=== PATIENT | male | born 1935 | race Caucasian/White ===

== ENCOUNTER 2017-01-18 15:34 | Emergency (ER) | payer OTHER ==
[~2017-01-18] VITALS: Ht 175.3 cm; Wt 130.0 kg
[~2017-01-18 15:34] MED LIST: AMLO2.5T PO; ASCO10003 PO; ASPEC325 PO; ATOR-22 PO; CLB/200 PO; CZR50 PO; FRS/40 PO; HYDR-4380 PO; INSDGI SC; LIRA18IN INJ; METF1TAB53 PO; POTA10CA28 PO
[2017-01-18 15:37] VITALS: TEMP 36.3
[2017-01-18 16:09] VITALS: O2SAT 94; Ht 175.3 cm; Wt 130.0 kg
--- NOTE | 2017-01-18 16:21 | DIAGNOSTIC IMAGING REPORT ---
SINGLE VIEW CHEST CLINICAL HISTORY: Generalized weakness. FINDINGS: An AP, portable, upright chest radiograph is compared to study dated 08/17/2016. The examination is degraded by portable technique, large body habitus, and patient rotation. The heart is enlarged and there is atherosclerotic calcification of the thoracic aorta. The pulmonary vasculature is noncongested. There is mild elevation of right hemidiaphragm. No airspace consolidation is identified typical for pneumonia and there is no pleural effusion. No pneumothorax is seen. The skeletal structures are osteopenic. Degenerative change is noted in the thoracic spine and shoulders. IMPRESSION: Cardiomegaly with no acute cardiopulmonary abnormality. Electronically signed by: Rock Rose M.D. 01/18/2017 4:19 PM Dictated Date/Time: 01/18/2017 4:18 PM
[2017-01-18] MEDS ORDERED: FRS/40 PO (16:24)
[2017-01-18] MEDS ORDERED: CEPH500C2 PO (16:24)
[2017-01-18] MEDS ORDERED: ASCO500T16 PO (16:24)
[2017-01-18] MEDS ORDERED: LOSA100T65 PO (16:24)
[2017-01-18] MEDS ORDERED: HYDR-3419 PO (16:24)
[2017-01-18] MEDS ORDERED: INSDGI SC (16:24)
[2017-01-18] MEDS ORDERED: METF500T PO (16:24)
[2017-01-18 16:58] LABS: PARTIAL THROMBOPLASTIN RATIO 1.1; PROTHROMBIN TIME (PATIENT) 10.9 SECONDS (9.0-12.0)
[2017-01-18 17:04] LABS: BUN/CREATININE RATIO 19.6 (10-20); CALCIUM 9.1 mg/dl (8.5-10.1); MAGNESIUM 2.2 mg/dl (1.8-2.4); POTASSIUM 4.2 mmol/L (3.5-5.1)
[2017-01-18 17:11] LABS: BASO % 0.2 %; BASO ABS # 0.01 K/uL (0-0.2); COMPLETE YES; EOS % 3.3 %; IG% 0.2 %; LYMPH % 36.6 %; LYMPH ABS # 2.08 K/uL (1.2-3.4); MEAN CELL VOLUME 82.5 fL (80-100); MEAN CORPUSCULAR HEMOGLOBIN 29.2 pg (25-34); MEAN CORPUSCULAR HGB CONC 35.4 g/dl (32-36); MEAN PLATELET VOLUME 11.2 fL (7.4-10.4); NEUT % 50.7 %; PLATELET COUNT 93 K/uL (130-400); PLT ESTIMATE DECREASED; RED BLOOD COUNT 4.24 M/uL (4.7-6.1); WHITE BLOOD COUNT 5.68 K/uL (4.8-10.8)
[2017-01-18 17:15] LABS: THYROID STIMULATING HORMONE 7.13 uIu/ml (0.300-4.500)
--- NOTE | 2017-01-18 17:17 | DIAGNOSTIC IMAGING REPORT ---
ULTRASOUND BILATERAL LOWER EXTREMITY VENOUS CLINICAL HISTORY: Lower extremity swelling and erythema. COMPARISON STUDY: No priors. TECHNIQUE: Real-time, grayscale, and color Doppler sonography of the deep veins of the right and left lower extremity was performed from the inguinal crease to the calf. Compression and augmentation were utilized. FINDINGS: There is no sonographic evidence of deep venous thrombosis identified in the right or left lower extremity. The common femoral, superficial femoral, and popliteal veins are patent and normally compressible bilaterally. The greater saphenous vein and the profunda femoris vein at the junction with the common femoral vein are clear in both legs. The visualized calf veins are patent bilaterally. IMPRESSION: There is no sonographic evidence of deep venous thrombosis identified in the right or left lower extremity. Electronically signed by: Rock Rose M.D. 01/18/2017 5:15 PM Dictated Date/Time: 01/18/2017 5:15 PM
[2017-01-18] MEDS ORDERED: CEFTRIAXONE SOD INJ 1 GM ADDVIAL IV STA (17:49)
[2017-01-18 18:38] VITALS: BP 155/80; PULSE 77; O2SAT 98
--- NOTE | 2017-01-18 20:16 | EMERGENCY ROOM VISIT NOTE ---
History Report prepared by Veronica: Ricardo Canseco Under the Supervision of: Dr. Akhil Reed M.D. First contact with patient: 15:45 Chief Complaint: SWELLING TO EXTREMITY Stated Complaint: FEET ARE SWOLLEN AND BRIGHT RED History of Present Illness The patient is a 81 year old male who presents to the Emergency Room with complaints of recurrent cellulitis of the lower extremities for the past several weeks. The patient was started on antibiotics when he first saw his PCP , which significantly cleared up the rash. The rash recurred and the patient saw his doctor again yesterday when he was started on Keflex. The patient decided to come to the ED because he is not satisfied that the rash is still present. He is also worried about his feet in general as he is a diabetic. The patient does follow up with a insurance agency manager. He notes that his lower extremities have been swollen since surgery in August. The patient does take Lasix. The patient follow up with Dr. Akhil Nevarez in Family Medicine. The patient is not on blood thinners or daily aspirin. Patient denies LOC, headache, fevers, chills, diaphoresis, visual changes, neck pain, chest pain, breathing difficulties, nausea, vomiting, abdominal pain, back pain, melena, hematochezia, urinary symptoms, numbness, weakness, lymphadenopathy, or other complaints. Source of History: patient Onset: several weeks Position: leg (bilateral, lower) Quality: other (cellulitis) Timing: other (recurrent) Modifying Factors (Relieving): other (antibiotics) Review of Systems See HPI for pertinent positives and negatives. A total of ten systems were reviewed and were otherwise negative. Past Medical & Surgical Medical Problems: (1) Atrial flutter (2) DM type 2 (diabetes mellitus, type 2) (3) Dyslipidemia (4) HTN (hypertension) (5) JUVE (obstructive sleep apnea) Surgical Problems: (1) H/O repair of left rotator cuff (2) H/O repair of right rotator cuff (3) History of bilateral knee arthroplasty (4) History of carpal tunnel surgery of left wrist (5) History of carpal tunnel surgery of right wrist Family History Patient reports no known family medical history. Social History Smoking Status: Never Smoker Alcohol Use: occasionally Occupation Status: retired Current/Historical Medications Scheduled Amlodipine (Norvasc), 2.5 MG PO QPM Ascorbic Acid (Ascorbic Acid), 1,000 MG PO DAILY Atorvastatin (Lipitor), 20 MG PO QAM Celecoxib (CeleBREX), 200 MG PO QAM Cephalexin Monohydrate (Keflex), 500 MG PO QID Furosemide (Lasix), 40 MG PO QAM Furosemide (Lasix), 20 MG PO AFTERNOON Insulin Glargine (Lantus), 70 UNITS SC AMPM Liraglutide (Victoza), 1.2 MG INJ QPM Losartan Potassium (Cozaar), 100 MG PO QPM Metformin Hcl (Glucophage), 500 MG PO BID Potassium Chloride (Micro-K Ext Rel), 10 MEQ PO BID Scheduled PRN Hydrocodon/Acetaminophen 5MG/300MG (Vicodin (5MG/300MG)), 1 TAB PO Q6H PRN for Moderate Pain Allergies Coded Allergies: Penicillins (Verified Allergy, Unknown, RASH AND WELTS, 08/30/16) Physical Exam Vital Signs Date Time Temp Pulse Resp B/P Pulse Ox O2 Delivery O2 Flow Rate FiO2 01/18/17 18:38 77 18 155/80 98 01/18/17 17:27 78 14 180/93 98 Room Air 01/18/17 16:17 84 01/18/17 16:09 94 Room Air 01/18/17 15:37 36.3 86 20 123/74 95 Room Air Physical Exam GENERAL: Awake, alert, well-appearing, in no distress HENT: Normocephalic, atraumatic. Oropharynx unremarkable. EYES: Normal conjunctiva. Sclera non-icteric. NECK: Supple. No nuchal rigidity. FROM. No JVD. RESPIRATORY: Clear to auscultation. CARDIAC: Regular rate, normal rhythm. Extremities warm and well perfused. Pulses equal. ABDOMEN: Soft, non-distended. No tenderness to palpation. No rebound or guarding. No masses. RECTAL: Deferred. MUSCULOSKELETAL: Chest examination reveals no tenderness. The back is symmetrical on inspection without obvious abnormality. There is no CVA tenderness to palpation. No joint edema. LOWER EXTREMITIES: Erythema and tenderness with petechia on top of both feet. Erythematous rash over the lateral aspect of the right leg, circumferential over the left leg. 2+ edema bilaterally. NEURO: Normal sensorium. No sensory or motor deficits noted. SKIN: No rash or jaundice noted. Medical Decision & Procedures ER Provider Diagnostic Interpretation: X ray results as stated below per my interpretation and radiologist interpretation. Other radiology results as stated below per my review and radiologist interpretation SINGLE VIEW CHEST CLINICAL HISTORY: Generalized weakness. FINDINGS: An AP, portable, upright chest radiograph is compared to study dated 08/17/2016. The examination is degraded by portable technique, large body habitus, and patient rotation. The heart is enlarged and there is atherosclerotic calcification of the thoracic aorta. The pulmonary vasculature is noncongested. There is mild elevation of right hemidiaphragm. No airspace consolidation is identified typical for pneumonia and there is no pleural effusion. No pneumothorax is seen. The skeletal structures are osteopenic. Degenerative change is noted in the thoracic spine and shoulders. IMPRESSION: Cardiomegaly with no acute cardiopulmonary abnormality. Electronically signed by: Rock Rose M.D. 01/18/2017 4:19 PM Dictated Date/Time: 01/18/2017 4:18 PM ULTRASOUND BILATERAL LOWER EXTREMITY VENOUS CLINICAL HISTORY: Lower extremity swelling and erythema. COMPARISON STUDY: No priors. TECHNIQUE: Real-time, grayscale, and color Doppler sonography of the deep veins of the right and left lower extremity was performed from the inguinal crease to the calf. Compression and augmentation were utilized. FINDINGS: There is no sonographic evidence of deep venous thrombosis identified in the right or left lower extremity. The common femoral, superficial femoral, and popliteal veins are patent and normally compressible bilaterally. The greater saphenous vein and the profunda femoris vein at the junction with the common femoral vein are clear in both legs. The visualized calf veins are patent bilaterally. IMPRESSION: There is no sonographic evidence of deep venous thrombosis identified in the right or left lower extremity. Electronically signed by: Rock Rose M.D. 01/18/2017 5:15 PM Dictated Date/Time: 01/18/2017 5:15 PM Laboratory Results 01/18/17 16:30 Red Blood Count 4.24, Mean Corpuscular Volume 82.5, Mean Corpuscular Hemoglobin 29.2, Mean Corpuscular Hemoglobin Concent 35.4, Mean Platelet Volume 11.2, Neutrophils (%) (Auto) 50.7, Lymphocytes (%) (Auto) 36.6, Monocytes (%) (Auto) 9.0, Eosinophils (%) (Auto) 3.3, Basophils (%) (Auto) 0.2, Neutrophils # (Auto) 2.88, Lymphocytes # (Auto) 2.08, Monocytes # (Auto) 0.51, Eosinophils # (Auto) 0.19, Basophils # (Auto) 0.01 01/18/17 16:30 Test 01/18/17 16:30 White Blood Count 5.68 K/uL (4.8-10.8) Red Blood Count 4.24 M/uL (4.7-6.1) Hemoglobin 12.4 g/dL (14.0-18.0) Hematocrit 35.0 % (42-52) Mean Corpuscular Volume 82.5 fL (80-100) Mean Corpuscular Hemoglobin 29.2 pg (25-34) Mean Corpuscular Hemoglobin Concent 35.4 g/dl (32-36) Platelet Count 93 K/uL (130-400) Mean Platelet Volume 11.2 fL (7.4-10.4) Neutrophils (%) (Auto) 50.7 % Lymphocytes (%) (Auto) 36.6 % Monocytes (%) (Auto) 9.0 % Eosinophils (%) (Auto) 3.3 % Basophils (%) (Auto) 0.2 % Neutrophils # (Auto) 2.88 K/uL (1.4-6.5) Lymphocytes # (Auto) 2.08 K/uL (1.2-3.4) Monocytes # (Auto) 0.51 K/uL (0.11-0.59) Eosinophils # (Auto) 0.19 K/uL (0-0.5) Basophils # (Auto) 0.01 K/uL (0-0.2) RDW Standard Deviation 44.9 fL (36.4-46.3) RDW Coefficient of Variation 14.8 % (11.5-14.5) Immature Granulocyte % (Auto) 0.2 % Immature Granulocyte # (Auto) 0.01 K/uL (0.00-0.02) Platelet Estimate DECREASED Red Blood Cell Morphology Unremarkable Prothrombin Time 10.9 SECONDS (9.0-12.0) Prothromb Time International Ratio 1.0 (0.9-1.1) Activated Partial Thromboplast Time 28.3 SECONDS (21.0-31.0) Partial Thromboplastin Ratio 1.1 Anion Gap 8.0 mmol/L (3-11) Est Creatinine Clear Calc Drug Dose 80.0 ml/min Estimated GFR () 82.6 Estimated GFR (Non- 71.3 BUN/Creatinine Ratio 19.6 (10-20) Calcium Level 9.1 mg/dl (8.5-10.1) Magnesium Level 2.2 mg/dl (1.8-2.4) Total Bilirubin 0.7 mg/dl (0.2-1) Direct Bilirubin 0.2 mg/dl (0-0.2) Aspartate Amino Transf (AST/SGOT) 27 U/L (15-37) Alanine Aminotransferase (ALT/SGPT) 33 U/L (12-78) Alkaline Phosphatase 95 U/L (45-117) Pro-B-Type Natriuretic Peptide 75 pg/ml (0-1800) Total Protein 7.0 gm/dl (6.4-8.2) Albumin 3.4 gm/dl (3.4-5.0) Lipase 288 U/L (73-393) Thyroid Stimulating Hormone (TSH) 7.130 uIu/ml (0.300-4.500) Laboratory results reviewed by me Medications Administered Medications (Trade) Dose Ordered Sig/Kirsten Route Start Time Stop Time Status Last Admin Dose Admin Ceftriaxone Sodium (Rocephin Inj) 1 gm NOW STAT IV 01/18/17 17:49 01/18/17 17:50 DC 01/18/17 17:58 1 GM ECG Indication: other (edema) Rate (beats per minute): 78 Rhythm: sinus rhythm Findings: 1st degree AV block, no acute ischemic change, no ectopy ED Course 1550: The patient was evaluated in room A9b. A complete history and physical exam was performed. 173: The patient is doing well. He will get Rocephin. 1749: Rocephin 1 gm IV. 1820: Reassessed the patient. Discussed the findings with him. He verbalized understanding of the treatment plan. The patient is ready for discharge. Medical Decision Prior records reviewed and summarized above. Triage Nursing notes reviewed and agree them. Additional history obtained from the . The patient's history was concerning for swelling and pain in the legs. Differential diagnosis: Etiologies such as cellulitis, DVT, joint effusion, infection, trauma, muscular , lymphedema, idiopathic, CHF, as well as others were entertained.. Physical examination: The physical examination as above. Neurovascularly intact. ER treatment provided: IV Rocephin On reassessment the patient felt better. Diagnostics interpreted by me: The labs revealed an unremarkable CBC and chemistry panel except the patient had slight thrombocytopenia. LFTs were unremarkable. Albumin was normal. BNP was negative. Renal function normal. Imaging studies: Chest x-ray and ultrasound as above The patient notes the redness of the lower legs has improved since initiation of the Keflex but it is still present. There is some petechiae appearance to it but there is definite some erythema as well. He may be experiencing an improving cellulitis. He has no evidence of DVT. No evidence of heart failure or hypoalbuminemia. The patient was given a dose of IV Rocephin. He feels comfortable with continuing the Keflex and following up tomorrow with the primary office. The patient was given strict instructions to return if symptoms worsen or other problems develop. By the evaluation outlined above emergent etiologies such as septic joint, trauma, infection, CHF, as well as others were deemed relatively unlikely. The patient and were informed about the findings as listed above. All questions were answered and they were very pleased with the treatment. Return instructions were outlined and the patient was discharged in stable condition. Outpatient prescription management: Continue Keflex Referral: The patient was referred back to his primary care physician for follow-up this week for a recheck of the current condition. I did instruct him to have a repeat CBC performed. The chart was completed utilizing [employer] voice recognition software. Grammatical errors, random word insertions, pronoun errors, and incomplete sentences are an occasional consequence of this system due to software limitations, ambient noise, and hardware issues. Any formal questions or concerns about the content, text, or information contained within the body of this dictation should be directly addressed to the physician for clarification. Impression Primary Impression: Cellulitis Additional Impression: Thrombocytopenia Scribe Attestation The scribe's documentation has been prepared under my direction and personally reviewed by me in its entirety. I confirm that the note above accurately reflects all work, treatment, procedures, and medical decision making performed by me. Departure Information Dispostion Home / Self-Care Referrals Akhil Nevarez III, M.D. (PCP) Forms HOME CARE DOCUMENTATION FORM, IMPORTANT VISIT INFORMATION, WORK / SCHOOL INSTRUCTIONS Patient Instructions [facility] Additional Instructions Continue the Keflex as prescribed. Acetaminophen(Tylenol) may be used for fever or pain. Use 1000mg every six hours as needed. Avoid using more than 4000mg in a 24 hour period. Warm compresses to the affected area 4 times daily for 15-20 minutes. Elevate the legs to help with swelling. Rest and drink plenty of fluids. Continue current medications. Return to the ER for severe pain, persistent fevers, spreading redness, or any worsening of your condition. Follow up with your primary physician tomorrow for a recheck of the current condition. Problem Qualifiers
[2017-03-08] MEDS ORDERED: TRMO115 TOP (08:51)
[2017-03-08] MEDS ORDERED: VNTHFA/IN INH (08:58)
[2017-03-30] MEDS ORDERED: OXYC-57 PO (21:29)
[2017-03-30] MEDS ORDERED: FRRG PO (21:29)
[2017-03-30] MEDS ORDERED: ASPEC81 PO (21:29)
== END 2017-01-18 18:39 | disposition home or self-care (01) ==
LOC: C.EDB 15:36 → C.EDA 18:39
DX: L03.115 Cellulitis of right lower limb (principal); L03.116 Cellulitis of left lower limb; D69.6 Thrombocytopenia, unspecified; E11.9 Type 2 diabetes mellitus without complications; I48.92 Unspecified atrial flutter; E78.5 Hyperlipidemia, unspecified; I10 Essential (primary) hypertension; G47.33 Obstructive sleep apnea (adult) (pediatric); Z79.4 Long term (current) use of insulin

== ENCOUNTER → 2017-03-16 | Outpatient (CLI) | payer OTHER ==
[~2017-03-16] MED LIST changes: -ASCO10003 PO; +ASCO500T16 PO; -ASPEC325 PO; +ASPEC81 PO; +ASPI81TA28 PO; +CIPR-255 PO; -CZR50 PO; +FERR325T18 PO; +FRRG PO; +HYDR-3419 PO; -HYDR-4380 PO; +LOSA100T65 PO; -METF1TAB53 PO; +METF500T PO; +OXYC-57 PO; +TRMO115 TOP; +VNTHFA/IN INH
[2017-03-16 17:08] LABS: PROTHROMBIN TIME (PATIENT) 11.1 SECONDS (9.0-12.0)
== END | disposition home or self-care (01) ==
LOC: C.LABBC 15:02
PROVIDERS: ATTEND Orthopaedic Surgery Sports Medicine
DX: Z01.818 Encounter for other preprocedural examination (principal); M16.10 Unilateral primary osteoarthritis, unspecified hip

== ENCOUNTER → 2017-03-28 | Outpatient (CLI) | payer OTHER ==
[2017-03-28 13:56] LABS: PROTHROMBIN TIME (PATIENT) 10.8 SECONDS (9.0-12.0)
== END | disposition home or self-care (01) ==
LOC: C.LABBC 09:27
PROVIDERS: ATTEND Orthopaedic Surgery Sports Medicine
DX: Z01.812 Encounter for preprocedural laboratory examination (principal)

== ENCOUNTER 2017-03-29 05:12 | Inpatient (IN) | payer OTHER ==
[2017-03-08 08:53] VITALS: BMI 45.0
--- NOTE | 2017-03-08 09:51 | PAT Medication Instructions ---
Service Date March 08, 2017. Current Home Medication List Albuterol Hfa (Ventolin Hfa), 2-4 PUFFS INH Q6H Amlodipine (Norvasc), 2.5 MG PO QPM Ascorbic Acid (Ascorbic Acid), 1,000 MG PO QAM Atorvastatin (Lipitor), 20 MG PO QAM Celecoxib (CeleBREX), 200 MG PO QAM Furosemide (Lasix), 40 MG PO QAM Furosemide (Lasix), 20 MG PO HS Hydrocodon/Acetaminophen 5MG/300MG (Vicodin (5MG/300MG)), 1 TAB PO Q6H PRN for Moderate Pain Insulin Glargine (Lantus), 70 UNITS SC AMPM Liraglutide (Victoza), 1.2 MG INJ QPM Losartan Potassium (Cozaar), 100 MG PO QPM Metformin Hcl (Glucophage), 500 MG PO BID Potassium Chloride (Micro-K Ext Rel), 10 MEQ PO BID Triamcinolone Acet (Triamcinolone Acetonide), 1 APPLN TOP BID PRN for prn Medication Instructions For Your Scheduled Surgery - Hold the following medications 48 hours prior to surgery: Metformin Hcl (Glucophage), 500 MG PO BID (last dose will be in the morning on 03/09/17) - Hold the following medications evening prior to surgery: Losartan Potassium (Cozaar), 100 MG PO QPM - Hold the following medications 24 hours prior to surgery: Triamcinolone Acet (Triamcinolone Acetonide), 1 APPLN TOP BID PRN for prn - Hold the following medications the morning of surgery: Potassium Chloride (Micro-K Ext Rel), 10 MEQ PO BID Furosemide (Lasix), 40 MG PO QAM Ascorbic Acid (Ascorbic Acid), 1,000 MG PO QAM Celecoxib (CeleBREX), 200 MG PO QAM (not told to stop by surgeon) - Take the following medications the morning of surgery with a sip of water: Hydrocodon/Acetaminophen 5MG/300MG (Vicodin (5MG/300MG)), 1 TAB PO Q6H PRN for Moderate Pain (can take up to four hours prior to surgery if needed) Atorvastatin (Lipitor), 20 MG PO QAM Albuterol Hfa (Ventolin Hfa), 2-4 PUFFS INH Q6H (bring with you to hospital on day of surgery) - Take the following medications as scheduled the night before surgery: Potassium Chloride (Micro-K Ext Rel), 10 MEQ PO BID Liraglutide (Victoza), 1.2 MG INJ QPM Hydrocodon/Acetaminophen 5MG/300MG (Vicodin (5MG/300MG)), 1 TAB PO Q6H PRN for Moderate Pain Furosemide (Lasix), 20 MG PO HS Amlodipine (Norvasc), 2.5 MG PO QPM Albuterol Hfa (Ventolin Hfa), 2-4 PUFFS INH Q6H Insulin Glargine (Lantus), 70 UNITS SC AMPM - For Insulin Dependent Diabetic patients: Test blood sugar A.M. of surgery. - If blood sugar is greater than 150, take half of your regular dose of: Lantus 35 units - If blood sugar is less than 150, do not take any: Lantus If you have any questions please call us at [phone] or [phone] ( [place]) or [phone]
[2017-03-08 09:53] LABS: MEAN CELL VOLUME 85.4 fL (80-100); MEAN CORPUSCULAR HEMOGLOBIN 29.3 pg (25-34); MEAN CORPUSCULAR HGB CONC 34.3 g/dl (32-36); WHITE BLOOD COUNT 5.72 K/uL (4.8-10.8)
[2017-03-08 09:54] LABS: BASO % 0.3 %; BASO ABS # 0.02 K/uL (0-0.2); COMPLETE YES; EOS % 3.5 %; LYMPH % 36.9 %; LYMPH ABS # 2.11 K/uL (1.2-3.4); MEAN PLATELET VOLUME 11.3 fL (7.4-10.4); MONO % 7.5 %; NEUT % 51.8 %; PLATELET COUNT 98 K/uL (130-400)
--- NOTE | 2017-03-10 02:21 | HISTORY & PHYSICAL EXAMINATION ---
DATE OF ADMISSION: 03/11/2017 CHIEF COMPLAINT: Right hip pain and discomfort. HISTORY OF PRESENT ILLNESS: A 81-year-old male who is now about 6 months out from back surgery, done by Dr. Magaña. He has got several year history of right hip pain and discomfort that has gotten significantly worse, particularly since his back surgery. He had a pretty extensive decompression from L2-L5 and it did help some of the symptoms, but he continues to be bothered by groin pain, thigh pain. He has difficulty putting his shoes and socks on. He has actually was ordered using 2 canes to get around. His pain is pretty severe. He has got an 82th birthday coming up and does not think he can make the celebration that his family is having for him unless he has his hip replaced. No fevers. He does have some mild diffuse edema in both legs. PAST MEDICAL HISTORY: 1. Hypertension. 2. Elevated cholesterol. 3. Sleep apnea with CPAP machine. 4. Diabetes. 5. Obesity with a BMI of 45. 6. Gastroesophageal reflux disease. PREVIOUS SURGICAL HISTORY: Include: 1. Bilateral knee replacements, done by myself, August 2008. 2. Bilateral shoulder surgery done by Dr. Torres 3. Wrist surgery x2. 4. Back surgery in 08/30/2016. ALLERGIES: PENICILLIN WHICH CAUSED A RASH. NO RESPIRATORY PROBLEMS. CURRENT MEDICATIONS: Include: 1. Hydrocodone for pain. 2. Aristocort topical ointment. 3. Furosemide 40 mg in the morning and 20 mg in the afternoon. 4. Metformin 500 mg twice a day. 5. Klor-Con 10 mEq twice a day. 6. Norvasc 2.5 mg a day. 7. Celebrex 200 mg. 8. Lantus insulin 7 units in the morning and evening. 9. Lipitor 20 mg a day. 10. Victoza. 11. Losartan 100 mg at night. SOCIAL HISTORY: A 81-year-old male. He is . He has been a [employer] resident. FAMILY HISTORY: Noncontributory. REVIEW OF SYSTEMS: Negative for any chest pain or shortness of breath. No history of DVT. He does have exertional shortness of breath. No bleeding problems. PHYSICAL EXAMINATION: GENERAL: Reveals a pleasant elderly male. Looks fairly poorly conditioned. HEENT: Benign. NECK: Supple. No lymphadenopathy. LUNGS: Clear to auscultation. HEART: Regular rate and rhythm. ABDOMEN: Soft, nontender, nondistended. EXTREMITIES: Grossly neurovascularly intact except as follows: Examination of the right hip and leg reveals the patient walks with a significant limp. In fact walks using 2 canes and difficulty getting around with this. He is a little bit short on the right side compared to the left, as far leg lengths. He has got pain with any type of hip motion. He is neurologically intact. Negative straight leg raise. IMAGING DATA: X-ray of the right hip reviewed. It shows an advanced right hip arthritis. He has got complete loss of his joint space. He has got cystic changes in femoral head and acetabulum. He has got some diffuse osteopenia of the femur. ASSESSMENT AND PLAN: A 81-year-old male status post bilateral knee replacements and a more recent back surgery with advanced right hip degenerative joint disease. I think his hips probably the limiting factor for quite some time. Having difficulty getting around and he would like to have his hip replaced. PLAN: We talked about treatment and we are going to plan on taking him to the operating room and do a right total hip replacement. The risks and benefits of the procedure explained to the patient include but not limited to DVT, PE, , infection, neurological injury, vascular injury, bleeding problem, pain in range of motion, stiffness, failure to relieve the symptoms, incomplete relief of symptom, fracture, leg length inequality, nerve palsy, etc. The patient understands and desires. Informed consent was obtained. He is hoping to go on a trip in about a month to celebrate his 82th birthday. I think he will probably better than then he is now. He describes allergy to penicillin as hives. Will plan on using Ancef. He is going to start wearing MATTHIAS stockings more regularly to control the swelling in his legs below his knees. He will bring a CPAP machine to the hospital. Will proceed with surgery as soon as he gets cleared. JER
[2017-03-28 12:18] LABS: BASO % 0.3 %; BASO ABS # 0.02 K/uL (0-0.2); EOS % 2.7 %; HEMATOCRIT 38.1 % (42-52); IG% 0.1 %; LYMPH % 31.8 %; LYMPH ABS # 2.43 K/uL (1.2-3.4); MEAN CELL VOLUME 85.6 fL (80-100); MEAN CORPUSCULAR HEMOGLOBIN 29.7 pg (25-34); MEAN PLATELET VOLUME 10.6 fL (7.4-10.4); MONO % 7.2 %; NEUT % 57.9 %; PLATELET COUNT 115 K/uL (130-400); RED BLOOD COUNT 4.45 M/uL (4.7-6.1); WHITE BLOOD COUNT 7.64 K/uL (4.8-10.8)
[2017-03-28 12:25] LABS: COMPLETE YES; MEAN CORPUSCULAR HGB CONC 34.6 g/dl (32-36)
[~2017-03-29] VITALS: Ht 174 cm; Wt 130.0 kg
[2017-03-29] VITALS (13 sets, daily range): BP systolic 115–174; BP diastolic 42–83; PULSE 72–82; TEMP 36.3–38.3; O2SAT 90–98; Ht 174 cm; Wt 130.0 kg
[~2017-03-29 05:12] MED LIST changes: -ASPEC81 PO; -ASPI81TA28 PO; -CIPR-255 PO; -FERR325T18 PO; -FRRG PO; -OXYC-57 PO
[2017-03-29] MEDS ORDERED: LACTATED RINGER'S 1000ML 500 ML IV ONE (06:00)
[2017-03-29] MEDS ORDERED: FAMOTIDINE 20 MG TAB PO SCH (06:00)
[2017-03-29] MEDS ORDERED: LACTATED RINGER'S 1000ML 1,000 ML IV SCH (06:00)
[2017-03-29] MEDS ORDERED: LACTATED RINGER'S 1000ML IV SCH (06:00)
[2017-03-29] MEDS ORDERED: SCOPOLAMINE 1.5 MG TDSY TD SCH (06:00)
[2017-03-29] MEDS ORDERED: ACETAMINOPHEN 500 MG TAB PO SCH (06:00)
[2017-03-29] MEDS ORDERED: METOCLOPRAMIDE HCL 10 MG TAB PO SCH (06:00)
[2017-03-29] MEDS ORDERED: CEFAZOLIN 3000 MG/65 ML D5W 65 ML IV SCH (06:00)
[2017-03-29] MEDS ORDERED: GABAPENTIN 300 MG CAP PO SCH (06:00)
[2017-03-29 06:13] LABS: HEMATOCRIT 39.2 % (42-52); MEAN CELL VOLUME 85.6 fL (80-100); MEAN CORPUSCULAR HEMOGLOBIN 28.2 pg (25-34); MEAN PLATELET VOLUME 10.8 fL (7.4-10.4); PLATELET COUNT 113 K/uL (130-400); RED BLOOD COUNT 4.58 M/uL (4.7-6.1); WHITE BLOOD COUNT 6.36 K/uL (4.8-10.8)
[2017-03-29 06:20] LABS: MEAN CORPUSCULAR HGB CONC 32.9 g/dl (32-36)
[2017-03-29] MEDS ORDERED: BUPIVACAINE/EPINEPHRINE 0.5% MPF 1:200,000 30 ML VIAL ONE (06:33)
[2017-03-29] MEDS ORDERED: BACITRACIN 50000 UNIT VIAL ONE (06:33)
[2017-03-29] MEDS ORDERED: PROPOFOL IV EMULSION 10 MG/ML 20 ML VIAL IV ONE ×3 (06:36→08:40)
[2017-03-29] MEDS ORDERED: FENTANYL CITRATE INJ 50 MCG/1 ML 2 ML VIAL ONE (06:36)
[2017-03-29] MEDS ORDERED: BUPIVACAINE 0.5 % 5 MG/1 ML PF 10ML VIAL ONE (06:36)
[2017-03-29] MEDS ORDERED: MoRPHine SULFATE PF 1 MG/ML 10 ML AMP/VIAL ONE (06:36)
[2017-03-29] MEDS ORDERED: ONDANSETRON INJ 2 MG/ML 2 ML VIAL ONE (06:36)
[2017-03-29] MEDS ORDERED: MIDAZOLAM HCL 1 MG/ML 2ML VIAL ONE ×2 (06:36→07:14)
--- NOTE | 2017-03-29 06:50 | History & Physical Bridge Note ---
H&P Re-Evaluation Bridge Note: I have examined the patient, reviewed the History & Physical and in the interval since the performance of the History & Physical I have noted the following changes of clinical significance: No changes noted
[2017-03-29] MEDS ORDERED: TRANEXAMIC ACID INJ 1,000 MG in SODIUM CHLORIDE 0.9% 100ML 100 ML IV SCH (07:00)
[2017-03-29] MEDS ORDERED: PHENYLEPHRINE 100MCG/ML 5ML SYR ONE (07:29)
[2017-03-29] MEDS ORDERED: EpHEDrine SULFATE 50MG/5ML SYR ONE (07:32)
[2017-03-29] MEDS ORDERED: NALOXONE HCL INJ 0.08 MG in SYRINGE 1.8 ML IV PRN (08:54)
[2017-03-29] MEDS ORDERED: LACTATED RINGER'S 1000ML 500 ML IV PRN (08:54)
[2017-03-29] MEDS ORDERED: NALOXONE HCL INJ 1 MG in SODIUM CHLORIDE 0.9% 1000ML 1,000 ML IV PRN ×4 (08:54)
[2017-03-29] MEDS ORDERED: SODIUM CHLORIDE 0.9% 1000ML 1,000 ML IV PRN (08:54)
--- NOTE | 2017-03-29 08:57 | [facility] Post Operative Brief Note ---
Immediate Operative Summary Operative Date March 29, 2017. Pre-Operative Diagnosis Advanced Right Hip Degenerative Joint Disease Post-Operative Diagnosis Advanced Right Hip Degenerative Joint Disease Procedure(s) Performed Right Total Hip Arthroplasty--Uncemented Surgeon Dr. Nunez Video Games Mechanic Surgeon(s) ELVIRA Sanderson Estimated Blood Loss 400 cc Findings Right Hip DJD Fluids (cc crystalloids) 1600 cc Specimens Right Femoral Head Drains None Anesthesia Spinal Complication(s) None Disposition Recovery Room / PACU
[2017-03-29] MEDS ORDERED: ONDANSETRON INJ 2 MG/ML 2 ML VIAL IV PRN (09:00)
[2017-03-29] MEDS ORDERED: BISACODYL 10 MG SUPP PR PRN (09:00)
[2017-03-29] MEDS ORDERED: DEXTROSE 50% 50 ML SYR IV PRN (09:00)
[2017-03-29] MEDS ORDERED: DiphenhydrAMINE HCL 50 MG/ML VIAL IV PRN (09:00)
[2017-03-29] MEDS ORDERED: ALUMINUM/MAGNESIUM/SIMETH (MAALOX MAX) 30 ML UDC PO PRN (09:00)
[2017-03-29] MEDS ORDERED: NALOXONE HCL 0.4 MG/1 ML VIAL/CARP IV PRN (09:00)
[2017-03-29] MEDS ORDERED: GLUCAGON FOR INJ 1 MG VIAL SQ PRN (09:00)
[2017-03-29] MEDS ORDERED: TRIAMCINOLONE ACET 0.1% OINT 15 GM TUBE TOP PRN (09:00)
[2017-03-29] MEDS ORDERED: SILVER SULFADIAZINE 1% CR 50 GM JAR EXT PRN (09:00)
[2017-03-29] MEDS ORDERED: NO NARCOTICS OR SEDATIVES SCH (09:00)
[2017-03-29] MEDS ORDERED: EpHEDrine SULFATE INJ 50 MG/ML AMP IV PRN (09:00)
[2017-03-29] MEDS ORDERED: MAGNESIUM HYDROXIDE SUSP 30 ML UDC PO PRN (09:00)
[2017-03-29] MEDS ORDERED: MoRPHine SULFATE PF 1 MG/ML 10 ML AMP/VIAL EPI PRN (09:00)
[2017-03-29] MEDS ORDERED: NALBUPHINE HCL INJ 10 MG/ML AMP IV PRN (09:00)
[2017-03-29] MEDS ORDERED: GLUCOSE 40% GEL 15 GM TUBE PO PRN (09:00)
[2017-03-29] MEDS ORDERED: PROMETHAZINE HCL INJ 25 MG in SODIUM CHLORIDE 0.9% 50ML 50 ML IV PRN (09:00)
[2017-03-29] MEDS ORDERED: GLUCOSE 10 TABS/TUBE PO PRN (09:00)
[2017-03-29] MEDS ORDERED: TAMSULOSIN HCL 0.4 MG CAP PO PRN (09:00)
[2017-03-29] MEDS ORDERED: ALBUTEROL HFA 8 GM INHALER INH PRN (09:00)
--- NOTE | 2017-03-29 09:50 | DIAGNOSTIC IMAGING REPORT ---
RIGHT PELVIS/UNILATERAL HIP 1 VIEW CLINICAL HISTORY: Right hip arthroplasty. COMPARISON: None FINDINGS: Alignment of the total right hip arthroplasty is anatomic. There is no fracture or unexpected radiopaque foreign body. There are acetabular screws and skin jaelyn. IMPRESSION: Expected findings following total right hip arthroplasty. Electronically signed by: Jerald Beverly M.D. 03/29/2017 9:48 AM Dictated Date/Time: 03/29/2017 9:47 AM
--- NOTE | 2017-03-29 09:52 | OPERATIVE REPORT ---
DATE OF OPERATION: 03/29/2017 SURGEON: Yordan Nunez MD KILN FURNITURE CASTER: ELVIRA Cuenca PREOPERATIVE DIAGNOSIS: Right hip degenerative joint disease. POSTOPERATIVE DIAGNOSIS: Same. PROCEDURE PERFORMED: Right uncemented total hip arthroplasty. COMPLICATIONS: None. ESTIMATED BLOOD LOSS: 400 mL. FLUID REPLACEMENT: 1600 mL crystalloid fluid replacement. ANESTHESIA: Duramorph spinal. DRAINS: None. SPECIMENS: Right femoral head sent for pathology. OPERATIVE INDICATIONS: The patient is a 81-year-old gentleman who has had a fairly long history of chronic pain in his back and his hip. He underwent spine surgery about 6 months ago, which helped some, but he continued to be bothered by marked pain and discomfort. He is using 2 canes to go around. X-rays showed advanced right hip DJD. The patient elected to proceed with operative treatment. The patient does have a history of ITP. He was seen and evaluated by hematology and cleared for surgery. OPERATIVE FINDINGS: Operative findings revealed advanced right hip DJD. He had grade 4 [id number]-itan disease. He had a very large soft tissue envelope and a very stiff hip. OPERATIVE IMPLANTS: Operative implants consisted of: 1. A Biomet size 56-mm G7 acetabular shell. 2. A 6.5 cancellous acetabular screws, 1 at 35 mm length and 1 at 20 mm in length. 3. An apex hole eliminator. 4. Highly cross-linked polyethylene liner with a 56 mm outer diameter and 36 mm inner diameter with a hollins placed inferior and posterior. 5. A DePuy size 12 large stature AML femoral stem. 6. A +8.5/36 mm metal articular ball. OPERATIVE PROCEDURE: The patient was taken to the operating room, identified and placed on operative table in the supine position. All contact areas were appropriately padded. IV antibiotics were provided by the anesthesia team. A spinal anesthetic had been implemented in the holding area. Edward catheter was placed in sterile fashion. The patient was then placed in the left lateral decubitus position. An axillary roll was placed. Stulberg hip positioner was used for positioning. We spent a little extra time positioning this gentleman due to his very large size. The right hip and leg were then prepped and draped in the usual sterile fashion. A posterolateral approach to the right hip was then performed through a curvilinear incision centered over the greater trochanter. Sharp dissection was carried out through the subcutaneous tissue down to the level of the IT band and gluteal fascia. The IT band and gluteal fascia were incised longitudinally in line with skin incision. The underlying greater trochanteric bursa was excised. The piriformis and external rotators as well as the posterior capsule were then released in a single layer as his hip was extremely tight and very difficult to identify this tissue in that location. Great care was taken throughout the procedure to protect the sciatic nerve at all times. Hip was internally rotated and dislocated. A femoral neck osteotomy cut was made with the final cut about 12 mm above the lesser trochanter. Femoral head was removed and sent for pathology. The femur was retracted anteriorly. Attention was then drawn to the acetabulum. The acetabular labrum was excised. The pulvinar fat was excised. Sequential reaming of the acetabulum was then performed beginning with a size 51 and progressing up to 55. A 56-mm Biomet G7 acetabular shell was then placed in about 40 degrees of lateral opening and 20 degrees of anteversion. We made great effort to try and get this fairly flat and anteverted appropriately, but this was difficult due to the soft tissue envelope. It was fixed with two 6.5 cancellous acetabular screws. A trial liner was placed. Attention was then drawn to the femur. The proximal femur was entered with cookie cutter followed by canal finder and lateralizing reamer. Sequential reaming of the femur was then performed beginning with a size 10 reamer and progressing up to 11.5. We got pretty good chatter even at a 10. I did not think I could get the 13.5 stem in. I was hoping to get the 13.5 in order to get to higher offset option. We then broached beginning with a size 10.5 broach and progressing with a 12 large. We got excellent fit. This was really hard to get down. We then trialed the hip. The +8.5 articular ball seemed to recreate leg lengths appropriate. There was still a soft tissue tension, was a little bit lax, but I did not feel like I had much option to go much more offset. I felt that by increasing the length, I will be lengthening his leg too much. Ideally, I would have got to the 13.5 high offset stem, but was unable to and I did not feel comfortable reaming that far in this gentleman's bone. We elected to accept this. The hip was fully stable in full extension, external rotation, flexion to 90 degrees, and internal rotation to about 50 degrees. It did tend to lever out at that position. We elected to use these implants. All trial implants were removed. An apex hole eliminator was placed. A highly cross-linked polyethylene liner with a hollins placed inferior and posterior to maximize stability in flexion was then placed. A 12 large stature AML femoral stem was placed. We got excellent fit. A +8.5/36 mm metal articular ball was placed. The hip was once again located and found to be stable. Attention was then drawn toward closing. The wound was irrigated with copious amounts of pulsatile lavage solution. I did inject locally with 60 mL of 0.5% Marcaine with epinephrine. The posterior capsule was repaired through drill holes in the posterior trochanter with #2 Ti-Cron suture. The IT band and gluteal fascia were then closed with #1 PDS suture in running fashion. The subcutaneous tissues were then closed with 2 layers with the deep layer #2 Vicryl suture and subcutaneous tissues with 2-0 Dexon suture in a buried interrupted fashion. The skin was closed with skin jaelyn. Leg was then cleaned and dried and a sterile dressing of Xeroform, 4 x 4, sterile ABD pads and Medipore tape were applied. The patient then transferred to the recovery room in stable condition. The patient tolerated the procedure well with no complications. All needle and sponge counts were correct at the end of the operation. I attest to the content of the Intraoperative Record and any orders documented therein. Any exceptions are noted below. JER
--- NOTE | 2017-03-29 09:53 | Anesthesiology Progress Note ---
Anesthesia Post Op Note Date & Time March 29, 2017 at 09:52 Vital Signs Pain Intensity: 0 Vital Signs Past 12 Hours Date Time Temp Pulse Resp B/P Pulse Ox O2 Delivery O2 Flow Rate FiO2 03/29/17 09:40 71 12 121/40 96 Room Air 03/29/17 09:30 36.5 74 22 117/49 96 Room Air 03/29/17 09:20 76 17 119/86 98 Room Air 03/29/17 09:10 78 17 95/41 99 Room Air 03/29/17 09:00 78 17 104/40 99 Mask 10 03/29/17 08:53 36.2 68 19 98/41 100 Mask 10 03/29/17 06:14 36.6 74 16 172/83 98 Room Air Notes Mental Status: alert / awake / arousable, participated in evaluation Pt Amnestic to Procedure: Yes Nausea / Vomiting: adequately controlled Pain: adequately controlled Airway Patency, RR, SpO2: stable & adequate BP & HR: stable & adequate Hydration State: stable & adequate Neuraxial Anesthesia: was administered, sensory block is resolving Anesthetic Complications: no major complications apparent
[2017-03-29] MEDS: SODIUM CHLORIDE 0.9% 1000ML 1,000 ML IV SCH ×2 (11:16→18:37)
[2017-03-29 11:46] LABS: BUN/CREATININE RATIO 15.7 (10-20); CALCIUM 8.2 mg/dl (8.5-10.1); POTASSIUM 3.3 mmol/L (3.5-5.1)
[2017-03-29] MEDS: KETOROLAC TROMETHAMINE 15 MG/ML VIAL IV. SCH ×2 (12:17→18:38)
[2017-03-29] MEDS: INSULIN HUMAN REGULAR SC SCH ×3 (12:17→22:51)
[2017-03-29] MEDS: FERROUS GLUCONATE 324 MG TAB PO SCH ×2 (12:18→18:40)
[2017-03-29] MEDS: CEFAZOLIN IV 2,000 MG in DEXTROSE 5% 50ML 50 ML IV SCH ×2 (14:09→22:41)
[2017-03-29] MEDS ORDERED: TRANEXAMIC ACID INJ 1,000 MG in SODIUM CHLORIDE 0.9% 100ML 100 ML IV ONE (15:00)
[2017-03-29] MEDS: CHECK SCOPOLAMINE PATCH PLACEMENT SCH (16:00)
[2017-03-29] MEDS: FUROSEMIDE 40 MG TAB PO SCH (18:39)
[2017-03-29] MEDS: ACETAMINOPHEN 500 MG TAB PO SCH (18:42)
--- NOTE | 2017-03-29 20:26 | PROGRESS NOTE ---
DATE: 03/29/2017 SUBJECTIVE: A 81-year-old gentleman postop from a right total hip replacement. He is doing well. Not having any pain yet. He says he feels great. No chest pain or shortness of breath. Not feeling dizzy or lightheaded. OBJECTIVE: VITAL SIGNS: Temperature is 36.6. Vital signs stable. PHYSICAL EXAMINATION: GENERAL: Reveals a healthy, pleasant elderly male. He is sitting up in bed, looks quite comfortable. LUNGS: Clear to auscultation. HEART: Regular rate and rhythm. ABDOMEN: Soft, nontender, nondistended. EXTREMITIES: Grossly neurovascularly intact except as follows: Examination of the right leg reveals the leg to be well aligned. Dressing is clean, dry and intact. Thigh is soft and supple. Hip is located. He can dorsiflex and plantarflex his foot appropriately. He is neurologically intact. X-RAYS: X-rays of the right hip from recovery room were reviewed. It shows a right uncemented total hip arthroplasty. Components looked to be in good position. No signs of problems. ASSESSMENT: A 81-year-old gentleman postop from a right total hip replacement, doing well. His pain is controlled. Hip is located. He is neurologically intact. PLAN: 1. DVT prophylaxis including thigh-high TEDs, SCDs, and aspirin. He does have this low platelet count and we will keep an eye on that. 2. PT/OT. Weightbear as tolerated. Right total hip protocol. 3. Pain control, doing well with current pain regimen. 4. IV antibiotics x24 hours. 5. Low platelet count. We will check a platelet count daily and make sure it does not go below 80. 6. Disposition: He is hoping to be discharged to home. We will see how things coming along. He might need a rehab stay as his recently had a cardiac stent placed and may have difficulty helping him.
[2017-03-29] MEDS: POTASSIUM CHLORIDE 10 MEQ TABCR PO SCH (22:42)
[2017-03-29] MEDS: ASPIRIN 81 MG ECTAB PO SCH (22:43)
[2017-03-29] MEDS: AMLODIPINE BESYLATE 5 MG TAB PO SCH (22:43)
[2017-03-29] MEDS: DOCUSATE SODIUM 100 MG CAP PO SCH (22:44)
[2017-03-29] MEDS: LOSARTAN POTASSIUM 50 MG TAB PO SCH (22:45)
--- NOTE | 2017-03-29 23:07 | Medical Consult ---
Consultation Date of Consultation: March 29, 2017 . Attending Physician: Yordan Nunez M.D. . Reason for Consultation: medical management . History of Present Illness 81 [address]O male followed by Dr. Nevarez. History of hypertension, DM type 2, sleep apnea, and other problems as noted below. Right uncemented total hip arthroplasty performed by Dr. Nunez today under Duramorph spinal anesthesia. Doing well postoperatively. No chest pain. No cough or dyspnea. No nausea or vomiting. Has Edward cath. Postop pain well-controlled. . 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 Family History FATHER Myocardial infarction MOTHER Meningitis GRANDFATHER Myocardial infarction PATERNAL UNCLE Myocardial infarction PATERNAL UNCLE Myocardial infarction Social History Smoking Status: Never Smoker Alcohol Use: occasionally Occupation Status: retired Allergies Coded Allergies: Penicillins (Verified Allergy, Unknown, RASH AND WELTS, 03/29/17) Home Medications Reported Home Medications Medications Dose Route/Sig Max Daily Dose Days Date Category Ventolin Hfa (Albuterol) 200 Puffs/92815 Mcg Aers 2-4 Puffs INH Q6H 03/08/17 Reported Triamcinolone Acetonide (Triamcinolone Acet) 45 Appln/15 Gm Oint 1 Appln TOP BID PRN 7 03/08/17 Reported Lasix (Furosemide) 40 Mg Tab 20 Mg PO HS 01/18/17 Reported Ascorbic Acid 500 Mg Tab 1,000 Mg PO QAM 01/18/17 Reported Glucophage (Metformin Hcl) 500 Mg Tab 500 Mg PO BID 01/18/17 Reported Vicodin (5MG/300MG) (Hydrocodon/Acetaminophen 5MG/300MG) 1 Tab Tab 1 Tab PO Q6H PRN 01/18/17 Reported Lantus (Insulin Glargine) 100 Unit/Ml Inj 70 Units SC AMPM 01/18/17 Reported Cozaar (Losartan Potassium) 100 Mg Tab 100 Mg PO QPM 01/18/17 Reported Lipitor (Atorvastatin Calcium) 20 Mg Tab 20 Mg PO QAM 08/17/16 Reported Victoza (Liraglutide) 18 Mg/3 Ml Inj 1.2 Mg INJ QPM 08/17/16 Reported Norvasc (Amlodipine Besylate) 2.5 Mg Tab 2.5 Mg PO QPM 04/14/16 Reported CeleBREX (Celecoxib) 200 Mg Cap 200 Mg PO QAM 04/14/16 Reported Lasix (Furosemide) 40 Mg Tab 40 Mg PO QAM 04/14/16 Reported Micro-K Ext Rel (Potassium Chloride) 10 Meq Capcr 10 Meq PO BID 02/16/11 Reported Current Inpatient Medications Current Inpatient Medications Medications (Trade) Dose Ordered Sig/Kirsten Route Start Time Stop Time Status Last Admin Dose Admin Lactated Ringer's (Lr 1000ml) 1,000 ml @ 15 mls/hr Q24H IV 03/29/17 06:00 03/30/17 05:59 Miscellaneous (Remove Transderm-Scop Patch) 1 ea Q72H N/A 04/01/17 06:00 04/01/17 06:01 Miscellaneous Information (Check Scopolamine Patch Placement) 1 ea QS N/A 03/29/17 16:00 03/31/17 05:59 03/29/17 16:00 1 EA Naloxone HCl (Narcan Inj) 0.1 mg UD PRN IV 03/29/17 09:00 03/30/17 02:00 Diphenhydramine HCl (Benadryl Inj) 25 mg Q6H PRN IV 03/29/17 09:00 03/30/17 02:00 Nalbuphine HCl 5 mg 5 mg Q10M PRN IV 03/29/17 09:00 03/30/17 02:00 Naloxone HCl/ Sodium Chloride (Narcan Inj/Nss 1000ml) 1,002.5 ml @ 50 mls/hr Q20H3M PRN IV 03/29/17 08:54 03/30/17 02:00 Ondansetron HCl 4 mg 4 mg Q6H PRN IV 03/29/17 09:00 03/30/17 02:00 Promethazine HCl 25 mg/Sodium Chloride 51 ml @ 200 mls/hr Q6H PRN IV 03/29/17 09:00 03/30/17 02:00 Naloxone HCl/ Sodium Chloride (Narcan Inj/Nss 1000ml) 1,002.5 ml @ 50 mls/hr Q20H3M PRN IV 03/29/17 08:54 03/30/17 02:00 Miscellaneous Information (Dc Intraspinal Morphine) 0.3 ea ONE ONCE N/A 03/30/17 02:00 03/30/17 02:01 Miscellaneous Information 1 ea 1 ea UD N/A 03/29/17 09:00 03/30/17 02:00 Naloxone HCl 0.08 mg/Syringe 2 ml @ 1 mls/min Q2M PRN IV 03/29/17 08:54 03/30/17 02:00 Lactated Ringer's (Lr 1000ml) 500 ml @ 999 mls/hr Q31M PRN IV 03/29/17 08:54 03/30/17 02:00 Ephedrine Sulfate (EpHEDrine SULFATE INJ) 10 mg Q5M PRN IV 03/29/17 09:00 03/30/17 02:00 Morphine Sulfate TODAY PRN EPI 03/29/17 09:00 03/30/17 02:00 Sodium Chloride 1,000 ml @ 15 mls/hr Q24H PRN IV 03/29/17 08:54 03/30/17 02:00 Sodium Chloride (Nss 1000ml) 1,000 ml @ 150 mls/hr Q6H40M IV 03/29/17 11:00 03/30/17 10:59 03/29/17 18:37 150 MLS/HR Ketorolac Tromethamine (Toradol Inj) 15 mg Q6H IV. 03/29/17 12:00 03/31/17 11:59 03/29/17 18:38 15 MG Oxycodone HCl (Roxicodone Immediate Rel Tab) 1 TABLET FOR PAIN RATING... Q4H PRN PO 03/30/17 02:00 04/13/17 01:59 Acetaminophen (Tylenol Tab) 1,000 mg Q8H PO 03/29/17 16:00 04/28/17 15:59 03/29/17 18:42 1,000 MG Magnesium Hydroxide (Milk Of Magnesia Susp) 30 ml Q6H PRN PO 03/29/17 09:00 04/28/17 08:59 Bisacodyl (Dulcolax Supp) 10 mg DAILY PRN VT 03/29/17 09:00 04/28/17 08:59 Docusate Sodium (coLACE CAP) 100 mg BID PO 03/29/17 21:00 04/28/17 20:59 03/29/17 22:44 100 MG Al Hydrox/Mg Hydrox/Simethicone (Maalox Max Susp) 15 ml Q4H PRN PO 03/29/17 09:00 04/28/17 08:59 Zolpidem Tartrate (Ambien Tab) 5 mg HSZ PRN PO 03/30/17 02:00 04/29/17 01:59 Multivitamins (Multivitamin Tab) 1 tab QAM PO 03/30/17 09:00 04/29/17 08:59 Ondansetron HCl (Zofran Inj) 4 mg Q6H PRN IV 03/30/17 02:00 04/29/17 01:59 Metoclopramide HCl (Reglan Inj) 10 mg Q6H PRN IV 03/30/17 02:00 04/29/17 01:59 Ferrous Gluconate (Ferrous Gluconate Tab) 324 mg TIDM PO 03/29/17 12:30 04/28/17 12:29 03/29/17 18:40 324 MG Pantoprazole Sodium (Protonix Tab) 40 mg QAM PO 03/30/17 09:00 04/29/17 08:59 Silver Sulfadiazine (Silvadene 1% Crm 50GM Jar) 1 appln BID PRN EXT 03/29/17 09:00 04/28/17 08:59 Tamsulosin HCl (Flomax Cap) 0.4 mg QAM PRN PO 03/29/17 09:00 04/28/17 08:59 Aspirin (Ecotrin Tab) 81 mg BID PO 03/29/17 21:00 04/28/17 20:59 03/29/17 22:43 81 MG Insulin Human Regular (novoLIN-R) SLIDING SCALE ACHS SC 03/29/17 12:00 04/28/17 11:59 03/29/17 22:51 2 UNITS Glucose (Glucose 40% Gel) 15-30 GRAMS 15 GRAMS... UD PRN PO 03/29/17 09:00 04/28/17 08:59 Glucose (Glucose Chew Tab) 4-8 Tablets 4 Tabl... UD PRN PO 03/29/17 09:00 04/28/17 08:59 Dextrose (Dextrose 50% 50ML Syringe) 25-50ML OF 50% DW IV FOR... UD PRN IV 03/29/17 09:00 04/28/17 08:59 Glucagon (Glucagon Inj) 1 mg UD PRN SQ 03/29/17 09:00 04/28/17 08:59 Hydromorphone HCl (Dilaudid Inj) 0.5 mg Q1H PRN IV 03/30/17 02:00 04/13/17 01:59 Albuterol (Ventolin Hfa Inhaler) 2 puffs Q6H PRN INH 03/29/17 09:00 04/28/17 08:59 Amlodipine Besylate (Norvasc Tab) 2.5 mg QPM PO 03/29/17 21:00 04/28/17 20:59 03/29/17 22:43 2.5 MG Ascorbic Acid (Vitamin C Tab) 1,000 mg QAM PO 03/30/17 09:00 04/29/17 08:59 Atorvastatin Calcium (Lipitor Tab) 20 mg QAM PO 03/30/17 09:00 04/29/17 08:59 Furosemide (Lasix Tab) 20 mg DAILY@1700 PO 03/29/17 17:00 04/28/17 16:59 03/29/17 18:39 20 MG Furosemide (Lasix Tab) 40 mg QAM PO 03/30/17 09:00 04/29/17 08:59 Losartan Potassium (coZAAR TAB) 100 mg QPM PO 03/29/17 21:00 04/28/17 20:59 03/29/17 22:45 100 MG Potassium Chloride (Klor-Con M10) 10 meq BID PO 03/29/17 21:00 04/28/17 20:59 03/29/17 22:42 10 MEQ Triamcinolone Acetonide (Kenalog 0.1% Oint) 1 appln BID PRN TOP 03/29/17 09:00 04/28/17 08:59 Miscellaneous Information (Order Awaiting Action) 1 ea QS N/A 03/29/17 16:00 04/28/17 15:59 Review of Systems Constitutional: + problem reported (weight gain), No fever Respiratory: No cough, No shortness of breath Cardiovascular: + edema (dependent), No chest pain Abdomen: No GI bleeding, No diarrhea, No nausea, No pain, No vomiting Musculoskeletal: + joint pain (hip) Genitourinary - Male: + problem reported (nocturia), No dysuria, No hematuria Endocrine: + excessive urination, + problem reported (blood sugars well controlled), No excessive thirst Physical Exam Date Time Temp Pulse Resp B/P Pulse Ox O2 Delivery O2 Flow Rate FiO2 03/29/17 20:52 37.3 03/29/17 19:49 38.3 03/29/17 19:18 38.3 03/29/17 19:15 38.2 81 20 129/60 90 Room Air 03/29/17 17:00 95 Nasal Cannula 2.0 03/29/17 16:03 144/69 03/29/17 15:57 78 18 148/73 91 Room Air 03/29/17 12:50 78 19 174/74 95 03/29/17 11:53 36.3 82 17 135/73 95 Room Air 03/29/17 11:03 75 18 150/68 03/29/17 10:25 36.4 72 18 124/70 95 Room Air 03/29/17 09:55 Room Air 03/29/17 09:55 36.3 75 18 115/42 92 Room Air 03/29/17 09:55 92 Room Air 03/29/17 09:40 71 12 121/40 96 Room Air 03/29/17 09:30 36.5 74 22 117/49 96 Room Air 03/29/17 09:20 76 17 119/86 98 Room Air 03/29/17 09:10 78 17 95/41 99 Room Air 03/29/17 09:00 78 17 104/40 99 Mask 10 03/29/17 08:53 36.2 68 19 98/41 100 Mask 10 03/29/17 06:14 36.6 74 16 172/83 98 Room Air General Appearance: WD/WN, no apparent distress Head: normocephalic, atraumatic Eyes: PERRL (left eye), EOMI (left eye), sclerae normal, + pertinent finding ( rigth ptosis; right ocular prosthesis) ENT: normal ENT inspection, hearing grossly normal, pharynx normal, + pertinent finding (upper and lower dentures) Neck: supple, no adenopathy, thyroid normal, no JVD, trachea midline Respiratory/Chest: lungs clear, no respiratory distress, no accessory muscle use Cardiovascular: regular rate, rhythm, no gallop, no JVD, normal peripheral pulses, + systolic murmur (II/ sys murmur LSB), + pertinent finding (trace pretibial edema) Abdomen/GI: normal bowel sounds, non tender, soft, no organomegaly Genitourinary - Male: + pertinent finding (Edward cath) Extremities/Musculoskelatal: no calf tenderness, + pertinent finding (TEDS + SCD's applied) Neurologic/Psych: greeter II-XII nml as tested (left pupil reactive, left EOMI, no facial palsy, no dysarthria), no motor/sensory deficits (motor grossly intact), alert, normal mood/affect, oriented x 3 Skin: normal color, warm/dry, no rash Lymphatic: no adenopathy (cervical) Laboratory Results Last 24 Hours Test 03/29/17 05:43 03/29/17 05:47 03/29/17 08:57 03/29/17 11:01 Bedside Glucose 116 mg/dl 140 mg/dl White Blood Count 6.36 K/uL Red Blood Count 4.58 M/uL Hemoglobin 12.9 g/dL Hematocrit 39.2 % Mean Corpuscular Volume 85.6 fL Mean Corpuscular Hemoglobin 28.2 pg Mean Corpuscular Hemoglobin Concent 32.9 g/dl RDW Standard Deviation 43.8 fL RDW Coefficient of Variation 14.1 % Platelet Count 113 K/uL Mean Platelet Volume 10.8 fL Sodium Level 144 mmol/L Potassium Level 3.3 mmol/L Chloride Level 108 mmol/L Carbon Dioxide Level 28 mmol/L Anion Gap 8.0 mmol/L Blood Urea Nitrogen 16 mg/dl Creatinine 1.00 mg/dl Est Creatinine Clear Calc Drug Dose 79.4 ml/min Estimated GFR () 82.6 Estimated GFR (Non- 71.3 BUN/Creatinine Ratio 15.7 Random Glucose 137 mg/dl Calcium Level 8.2 mg/dl Test 03/29/17 11:21 03/29/17 17:04 03/29/17 21:00 Bedside Glucose 131 mg/dl 162 mg/dl 199 mg/dl CXR 01/18/17- cardiomegaly, no acute process. EKG performed 01/18/17 at 16:06 reviewed and demonstrated NSR at 80 / minute, first degree AV block, poor R-wave progression, no acute ST or T-wave abnormalities. . Assessment & Plan S/P [place] Doing well postoperatively. HYPERTENSION BP's postop 135/73, 174/74. Continue amlodipine, losartan. Follow and titrate Rx. SLEEP APNEA Continue CPAP. DM TYPE 2 Hold oral agents during hospital stay. Lantus / NovoLog per protocol. VTE PROPHYLAXIS Per Orthopedics protocol. Thank you for this consultation. We will follow the patient with you during their hospital stay. Dr. Milligan will be rounding starting Tue. You can reach a member of the [facility] Hospitalist Team 30/05 via pager @ . You can reach me via cell @ [phone]. .
[2017-03-30] VITALS (15 sets, daily range): BP systolic 115–152; BP diastolic 58–84; PULSE 82–91; TEMP 37.1–37.8; O2SAT 91–98
[2017-03-30] MEDS: CHECK SCOPOLAMINE PATCH PLACEMENT SCH ×4 (00:01→23:44)
[2017-03-30] MEDS: ACETAMINOPHEN 500 MG TAB PO SCH ×4 (00:02→23:45)
[2017-03-30] MEDS: KETOROLAC TROMETHAMINE 15 MG/ML VIAL IV. SCH ×5 (00:03→23:45)
[2017-03-30] MEDS: SODIUM CHLORIDE 0.9% 1000ML 1,000 ML IV SCH ×2 (00:07→05:48)
[2017-03-30] MEDS: INSULIN GLARGINE SOLOSTAR 100 UNITS/ML 3 ML PEN SC SCH ×3 (00:48→21:59)
[2017-03-30] MEDS ORDERED: ONDANSETRON INJ 2 MG/ML 2 ML VIAL IV PRN (02:00)
[2017-03-30] MEDS ORDERED: HYDROmorphone INJ 1 MG/ML SYR IV PRN (02:00)
[2017-03-30] MEDS ORDERED: METOCLOPRAMIDE HCL INJ 5 MG/ML 2 ML VIAL IV PRN (02:00)
[2017-03-30] MEDS ORDERED: ZOLPIDEM TARTRATE 5 MG TAB PO PRN (02:00)
[2017-03-30] MEDS ORDERED: OXYCODONE HCL IR 5 MG TAB (IMMEDIATE RELEASE) PO PRN (02:00)
[2017-03-30] MEDS ORDERED: DC INTRASPINAL MORPHINE ONE (02:00)
[2017-03-30 06:05] LABS: HEMATOCRIT 30.7 % (42-52); MEAN CORPUSCULAR HEMOGLOBIN 29.2 pg (25-34); MEAN CORPUSCULAR HGB CONC 33.6 g/dl (32-36); RED BLOOD COUNT 3.53 M/uL (4.7-6.1); WHITE BLOOD COUNT 6.74 K/uL (4.8-10.8)
[2017-03-30 06:27] LABS: BASO % 0.1 %; BASO ABS # 0.01 K/uL (0-0.2); COMPLETE YES; EOS % 1.2 %; IG% 0.1 %; LYMPH % 20.3 %; LYMPH ABS # 1.37 K/uL (1.2-3.4); MEAN PLATELET VOLUME 11.1 fL (7.4-10.4); MONO % 8.9 %; NEUT % 69.4 %; PLATELET COUNT 82 K/uL (130-400); PLT ESTIMATE DECREASED
[2017-03-30 06:47] LABS: BUN/CREATININE RATIO 16.4 (10-20); CALCIUM 7.9 mg/dl (8.5-10.1); CREATININE 1.1 mg/dl (0.60-1.40); POTASSIUM 3.9 mmol/L (3.5-5.1)
--- NOTE | 2017-03-30 07:47 | Anesthesiology Progress Note ---
Anesthesia Post Op Note Date & Time March 30, 2017 at 07:47 Vital Signs Pain Intensity: 0.0 Vital Signs Past 12 Hours Date Time Temp Pulse Resp B/P Pulse Ox O2 Delivery O2 Flow Rate FiO2 03/30/17 04:00 16 91 03/30/17 03:20 37.1 82 18 120/66 95 BiPAP 03/30/17 03:00 16 91 03/30/17 02:00 18 92 03/30/17 01:00 18 92 03/30/17 00:15 CPAP 03/30/17 00:05 37.4 86 18 115/71 93 CPAP 03/30/17 00:00 18 92 03/29/17 20:52 37.3 03/29/17 19:49 38.3 Notes Mental Status: alert / awake / arousable, participated in evaluation Pt Amnestic to Procedure: Yes Nausea / Vomiting: adequately controlled Pain: adequately controlled Airway Patency, RR, SpO2: stable & adequate BP & HR: stable & adequate Hydration State: stable & adequate Anesthetic Complications: no major complications apparent
[2017-03-30] MEDS: PANTOprazole SOD 40 MG TAB PO SCH (08:42)
[2017-03-30] MEDS: POTASSIUM CHLORIDE 10 MEQ TABCR PO SCH ×2 (08:42→22:03)
[2017-03-30] MEDS: ATORVASTATIN 20 MG TAB PO SCH (08:42)
[2017-03-30] MEDS: ASCORBIC ACID 500 MG TAB PO SCH (08:43)
[2017-03-30] MEDS: DOCUSATE SODIUM 100 MG CAP PO SCH ×2 (08:43→22:00)
[2017-03-30] MEDS: FUROSEMIDE 40 MG TAB PO SCH ×2 (08:43→16:23)
[2017-03-30] MEDS: FERROUS GLUCONATE 324 MG TAB PO SCH ×3 (08:43→18:07)
[2017-03-30] MEDS: ASPIRIN 81 MG ECTAB PO SCH ×2 (08:43→22:01)
[2017-03-30] MEDS: MULTIVITAMIN TAB PO SCH (08:44)
[2017-03-30] MEDS: INSULIN ASPART 100 UNITS/ML 3 ML PEN SC SCH ×4 (08:48→22:00)
--- NOTE | 2017-03-30 18:03 | Progress Note ---
Internal Med Progress Note Date of Service: March 30, 2017. Provider Documentation: SUBJECTIVE: denies any pain ambulating fine afebrile eating fine no sob or chest pain OBJECTIVE: Vital Signs-as noted below Exam: General-alert and awake and oriented x 3 ENT-normal hearing Neck-no neck masses Lungs-cta b/l no wheezing or crackles Heart-s1 and s2 heard regular rate and rhythm no murmurs Abdomen-soft bowel sounds present non tender no distension Extremities- no edema present no erythema s/p right hip surgery dressing intact Neuro-alert and awake oriented x 3 moves extremities Lab data as noted below. ASSESSMENT & PLAN: S/P [place] doing fine management as per ortho HYPERTENSION on amlodipine, losartan. stable will monitor SLEEP APNEA on CPAP. DM TYPE 2 Holding oral agents during hospital stay. on Lantus / NovoLog per protocol. will monitor VTE PROPHYLAXIS Per Orthopedics protocol. DISPOSITION per orthopedics Vital Signs: Date Time Temp Pulse Resp B/P Pulse Ox O2 Delivery O2 Flow Rate FiO2 03/30/17 16:50 37.3 91 18 146/74 97 Room Air 03/30/17 16:00 Room Air 03/30/17 13:49 37.5 91 144/58 94 Room Air 03/30/17 12:55 88 94 03/30/17 11:59 37.1 86 18 148/68 93 Room Air 03/30/17 08:30 94 Room Air 03/30/17 07:50 37.4 85 18 132/84 94 Room Air 03/30/17 07:30 Room Air 03/30/17 04:00 16 91 03/30/17 03:20 37.1 82 18 120/66 95 BiPAP 03/30/17 03:00 16 91 03/30/17 02:00 18 92 03/30/17 01:00 18 92 03/30/17 00:15 CPAP 03/30/17 00:05 37.4 86 18 115/71 93 CPAP 03/30/17 00:00 18 92 03/29/17 20:52 37.3 03/29/17 19:49 38.3 03/29/17 19:18 38.3 03/29/17 19:15 38.2 81 20 129/60 90 Room Air Lab Results: Results Past 24 Hours Test 03/29/17 21:00 03/30/17 05:42 03/30/17 08:03 03/30/17 12:00 Range/Units Bedside Glucose 199 166 152 70-99 mg/dl White Blood Count 6.74 4.8-10.8 K/uL Red Blood Count 3.53 4.7-6.1 M/uL Hemoglobin 10.3 14.0-18.0 g/dL Hematocrit 30.7 42-52 % Mean Corpuscular Volume 87.0 80-100 fL Mean Corpuscular Hemoglobin 29.2 25-34 pg Mean Corpuscular Hemoglobin Concent 33.6 32-36 g/dl Platelet Count 82 130-400 K/uL Mean Platelet Volume 11.1 7.4-10.4 fL Neutrophils (%) (Auto) 69.4 % Lymphocytes (%) (Auto) 20.3 % Monocytes (%) (Auto) 8.9 % Eosinophils (%) (Auto) 1.2 % Basophils (%) (Auto) 0.1 % Neutrophils # (Auto) 4.67 1.4-6.5 K/uL Lymphocytes # (Auto) 1.37 1.2-3.4 K/uL Monocytes # (Auto) 0.60 0.11-0.59 K/uL Eosinophils # (Auto) 0.08 0-0.5 K/uL Basophils # (Auto) 0.01 0-0.2 K/uL RDW Standard Deviation 45.7 36.4-46.3 fL RDW Coefficient of Variation 14.3 11.5-14.5 % Immature Granulocyte % (Auto) 0.1 % Immature Granulocyte # (Auto) 0.01 0.00-0.02 K/uL Platelet Estimate DECREASED Sodium Level 140 136-145 mmol/L Potassium Level 3.9 3.5-5.1 mmol/L Chloride Level 108 98-107 mmol/L Carbon Dioxide Level 23 21-32 mmol/L Anion Gap 9.0 3-11 mmol/L Blood Urea Nitrogen 18 7-18 mg/dl Creatinine 1.10 0.60-1.40 mg/dl Est Creatinine Clear Calc Drug Dose 72.2 ml/min Estimated GFR () 73.6 Estimated GFR (Non- 63.5 BUN/Creatinine Ratio 16.4 10-20 Random Glucose 156 70-99 mg/dl Calcium Level 7.9 8.5-10.1 mg/dl Test 03/30/17 13:50 03/30/17 16:59 Range/Units Bedside Glucose 192 159 70-99 mg/dl
--- NOTE | 2017-03-30 19:00 | PROGRESS NOTE ---
DATE: 03/30/2017 SUBJECTIVE: A 81-year-old gentleman postop day 1 from right total hip replacement. He is doing well. Denies any significant pain. Just says is kind of sore. No chest pain or shortness of breath. Therapy went well. OBJECTIVE: VITAL SIGNS: Temperature 37.3. Vital signs stable. PHYSICAL EXAMINATION: GENERAL: Reveals a pleasant, elderly male. He is sitting up in bed and talking to his family. EXTREMITIES: Examination of the right hip reveals leg lengths were equal. Dressing is clean, dry, and intact. He can dorsiflex and plantarflex his foot appropriately. He is neurologically intact. LABORATORY DATA: Hemoglobin 10.3. Hematocrit 30.7. Electrolytes are stable. ASSESSMENT: A 81-year-old gentleman postop day 1 from right total hip replacement, doing pretty well. His pain is controlled. Hip is located. He is neurologically intact. PLAN: 1. DVT prophylaxis include thigh TEDS, SCDs, and aspirin twice a day. 2. PT/OT. Weightbear as tolerated. Right total hip protocol. 3. Pain control, doing pretty well with current pain regimen. 4. Disposition: Plan to discharge to home likely with home health. He is really helping to go home as apposed to rehab. We will see how he does in therapy tomorrow.
[2017-03-30] MEDS ORDERED: ASPEC81 PO (21:29)
[2017-03-30] MEDS ORDERED: FRRG PO (21:29)
[2017-03-30] MEDS ORDERED: OXYC-57 PO (21:29)
--- NOTE | 2017-03-30 21:30 | Discharge Instructions ---
Discharge Instructions Date of Service March 30, 2017. Admission Reason for Admission: Right Hip Degenerative Joint Disease Discharge Discharge Diagnosis / Problem: Right Hip Replacement Discharge Goals Goal(s): Decrease discomfort, Improve function, Increase independence, Improve disease control, Therapeutic intervention Activity Recommendations Activity Limitations: per Instructions/Follow-up section (Total Hip Precautions ) Weightbearing Status: Right weightbearing . Current Hospital Diet Patient's current hospital diet: Diabetes Type 2 Diet Discharge Diet Recommended Diet: Diabetes Type 2 Diet Procedures Procedures Performed: Right Total Hip Arthroplasty--Uncemented Pending Studies Studies pending at discharge: no Medical Emergencies . Who to Call and When: Medical Emergencies: If at any time you feel your situation is an emergency, please call 911 immediately. . Non-Emergent Contact Non-Emergency issues call your: Surgeon . "Provider Documentation" section prepared by Yordan Nunez. . VTE Core Measure Inpt VTE Proph given/why not?: Other Anticoagulation, T.E.D. Stockings, SCD's
[2017-03-30] MEDS: AMLODIPINE BESYLATE 5 MG TAB PO SCH (22:01)
[2017-03-30] MEDS: LOSARTAN POTASSIUM 50 MG TAB PO SCH (22:02)
[2017-03-31 05:06] LABS: HEMATOCRIT 29.9 % (42-52); MEAN CELL VOLUME 85.4 fL (80-100); MEAN CORPUSCULAR HEMOGLOBIN 28.6 pg (25-34); MEAN CORPUSCULAR HGB CONC 33.4 g/dl (32-36); WHITE BLOOD COUNT 7.16 K/uL (4.8-10.8)
[2017-03-31 05:17] LABS: MEAN PLATELET VOLUME 11.2 fL (7.4-10.4); PLATELET COUNT 75 K/uL (130-400)
[2017-03-31 05:30] LABS: CREATININE 1.2 mg/dl (0.60-1.40)
[2017-03-31] MEDS: KETOROLAC TROMETHAMINE 15 MG/ML VIAL IV. SCH (05:49)
[2017-03-31 06:38] VITALS: BP 168/68; PULSE 87; TEMP 37.7; O2SAT 96
[2017-03-31 06:56] VITALS: BP 150/69
[2017-03-31] MEDS: ACETAMINOPHEN 500 MG TAB PO SCH (07:16)
[2017-03-31] MEDS: ASCORBIC ACID 500 MG TAB PO SCH (07:17)
[2017-03-31] MEDS: POTASSIUM CHLORIDE 10 MEQ TABCR PO SCH (07:17)
[2017-03-31] MEDS: PANTOprazole SOD 40 MG TAB PO SCH (07:18)
[2017-03-31] MEDS: FERROUS GLUCONATE 324 MG TAB PO SCH ×2 (07:18→12:37)
[2017-03-31] MEDS: FUROSEMIDE 40 MG TAB PO SCH (07:19)
[2017-03-31] MEDS: DOCUSATE SODIUM 100 MG CAP PO SCH (07:19)
[2017-03-31] MEDS: ATORVASTATIN 20 MG TAB PO SCH (07:20)
[2017-03-31] MEDS: MULTIVITAMIN TAB PO SCH (07:20)
[2017-03-31] MEDS: ASPIRIN 81 MG ECTAB PO SCH (07:20)
[2017-03-31] MEDS: INSULIN ASPART 100 UNITS/ML 3 ML PEN SC SCH ×2 (07:27→12:42)
[2017-03-31] MEDS: INSULIN GLARGINE SOLOSTAR 100 UNITS/ML 3 ML PEN SC SCH (07:28)
--- NOTE | 2017-03-31 07:55 | PROGRESS NOTE ---
DATE: 03/31/2017 DATE: 03/31/2017. SUBJECTIVE: A 81-year-old gentleman postop day 2 from right hip replacement. He is doing pretty well. A little bit more pain today. No chest pain or shortness of breath. Not feeling dizzy or lightheaded. He is really anxious to go home, he does not want to go to rehab. OBJECTIVE: VITAL SIGNS: Temperature 37.7. Vital signs stable. PHYSICAL EXAMINATION: GENERAL: Reveals a healthy, pleasant, middle-aged male. He is lying in bed, looks pretty comfortable. EXTREMITIES: Examination of the right hip and leg reveals incision to be clean, dry and intact. His hip is located. He is neurologically intact. LABORATORY DATA: Hemoglobin is 10.0. Hematocrit 29.9. Platelet count 75. 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 A little bit more pain today, but very manageable. No signs of major bleeding. We will have to see how he does in therapy today as far as discharge plans. PLAN: 1. DVT prophylaxis including thigh-high TEDs, SCDs, and low dose aspirin. He does have this low platelet count but it is certainly adequate at this point. Unlikely to go too much further. 2. PT/OT. He can weightbear as tolerated. Right total hip protocol. 3. Pain control. Doing pretty well with current pain regimen. 4. Disposition. He is hoping to be discharged to home. We will see how therapy goes today. We will set him up with some home health.
[2017-03-31 09:18] VITALS: BP 169/71; PULSE 100; O2SAT 98
[2017-03-31 13:49] VITALS: BP 169/71; PULSE 100; TEMP 37.7; O2SAT 98
--- NOTE | 2017-04-06 11:11 | DISCHARGE SUMMARY ---
ADMITTING PHYSICIAN AND SURGEON: Dr. Nunez. ADMITTING DIAGNOSIS: Right hip degenerative joint disease. SURGERY PERFORMED: Right total hip arthroplasty. SECONDARY DIAGNOSES: Hypertension, elevated cholesterol, CPAP, diabetes, obesity, gastroesophageal reflux disease. CONSULTS: Dr. Platt, postoperative medical management and diabetic management. HISTORY AND PHYSICAL EXAMINATION: Well documented in the patient's chart. HOSPITAL COURSE: The patient was admitted on 03/29/2017 underwent total hip arthroplasty, tolerated the procedure well. There were no complications. He was transferred to PACU postoperatively and later to the orthopedic floor for further care. He was given Ancef for antibiotic prophylaxis, MATTHIAS stockings, SCDs and low dose of aspirin for DVT prophylaxis. Hemoglobin, hematocrit and vital signs were monitored during his hospital stay. He developed some postoperative anemia, did not require any blood transfusions. He did have a low platelet count and dropped to 75 postoperatively. There were no complications during his hospital stay. By postoperative day 2, he was tolerating a diabetic diet. Pain was controlled with oral pain medicine. He was participating in physical therapy and had no signs or symptoms of deep vein thrombosis. On postop day 2, he was discharged home and set up with home health services. He was given printed discharge instructions including prescription for Percocet. Continue his home medications with the exception of Vicodin which was stopped. He will continue physical therapy, weightbearing as tolerated, MATTHIAS stockings, total hip precautions and follow up with Dr. Nunez in 10-12 days or sooner if there are any problems or concerns.
== END 2017-03-31 14:24 | disposition home health service (06) | DRG 470 ==
LOC: ENRESERVTM → ENRESERVDT → C.ACU 05:12 → C.3E 06:35
PROVIDERS: ADMIT Orthopaedic Surgery Sports Medicine; ATTEND Orthopaedic Surgery Sports Medicine
PROC: 0SR902A Replacement of Right Hip Joint with Metal on Polyethylene Synthetic Substitute, Uncemented, Open Approach (ICD-10-PCS; principal; 2017-03-29 07:00)
DX: M16.11 Unilateral primary osteoarthritis, right hip (principal); D69.3 Immune thrombocytopenic purpura; Z68.42 Body mass index [BMI] 45.0-49.9, adult; M85.851 Other specified disorders of bone density and structure, right thigh; I10 Essential (primary) hypertension; E11.42 Type 2 diabetes mellitus with diabetic polyneuropathy; E78.00 Pure hypercholesterolemia, unspecified; G47.30 Sleep apnea, unspecified; E66.01 Morbid (severe) obesity due to excess calories; Z99.89 Dependence on other enabling machines and devices; Z96.653 Presence of artificial knee joint, bilateral; Z90.01 Acquired absence of eye; Z79.1 Long term (current) use of non-steroidal anti-inflammatories (NSAID); Z79.4 Long term (current) use of insulin; Z79.84 Long term (current) use of oral hypoglycemic drugs; Z79.891 Long term (current) use of opiate analgesic; Z79.899 Other long term (current) drug therapy

== ENCOUNTER 2017-04-01 21:15 | Emergency (ER) | payer OTHER ==
[~2017-04-01] VITALS: Ht 174 cm; Wt 130.0 kg
[~2017-04-01 21:15] MED LIST changes: +ASPEC81 PO; +FRRG PO; -HYDR-3419 PO; +OXYC-57 PO
[2017-04-01 21:18] VITALS: TEMP 36.7; Ht 174 cm; Wt 130.0 kg
[2017-04-01] MEDS ORDERED: FUROSEMIDE 40 MG/4 ML VIAL IV STA (22:08)
--- NOTE | 2017-04-01 22:35 | DIAGNOSTIC IMAGING REPORT ---
CHEST ONE VIEW PORTABLE CLINICAL HISTORY: Swollen scrotum COMPARISON STUDY: Chest radiograph January 18, 2017. FINDINGS: Lung volumes are normal. There is mild elevation of the right hemidiaphragm. This is unchanged. There us no evidence of pulmonary edema. Cardiomegaly is unchanged. There is no consolidation. Apparent left basilar opacity is likely artifactual. IMPRESSION: No acute cardiopulmonary findings. Electronically signed by: Jerald eBverly M.D. 04/01/2017 10:33 PM Dictated Date/Time: 04/01/2017 10:32 PM
[2017-04-01 23:08] LABS: BASO % 0.3 %; BASO ABS # 0.02 K/uL (0-0.2); COMPLETE YES; EOS % 4.1 %; HEMATOCRIT 29.8 % (42-52); IG% 0.2 %; LYMPH % 20.2 %; LYMPH ABS # 1.34 K/uL (1.2-3.4); MEAN CELL VOLUME 86.4 fL (80-100); MEAN CORPUSCULAR HEMOGLOBIN 28.4 pg (25-34); MEAN CORPUSCULAR HGB CONC 32.9 g/dl (32-36); MONO % 7.9 %; NEUT % 67.3 %; PLATELET COUNT 115 K/uL (130-400); RED BLOOD COUNT 3.45 M/uL (4.7-6.1); WHITE BLOOD COUNT 6.62 K/uL (4.8-10.8)
[2017-04-01 23:14] VITALS: O2SAT 94
[2017-04-01 23:23] LABS: BUN/CREATININE RATIO 16.1 (10-20); CREATININE 1.4 mg/dl (0.60-1.40); POTASSIUM 4.3 mmol/L (3.5-5.1)
[2017-04-01 23:28] LABS: ALB/GLOB RATIO 0.7 (0.9-2)
[2017-04-02] MEDS ORDERED: ASPI81TA28 PO (00:12)
[2017-04-02] MEDS ORDERED: FERR325T18 PO (00:13)
[2017-04-02 00:25] LABS: URINE APPEARANCE CLEAR (CLEAR); URINE BILIRUBIN NEG (NEG); URINE COLOR YELLOW; URINE EPITHELIAL CELL AUTO 0-5 /lpf (0-5); URINE NITRITE NEG (NEG); UROBILINOGEN NEG (NEG)
[2017-04-02 00:27] LABS: MANUAL MICROSCOPIC REQUIRED? NO; REVIEW REQ? NO
[2017-04-02] MEDS ORDERED: CIPR-255 PO (00:35)
--- NOTE | 2017-04-02 00:41 | EMERGENCY ROOM VISIT NOTE ---
History Report prepared by Veronica: Lawrence Razo Under the Supervision of: Dr. Chaitanya Frances M.D. First contact with patient: 21:58 Chief Complaint: SWELLING TO EXTREMITY Stated Complaint: R HIP REPLACEMENT ON 03/29,ENLARGED SCROTUM/TESTICL History of Present Illness The patient is a 81 year old male who presents to the Emergency Room with complaints of worsening bilateral testicular swelling beginning last week. He recently had a right hip replacement last week. He states that his testicles are swollen enough that he is having trouble urinating. The patient is on Lasix. He notes that he has a diffuse rash as well, but states that it he had it prior to his hip replacement. He currently complains of decreased urinary output. Source of History: patient Onset: Last week Position: other (bilateral testicles) Quality: other (swelling) Timing: worsening Associated Symptoms: + rash (diffuse, beginning prior to his hip surgery), + urinary symptoms (decreased output) Review of Systems See HPI for pertinent positives & negatives. A total of 10 systems reviewed and were otherwise negative. Past Medical & Surgical Medical Problems: (1) Atrial flutter (2) DM type 2 (diabetes mellitus, type 2) (3) Dyslipidemia (4) HTN (hypertension) (5) JUVE (obstructive sleep apnea) (6) Right Hip DJD (7) Thrombocytopenia Surgical Problems: (1) H/O eye surgery (2) H/O repair of left rotator cuff (3) H/O repair of right rotator cuff (4) History of bilateral knee arthroplasty (5) History of carpal tunnel surgery of left wrist (6) History of carpal tunnel surgery of right wrist (7) S/P laminectomy Family History Meningitis MOTHER Myocardial infarction FATHER GRANDFATHER PATERNAL UNCLE PATERNAL UNCLE Social History Smoking Status: Never Smoker Alcohol Use: occasionally Occupation Status: retired Current/Historical Medications Scheduled Albuterol Hfa (Ventolin Hfa), 2-4 PUFFS INH Q6H Amlodipine (Norvasc), 2.5 MG PO QPM Ascorbic Acid (Ascorbic Acid), 1,000 MG PO QAM Aspirin (Aspirin Ec), 81 MG PO BID Atorvastatin (Lipitor), 20 MG PO QAM Celecoxib (CeleBREX), 200 MG PO QAM Ciprofloxacin Hcl (Cipro), 1 TAB PO BID Ferrous Gluconate (Ferrous Gluconate), 324 MG PO BIDM Furosemide (Lasix), 40 MG PO QAM Furosemide (Lasix), 20 MG PO HS Insulin Glargine (Lantus), 70 UNITS SC AMPM Liraglutide (Victoza), 1.2 MG INJ QPM Losartan Potassium (Cozaar), 100 MG PO QPM Metformin Hcl (Glucophage), 500 MG PO BID Potassium Chloride (Micro-K Ext Rel), 10 MEQ PO BID Scheduled PRN Oxycodone/Acetaminophen 5MG/325MG (Percocet 5MG/325MG), 1-2 TABLETS PO Q6H PRN for Pain Triamcinolone Acet (Triamcinolone Acetonide), 1 APPLN TOP BID PRN for prn Allergies Coded Allergies: Penicillins (Verified Allergy, Unknown, RASH AND WELTS, 04/01/17) Physical Exam Vital Signs Date Time Temp Pulse Resp B/P Pulse Ox O2 Delivery O2 Flow Rate FiO2 04/02/17 00:45 88 129/65 95 04/02/17 00:20 109 04/01/17 23:18 154/68 04/01/17 23:14 94 Room Air 04/01/17 23:14 94 Room Air 04/01/17 21:18 36.7 86 20 131/63 96 Room Air Physical Exam GENERAL: Patient is a healthy-appearing well-nourished HEAD: Normocephalic atraumatic EYES: Ocular movements intact pupils equal and react to light OROPHARYNX mucous membranes are moist no exudates present no erythema or edema present NECK: Supple no nuchal rigidity CHEST: Good equal expansion LUNGS: Clear and equal to auscultation CARDIAC: Normal S1 and S2 ABDOMEN: Soft nontender no guarding BACK: No CVA tenderness EXTREMITIES: No pain upon palpation normal muscle strength in all groups no clubbing cyanosis or edema NEURO: Patient is following commands is answering questions appropriately. Alert and oriented x3 Cranial Nerves 2-12 grossly intact GENITOURINARY: Scrotum is grossly enlarged bilaterally. Medical Decision & Procedures ER Provider Diagnostic Interpretation: X-ray results as stated below per interpretation by me and the radiologist: CHEST ONE VIEW PORTABLE FINDINGS: Lung volumes are normal. There is mild elevation of the right hemidiaphragm. This is unchanged. There us no evidence of pulmonary edema. Cardiomegaly is unchanged. There is no consolidation. Apparent left basilar opacity is likely artifactual. IMPRESSION: No acute cardiopulmonary findings. Electronically signed by: Jerald Beverly M.D US results per statrad and my review. US SCROTAL: Flow is detected in both testes. No focal is appreciated. However, there is edema at the right hemiscrotal wall. In addition, the echotexture of the right testis appears somewhat heterogeneous compared to the left. This is nonspecific. It may be secondary to subtle orchitis. It may be seen with recent trauma. An infiltrative process such as lymphoma is not entirely ruled out. The possibility of torsion and subsequent detorsion is not excluded. Correlate clinically/with site of pain. Question mildly prominent epididymides Represent minimal epididymis. Apparent left inguinal hernia. Reportedly non-reducible. Laboratory Results 04/01/17 22:51 Red Blood Count 3.45, Mean Corpuscular Volume 86.4, Mean Corpuscular Hemoglobin 28.4, Mean Corpuscular Hemoglobin Concent 32.9, Mean Platelet Volume 11.0, Neutrophils (%) (Auto) 67.3, Lymphocytes (%) (Auto) 20.2, Monocytes (%) (Auto) 7.9, Eosinophils (%) (Auto) 4.1, Basophils (%) (Auto) 0.3, Neutrophils # (Auto) 4.46, Lymphocytes # (Auto) 1.34, Monocytes # (Auto) 0.52, Eosinophils # (Auto) 0.27, Basophils # (Auto) 0.02 04/01/17 22:51 Test 04/01/17 22:51 04/02/17 00:00 White Blood Count 6.62 K/uL (4.8-10.8) Red Blood Count 3.45 M/uL (4.7-6.1) Hemoglobin 9.8 g/dL (14.0-18.0) Hematocrit 29.8 % (42-52) Mean Corpuscular Volume 86.4 fL (80-100) Mean Corpuscular Hemoglobin 28.4 pg (25-34) Mean Corpuscular Hemoglobin Concent 32.9 g/dl (32-36) Platelet Count 115 K/uL (130-400) Mean Platelet Volume 11.0 fL (7.4-10.4) Neutrophils (%) (Auto) 67.3 % Lymphocytes (%) (Auto) 20.2 % Monocytes (%) (Auto) 7.9 % Eosinophils (%) (Auto) 4.1 % Basophils (%) (Auto) 0.3 % Neutrophils # (Auto) 4.46 K/uL (1.4-6.5) Lymphocytes # (Auto) 1.34 K/uL (1.2-3.4) Monocytes # (Auto) 0.52 K/uL (0.11-0.59) Eosinophils # (Auto) 0.27 K/uL (0-0.5) Basophils # (Auto) 0.02 K/uL (0-0.2) RDW Standard Deviation 45.6 fL (36.4-46.3) RDW Coefficient of Variation 14.5 % (11.5-14.5) Immature Granulocyte % (Auto) 0.2 % Immature Granulocyte # (Auto) 0.01 K/uL (0.00-0.02) Anion Gap 9.0 mmol/L (3-11) Est Creatinine Clear Calc Drug Dose 56.7 ml/min Estimated GFR () 55.0 Estimated GFR (Non- 47.5 BUN/Creatinine Ratio 16.1 (10-20) Calcium Level 8.0 mg/dl (8.5-10.1) Total Bilirubin 1.2 mg/dl (0.2-1) Aspartate Amino Transf (AST/SGOT) 258 U/L (15-37) Alanine Aminotransferase (ALT/SGPT) 73 U/L (12-78) Alkaline Phosphatase 69 U/L (45-117) Pro-B-Type Natriuretic Peptide 555 pg/ml (0-1800) Total Protein 6.4 gm/dl (6.4-8.2) Albumin 2.7 gm/dl (3.4-5.0) Globulin 3.7 gm/dl (2.5-4.0) Albumin/Globulin Ratio 0.7 (0.9-2) Urine Color YELLOW Urine Appearance CLEAR (CLEAR) Urine pH 5.0 (4.5-7.5) Urine Specific [place] 1.010 (1.000-1.030) Urine Protein NEG (NEG) Urine Glucose (UA) NEG (NEG) Urine Ketones NEG (NEG) Urine Occult Blood TRACE (NEG) Urine Nitrite NEG (NEG) Urine Bilirubin NEG (NEG) Urine Urobilinogen NEG (NEG) Urine Leukocyte Esterase NEG (NEG) Urine WBC (Auto) 1-5 /hpf (0-5) Urine RBC (Auto) 0-4 /hpf (0-4) Urine Hyaline Casts (Auto) 1-5 /lpf (0-5) Urine Epithelial Cells (Auto) 0-5 /lpf (0-5) Urine Bacteria (Auto) NEG (NEG) Labs reviewed by ED physician. Medications Administered Medications (Trade) Dose Ordered Sig/Kirsten Route Start Time Stop Time Status Last Admin Dose Admin Furosemide (Lasix Inj) 40 mg NOW STAT IV 04/01/17 22:08 04/01/17 22:10 DC 04/01/17 23:10 40 MG ECG Indication: other (swelling) Rate (beats per minute): 80 Rhythm: atrial fibrillation Findings: no acute ischemic change ED Course 2201: Past medical records reviewed. The patient was evaluated in room C2B. A complete history and physical examination was performed. 2207: Ordered Lasix Inj 40 mg IV. 0040: Upon reexamination the patient is resting comfortably. I discussed results and treatment plan with the patient. He verbalizes agreement and understanding. The patient is ready for discharge. Medical Decision Differential diagnosis: Etiologies such as infections, reactive airway disease, pneumonia, pneumothorax , COPD, CHF, cardiac ischemia, pulmonary embolism, musculoskeletal, gastrointestinal, as well as others were entertained. This is a 81-year-old male who presents emergency department complaining of scrotal swelling. The patient recently had surgery and I believe he is volume overloaded causing the swelling. He is not short of breath and has no other complaints. He was given 40 of Lasix in the emergency department. Ultrasound is concerning for possible early orchitis therefore the patient was placed on Cipro. I do believe that the patient as well as to be discharged home for follow-up with his primary care physician. Patient is in agreement with the treatment plan. Impression Primary Impression: Scrotal swelling Scribe Attestation The scribe's documentation has been prepared under my direction and personally reviewed by me in its entirety. I confirm that the note above accurately reflects all work, treatment, procedures, and medical decision making performed by me. Departure Information Dispostion Home / Self-Care Prescriptions Ciprofloxacin Hcl (CIPRO) 500 Mg Tab 1 TAB PO BID for 10 Days, #20 TAB Prov: Chaitanya Frances MD 04/02/17 Referrals Yordan Nunez M.D. (PCP) Forms HOME CARE DOCUMENTATION FORM, IMPORTANT VISIT INFORMATION, WORK / SCHOOL INSTRUCTIONS Patient Instructions Hypertension Dc, My [facility] Additional Instructions Follow up with DR Loo's office for continued swelling You were found to have an elevated blood pressure today (>120 sytolic or >90 diastolic). Per medicare guidelines, you need to follow up with this blood pressure screening with your Primary Care Physician (PCP). For a new PCP call [phone]. You have been examined and treated today on an emergency basis only. This is not a substitute for, or an effort to provide, complete comprehensive medical care. It is impossible to recognize and treat all injuries or illnesses in a single emergency department visit. It is therefore important that you follow up closely with Dr Nunez. Call as soon as possible for an appointment. Thank you for your time and consideration. I look forward to speaking with you again soon. Please don't hesitate to call us if you have any questions.
[2017-04-02 00:45] VITALS: BP 129/65; PULSE 88; O2SAT 95
--- NOTE | 2017-04-02 07:31 | DIAGNOSTIC IMAGING REPORT ---
ULTRASOUND TESTES AND SCROTUM CLINICAL HISTORY: Scrotal edema. COMPARISON STUDY: No priors. TECHNIQUE: Real-time, grayscale, and color Doppler sonography of the testes and scrotum is performed. Images are reviewed in the transverse and longitudinal planes. FINDINGS: The testes are mildly atrophic and heterogeneous in echotexture, right greater there left. The right testis measures 3.2 x 1.6 x 2.0 cm and the left testis measures 3.5 x 2.3 x 2.5 cm. No intratesticular mass is seen. Testicular blood flow is normal and symmetric. Normal Doppler waveforms are identified in both testes. There is mild prominence of the epididymides. The right epididymal head measures 1.0 cm in length and the left epididymal head measures 1.0 cm in length. No varicocele or hydrocele is seen. A 4 mm cyst is incidentally noted in the right scrotal wall. There is a small fat-containing left inguinal hernia which was not reducible during the examination. There is nonspecific scrotal wall thickening. IMPRESSION: 1. The testes are mildly atrophic and heterogeneous in echotexture, right greater than left. No mass lesion is seen. 2. There is prominence of the epididymides of indeterminant, if any, clinical significance. Clinical correlation will be required. 3. There is a small and nonreducible fat-containing left inguinal hernia. 4. There is nonspecific scrotal wall thickening. Electronically signed by: Rock Rose M.D. 04/02/2017 7:30 AM Dictated Date/Time: 04/02/2017 7:25 AM
== END 2017-04-02 00:54 | disposition home or self-care (01) ==
LOC: C.EDB 21:17 → C.EDC 04-02 00:54
DX: N50.89 Other specified disorders of the male genital organs (principal); Z96.641 Presence of right artificial hip joint; Z98.890 Other specified postprocedural states; I48.92 Unspecified atrial flutter; E11.9 Type 2 diabetes mellitus without complications; E78.5 Hyperlipidemia, unspecified; I10 Essential (primary) hypertension; G47.33 Obstructive sleep apnea (adult) (pediatric); Z96.653 Presence of artificial knee joint, bilateral; Z82.49 Family history of ischemic heart disease and other diseases of the circulatory system; Z79.82 Long term (current) use of aspirin; Z79.899 Other long term (current) drug therapy

== ENCOUNTER 2020-03-27 18:36 | Inpatient (IN) ==
--- NOTE | 2020-03-27 19:06 | Emergency Department Note ---
ED Visit Note I assisted Dr. Ram in the care of this patient. Please see attending attestation. Robert Sims DO Resident, Family & Community Medicine, [facility] . Resident Activity Tracking Resident Involvement: Resident Care Provided Care Provided: Adult ED
--- NOTE | 2020-03-27 19:22 | Emergency Department Note ---
History of Present Illness General Chief complaint: Shortness of Breath/Dyspnea Time Seen by Provider: 03/27/20 18:40 Source: patient Mode of arrival: EMS Limitations: no limitations History of Present Illness Provider complaint: Shortness of breath This is a 84-year-old male who presents to the ED with a chief complaint of shortness of breath and a cough. The patient states that he has been been short of breath for the past week. He states that he has a pulse ox at home. Over the past couple of days, he has noticed his pulse ox drops down to the high 70s with exertion. He states that walking 5 or 10 feet makes him much worse and he feels like he just did a sprint on a basketball court. Lying flat also makes him feel little worse. He states that last night he coughed up a little blood. He contacted his doctor today and had an outpatient chest x-ray. This showed a right mid to lower lung pneumonia. He has not had a fever. No nausea or vomiting. Symptoms are moderate. Home Medications Home Medications Medication Instructions Recorded Confirmed Type Eliquis 5 mg PO BID #30 tab 10/08/18 03/27/20 Rx Lantus U-100 Insulin 70 unit SUBCUT AMPM 10/08/18 03/27/20 History Victoza 3-Michael 1.2 mg SUBCUT QPM 10/08/18 03/27/20 History albuterol sulfate [Ventolin HFA] 2 - 4 puff INHALATION Q6H PRN 10/08/18 03/27/20 History ascorbic acid (vitamin C) [Vitamin 1,000 mg PO QAM 10/08/18 03/27/20 History C] aspirin [Aspir-81] 81 mg PO QAM 10/08/18 03/27/20 History atorvastatin 20 mg PO QAM 10/08/18 03/27/20 History hydrocodone-acetaminophen 1 tab PO Q6H PRN 10/08/18 03/27/20 History metformin 500 mg PO AMHS 10/08/18 03/27/20 History ferrous sulfate [Feosol] 325 mg PO QAM 11/22/18 03/27/20 History amlodipine 2.5 mg PO QPM 03/27/20 03/27/20 History furosemide 40 mg PO BID 03/27/20 03/27/20 History ipratropium-albuterol 3 ml INHALATION Q6H PRN 03/27/20 03/27/20 History levothyroxine 75 mcg PO QAM 03/27/20 03/27/20 History losartan 100 mg PO QPM 03/27/20 03/27/20 History metoprolol succinate 50 mg PO QAM 03/27/20 03/27/20 History spironolactone 25 mg PO QAM 03/27/20 03/27/20 History vitamin E 400 unit PO QAM 03/27/20 03/27/20 History Allergies Allergy/AdvReac Type Severity Reaction Status Date / Time Penicillins Allergy Intermediate RASH AND Verified 03/27/20 20:03 WELTS Past Med/Surg History Medical History Asthma Atrial fibrillation Atrial flutter (Chronic) DM type 2 (diabetes mellitus, type 2) (Chronic) Dyslipidemia (Chronic) HTN (hypertension) (Chronic) JUVE (obstructive sleep apnea) (Chronic) Thrombocytopenia (Chronic) Surgical History H/O eye surgery (Resolved) "eye removed, implant attached" H/O repair of left rotator cuff (Resolved) H/O repair of right rotator cuff (Resolved) History of back surgery History of bilateral knee arthroplasty (Resolved) History of carpal tunnel surgery of left wrist (Resolved) History of carpal tunnel surgery of right wrist (Resolved) S/P hip replacement S/P laminectomy (Resolved) Family History Other Family history non-contributory Social History Preferred Language: Macedonian Communication Ability: Effective Patient Portal Concierge Required: No Beliefs That Will Affect Care: None marital status: Current Living Situation: Spouse current occupation: self-employed Feels Safe at Home: Yes Smoking Status: Never smoker Hx Alcohol Use: Yes Alcohol type: hard liquor Hx Substance Use: No Review of Systems A total of 10 systems reviewed and were otherwise negative Physical Exam Vital Signs Vital Signs - 24 hr 03/27/20 18:44 03/27/20 18:50 03/27/20 18:52 Temperature Temperature Source Pulse Rate 66 64 Pulse Rate from SpO2 Sensor 72 72 Respiratory Rate 22 Respiratory Effort / Characteristics Respiratory Depth Respiratory Pattern Blood Pressure 110/45 L Blood Pressure Mean 54 Pulse Oximetry 93 96 89 L Oxygen Delivery Method Room Air Oxygen Flow Rate Sepsis Recent Fever Within 48 Hours Sepsis Action Taken by Nursing 03/27/20 18:53 03/27/20 18:56 03/27/20 18:57 Temperature 37.5 C Temperature Source Oral Pulse Rate 69 Pulse Rate from SpO2 Sensor Respiratory Rate 22 Respiratory Effort / Characteristics Non-Labored Spontaneous Non-Labored Spontaneous Respiratory Depth Normal Normal Respiratory Pattern Regular Regular Blood Pressure 110/45 L Blood Pressure Mean 66 Pulse Oximetry 89 L 91 Oxygen Delivery Method Room Air Nasal Cannula Oxygen Flow Rate 2 Sepsis Recent Fever Within 48 Hours No Sepsis Action Taken by Nursing No Action Required 03/27/20 19:00 03/27/20 19:01 03/27/20 19:30 Temperature Temperature Source Pulse Rate 65 67 72 Pulse Rate from SpO2 Sensor 67 79 74 Respiratory Rate 21 20 Respiratory Effort / Characteristics Respiratory Depth Respiratory Pattern Blood Pressure 112/46 L Blood Pressure Mean 68 Pulse Oximetry 95 89 L 96 Oxygen Delivery Method Oxygen Flow Rate Sepsis Recent Fever Within 48 Hours Sepsis Action Taken by Nursing 03/27/20 19:32 03/27/20 19:33 03/27/20 20:00 Temperature Temperature Source Pulse Rate 67 110 H 131 H Pulse Rate from SpO2 Sensor 66 70 74 Respiratory Rate 22 22 22 Respiratory Effort / Characteristics Respiratory Depth Respiratory Pattern Blood Pressure 114/48 L Blood Pressure Mean 67 Pulse Oximetry 96 96 Oxygen Delivery Method Oxygen Flow Rate Sepsis Recent Fever Within 48 Hours Sepsis Action Taken by Nursing 03/27/20 20:30 03/27/20 20:31 Temperature Temperature Source Pulse Rate 66 66 Pulse Rate from SpO2 Sensor 74 66 Respiratory Rate 14 22 Respiratory Effort / Characteristics Respiratory Depth Respiratory Pattern Blood Pressure 109/47 L Blood Pressure Mean 68 Pulse Oximetry 96 Oxygen Delivery Method Nasal Cannula Oxygen Flow Rate 2 Sepsis Recent Fever Within 48 Hours Sepsis Action Taken by Nursing CONSTITUTIONAL/VITAL SIGNS: Reviewed / noted above. GENERAL: Non-toxic in appearance. INTEGUMENTARY: Warm, dry, and [place]. HEAD: Normocephalic. EYES: without scleral icterus or trauma. ENT/OROPHARYNX: clear and moist. LYMPHADENOPATHY/NECK: Is supple without lymphadenopathy or meningismus. RESPIRATORY: Lungs diminished bilaterally. CARDIOVASCULAR: Regular rate and rhythm. GI/ABDOMEN: Soft and nontender. No organomegaly or pulsatile mass. No rebound or guarding. Normal bowel sounds. EXTREMITIES: Warm and well perfused. BACK: No CVA tenderness. NEUROLOGICAL: Intact without focal deficits. PSYCHIATRIC: normal affect. MUSCULOSKELETAL: Normally developed with good muscle tone. TRIAGE NURSING DOCUMENTATION REVIEWED. Course Administered Medications Levofloxacin/Dextrose (Levaquin/D5w) 750 mg in 150 mls @ 100 mls/hr IV NOW STA Stop: 03/27/20 21:20 Last Admin: 03/27/20 20:33 Dose: 100 mls/hr Documented by: [id number] Medical Decision Making Differential Diagnosis The differential was considered includes acute myocardial infarction, acute coronary syndrome, myocarditis, pericarditis, pericardial effusions /tamponad, esophageal perforation, pulmonary embolism, pneumonia, pneumothorax, card iomyopathy, congestive heart, anemia , COPD/asthma exacerbation. Medical Records Attestation: I reviewed the patient's medical records. Home Medications Current Medication List: was personally reviewed by me Laboratory Data Attestation: I reviewed the patient's lab results. Result diagrams: 03/27/20 19:27 03/27/20 19:27 Lab Results 03/27/20 03/27/20 03/27/20 Range/Units 19:27 19:27 19:27 WBC 9.67 (4.8-10.8) K/uL RBC 3.80 L (4.7-6.1) M/uL Hgb 10.9 L (14.0-18.0) g/dL Hct 33.7 L (42-52) % MCV 88.7 (80-100) fL MCH 28.7 (25-34) pg MCHC 32.3 (32-36) g/dL RDW Std Deviation 53.2 H (36.4-46.3) fL RDW Coeff of Ct 16.4 H (11.5-14.5) % Plt Count 105 L (130-400) K/uL MPV 11.8 H (7.4-10.4) fL Immature Gran % (Auto) 0.4 % Neut % (Auto) 77.6 % Lymph % (Auto) 10.2 % Sch[place]yler % (Auto) 11.8 % Eos % (Auto) 0.0 % Baso % (Auto) 0.0 % Immature Gran # (Auto) 0.04 H (0.00-0.02) K/uL Neut # (Auto) 7.50 H (1.4-6.5) K/uL Lymph # (Auto) 0.99 L (1.2-3.4) K/uL [place]yler # (Auto) 1.14 H (0.11-0.59) K/uL Eos # (Auto) 0.00 (0-0.5) K/uL Baso # (Auto) 0.00 (0-0.2) K/uL Platelet Estimate Decreased L (Normal) PT 12.0 (9.0-12.0) Seconds INR 1.1 (0.9-1.1) APTT 27.4 (21.0-31.0) Seconds PTT Ratio 1.0 Sodium 139 (136-145) mmol/L Potassium 3.7 (3.5-5.1) mmol/L Chloride 108 H (98-107) mmol/L Carbon Dioxide 22 (21-32) mmol/L Anion Gap 9.0 (3-11) BUN 39 H (7-18) mg/dl Creatinine 1.56 H (0.6-1.4) mg/dl Est Cr Clr Drug Dosing 51.1 ml/min Est GFR ( Amer) 47.2 Est GFR (Non-Af Amer) 40.8 BUN/Creatinine Ratio 25.0 H (10-20) Glucose 105 H (70-99) mg/dl Lactate (0.4-2.0) mmol/L Calcium 8.5 (8.5-10.1) mg/dl Total Bilirubin 1.1 H (0.2-1) mg/dl AST 22 (15-37) U/L ALT 24 (12-78) U/L Alkaline Phosphatase 45 (45-117) U/L NT-Pro-B Natriuret Pep 5326 H (0-1800) pg/ml Total Protein 7.2 (6.4-8.2) gm/dl Albumin 3.6 (3.4-5.0) gm/dl Globulin 3.6 (2.5-4.0) gm/dl Albumin/Globulin Ratio 1.0 (0.9-2) 05/21/20 Range/Units 19:27 WBC (4.8-10.8) K/uL RBC (4.7-6.1) M/uL Hgb (14.0-18.0) g/dL Hct (42-52) % MCV (80-100) fL MCH (25-34) pg MCHC (32-36) g/dL RDW Std Deviation (36.4-46.3) fL RDW Coeff of Ct (11.5-14.5) % Plt Count (130-400) K/uL MPV (7.4-10.4) fL Immature Gran % (Auto) % Neut % (Auto) % Lymph % (Auto) % [place] % (Auto) % Eos % (Auto) % Baso % (Auto) % Immature Gran # (Auto) (0.00-0.02) K/uL Neut # (Auto) (1.4-6.5) K/uL Lymph # (Auto) (1.2-3.4) K/uL [place] # (Auto) (0.11-0.59) K/uL Eos # (Auto) (0-0.5) K/uL Baso # (Auto) (0-0.2) K/uL Platelet Estimate (Normal) PT (9.0-12.0) Seconds INR (0.9-1.1) APTT (21.0-31.0) Seconds PTT Ratio Sodium (136-145) mmol/L Potassium (3.5-5.1) mmol/L Chloride (98-107) mmol/L Carbon Dioxide (21-32) mmol/L Anion Gap (3-11) BUN (7-18) mg/dl Creatinine (0.6-1.4) mg/dl Est Cr Clr Drug Dosing ml/min Est GFR ( Amer) Est GFR (Non-Af Amer) BUN/Creatinine Ratio (10-20) Glucose (70-99) mg/dl Lactate 2.6 H* (0.4-2.0) mmol/L Calcium (8.5-10.1) mg/dl Total Bilirubin (0.2-1) mg/dl AST (15-37) U/L ALT (12-78) U/L Alkaline Phosphatase (45-117) U/L NT-Pro-B Natriuret Pep (0-1800) pg/ml Total Protein (6.4-8.2) gm/dl Albumin (3.4-5.0) gm/dl Globulin (2.5-4.0) gm/dl Albumin/Globulin Ratio (0.9-2) Imaging Data Attestation: I personally reviewed and interpreted this imaging study as follows: My Impression: Right-sided pneumonia Radiologist's Impression: Chest x-ray: IMPRESSION: 1. Right greater than left bibasilar and right midlung consolidative opacities are suspicious for multifocal pneumonia in the appropriate clinical setting. Follow-up imaging to document resolution is needed. 2. Cardiomegaly with pulmonary vascular congestion and possible mild pulmonary edema. ECG Data Attestation: I personally reviewed and interpreted this ECG as follows: Indication: + SOB/dyspnea Rate (beats per minute): 68 Rhythm: + sinus rhythm and + other (Occasional paced rhythm) ECG ST segments: no ST elevation ECG Findings: + PVCs Blood Pressure Blood Pressure Findings: Normal blood pressure MDM Narrative This is a 84-year-old male who presents to the ED with a chief complaint of shortness of breath and a cough. The patient states that he has been been short of breath for the past week. He states that he has a pulse ox at home. Over the past couple of days, he has noticed his pulse ox drops down to the high 70s with exertion. He states that walking 5 or 10 feet makes him much worse and he feels like he just did a sprint on a basketball court. Lying flat also makes him feel little worse. He states that last night he coughed up a little blood. He contacted his doctor today and had an outpatient chest x-ray. This showed a right mid to lower lung pneumonia. He has not had a fever. No nausea or vomiting. Symptoms are moderate. Patient's pulse ox here on room air was 89%. We did not get him up and ambulate him. His ambulatory pulse ox at home he r eports was in the 70s and 80s. The patient is currently afebrile. His vital signs are otherwise stable. His exam revealed diminished breath sounds bilaterally. Other exam findings were unremarkable. The patient's twelve-lead EKG shows a sinus rhythm at a rate of 68 with occasional paced rhythm. The chest x-ray reveals right-sided middle and lower lobe pneumonia. CBC is unremarkable. BUN and creatinine are elevated. Lactic acid level slightly elevated. The patient was treated with IV Levaquin. He was also given a DuoNeb treatment. The patient will be seen by the hospitalist for further inpatient evaluation and care. Impression & Plan Right lower lobe pneumonia, Hypoxia Discharge Plan Visit Data Chief Complaint: Shortness of Breath/Dyspnea ED Provider: Chaitanya Ram ED Midlevel Provider: Robert Sims Discharge Problem: Right lower lobe pneumonia, Hypoxia Patient Disposition: Being Evaluated by Hospitalist Forms Stand Alone Forms: [facility] Prescriptions Prescriptions: No Action ferrous sulfate [Feosol] 325 mg (65 mg iron) Tablet 325 mg PO QAM RF: 0 losartan 50 mg tablet 100 mg PO QPM RF: 0 furosemide 40 mg tablet 40 mg PO BID RF: 0 ipratropium-albuterol 0.5 mg-3 mg(2.5 mg base)/3 mL solution for nebulization 3 ml INHALATION Q6H PRN (Reason: Cough or Wheezing) RF: 0 metoprolol succinate 50 mg tablet extended release 24 hr 50 mg PO QAM RF: 0 amlodipine 5 mg tablet 2.5 mg PO QPM RF: 0 spironolactone 25 mg tablet 25 mg PO QAM RF: 0 levothyroxine 75 mcg tablet 75 mcg PO QAM RF: 0 vitamin E 400 unit Capsule 400 unit PO QAM RF: 0 metformin 500 mg Tablet 500 mg PO AMHS RF: 0 ascorbic acid (vitamin C) [Vitamin C] 1,000 mg Tablet 1,000 mg PO QAM RF: 0 atorvastatin 20 mg Tablet 20 mg PO QAM RF: 0 Lantus U-100 Insulin 100 unit/mL Solution 70 unit SUBCUT AMPM RF: 0 aspirin [Aspir-81] 81 mg Tablet,Delayed Release (Dr/Ec) 81 mg PO QAM RF: 0 albuterol sulfate [Ventolin HFA] 90 mcg/actuation Hfa Aerosol Inhaler 2 - 4 puff INHALATION Q6H PRN (Reason: Shortness Of Breath Or Wheezing) RF: 0 hydrocodone-acetaminophen 5-300 mg Tablet 1 tab PO Q6H PRN (Reason: Pain) RF: 0 Victoza 3-Michael 0.6 mg/0.1 mL (18 mg/3 mL) Pen Injector 1.2 mg SUBCUT QPM RF: 0 Eliquis 5 mg tablet 5 mg PO BID Qty: 30 RF: 2 Referrals Referrals: Akhil Nevarez MD [Primary Care Provider] -
[2020-03-27 19:48] LABS: INR 1.1 (0.9-1.1); Partial Thromboplastin Time 27.4 Seconds (21.0-31.0)
--- NOTE | 2020-03-27 19:48 | XRay Report ---
XR chest 1V portable HISTORY: 84 years-old Male Dyspnea acute shortness of breath COMPARISON: Chest radiograph 04/21/2019 TECHNIQUE: Portable AP view of the chest FINDINGS: Cardiac silhouette is enlarged. Left subclavian pacer. Mild right hemidiaphragmatic elevation. No pne umothorax or large pleural effusion. Right greater left bibasilar and right midlung consolidative opa cities are noted on a background of mild interstitial coarsening. Degenerative changes of the shoulde rs and spine. IMPRESSION: 1. Right greater than left bibasilar and right midlung consolidative opacities are suspicious for mul tifocal pneumonia in the appropriate clinical setting. Follow-up imaging to document resolution is ne eded. 2. Cardiomegaly with pulmonary vascular congestion and possible mild pulmonary edema. ACT 112: Negative or not required by law. The above report was generated using voice recognition software. It may contain grammatical, syntax o r spelling errors. Electronically signed by: Swapnil Cui M.D. 03/27/2020 7:47 PM
[2020-03-27 19:50] LABS: Hematocrit (blood only) 33.7 % (42-52); Hemoglobin 10.9 g/dL (14.0-18.0); Mean Corpuscular Hemoglobin 28.7 pg (25-34); Mean Corpuscular Hgb Conc 32.3 g/dL (32-36); Mean Corpuscular Volume 88.7 fL (80-100); RDW Coefficient of Variation 16.4 % (11.5-14.5); RDW Standard Deviation 53.2 fL (36.4-46.3); White Blood Count 9.67 K/uL (4.8-10.8)
[2020-03-27] MEDS ORDERED: LEVOFLOXACIN/D5W 750 MG/150 ML BAG IV STA (19:51)
[2020-03-27 19:59] LABS: Albumin Level 3.6 gm/dl (3.4-5.0); Blood Urea Nitrogen 39 mg/dl (7-18); Calcium 8.5 mg/dl (8.5-10.1); Carbon Dioxide 22 mmol/L (21-32); Chloride 108 mmol/L (98-107); Creatinine Clr Calc Pharmacy 51.1 ml/min; Est GFR (African American) 47.2; Est GFR (Non-African American) 40.8; Glucose 105 mg/dl (70-99); Potassium 3.7 mmol/L (3.5-5.1); Sodium 139 mmol/L (136-145)
[2020-03-27 20:03] LABS: Alanine Aminotransferase 24 U/L (12-78); Alkaline Phosphatase 45 U/L (45-117); Aspartate Aminotransferase 22 U/L (15-37); Bilirubin,Total 1.1 mg/dl (0.2-1); Globulin 3.6 gm/dl (2.5-4.0); NT Pro B Type Natriuretic Pept 5326 pg/ml (0-1800); Total Protein 7.2 gm/dl (6.4-8.2)
[2020-03-27] MEDS ORDERED: ALBUMIN 25% 50 ML IV ONE ×2 (20:11→23:36)
[2020-03-27] MEDS ORDERED: ALBUT/IPRATROP 3MG/0.5MG NEB 3 ML VIAL NEB STA (20:13)
[2020-03-27 20:17] LABS: Mean Platelet Volume 11.8 fL (7.4-10.4); Platelet Count 105 K/uL (130-400)
[2020-03-27 20:18] LABS: Immature Granulocytes # (auto) 0.04 K/uL (0.00-0.02); Immature Granulocytes % (auto) 0.4 %; Lymphocytes # (auto) 0.99 K/uL (1.2-3.4); Lymphocytes % (auto) 10.2 %; Monocytes # (auto) 1.14 K/uL (0.11-0.59); Monocytes % (auto) 11.8 %; Neutrophils % (auto) 77.6 %; Platelet Estimate Decreased (Normal)
[2020-03-27 21:17] LABS: Influenza A virus by PCR Neg for Influ A (Neg); Influenza B virus by PCR Neg for Influ B (Neg)
[2020-03-27 21:18] LABS: Magnesium 2.4 mg/dl (1.8-2.4); Troponin I < 0.015 ng/ml (0-0.045)
--- NOTE | 2020-03-27 22:32 | History & Physical Report ---
Date of Service March 27, 2020 Assessment & Plan (1) Acute hypoxemic respiratory failure: Secondary to bronchopneumonia, community-acquired infection No overt sepsis for now Hemoptysis secondary to above Acute on chronic anemia Hemoglobin drop from baseline secondary to above ARF secondary to illness chronic diastolic heart failure (EF 60 to 64%, TTE 2019), equivocal volume status A. fib/atrial flutter on Eliquis complete heart block status post PPM hypertension, stable JUVE on CPAP DM2 insulin requiring, well-controlled as of recent hemoglobin A1c of 6.09 May 2019 hypothyroidism, euthyroid as of today's TSH chronic thrombocytopenia PCU Supplemental O2 Baseline ABG Ceftriaxone, doxycycline Solu-Medrol 1 dose now for pneumonia causing hemoptysis and hypoxemia Nebs PRN Antitussives as needed Pulmonary consult RE hemoptysis Appropriate to hold aspirin and Eliquis for now with hemoptysis resulting in hemoglobin drop from baseline Follow H&H, transfuse PRBC if hemoglobin less than 7 and/ or for symptomatic anemia IV albumin given equivocal volume status Follow renal function; appropriate to hold home diuretic, ARB for now until creatinine to baseline Basal insulin, ISS BG goal [id number], update hemoglobin A1c DVT prophylaxis. SCDs RE hemoptysis Full code Text document was generated using [employer] voice recognition software. It may contain grammatical or spelling errors. Kindly contact undersigned for clarification of any documentation item in question. History of Present Illness Chief Complaint: Hemoptysis, S OB Primary Care Provider: Akhil Nevarez MD History obtained from patient and records. Medical history significant for chronic diastolic heart failure (EF 60 to 64%, TTE 2019), A. fib/atrial flutter on Eliquis, complete heart block status post PPM, hypertension, hyperlipidemia, JUVE on CPAP, DM2 insulin requiring, hypothyroidism, chronic anemia (baseline hemoglobin 12-13), chronic thromb ocytopenia. Last confinement October 2018 for decompensated heart failure. 2 months ago, patient treated for bronchitis symptoms outpatient with steroids/neb course. Outpatient flu/COVID testing was negative. 1 week history of cough symptoms later noted to be bloody the last few days with worsening shortness of breath. Chest pain from coughing. No headache. O2 sats noted to be 80s at home. Possible sick contacts as per patient. No recent aspiration as per patient. Denies unusual fluid retention. No abdominal pain, stools occasionally get dark green as per patient. Outpatient chest x-ray showed patchy opacification right mid to lower lung concerning for pneumonia. Patient directed to ER by PCP. At the ER, patient received Levaquin for pneumonia. Medical History as above Surgical History : Back surgery, knee surgery, hip surgery, eye surgery, shoulder surgery carpal tunnel surgery, PPM Family History : Hypertension Personal/Social history : Non-smoker, occasional EtOH intake, retired educator/financial aids officer Allergies Allergy/AdvReac Type Severity Reaction Status Date / Time Penicillins Allergy Intermediate RASH AND Verified 03/27/20 20:03 WELTS Home Medications Home Medications Medication Instructions Recorded Confirmed Type Eliquis 5 mg PO BID #30 tab 10/08/18 03/27/20 Rx Lantus U-100 Insulin 70 unit SUBCUT AMPM 10/08/18 03/27/20 History Victoza 3-Michael 1.2 mg SUBCUT QPM 10/08/18 03/27/20 History albuterol sulfate [Ventolin HFA] 2 - 4 puff INHALATION Q6H PRN 10/08/18 03/27/20 History ascorbic acid (vitamin C) [Vitamin 1,000 mg PO QAM 10/08/18 03/27/20 History C] aspirin [Aspir-81] 81 mg PO QAM 10/08/18 03/27/20 History atorvastatin 20 mg PO QAM 10/08/18 03/27/20 History hydrocodone-acetaminophen 1 tab PO Q6H PRN 10/08/18 03/27/20 History metformin 500 mg PO AMHS 10/08/18 03/27/20 History ferrous sulfate [Feosol] 325 mg PO QAM 11/22/18 03/27/20 History amlodipine 2.5 mg PO QPM 03/27/20 03/27/20 History furosemide 40 mg PO BID 03/27/20 03/27/20 History ipratropium-albuterol 3 ml INHALATION Q6H PRN 03/27/20 03/27/20 History levothyroxine 75 mcg PO QAM 03/27/20 03/27/20 History losartan 100 mg PO QPM 03/27/20 03/27/20 History metoprolol succinate 50 mg PO QAM 03/27/20 03/27/20 History spironolactone 25 mg PO QAM 03/27/20 03/27/20 History vitamin E 400 unit PO QAM 03/27/20 03/27/20 History Past Med/Surg History Medical History Asthma Atrial fibrillation Atrial flutter (Chronic) DM type 2 (diabetes mellitus, type 2) (Chronic) Dyslipidemia (Chronic) HTN (hypertension) (Chronic) JUVE (obstructive sleep apnea) (Chronic) Thrombocytopenia (Chronic) Surgical History H/O eye surgery (Resolved) "eye removed, implant attached" H/O repair of left rotator cuff (Resolved) H/O repair of right rotator cuff (Resolved) History of back surgery History of bilateral knee arthroplasty (Resolved) History of carpal tunnel surgery of left wrist (Resolved) History of carpal tunnel surgery of right wrist (Resolved) S/P hip replacement S/P laminectomy (Resolved) Family History Other Family history non-contributory Social History Preferred Language: Vietnamese Communication Ability: Effective Fire Marshal Required: No Beliefs That Will Affect Care: None marital status: Current Living Situation: Spouse current occupation: self-employed Feels Safe at Home: Yes Safety Concerns: Feels Safe At This Time Smoking Status: Never smoker Hx Alcohol Use: Yes Alcohol type: beer Hx Substance Use: No Review of Systems Review of Systems: As per HPI, all 10 systems reviewed, all other ROS negative Physical Exam Physical Exam: GENERAL: Comfortable, pleasant, obese, minimal respiratory distress, tremulous SKIN: Pallor , warm HEENT: Pale palpebral conjunctivae, R ptosis (chronic), dry buccal mucosa, nasal cannula in place NECK : Supple, short neck, no tenderness CHEST : Decreased breath sounds , no tenderness HEART : RRR, no obvious murmurs ABDOMEN: Some distention, nontender RECTAL : Intact sphincter, brown stool (FOBT negative) EXTREMITIES : Bilateral LE with venous stasis, no LE tenderness, no other conspicuous deformities noted NEUROLOGIC : Coherent, chronic ptosis right, chronic rest tremors, no other gross focality Results & Data Results & Data ([facility]) Vital Signs (Past 12 Hours) Vital Signs Temp Pulse Pulse Resp BP Pulse Ox 03/27/20 21:30 73 22 91 03/27/20 21:04 79 21 94 03/27/20 21:03 68 17 115/50 L 95 03/27/20 21:00 63 18 100 03/27/20 20:56 62 22 94 03/27/20 20:32 78 17 03/27/20 20:31 66 22 109/47 L 96 03/27/20 20:30 66 14 03/27/20 20:00 131 H 22 03/27/20 19:33 110 H 22 96 03/27/20 19:32 67 22 114/48 L 96 03/27/20 19:30 72 96 03/27/20 19:01 67 20 112/46 L 89 L 03/27/20 19:00 65 21 95 03/27/20 18:57 91 03/27/20 18:53 37.5 C 69 22 110/45 L 89 L 03/27/20 18:52 89 L 03/27/20 18:50 64 22 96 03/27/20 18:44 66 110/45 L 93 Laboratory Results Laboratory Results WBC 9.67 K/uL (4.8-10.8) 03/27/20 19: RBC 3.80 M/uL (4.7-6.1) L 03/27/20 19:27 Hgb 10.9 g/dL (14.0-18.0) L 03/27/20 19:27 Hct 33.7 % (42-52) L 03/27/20 19:27 MCV 88.7 fL (80-100) 03/27/20 19: MCH 28.7 pg (25-34) 03/27/20 19: MCHC 32.3 g/dL (32-36) 03/27/20 19:27 RDW Std Deviation 53.2 fL (36.4-46.3) H 03/27/20 19: RDW Coeff of Ct 16.4 % (11.5-14.5) H 03/27/20 19:27 Plt Count 105 K/uL (130-400) L 03/27/20 19:27 MPV 11.8 fL (7.4-10.4) H 03/27/20 19:27 Immature Gran % (Auto) 0.4 % 03/27/20 19: Neut % (Auto) 77.6 % 03/27/20: Lymph % (Auto) 10.2 % 03/27/20: [place] % (Auto) 11.8 % 03/27/20 19: Eos % (Auto) 0.0 % 03/27/20: Baso % (Auto) 0.0 % 03/27/20: Immature Gran # (Auto) 0.04 K/uL (0.00-0.02) H 03/27/20: Neut # (Auto) 7.50 K/uL (1.4-6.5) H 03/27/20: Lymph # (Auto) 0.99 K/uL (1.2-3.4) L 03/27/20: [place] # (Auto) 1.14 K/uL (0.11-0.59) H 03/27/20: Eos # (Auto) 0.00 K/uL (0-0.5) 03/27/20: Baso # (Auto) 0.00 K/uL (0-0.2) 03/27/20: Platelet Estimate Decreased (Normal) L 03/27/20: PT 12.0 Seconds (9.0-12.0) 03/27/20: INR 1.1 (0.9-1.1) 03/27/20: APTT 27.4 Seconds (21.0-31.0) 03/27/20 PTT Ratio 1.0 03/27/20: Sodium 139 mmol/L (136-145) 03/27/20: Potassium 3.7 mmol/L (3.5-5.1) 03/27/20: Chloride 108 mmol/L (98-107) H 03/27/20: Carbon Dioxide 22 mmol/L (21-32) 03/27/20: Anion Gap 9.0 (3-11) 03/27/20: BUN 39 mg/dl (7-18) H 03/27/20: Creatinine 1.56 mg/dl (0.6-1.4) H 03/27/20: Est Cr Clr Drug Dosing 51.1 ml/min 03/27/20 19: Est GFR ( Amer) 47.2 03/27/20 19: Est GFR (Non-Af Amer) 40.8 03/27/20 19: BUN/Creatinine Ratio 25.0 (10-20) H 03/27/20 19:27 Glucose 105 mg/dl (70-99) H 03/27/20 19: Lactate 2.6 mmol/L (0.4-2.0) H* 03/27/20 19: Calcium 8.5 mg/dl (8.5-10.1) 03/27/20 19: Magnesium 2.4 mg/dl (1.8-2.4) 03/27/20: Total Bilirubin 1.1 mg/dl (0.2-1) H 03/27/20 19: AST 22 U/L (15-37) 03/27/20: ALT 24 U/L (12-78) 03/27/20: Alkaline Phosphatase 45 U/L (45-117) 03/27/20 19: Troponin I < 0.015 ng/ml (0-0.045) 03/27/20: NT-Pro-B Natriuret Pep 5326 pg/ml (0-1800) H 03/27/20 19: Total Protein 7.2 gm/dl (6.4-8.2) 03/27/20 19: Albumin 3.6 gm/dl (3.4-5.0) 03/27/20: Globulin 3.6 gm/dl (2.5-4.0) 03/27/20 19: Albumin/Globulin Ratio 1.0 (0.9-2) 03/27/20 19: COVID-19 PCR NEGATIVE (Negative) 03/27/20 20:49 Influenza Type A (PCR) Neg for Influ A (Neg) 03/27/20 Unknown Influenza Type B (PCR) Neg for Influ B (Neg) 03/27/20 Unknown SARS-CoV-2 RNA (RT-PCR) Cancelled 03/27/[address] chest initial read: Left PPM, cardiomegaly. Moderate to severe coronary calcification. No pericardial effusion. Extensive groundglass opacities bilateral (right mid to lower lung and inferior aspect of left upper lobe, lesser degree lingula, left lower lobe. Asymmetric appearance argues against CHF. Consider viral pneumonitis. EKG as per my interpretation rate 70, paced rhythm
[2020-03-27 23:16] LABS: Allen Test POS (Pos); Base Excess ABG -2.3 mEq/L (-9-1.8); HCO3 ABG 21 mmol/L (19-24); Oxygen Saturation ABG 94.9 % (90-95); PCO2 ABG 30 mmHg (35-46); PO2 ABG 71 mmHg (80-95); pH ABG 7.46 (7.35-7.45)
[2020-03-28 01:33] LABS: Appearance Urine Clear (Clear); Bacteria Urine Automated Negative (Negative); Bilirubin Urine Negative (Negative); Blood Urine Negative (Negative); Color Urine Yellow; Glucose Urine UA Negative (Negative); Ketones Urine Negative (Negative); Leukocyte Esterase Urine Negative (Negative); Nitrite Urine Negative (Negative); Protein Urine Trace (Negative); RBC Urine Automated 0-4 /hpf (0-4); Specific Gravity Urine 1.018 (1.000-1.030); Urobilinogen Urine Negative (Negative); WBC Urine Automated 0 /hpf (0-5)
[2020-03-28] MEDS ORDERED: ACETAMINOPHEN 325 MG TAB PO PRN (02:16)
[2020-03-28] MEDS ORDERED: CARBOHYDRATES FOR HYPOGLYCEMIA PO PRN (02:16)
[2020-03-28] MEDS ORDERED: GLUCAGON FOR INJ 1 MG VIAL SQ PRN (02:16)
[2020-03-28] MEDS ORDERED: GLUCOSE 10 TABS/TUBE PO PRN (02:16)
[2020-03-28] MEDS ORDERED: PROMETHAZINE HCL 12.5 MG in SODIUM CHLORIDE 0.9% 50 ML IV PRN (02:16)
[2020-03-28] MEDS ORDERED: GLUCOSE 40% GEL 15 GM TUBE PO PRN (02:16)
[2020-03-28] MEDS ORDERED: DEXTROSE 50% 50 ML SYRINGE IV PRN (02:16)
[2020-03-28] MEDS: INSULIN ASPART 100 UNITS/ML 3 ML PEN SC SCH ×5 (02:54→20:46)
[2020-03-28] MEDS ORDERED: INSULIN GLARGINE SOLOSTAR 100 UNITS/ML 3 ML PEN SC STA (03:00)
[2020-03-28 06:06] LABS: Hematocrit (blood only) 30.8 % (42-52); Hemoglobin 10.1 g/dL (14.0-18.0); Mean Corpuscular Hemoglobin 28.9 pg (25-34); Mean Corpuscular Hgb Conc 32.8 g/dL (32-36); RDW Coefficient of Variation 16.4 % (11.5-14.5); RDW Standard Deviation 52.9 fL (36.4-46.3); White Blood Count 7.03 K/uL (4.8-10.8)
[2020-03-28 06:13] LABS: Estimated Average Glucose 126 mg/dl
[2020-03-28] MEDS: LEVOTHYROXINE SODIUM 75 MCG TABLET PO SCH (06:15)
[2020-03-28] MEDS: DOXYCYCLINE HYCLATE 100 MG CAP PO SCH ×2 (06:34→17:23)
[2020-03-28] MEDS: BENZONATATE 100 MG CAPSULE PO PRN ×3 (06:34→22:11)
[2020-03-28 06:40] LABS: BUN Creatinine Ratio 24.6 (10-20); Calcium 8.3 mg/dl (8.5-10.1); Creatinine Clr Calc Pharmacy 56.2 ml/min; Est GFR (African American) 53.8; Est GFR (Non-African American) 46.5; Potassium 4.3 mmol/L (3.5-5.1)
[2020-03-28 06:53] LABS: Mean Platelet Volume 11.4 fL (7.4-10.4); Platelet Count 83 K/uL (130-400)
[2020-03-28 06:59] LABS: Immature Granulocytes # (auto) 0.01 K/uL (0.00-0.02); Immature Granulocytes % (auto) 0.1 %; Lymphocytes # (auto) 0.53 K/uL (1.2-3.4); Lymphocytes % (auto) 7.5 %; Monocytes # (auto) 0.49 K/uL (0.11-0.59); Neutrophils % (auto) 85.4 %
--- NOTE | 2020-03-28 07:31 | CT Scan Report ---
CT chest wo con CT DOSE: 1363.20 mGy.cm HISTORY: hemoptysis TECHNIQUE: Multiaxial CT images of the chest were performed without contrast. A dose lowering techni que was utilized adhering to the principles of ALARA. COMPARISON: Chest 03/27/2020. FINDINGS: Left-sided pacemaker. The heart is mildly enlarged with advanced coronary artery calcificat ion. No pericardial effusion. No mediastinal lymphadenopathy. Extensive groundglass airspace opacitie s seen throughout the majority of the right lung with a few scattered patchy ground glass airspace op acities within the periphery of the left lung. Findings favor a atypical pneumonitis, likely a viral process. The central airways are patent. Trace right pleural effusion. No hilar lymphadenopathy. Limi rebeca views of the upper abdomen demonstrate a cirrhotic liver and a normal spleen. Normal esophagus. N o suspicious lytic or blastic osseous lesions. Possible 6 mm nodule within the right middle lobe on i mage 196. However, this is likely due to the consolidation. No pneumothorax. The central airways are patent. IMPRESSION: 1. Extensive groundglass airspace opacity seen throughout the majority of the right lung with a few s cattered patchy groundglass airspace opacities within the periphery the left lung. Findings favor an atypical pneumonitis, likely a viral process. 2. Trace right pleural effusion. 3. Mild cardiomegaly. 4. Possible 6 mm nodule within the right middle lobe. Follow-up chest CT in 6 months is recommended t o ensure stability/resolution. ACT 112: Negative or not required by law. Electronically signed by: Noble Vee M.D. 03/28/2020 7:30 AM
[2020-03-28] MEDS: ATORVASTATIN 20 MG TAB PO SCH (08:12)
[2020-03-28] MEDS: METOPROLOL SUCC 50MG EXT REL TAB PO SCH (08:12)
[2020-03-28] MEDS: FERROUS SULFATE 325 MG TAB PO SCH (08:12)
[2020-03-28] MEDS: cefTRIAXone SODIUM 2,000 MG in DEXTROSE 5% 50 ML IV SCH (08:41)
--- NOTE | 2020-03-28 10:48 | Pulmonary Consultation ---
Date of Consultation March 28, 2020 Assessment & Plan (1) Acute hypoxemic respiratory failure: (2) Acute on chronic diastolic heart failure: (3) Atrial fibrillation: Atrial fibrillation type: paroxysmal Qualified Code(s): I48.0 - Paroxysmal atrial fibrillation (4) DM type 2 (diabetes mellitus, type 2): (5) HTN (hypertension): Hypertension type: essential hypertension Qualified Code(s): I10 - Essential (primary) hypertension (6) JUVE (obstructive sleep apnea): (7) Thrombocytopenia: (8) WALSH (dyspnea on exertion): (9) Hemoptysis: I had a lengthy discussion with the patient and have had the opportunity to review his past records. He has a history of both ischemic and hypertensive cardiomyopathy and previous admission for acute and chronic diastolic heart failure. He is a diabetic and is morbidly obese and currently being treated for obstructive sleep apnea. 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 The CAT scan findings could represent asymmetric pulmonary edema but probably represent a viral pneumonitis. Patient may be progressing to DAH or diffuse alveolar hemorrhage but currently appears quite stable hemodynamically and from a respiratory standpoint and his aspirin and anticoagulant therapy are on hold. Combination of anticoagulation, antiplatelet medication and thrombocytopenia and his pneumonitis may have contributed to his hemoptysis. I agree with current antibiotic selection and treatment and will need to watch patient closely for any sign of respiratory compromise or clinical deterioration. There is no indication acutely or currently for bronchoscopic evaluation given his presentation but this will bear close surveillance. History of Present Illness Reason for Consultation: Hemoptysis Attending Physician: Gt Han MD History of Present Illness 84-year-old white male was admitted yesterday by Dr. Chris Cote with significant hemoptysis. Patient's had a history of chronic diastolic heart failure in the past and has hypertensive cardiovascular disease as well as diabetes mellitus insulin requiring chronic thrombocytopenia. He apparently also has chronic anemia. He has a history of paroxysmal atrial fibrillation/flutter and is on Eliquis and history of complete heart block status post pacemaker insertion and severe obstructive sleep apnea currently treated with CPAP therapy. He was last admitted in October 2018 for decompensated congestive heart failure. He gives history of 2 months ago quiring treatment for acute bout of bronchitis with steroid therapy and the use of a nebulizer with aerosolized bronchodilator. Antibiotics were utilized. COVID testing as an outpatient has been negative. He gives a history of 5 to 7 days of progressive cough in the last 2 days he is noted hemoptysis sometimes up to a half a teaspoon of bright red blood. He has become more dyspneic with exertion. Tried swing a golf club on the day prior to admission and noted severe dyspnea. Has had chest pain with coughing. Oxygen saturations at home were diminished in the 80 percentile. Works part-time as a finance administrator. His aspirin and Eliquis are on hold. Diuretics have been on hold as well due to an elevated creatinine. He received IV Levaquin in the ER. Currently receives Lantus insulin at home and Victoza is on a beta-yulisa and ARB agent. His white count was 9600 on admission with an H&H of 10.9 and 33.7 and a platelet count of 105,000. A preponderance of polymorphonuclear leukocytes and 77.6% were noted. Creatinine 1.5 BUN of 39. CAT scan of the chest shows moderate to severe coronary calcification with extensive groundglass opacities in the right mid to lower lung field and inferior aspect of left upper lobe, lingula and left lower lobe. Asymmetric appearance argues against CHF. COVID 19 PCR negative influenza a and B PCR negative serum lactate elevated to 2.6. She has had multiple orthopedic procedures in the past for torn left and right-sided rotator cuff, laminectomy, and bilateral carpal tunnel surgery. Is also had bilateral k nee arthroplasty. Cardiac catheterization on 11/12/2018 was an abnormal pharmacologic nuclear stress test showed moderate nonobstructive disease of the proximal and mid LAD along with a distal right coronary artery as described. Allergies Allergy/AdvReac Type Severity Reaction Status Date / Time Penicillins Allergy Intermediate RASH AND Verified 03/27/20 20:03 WELTS Home Medications Home Medications Medication Instructions Recorded Confirmed Type Eliquis 5 mg PO BID #30 tab 10/08/18 03/27/20 Rx Lantus U-100 Insulin 70 unit SUBCUT AMPM 10/08/18 03/27/20 History Victoza 3-Michael 1.2 mg SUBCUT QPM 10/08/18 03/27/20 History albuterol sulfate [Ventolin HFA] 2 - 4 puff INHALATION Q6H PRN 10/08/18 03/27/20 History ascorbic acid (vitamin C) [Vitamin 1,000 mg PO QAM 10/08/18 03/27/20 History C] aspirin [Aspir-81] 81 mg PO QAM 10/08/18 03/27/20 History atorvastatin 20 mg PO QAM 10/08/18 03/27/20 History hydrocodone-acetaminophen 1 tab PO Q6H PRN 10/08/18 03/27/20 History metformin 500 mg PO AMHS 10/08/18 03/27/20 History ferrous sulfate [Feosol] 325 mg PO QAM 11/22/18 03/27/20 History amlodipine 2.5 mg PO QPM 03/27/20 03/27/20 History furosemide 40 mg PO BID 03/27/20 03/27/20 History ipratropium-albuterol 3 ml INHALATION Q6H PRN 03/27/20 03/27/20 History levothyroxine 75 mcg PO QAM 03/27/20 03/27/20 History losartan 100 mg PO QPM 03/27/20 03/27/20 History metoprolol succinate 50 mg PO QAM 03/27/20 03/27/20 History spironolactone 25 mg PO QAM 03/27/20 03/27/20 History vitamin E 400 unit PO QAM 03/27/20 03/27/20 History Patient History Medical History Asthma Atrial fibrillation Atrial flutter (Chronic) DM type 2 (diabetes mellitus, type 2) (Chronic) Dyslipidemia (Chronic) HTN (hypertension) (Chronic) JUVE (obstructive sleep apnea) (Chronic) Thrombocytopenia (Chronic) Surgical History H/O eye surgery (Resolved) "eye removed, implant attached" H/O repair of left rotator cuff (Resolved) H/O repair of right rotator cuff (Resolved) History of back surgery History of bilateral knee arthroplasty (Resolved) History of carpal tunnel surgery of left wrist (Resolved) History of carpal tunnel surgery of right wrist (Resolved) S/P hip replacement S/P laminectomy (Resolved) Family History Other Family history non-contributory Social History Preferred Language: Faroese Communication Ability: Effective 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 Beliefs That Will Affect Care: None marital status: Current Living Situation: Spouse current occupation: self-employed Feels Safe at Home: Yes Safety Concerns: Feels Safe At This Time Smoking Status: Never smoker Hx Alcohol Use: Yes Alcohol type: beer Hx Substance Use: No Review of Systems Constitutional: no problem reported Eyes: no problem reported Ear, Nose, Mouth, Throat: no problem reported Respiratory: no problem reported Cardiovascular: no problem reported Gastrointestinal: no problem reported Genitourinary: no problem reported Musculoskeletal: no problem reported Integumentary: no problem reported Neurologic: no problem reported Psychiatric: no problem reported Endocrine: no problem reported Hematologic / Lymphatic: no problem reported Allergy / Immunological: no problem reported Physical Exam Constitutional: well developed and well nourished; no acute distress Eyes: PERRL, conjunctivae normal, anicteric sclerae ENMT: external ear and nose normal, oropharynx normal Neck: trachea midline, no thyromegaly Respiratory: normal respiratory effort Auscultation: lungs clear to auscultation bilaterally and + rales (Rales audible right greater than left with no egophony/diminished breath sounds at the bases) Cardiovascular: RRR, no murmur, no edema Palpation: normal PMI; no thrill Gastrointestinal (Abdomen): normal bowel sounds, soft, nontender, no hepatosplenomegaly Musculoskeletal: no cyanosis or clubbing, extremities motor strength 5/5 Gait: normal gait Skin: no rashes, warm and dry Neurologic: PERRL, EOMI, accommodation nl, no face palsy, no dysarthria Psychiatric: A+Ox3, euthymic affect Lymphatic: no cervical or axillary lymphadenopathy Results & Data Results & Data ([facility]) Vital Signs (Past 12 Hours) Vital Signs Temp Pulse Pulse Resp BP BP Pulse Ox 03/28/20 07:53 37.1 C 73 18 142/67 H 93 03/28/20 03:15 64 16 92 03/28/20 02:59 82 03/28/20 02:00 36.8 C 73 18 147/79 H 92 03/28/20 01:37 69 16 136/44 L 96 03/28/20 00:36 84 L 03/28/20 00:35 84 L 03/28/20 00:20 77 16 146/53 H 97 PG Care Time/CCT Total # of Minutes Spent Total Time Spent with Patient: Total time spent is greater than 50% in coordination of care (as documented) at patient's floor/unit and/or counseling patient: Coding Level of Care Code 67394 Initial Inpt Care Lvl 3 Diagnoses Acute hypoxemic respiratory failure J96.01 Acute on chronic diastolic heart failure I50.33 Atrial fibrillation I48.0 Atrial fibrillation type: paroxysmal DM type 2 (diabetes mellitus, type 2) E11.9 HTN (hypertension) I10 Hypertension type: essential hypertension JUVE (obstructive sleep apnea) G47.33 Thrombocytopenia D69.6 WALSH (dyspnea on exertion) R06.09 Hemoptysis R04.2 Time Spent (min) 45
[2020-03-28 12:24] LABS: Hematocrit (blood only) 33.2 % (42-52); Hemoglobin 10.9 g/dL (14.0-18.0)
[2020-03-28 18:45] LABS: Appearance Urine Clear (Clear); Bacteria Urine Automated Negative (Negative); Bilirubin Urine Negative (Negative); Blood Urine Trace (Negative); Cast Urine Automated 0 /lpf (0-5); Color Urine Yellow; Epithelial Cell Urine Auto 0-5 /lpf (0-5); Glucose Urine UA Negative (Negative); Ketones Urine Negative (Negative); Leukocyte Esterase Urine Negative (Negative); Nitrite Urine Negative (Negative); Protein Urine 2+ (Negative); RBC Urine Automated 0-4 /hpf (0-4); Specific Gravity Urine 1.021 (1.000-1.030); Urobilinogen Urine Negative (Negative)
--- NOTE | 2020-03-28 19:34 | Electrocardiogram Report ---
Test Reason : Blood Pressure : / mmHG Vent. Rate : 068 BPM Atrial Rate : 068 BPM P-R Int : 080 ms QRS Dur : 146 ms QT Int : 422 ms P-R-T Axes : 015 084 -80 degrees QTc Int : 448 ms Atrial fibrillation with frequent ventricular-paced complexes Right bundle branch block T wave abnormality, consider inferolateral ischemia Abnormal ECG When compared with ECG of 21-APR-2019 18:06, Vent. rate has decreased BY 9 BPM Confirmed by Daryn Bello ([id number]) on 03/28/2020 7:34:28 PM Referred By: REFERRED SELF Confirmed By:Eliceo Bello
--- NOTE | 2020-03-28 20:43 | Hospitalist Progress Note ---
Date of Service March 28, 2020 Assessment & Plan (1) Acute hypoxemic respiratory failure: Secondary to bronchopneumonia, community-acquired infection No overt sepsis for now Hemoptysis secondary to above --Blood cultures: Pending Sputum culture: Pending --Pulmonary service consulted, observe closely, may need bronchoscopy if with persistence of hemoptysis Continue ceftriaxone plus doxycycline Acute on chronic anemia Hemoglobin drop from baseline secondary to above --Hemoglobin stable around 10 ARF secondary to infection --Resolved chronic diastolic heart failure (EF 60 to 64%, TTE 2018) --Euvolemic A. fib/atrial flutter on Eliquis --Hold Eliquis for hemoptysis complete heart block status post PPM hypertension, stable JUVE on CPAP DM2 insulin requiring, well-controlled as of recent hemoglobin A1c of 6.09 May 2019 hypothyroidism, euthyroid chronic thrombocytopenia DVT prophylaxis. SCDs RE hemoptysis Full code Plan of care discussed with patient and his over the phone All questions were answered They are comfortable, agreeable, understanding the plan of care Admission and Anticipated Discharge Date Admission Date: March 27, 2020 Subjective Follow-up for pneumonia Seen sitting up in bedside chair, not in distress, on 2 L of nasal cannula States he feels improved today compared to yesterday No dyspnea while on oxygen supplement Still having cough with blood-tinged sputum No chest pain, no chills Denies other symptoms Review of Systems Review of Systems: All systems reviewed & are unremarkable except as noted in HPI & below Physical Exam Physical Exam: General- oriented x 3, not in distress, speaks in sentences with no effort or accessory muscle use Head- atraumatic Eyes- PERRL, EOMI, anicteric ENT- oropharynx clear Neck- supple, no JVD, no adenopathy, no thyromegaly; carotids +2/2, no bruits appreciated Lungs-positive rhonchi on the right lung harris, clear on the left Heart- normal rate, regular rhythm; no murmur, no gallop, no rub appreciated Abdomen- normal bowel sounds, nondistended, soft, nontender, no masses or hepatosplenomegaly Extremities- no pretibial edema, no calf tenderness; peripheral pulses intact Neuro- alert, oriented x 3; CN 2-12 grossly intact; motor 5/5 bilaterally;sensation 100% on all extremities; no other gross focal neurologic deficits Skin- warm & dry Results & Data Results & Data ([facility]) Vital Signs (Past 12 Hours) Vital Signs Temp Pulse Resp BP Pulse Ox 03/28/20 18:41 38.3 C H 71 18 145/68 H 92 03/28/20 16:32 39.0 C H 03/28/20 15:19 38.6 C H 69 18 115/46 L 90 03/28/20 11:05 36.7 C 63 19 119/55 L 93 Laboratory Results Laboratory Results - last 24 hr 03/27/20 03/27/20 03/27/20 19:27 20:49 23:04 WBC RBC Hgb Hct MCV MCH MCHC RDW Std Deviation RDW Coeff of Ct Plt Count MPV Immature Gran % (Auto) Neut % (Auto) Lymph % (Auto) [place] % (Auto) Eos % (Auto) Baso % (Auto) Immature Gran # (Auto) Neut # (Auto) Lymph # (Auto) [place] # (Auto) Eos # (Auto) Baso # (Auto) ESR ABG pH ABG pCO2 ABG pO2 ABG HCO3 ABG O2 Saturation ABG Base Excess Frankie Test Barometric Pressure Oxygen Given Sodium Potassium Chloride Carbon Dioxide Anion Gap BUN Creatinine Est Cr Clr Drug Dosing Est GFR ( Amer) Est GFR (Non-Af Amer) BUN/Creatinine Ratio Glucose POC Glucose Estimat Average Glucose Hemoglobin A1c Lactate Calcium Magnesium 2.4 Troponin I < 0.015 TSH Urine Color Urine Appearance Urine pH Ur Specific Harper Urine Protein Urine Glucose (UA) Urine Ketones Urine Blood Urine Nitrite Urine Bilirubin Urine Urobilinogen Ur Leukocyte Esterase Urine WBC (Auto) Urine RBC (Auto) U Hyaline Cast (Auto) U Epithel Cells (Auto) Urine Bacteria (Auto) RAMON Screen Anti-Proteinase 3 Anti-Myeloperoxidase ANCA COVID-19 PCR NEGATIVE Influenza Type A (PCR) Influenza Type B (PCR) SARS-CoV-2 RNA (RT-PCR) Blood Type O Positive Antibody Screen NEGATIVE 03/27/20 03/27/20 03/27/20 23:04 23:04 23:04 WBC RBC Hgb Hct MCV MCH MCHC RDW Std Deviation RDW Coeff of Ct Plt Count MPV Immature Gran % (Auto) Neut % (Auto) Lymph % (Auto) [place] % (Auto) Eos % (Auto) Baso % (Auto) Immature Gran # (Auto) Neut # (Auto) Lymph # (Auto) [place] # (Auto) Eos # (Auto) Baso # (Auto) ESR ABG pH 7.46 H ABG pCO2 30 L ABG pO2 71 L ABG HCO3 21 ABG O2 Saturation 94.9 ABG Base Excess -2.3 Frankie Test POS Barometric Pressure 737.1 Oxygen Given ROOM AIR Sodium Potassium Chloride Carbon Dioxide Anion Gap BUN Creatinine Est Cr Clr Drug Dosing Est GFR ( Amer) Est GFR (Non-Af Amer) BUN/Creatinine Ratio Glucose POC Glucose Estimat Average Glucose 126 Hemoglobin A1c 6.0 H Lactate Calcium Magnesium Troponin I TSH 0.313 Urine Color Urine Appearance Urine pH Ur Specific Harper Urine Protein Urine Glucose (UA) Urine Ketones Urine Blood Urine Nitrite Urine Bilirubin Urine Urobilinogen Ur Leukocyte Esterase Urine WBC (Auto) Urine RBC (Auto) U Hyaline Cast (Auto) U Epithel Cells (Auto) Urine Bacteria (Auto) RAMON Screen Anti-Proteinase 3 Anti-Myeloperoxidase ANCA COVID-19 PCR Influenza Type A (PCR) Influenza Type B (PCR) SARS-CoV-2 RNA (RT-PCR) Blood Type Antibody Screen 03/27/20 03/27/20 03/27/20 23:04 Unknown Unknown WBC RBC Hgb Hct MCV MCH MCHC RDW Std Deviation RDW Coeff of Ct Plt Count MPV Immature Gran % (Auto) Neut % (Auto) Lymph % (Auto) [place] % (Auto) Eos % (Auto) Baso % (Auto) Immature Gran # (Auto) Neut # (Auto) Lymph # (Auto) [place] # (Auto) Eos # (Auto) Baso # (Auto) ESR ABG pH ABG pCO2 ABG pO2 ABG HCO3 ABG O2 Saturation ABG Base Excess Frankie Test Barometric Pressure Oxygen Given Sodium Potassium Chloride Carbon Dioxide Anion Gap BUN Creatinine Est Cr Clr Drug Dosing Est GFR ( Amer) Est GFR (Non-Af Amer) BUN/Creatinine Ratio Glucose POC Glucose Estimat Average Glucose Hemoglobin A1c Lactate 2.1 H* Calcium Magnesium Troponin I TSH Urine Color Urine Appearance Urine pH Ur Specific Harper Urine Protein Urine Glucose (UA) Urine Ketones Urine Blood Urine Nitrite Urine Bilirubin Urine Urobilinogen Ur Leukocyte Esterase Urine WBC (Auto) Urine RBC (Auto) U Hyaline Cast (Auto) U Epithel Cells (Auto) Urine Bacteria (Auto) RAMON Screen Anti-Proteinase 3 Anti-Myeloperoxidase ANCA COVID-19 PCR Influenza Type A (PCR) Neg for Influ A Influenza Type B (PCR) Neg for Influ B SARS-CoV-2 RNA (RT-PCR) Cancelled Blood Type Antibody Screen 03/28/20 03/28/20 03/28/20 00:10 02:25 05:53 WBC RBC Hgb Hct MCV MCH MCHC RDW Std Deviation RDW Coeff of Ct Plt Count MPV Immature Gran % (Auto) Neut % (Auto) Lymph % (Auto) [place] % (Auto) Eos % (Auto) Baso % (Auto) Immature Gran # (Auto) Neut # (Auto) Lymph # (Auto) [place] # (Auto) Eos # (Auto) Baso # (Auto) ESR ABG pH ABG pCO2 ABG pO2 ABG HCO3 ABG O2 Saturation ABG Base Excess Frankie Test Barometric Pressure Oxygen Given Sodium Potassium Chloride Carbon Dioxide Anion Gap BUN Creatinine Est Cr Clr Drug Dosing Est GFR ( Amer) Est GFR (Non-Af Amer) BUN/Creatinine Ratio Glucose POC Glucose 171 H Estimat Average Glucose Hemoglobin A1c Lactate 2.0 Calcium Magnesium Troponin I TSH Urine Color Yellow Urine Appearance Clear Urine pH 5.0 Ur Specific Harper 1.018 Urine Protein Trace H Urine Glucose (UA) Negative Urine Ketones Negative Urine Blood Negative Urine Nitrite Negative Urine Bilirubin Negative Urine Urobilinogen Negative Ur Leukocyte Esterase Negative Urine WBC (Auto) 0 Urine RBC (Auto) 0-4 U Hyaline Cast (Auto) 1-5 U Epithel Cells (Auto) 5-10 H Urine Bacteria (Auto) Negative RAMNO Screen Anti-Proteinase 3 Anti-Myeloperoxidase ANCA COVID-19 PCR Influenza Type A (PCR) Influenza Type B (PCR) SARS-CoV-2 RNA (RT-PCR) Blood Type Antibody Screen 03/28/20 03/28/20 03/28/20 05:53 05:53 07:36 WBC 7.03 RBC 3.50 L Hgb 10.1 L Hct 30.8 L MCV 88.0 MCH 28.9 MCHC 32.8 RDW Std Deviation 52.[address] H RDW Coeff of Ct 16.4 H Plt Count 83 L MPV 11.4 H Immature Gran % (Auto) 0.1 Neut % (Auto) 85.4 Lymph % (Auto) 7.5 [place] % (Auto) 7.0 Eos % (Auto) 0.0 Baso % (Auto) 0.0 Immature Gran # (Auto) 0.01 Neut # (Auto) 6.00 Lymph # (Auto) 0.53 L [place] # (Auto) 0.49 Eos # (Auto) 0.00 Baso # (Auto) 0.00 ESR ABG pH ABG pCO2 ABG pO2 ABG HCO3 ABG O2 Saturation ABG Base Excess Frankie Test Barometric Pressure Oxygen Given Sodium 139 Potassium 4.3 D Chloride 109 H Carbon Dioxide 20 L Anion Gap 10.0 BUN 34 H Creatinine 1.40 Est Cr Clr Drug Dosing 56.2 Est GFR ( Amer) 53.8 Est GFR (Non-Af Amer) 46.5 BUN/Creatinine Ratio 24.6 H Glucose 175 H POC Glucose 167 H Estimat Average Glucose Hemoglobin A1c Lactate Calcium 8.3 L Magnesium Troponin I TSH Urine Color Urine Appearance Urine pH Ur Specific Harper Urine Protein Urine Glucose (UA) Urine Ketones Urine Blood Urine Nitrite Urine Bilirubin Urine Urobilinogen Ur Leukocyte Esterase Urine WBC (Auto) Urine RBC (Auto) U Hyaline Cast (Auto) U Epithel Cells (Auto) Urine Bacteria (Auto) RAMON Screen Anti-Proteinase 3 Anti-Myeloperoxidase ANCA COVID-19 PCR Influenza Type A (PCR) Influenza Type B (PCR) SARS-CoV-2 RNA (RT-PCR) Blood Type Antibody Screen 03/28/20 03/28/20 03/28/20 11:23 12:12 16:23 WBC RBC Hgb 10.9 L Hct 33.2 L MCV MCH MCHC RDW Std Deviation RDW Coeff of Ct Plt Count MPV Immature Gran % (Auto) Neut % (Auto) Lymph % (Auto) [place] % (Auto) Eos % (Auto) Baso % (Auto) Immature Gran # (Auto) Neut # (Auto) Lymph # (Auto) [place] # (Auto) Eos # (Auto) Baso # (Auto) ESR ABG pH ABG pCO2 ABG pO2 ABG HCO3 ABG O2 Saturation ABG Base Excess Frankie Test Barometric Pressure Oxygen Given Sodium Potassium Chloride Carbon Dioxide Anion Gap BUN Creatinine Est Cr Clr Drug Dosing Est GFR ( Amer) Est GFR (Non-Af Amer) BUN/Creatinine Ratio Glucose POC Glucose 182 H 180 H Estimat Average Glucose Hemoglobin A1c Lactate Calcium Magnesium Troponin I TSH Urine Color Urine Appearance Urine pH Ur Specific Harper Urine Protein Urine Glucose (UA) Urine Ketones Urine Blood Urine Nitrite Urine Bilirubin Urine Urobilinogen Ur Leukocyte Esterase Urine WBC (Auto) Urine RBC (Auto) U Hyaline Cast (Auto) U Epithel Cells (Auto) Urine Bacteria (Auto) RAMON Screen Anti-Proteinase 3 Anti-Myeloperoxidase ANCA COVID-19 PCR Influenza Type A (PCR) Influenza Type B (PCR) SARS-CoV-2 RNA (RT-PCR) Blood Type Antibody Screen 03/28/20 03/28/20 03/28/20 16:48 16:48 18:20 WBC RBC Hgb Hct MCV MCH MCHC RDW Std Deviation RDW Coeff of Ct Plt Count MPV Immature Gran % (Auto) Neut % (Auto) Lymph % (Auto) [place] % (Auto) Eos % (Auto) Baso % (Auto) Immature Gran # (Auto) Neut # (Auto) Lymph # (Auto) [place] # (Auto) Eos # (Auto) Baso # (Auto) ESR 43 H ABG pH ABG pCO2 ABG pO2 ABG HCO3 ABG O2 Saturation ABG Base Excess Frankie Test Barometric Pressure Oxygen Given Sodium Potassium Chloride Carbon Dioxide Anion Gap BUN Creatinine Est Cr Clr Drug Dosing Est GFR ( Amer) Est GFR (Non-Af Amer) BUN/Creatinine Ratio Glucose POC Glucose Estimat Average Glucose Hemoglobin A1c Lactate Calcium Magnesium Troponin I TSH Urine Color Yellow Urine Appearance Clear Urine pH 5.0 Ur Specific Harper 1.021 Urine Protein 2+ H Urine Glucose (UA) Negative Urine Ketones Negative Urine Blood Trace H Urine Nitrite Negative Urine Bilirubin Negative Urine Urobilinogen Negative Ur Leukocyte Esterase Negative Urine WBC (Auto) 1-5 Urine RBC (Auto) 0-4 U Hyaline Cast (Auto) 0 U Epithel Cells (Auto) 0-5 Urine Bacteria (Auto) Negative RAMON Screen Pending Anti-Proteinase 3 Pending Anti-Myeloperoxidase Pending ANCA Pending COVID-19 PCR Influenza Type A (PCR) Influenza Type B (PCR) SARS-CoV-2 RNA (RT-PCR) Blood Type Antibody Screen 03/28/20 20:19 WBC RBC Hgb Hct MCV MCH MCHC RDW Std Deviation RDW Coeff of Ct Plt Count MPV Immature Gran % (Auto) Neut % (Auto) Lymph % (Auto) [place] % (Auto) Eos % (Auto) Baso % (Auto) Immature Gran # (Auto) Neut # (Auto) Lymph # (Auto) [place] # (Auto) Eos # (Auto) Baso # (Auto) ESR ABG pH ABG pCO2 ABG pO2 ABG HCO3 ABG O2 Saturation ABG Base Excess Frankie Test Barometric Pressure Oxygen Given Sodium Potassium Chloride Carbon Dioxide Anion Gap BUN Creatinine Est Cr Clr Drug Dosing Est GFR ( Amer) Est GFR (Non-Af Amer) BUN/Creatinine Ratio Glucose POC Glucose 153 H Estimat Average Glucose Hemoglobin A1c Lactate Calcium Magnesium Troponin I TSH Urine Color Urine Appearance Urine pH Ur Specific Harper Urine Protein Urine Glucose (UA) Urine Ketones Urine Blood Urine Nitrite Urine Bilirubin Urine Urobilinogen Ur Leukocyte Esterase Urine WBC (Auto) Urine RBC (Auto) U Hyaline Cast (Auto) U Epithel Cells (Auto) Urine Bacteria (Auto) RAMON Screen Anti-Proteinase 3 Anti-Myeloperoxidase ANCA COVID-19 PCR Influenza Type A (PCR) Influenza Type B (PCR) SARS-CoV-2 RNA (RT-PCR) Blood Type Antibody Screen
[2020-03-28] MEDS: AMLODIPINE BESYLATE 5 MG TAB PO SCH (20:47)
[2020-03-28] MEDS: HYDROCODONE/ACETAMOPHEN 5/325MG TAB PO PRN (22:11)
[2020-03-29] MEDS: ALBUT/IPRATROP 3MG/0.5MG NEB 3 ML VIAL NEB PRN ×5 (00:18→15:08)
[2020-03-29] MEDS: LEVOTHYROXINE SODIUM 75 MCG TABLET PO SCH (06:01)
[2020-03-29] MEDS: DOXYCYCLINE HYCLATE 100 MG CAP PO SCH ×2 (06:01→17:03)
[2020-03-29 06:27] LABS: Hematocrit (blood only) 34.1 % (42-52); Hemoglobin 11.2 g/dL (14.0-18.0); Mean Corpuscular Hemoglobin 29.2 pg (25-34); Mean Corpuscular Hgb Conc 32.8 g/dL (32-36); RDW Coefficient of Variation 16.3 % (11.5-14.5); RDW Standard Deviation 53.1 fL (36.4-46.3); Red Blood Count 3.83 M/uL (4.7-6.1); White Blood Count 10.75 K/uL (4.8-10.8)
[2020-03-29 06:46] LABS: BUN Creatinine Ratio 21.1 (10-20); Calcium 8.9 mg/dl (8.5-10.1); Creatinine Clr Calc Pharmacy 57.9 ml/min; Est GFR (African American) 55.8; Est GFR (Non-African American) 48.1; Potassium 4.1 mmol/L (3.5-5.1)
[2020-03-29 07:18] LABS: Mean Platelet Volume 12.2 fL (7.4-10.4); Platelet Count 105 K/uL (130-400)
[2020-03-29 07:19] LABS: Immature Granulocytes # (auto) 0.03 K/uL (0.00-0.02); Immature Granulocytes % (auto) 0.3 %; Lymphocytes # (auto) 0.85 K/uL (1.2-3.4); Lymphocytes % (auto) 7.9 %; Monocytes # (auto) 0.79 K/uL (0.11-0.59); Monocytes % (auto) 7.3 %; Neutrophils # (auto) 9.08 K/uL (1.4-6.5); Neutrophils % (auto) 84.5 %; Platelet Estimate Decreased (Normal)
[2020-03-29] MEDS: METOPROLOL SUCC 50MG EXT REL TAB PO SCH (08:27)
[2020-03-29] MEDS: FERROUS SULFATE 325 MG TAB PO SCH (08:27)
[2020-03-29] MEDS: ATORVASTATIN 20 MG TAB PO SCH (08:27)
[2020-03-29] MEDS: INSULIN ASPART 100 UNITS/ML 3 ML PEN SC SCH ×4 (08:32→20:15)
[2020-03-29] MEDS ORDERED: INSULIN GLARGINE SOLOSTAR 100 UNITS/ML 3 ML PEN SC SCH (09:00)
[2020-03-29] MEDS: cefTRIAXone SODIUM 2,000 MG in DEXTROSE 5% 50 ML IV SCH (09:46)
--- NOTE | 2020-03-29 09:53 | Pulmonology Progress Note ---
Date of Service March 29, 2020 Assessment & Plan (1) Acute hypoxemic respiratory failure: (2) Acute on chronic diastolic heart failure: (3) Atrial fibrillation: Atrial fibrillation type: paroxysmal Qualified Code(s): I48.0 - Paroxysmal atrial fibrillation (4) DM type 2 (diabetes mellitus, type 2): (5) HTN (hypertension): Hypertension type: essential hypertension Qualified Code(s): I10 - Essential (primary) hypertension (6) JUVE (obstructive sleep apnea): (7) Thrombocytopenia: (8) WALSH (dyspnea on exertion): (9) Hemoptysis: I had a lengthy discussion with the patient and have had the opportunity to review his past records. He has a history of both ischemic and hypertensive cardiomyopathy and previous admission for acute and chronic diastolic heart failure. He is a diabetic and is morbidly obese and currently being treated for obstructive sleep apnea. 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 The CAT scan findings could represent asymmetric pulmonary edema but probably represent a viral pneumonitis. Patient may be progressing to DAH or diffuse alveolar hemorrhage but currently appears quite stable hemodynamically and from a respiratory standpoint and his aspirin and anticoagulant therapy are on hold. Combination of anticoagulation, antiplatelet medication and thrombocytopenia and his pneumonitis may have contributed to his hemoptysis. I agree with current antibiotic selection and treatment and will need to watch patient closely for any sign of respiratory compromise or clinical deterioration. There is no indication acutely or currently for bronchoscopic evaluation given his presentation but this will bear close surveillance. Patient seems to be improving and do believe that the degree of hemoptysis was worsened by his antiplatelet, anticoagulant therapy and relative thrombocytopenia. I do not believe that diffuse alveolar hemorrhage is operative here and to be unlikely he has a vasculitis to explain his hemoptysis. Our work-up will depend on his clinical course and cardiopulmonary status. We will recheck a chest x-ray today but would continue current therapy given his clinical improvement. Admission and Anticipated Discharge Date Admission Date: March 27, 2020 Subjective Patient feels better today less dyspneic and with less hemoptysis. He feels he is' gurgling less' and denies pleuritic pain or worsening dyspnea. He slept comfortably last night for the most part. Review of Systems Constitutional: no problem reported Eyes: no problem reported Ear, Nose, Mouth, Throat: no problem reported Respiratory: no problem reported Cardiovascular: no problem reported Gastrointestinal: no problem reported Genitourinary: no problem reported Musculoskeletal: no problem reported Integumentary: no problem reported Neurologic: no problem reported Psychiatric: no problem reported Endocrine: no problem reported Hematologic / Lymphatic: no problem reported Allergy / Immunological: no problem reported Physical Exam Constitutional: well developed and well nourished; no acute distress Eyes: PERRL, conjunctivae normal, anicteric sclerae ENMT: external ear and nose normal, oropharynx normal Neck: trachea midline, no thyromegaly Respiratory: normal respiratory effort Auscultation: lungs clear to auscultation bilaterally and + diminished lung sounds (Diminished breath sounds at the bases with scattered rales right greater than left) Cardiovascular: RRR, no murmur, no edema Palpation: normal PMI; no thrill Gastrointestinal (Abdomen): normal bowel sounds, soft, nontender, no hepatosplenomegaly Musculoskeletal: no cyanosis or clubbing, extremities motor strength 5/5 Gait: normal gait Skin: no rashes, warm and dry Neurologic: PERRL, EOMI, accommodation nl, no face palsy, no dysarthria Psychiatric: A+Ox3, euthymic affect Lymphatic: no cervical or axillary lymphadenopathy Results & Data Results & Data ([facility]) Vital Signs (Past 12 Hours) Vital Signs Temp Pulse Pulse Resp BP BP Pulse Ox 03/29/20 07:50 79 18 93 03/29/20 07:32 37.3 C 82 20 182/78 H 94 03/29/20 04:00 36.5 C 65 18 128/58 L 92 03/29/20 02:44 66 18 96 03/29/20 00:19 72 18 94 03/28/20 23:50 66 03/28/20 23:00 36.8 C 65 18 121/65 93 03/28/20 22:43 37.1 C 67 22 164/80 H 93 PG Care Time/CCT Total # of Minutes Spent Total Time Spent with Patient: Total time spent is greater than 50% in coordination of care (as documented) at patient's floor/unit and/or counseling patient: Coding Level of Care Code 07760 Subseq Hosp Care Lvl 3 Diagnoses Acute hypoxemic respiratory failure J96.01 Acute on chronic diastolic heart failure I50.33 Atrial fibrillation I48.0 Atrial fibrillation type: paroxysmal DM type 2 (diabetes mellitus, type 2) E11.9 HTN (hypertension) I10 Hypertension type: essential hypertension JUVE (obstructive sleep apnea) G47.33 Thrombocytopenia D69.6 WALSH (dyspnea on exertion) R06.09 Hemoptysis R04.2 Time Spent (min) 35
--- NOTE | 2020-03-29 11:39 | XRay Report ---
XR chest 1V portable HISTORY: pneumonia COMPARISON: Chest 03/27/2020. FINDINGS: Hazy airspace opacity throughout the majority of the right lung with patchy densities at th e left lung base. No pneumothorax. No pleural effusions. The heart remains mildly enlarged. Is left-s ided dual-chamber pacemaker. IMPRESSION: Bilateral airspace opacities, right greater than left, consistent with a pneumonia. This is similar t o the recent chest CT. This favors a viral pneumonia. ACT 112: Negative or not required by law. Electronically signed by: Noble Vee M.D. 03/29/2020 11:38 AM
[2020-03-29] MEDS: BENZONATATE 100 MG CAPSULE PO PRN (15:45)
[2020-03-29] MEDS: HYDROCODONE/ACETAMOPHEN 5/325MG TAB PO PRN (15:45)
--- NOTE | 2020-03-29 18:58 | Hospitalist Progress Note ---
Date of Service March 29, 2020 Assessment & Plan (1) Acute hypoxemic respiratory failure: Secondary to bronchopneumonia, community-acquired infection No overt sepsis for now Hemoptysis secondary to above --Blood cultures: Negative so far Sputum culture: Pending --Clinically improving --Pulmonary service consulted, observe closely, may need bronchoscopy if with persistence of hemoptysis Continue ceftriaxone plus doxycycline, nebs Acute on chronic anemia Hemoglobin drop from baseline secondary to above --Hemoglobin stable around 10 ARF secondary to infection --Resolved chronic diastolic heart failure (EF 60 to 64%, TTE 2018) --Restart Lasix and spironolactone A. fib/atrial flutter on Eliquis --Hold Eliquis for hemoptysis complete heart block status post PPM hypertension, stable --Holding losartan for elevated creatinine JUVE on CPAP --Tolerating inpatient CPAP DM2 insulin requiring, well-controlled as of recent hemoglobin A1c of 6.09 May 2019 hypothyroidism, euthyroid chronic thrombocytopenia DVT prophylaxis. SCDs RE hemoptysis Full code Plan of care discussed with patient and his over the phone All questions were answered They are comfortable, agreeable, understanding the plan of care Admission and Anticipated Discharge Date Admission Date: March 27, 2020 Subjective ff up for pneumonia, hypoxia seen resting in bedside chair, comfortable, not in distress States he feels improved today compared to yesterday No shortness of breath, less coughing, less hemoptysis Denies chest pain No fevers or chills Denies other symptoms Review of Systems Review of Systems: All systems reviewed & are unremarkable except as noted in HPI & below Physical Exam Physical Exam: General- oriented x 3, not in distress, speaks in sentences with no effort or accessory muscle use Eyes- anicteric Neck- no JVD Lungs-mild rhonchi right lung harris, clear on the left, no wheezing Heart- normal rate, regular rhythm; no murmurs Abdomen- normal bowel sounds, nondistended, soft, nontender Extremities-bilateral lower leg edema-mild, no calf tenderness Neuro- alert, oriented x 3; no gross focal neurologic deficits Skin- warm & dry Results & Data Results & Data ([facility]) Vital Signs (Past 12 Hours) Vital Signs Temp Pulse Pulse Resp BP BP Pulse Ox 03/29/20 17:30 67 03/29/20 16:08 68 20 96 03/29/20 15:08 79 18 94 03/29/20 15:04 37.3 C 74 20 143/82 H 94 03/29/20 11:22 37.4 C 72 20 130/63 92 03/29/20 11:09 77 18 93 03/29/20 07:50 79 18 93 03/29/20 07:32 37.3 C 82 20 182/78 H 94
[2020-03-29] MEDS: LEVALBUTEROL 1.25MG/0.5ML NEB NEB SCH (19:48)
[2020-03-29] MEDS: INSULIN GLARGINE SOLOSTAR 100 UNITS/ML 3 ML PEN SC SCH (20:14)
[2020-03-29] MEDS: AMLODIPINE BESYLATE 5 MG TAB PO SCH (20:16)
[2020-03-29] MEDS: FUROSEMIDE 40 MG TAB PO SCH (20:33)
[2020-03-30] MEDS: HYDROCODONE/ACETAMOPHEN 5/325MG TAB PO PRN ×2 (00:28→09:38)
[2020-03-30] MEDS: LEVALBUTEROL 1.25MG/0.5ML NEB NEB SCH ×3 (00:34→15:01)
[2020-03-30] MEDS: DOXYCYCLINE HYCLATE 100 MG CAP PO SCH (05:59)
[2020-03-30] MEDS: LEVOTHYROXINE SODIUM 75 MCG TABLET PO SCH (05:59)
[2020-03-30 07:39] LABS: Calcium 8.3 mg/dl (8.5-10.1); Creatinine Clr Calc Pharmacy 56.5 ml/min; Est GFR (African American) 55.3; Est GFR (Non-African American) 47.7; Potassium 4.2 mmol/L (3.5-5.1)
[2020-03-30 08:03] LABS: Eosinophils # (auto) 0.05 K/uL (0-0.5); Eosinophils % (auto) 0.5 %; Hematocrit (blood only) 34.7 % (42-52); Hemoglobin 11.2 g/dL (14.0-18.0); Immature Granulocytes # (auto) 0.03 K/uL (0.00-0.02); Immature Granulocytes % (auto) 0.3 %; Lymphocytes # (auto) 0.88 K/uL (1.2-3.4); Lymphocytes % (auto) 8.3 %; Mean Corpuscular Hemoglobin 28.9 pg (25-34); Mean Corpuscular Hgb Conc 32.3 g/dL (32-36); Mean Corpuscular Volume 89.4 fL (80-100); Mean Platelet Volume 12.7 fL (7.4-10.4); Monocytes # (auto) 0.82 K/uL (0.11-0.59); Monocytes % (auto) 7.7 %; Neutrophils # (auto) 8.84 K/uL (1.4-6.5); Neutrophils % (auto) 83.2 %; Platelet Count 112 K/uL (130-400); RDW Coefficient of Variation 16.3 % (11.5-14.5); RDW Standard Deviation 53.5 fL (36.4-46.3); Red Blood Count 3.88 M/uL (4.7-6.1); White Blood Count 10.62 K/uL (4.8-10.8)
[2020-03-30] MEDS ORDERED: SPIRONOLACTONE 25 MG TAB PO SCH (09:00)
[2020-03-30] MEDS: cefTRIAXone SODIUM 2,000 MG in DEXTROSE 5% 50 ML IV SCH (09:22)
[2020-03-30] MEDS: FERROUS SULFATE 325 MG TAB PO SCH (09:23)
[2020-03-30] MEDS: ATORVASTATIN 20 MG TAB PO SCH (09:23)
[2020-03-30] MEDS: FUROSEMIDE 40 MG TAB PO SCH ×2 (09:24→14:58)
[2020-03-30] MEDS: METOPROLOL SUCC 50MG EXT REL TAB PO SCH (09:24)
[2020-03-30] MEDS: INSULIN GLARGINE SOLOSTAR 100 UNITS/ML 3 ML PEN SC SCH (09:33)
[2020-03-30] MEDS: INSULIN ASPART 100 UNITS/ML 3 ML PEN SC SCH ×2 (09:35→13:20)
[2020-03-30] MEDS: BENZONATATE 100 MG CAPSULE PO PRN (09:38)
--- NOTE | 2020-03-30 09:49 | XRay Report ---
XR chest 1V portable CLINICAL HISTORY: Bronchopneumonia COMPARISON STUDY: Chest CT March 27, 2020. Chest radiograph March 29, 2020. FINDINGS: 2 left subclavian pacemaker is in place. Moderate cardiomegaly is noted. There is no pneumo thorax or pleural effusion. Extensive right lung airspace opacity has slightly improved since exam of March 29, 2020. There is no evidence for pulmonary edema. IMPRESSION: Slight improvement in extensive right lung airspace opacity which favors an infectious p rocess. ACT 112: Negative or not required by law. Electronically signed by: Jerald Beverly M.D. 03/30/2020 9:48 AM
--- NOTE | 2020-03-30 11:32 | Pulmonology Progress Note ---
Date of Service March 30, 2020 84-year-old white male with complex medical history who presented with hemoptysis and has a history of chronic diastolic heart failure as well as hypertensive cardiovascular disease diabetes mellitus insulin requiring and chronic thrombocytopenia. Patient was on anticoagulant therapy on admission which has been discontinued. Also has a history of paroxysmal atrial fibrillation/flutter and complete heart block status post pacemaker insertion along with treatment for JUVE. Patient did have a febrile episode in early a.m. and is now afebrile. He states he feels better than he did when he came into the hospital but still dyspneic with mild exertion. Hemoptysis has recurred a limited fashion. Chest x-ray today showed some improvement in the right-sided infiltrative disease which would suggest infectious etiology. She is allergic to penicillin. Currently on IV ceftriaxone and doxycycline. O2 sats appears adequate on 2 L and is vital signs are stable with no sign of hemodynamic stability. Assessment & Plan (1) Acute hypoxemic respiratory failure: (2) Acute on chronic diastolic heart failure: (3) Atrial fibrillation: Atrial fibrillation type: paroxysmal Qualified Code(s): I48.0 - Paroxysmal atrial fibrillation (4) DM type 2 (diabetes mellitus, type 2): (5) HTN (hypertension): Hypertension type: essential hypertension Qualified Code(s): I10 - Essential (primary) hypertension (6) JUVE (obstructive sleep apnea): (7) Thrombocytopenia: (8) WALSH (dyspnea on exertion): (9) Hemoptysis: I had a lengthy discussion with the patient and have had the opportunity to review his past records. He has a history of both ischemic and hypertensive cardiomyopathy and previous admission for acute and chronic diastolic heart failure. He is a diabetic and is morbidly obese and currently being treated for obstructive sleep apnea. 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 The CAT scan findings could represent asymmetric pulmonary edema but probably represent a viral pneumonitis. Patient may be progressing to DAH or diffuse alveolar hemorrhage but currently appears quite stable hemodynamically and from a respiratory standpoint and his aspirin and anticoagulant therapy are on hold. Combination of anticoagulation, antiplatelet medication and thrombocytopenia and his pneumonitis may have contributed to his hemoptysis. I agree with current antibiotic selection and treatment and will need to watch patient closely for any sign of respiratory compromise or clinical deterioration. There is no indication acutely or currently for bronchoscopic evaluation given his presentation but this will bear close surveillance. Patient seems to be improving and do believe that the degree of hemoptysis was worsened by his antiplatelet, anticoagulant therapy and relative thrombocytopenia. I do not believe that diffuse alveolar hemorrhage is operative here and to be unlikely he has a vasculitis to explain his hemoptysis. Our work-up will depend on his clinical course and cardiopulmonary status. We will recheck a chest x-ray today but would continue current therapy given his clinical improvement. I am concerned by patient's recurrent fever but clinically and radiographically there appears to be some improvement. May consider broadening patient's antibiotic coverage to cover for MRSA and possible fungal etiology. If hemoptysis worsens or continues then patient will require fiberoptic bronchoscopy with BAL, TBX or even open lung biopsy if it persists. Admission and Anticipated Discharge Date Admission Date: March 27, 2020 Review of Systems Constitutional: no problem reported Eyes: no problem reported Ear, Nose, Mouth, Throat: no problem reported Respiratory: no problem reported Cardiovascular: no problem reported Gastrointestinal: no problem reported Genitourinary: no problem reported Musculoskeletal: no problem reported Integumentary: no problem reported Neurologic: no problem reported Psychiatric: no problem reported Endocrine: no problem reported Hematologic / Lymphatic: no problem reported Allergy / Immunological: no problem reported Physical Exam Constitutional: well developed and well nourished; no acute distress Eyes: PERRL, conjunctivae normal, anicteric sclerae ENMT: external ear and nose normal, oropharynx normal Neck: trachea midline, no thyromegaly Respiratory: normal respiratory effort Auscultation: lungs clear to auscultation bilaterally and + rales (Diminished breath sounds right base with rales audible) Cardiovascular: RRR, no murmur, no edema Palpation: normal PMI; no thrill Gastrointestinal (Abdomen): normal bowel sounds, soft, nontender, no hepatosplenomegaly Musculoskeletal: no cyanosis or clubbing, extremities motor strength 5/5 Gait: normal gait Skin: no rashes, warm and dry Neurologic: PERRL, EOMI, accommodation nl, no face palsy, no dysarthria Psychiatric: A+Ox3, euthymic affect Lymphatic: no cervical or axillary lymphadenopathy Results & Data Results & Data ([facility]) Vital Signs (Past 12 Hours) Vital Signs Temp Pulse Pulse Resp BP BP Pulse Ox 03/30/20 11:30 37.5 C 80 20 122/75 93 03/30/20 07:58 65 03/30/20 07:24 83 135/70 03/30/20 07:07 75 20 95 03/30/20 03:46 37.0 C 75 20 130/55 L 95 03/30/20 00:36 87 18 93 03/30/20 00:17 38.0 C H 83 23 162/77 H 92 PG Care Time/CCT Total # of Minutes Spent Total Time Spent with Patient: Total time spent is greater than 50% in coordination of care (as documented) at patient's floor/unit and/or counseling patient: Coding Level of Care Code 05932 Subseq Hosp Care Lvl 3 Diagnoses Acute hypoxemic respiratory failure J96.01 Acute on chronic diastolic heart failure I50.33 Atrial fibrillation I48.0 Atrial fibrillation type: paroxysmal DM type 2 (diabetes mellitus, type 2) E11.9 HTN (hypertension) I10 Hypertension type: essential hypertension JUVE (obstructive sleep apnea) G47.33 Thrombocytopenia D69.6 WALSH (dyspnea on exertion) R06.09 Hemoptysis R04.2 Time Spent (min) 35
[2020-03-30] MEDS ORDERED: LINEZOLID CONSULT ACTIVE PRN (11:58)
[2020-03-30] MEDS ORDERED: LEVOFLOXACIN/D5W 500 MG/100 ML BAG IV SCH (12:00)
[2020-03-30] MEDS ORDERED: LINEZOLID 600 MG/300 ML D5W IV SCH (12:00)
[2020-03-30] MEDS ORDERED: LINEZOLID 600 MG/300 ML BAG IV SCH (12:00)
--- NOTE | 2020-03-30 13:15 | Pulmonology Progress Note ---
Date of Service March 30, 2020 Assessment & Plan (1) Hemoptysis: (2) Acute hypoxemic respiratory failure: (3) Right lower lobe pneumonia: Pneumonia type: due to unspecified organism Qualified Code(s): J18.9 - Pneumonia, unspecified organism (4) Acute on chronic diastolic heart failure: (5) Atrial fibrillation: Atrial fibrillation type: paroxysmal Qualified Code(s): I48.0 - Paroxysmal atrial fibrillation (6) DM type 2 (diabetes mellitus, type 2): (7) JUVE (obstructive sleep apnea): Admission and Anticipated Discharge Date Admission Date: M lengthy discussion with the patient and his hospitalist and a decision was made to transfer him to [facility] for further evaluation and therapy. Subjective 82-year-old white male with complex medical history who I saw previously this morning and was asked to see him this afternoon at his request. Patient has spoken to a client of his who is a physician and they both agreed that he would prefer to be transferred to [facility] in [place]. Splane to him that we did change his antibiotics from ceftriaxone and doxycycline to Levaquin and linezolid because of his recurrent fever. Even though his chest x-ray showed slight improvement in the right-sided infiltrate the recurrent hemoptysis remains a concern. Certainly a vasculitis cannot be ruled out or even diffuse alveolar hemorrhage(DAH). He is a high risk patient with multiorgan system disease and is diabetic. A viral etiology yet to be determined could explain his pneumonitis but certainly MRSA or even an invasive fungal infection cannot be ruled out with certainty. I have spoken with his primary hospitalist Dr. Gt Woodruff and a transfer to [facility] on an internal medicine service is indicated with pulmonary consultation at that time. Review of Systems Constitutional: no problem reported Eyes: no problem reported Ear, Nose, Mouth, Throat: no problem reported Respiratory: no problem reported Cardiovascular: no problem reported Gastrointestinal: no problem reported Genitourinary: no problem reported Musculoskeletal: no problem reported Integumentary: no problem reported Neurologic: no problem reported Psychiatric: no problem reported Endocrine: no problem reported Hematologic / Lymphatic: no problem reported Allergy / Immunological: no problem reported Results & Data Results & Data ([facility]) Vital Signs (Past 12 Hours) Vital Signs Temp Pulse Pulse Resp BP BP Pulse Ox 03/30/20 11:30 37.5 C 80 20 122/75 93 05/24/20 07:58 65 03/30/20 07:24 83 135/70 03/30/20 07:07 75 20 95 03/30/20 03:46 37.0 C 75 20 130/55 L 95 PG Care Time/CCT Total # of Minutes Spent Total Time Spent with Patient: Total time spent is greater than 50% in coordination of care (as documented) at patient's floor/unit and/or counseling patient: Coding Level of Care Code 64014 Subseq Hosp Care Lvl 2 Diagnoses Hemoptysis R04.2 Acute hypoxemic respiratory failure J96.01 Right lower lobe pneumonia J18.9 Pneumonia type: due to unspecified organism Acute on chronic diastolic heart failure I50.33 Atrial fibrillation I48.0 Atrial fibrillation type: paroxysmal DM type 2 (diabetes mellitus, type 2) E11.9 JUVE (obstructive sleep apnea) G47.33 Time Spent (min) 20
[2020-03-30 13:38] LABS: Adenovirus PCR Not Detected (NotDetected); Bordetella parapertussis PCR Not Detected (NotDetected); Bordetella pertussis PCR Not Detected (NotDetected); Chlamydia pneumoniae PCR Not Detected (NotDetected); Coronavirus 229E PCR Not Detected (NotDetected); Coronavirus HKU1 PCR Not Detected (NotDetected); Coronavirus NL63 PCR Not Detected (NotDetected); Coronavirus OC43PCR Not Detected (NotDetected); Human Metapneumovirus PCR Not Detected (NotDetected); Influenza A PCR Not Detected (NotDetected); Influenza B PCR Not Detected (NotDetected); Mycoplasma pneumoniae PCR Not Detected (NotDetected); Parainfluenza Virus 1 PCR Not Detected (NotDetected); Parainfluenza Virus 2 PCR Not Detected (NotDetected); Parainfluenza Virus 3 PCR Not Detected (NotDetected); Parainfluenza Virus 4 PCR Not Detected (NotDetected); Respiratory Syncytial VirusPCR Not Detected (NotDetected); Rhinovirus/Enterovirus PCR Not Detected (NotDetected)
--- NOTE | 2020-03-30 15:46 | Hospitalist Progress Note ---
Date of Service March 30, 2020 Assessment & Plan (1) Acute hypoxemic respiratory failure: Secondary to bronchopneumonia, community-acquired infection No overt sepsis Hemoptysis secondary to above -- CT chest: 1. Extensive groundglass airspace opacity seen throughout the majority of the right lung with a few scattered patchy groundglass airspace opacities within the periphery the left lung. Findings favor an atypical pneumonitis, likely a viral process. 2. Trace right pleural effusion. 3. Mild cardiomegaly. 4. Possible 6 mm nodule within the right middle lobe. Follow-up chest CT in 6 months is recommended to ensure stability/resolution. --COVID test 03/27/2020: Negative --Blood cultures: Negative so far Sputum culture 03/28: Negative repeat Sputum culture 03/30: Pending --Nasal MRSA screen 03/30/2020: Positive --Pulmonary consulted-Dr. Villanueva He was given IV ceftriaxone plus doxycycline x2 days Aspirin and Eliquis held Overall patient states that he feels improved Remains on 2 L of nasal cannula Overall fever was improving until last midnight, fever spike of 38.0 Hemoptysis is improving but still persistent despite holding aspirin and Eliquis, hemoglobin stable --Additional serologic studies ordered today Including: Aspergillus antigen, RAMON, ANCA, CMV antibodies, Legionella, plasma, QuantiFERON gold Ceftriaxone plus doxycycline transition to linezolid and Levaquin --Discussed with pulmonary service, in light of intermittent fever and persistence of hemoptysis despite antibiotics IV, Recommend to transition to tertiary level of care, patient may need bronchoscopy, possible lung biopsy if condition does not improve --Discussed with patient and his over the phone, they are understanding, agreeable, comfortable with the plan of care Discussed with Dr. Harrell, hospitalist at [facility], she kindly accepted the patient for transfer Acute on chronic anemia Hemoglobin drop from baseline secondary to above --Hemoglobin stable around 1-110 Acute renal failure secondary to infection --Held losartan and Lasix plus Aldactone --Resolved --Continue to hold losartan chronic diastolic heart failure (EF 60 to 64%, TTE 2019) --Restarted Lasix and spironolactone Monitor renal function closely A. fib/atrial flutter on Eliquis --Hold Eliquis for hemoptysis complete heart block status post PPM hypertension, stable --Holding losartan for elevated creatinine JUVE on CPAP --Tolerating inpatient CPAP DM2 insulin requiring, well-controlled as of recent hemoglobin A1c of 6.09 May 2019 hypothyroidism, euthyroid chronic thrombocytopenia --Platelets stable around 105-1 12k DVT prophylaxis. SCDs RE hemoptysis Full code Plan of care discussed with patient and his over the phone All questions were answered They are comfortable, agreeable, understanding the plan of care Admission and Anticipated Discharge Date Admission Date: March 27, 2020 Subjective Follow-up for pneumonia, hemoptysis Seen resting in bed side chair, on 2 L of oxygen by nasal cannula, not in distress Dates he feels improved today compared to yesterday, he states that he is improving daily No active shortness of breath while on nasal cannula Coughing less, states no hemoptysis is continues to improve No chills, no chest pain, no palpitations, no dizziness Appetite is good Denies abdominal pain, nausea vomiting No other symptoms Review of Systems Review of Systems: All systems reviewed & are unremarkable except as noted in HPI & below Physical Exam Physical Exam: General- oriented x 3, not in distress, speaks in sentences with no effort or accessory muscle use Eyes- anicteric Neck- no JVD Lungs-mild rhonchi on the right, no wheezing, clear on the left good air entry bilaterally Heart- normal rate, regular rhythm; no murmurs Abdomen- normal bowel sounds, nondistended, soft, nontender Extremities-mild bilateral lower leg edema, no calf tenderness, no erythema Neuro- alert, oriented x 3; no gross focal neurologic deficits Skin- warm & dry Results & Data Results & Data ([facility]) Vital Signs (Past 12 Hours) Vital Signs Temp Pulse Pulse Resp BP BP Pulse Ox 03/30/20 15:40 37.4 C 84 20 158/68 H 93 03/30/20 15:34 37.5 C 77 25 H 130/55 L 122/75 92 03/30/20 15:02 77 25 H 92 03/30/20 11:30 37.5 C 80 20 122/75 93 03/30/20 07:58 65 03/30/20 07:24 83 135/70 03/30/20 07:07 75 20 95 03/30/20 03:46 37.0 C 75 20 130/55 L 95 Laboratory Results Laboratory Results - last 24 hr 03/29/20 03/29/20 03/30/20 16:51 20:06 06:27 WBC 10.62 RBC 3.88 L Hgb 11.2 L Hct 34.7 L MCV 89.4 MCH 28.9 MCHC 32.3 RDW Std Deviation 53.[address] Coeff of Ct 16.3 H Plt Count 112 L MPV 12.7 H Immature Gran % (Auto) 0.3 Neut % (Auto) 83.2 Lymph % (Auto) 8.3 Rankin % (Auto) 7.7 Eos % (Auto) 0.5 Baso % (Auto) 0.0 Immature Gran # (Auto) 0.03 H Neut # (Auto) 8.84 H Lymph # (Auto) 0.88 L Rankin # (Auto) 0.82 H Eos # (Auto) 0.05 Baso # (Auto) 0.00 Sodium Potassium Chloride Carbon Dioxide Anion Gap BUN Creatinine Est Cr Clr Drug Dosing Est GFR ( Amer) Est GFR (Non-Af Amer) BUN/Creatinine Ratio Glucose POC Glucose 195 H 247 H Calcium A.fumigatus Allerg IgE A. fumigatus ASM Class Nasal Screen MRSA (PCR) IgG IgA IgM IgE Adenovirus (PCR) B. pertussis DNA (PCR) B.parapertussis DNA PCR C. pneumoniae DNA (PCR) Coronavirus OC43 (PCR) Coronavirus HKU1 (PCR) Coronavirus 229E (PCR) Coronavirus NL63 (PCR) CMV IgM Ab CMV IgG Ab/TORCH Human Metapneumovir PCR Influenza Type A (PCR) Influenza Type B (PCR) L.pneumophila IgM Ab Urine Legionella Ag Mycoplasma pneumon IgG Mycoplasma pneumon IgM M. pneumoniae (PCR) Parainfluenza 1 (PCR) Parainfluenza 2 (PCR) Parainfluenza 3 (PCR) Parainfluenza 4 (PCR) A. galactomannan Ag A. galactomannan Ag Idx RSV (PCR) Entero/Rhino (PCR) TB Test (QFT) Gold Plus TB Test (QFT) Nil TB Test Mitogen - Nil TB Test Ag - Nil 1 TB Test Ag - Nil 2 Beta-(1,3)-D-Glucan B-(1,3)-D-Glucan Intrp 03/30/20 03/30/20 03/30/20 06:27 07:40 08:41 WBC RBC Hgb Hct MCV MCH MCHC RDW Std Deviation RDW Coeff of Ct Plt Count MPV Immature Gran % (Auto) Neut % (Auto) Lymph % (Auto) Rankin % (Auto) Eos % (Auto) Baso % (Auto) Immature Gran # (Auto) Neut # (Auto) Lymph # (Auto) Rankin # (Auto) Eos # (Auto) Baso # (Auto) Sodium 139 Potassium 4.2 Chloride 108 H Carbon Dioxide 23 Anion Gap 8.0 BUN 27 H Creatinine 1.37 Est Cr Clr Drug Dosing 56.5 Est GFR ( Amer) 55.3 Est GFR (Non-Af Amer) 47.7 BUN/Creatinine Ratio 20.0 Glucose 166 H POC Glucose 191 H Calcium 8.3 L A.fumigatus Allerg IgE A. fumigatus ASM Class Nasal Screen MRSA (PCR) IgG IgA IgM IgE Adenovirus (PCR) B. pertussis DNA (PCR) B.parapertussis DNA PCR C. pneumoniae DNA (PCR) Coronavirus OC43 (PCR) Coronavirus HKU1 (PCR) Coronavirus 229E (PCR) Coronavirus NL63 (PCR) CMV IgM Ab Pending CMV IgG Ab/TORCH Pending Human Metapneumovir PCR Influenza Type A (PCR) Influenza Type B (PCR) L.pneumophila IgM Ab Pending Urine Legionella Ag Mycoplasma pneumon IgG Pending Mycoplasma pneumon IgM Pending M. pneumoniae (PCR) Parainfluenza 1 (PCR) Parainfluenza 2 (PCR) Parainfluenza 3 (PCR) Parainfluenza 4 (PCR) A. galactomannan Ag A. galactomannan Ag Idx RSV (PCR) Entero/Rhino (PCR) TB Test (QFT) Gold Plus TB Test (QFT) Nil TB Test Mitogen - Nil TB Test Ag - Nil 1 TB Test Ag - Nil 2 Beta-(1,3)-D-Glucan B-(1,3)-D-Glucan Intrp 03/30/20 03/30/20 03/30/20 10:00 11:40 12:07 WBC RBC Hgb Hct MCV MCH MCHC RDW Std Deviation RDW Coeff of Ct Plt Count MPV Immature Gran % (Auto) Neut % (Auto) Lymph % (Auto) Rankin % (Auto) Eos % (Auto) Baso % (Auto) Immature Gran # (Auto) Neut # (Auto) Lymph # (Auto) Rankin # (Auto) Eos # (Auto) Baso # (Auto) Sodium Potassium Chloride Carbon Dioxide Anion Gap BUN Creatinine Est Cr Clr Drug Dosing Est GFR ( Amer) Est GFR (Non-Af Amer) BUN/Creatinine Ratio Glucose POC Glucose 237 H Calcium A.fumigatus Allerg IgE A. fumigatus ASM Class Nasal Screen MRSA (PCR) IgG IgA IgM IgE Adenovirus (PCR) Not Detected B. pertussis DNA (PCR) Not Detected B.parapertussis DNA PCR Not Detected C. pneumoniae DNA (PCR) Not Detected Coronavirus OC43 (PCR) Not Detected Coronavirus HKU1 (PCR) Not Detected Coronavirus 229E (PCR) Not Detected Coronavirus NL63 (PCR) Not Detected CMV IgM Ab CMV IgG Ab/TORCH Human Metapneumovir PCR Not Detected Influenza Type A (PCR) Not Detected Influenza Type B (PCR) Not Detected L.pneumophila IgM Ab Urine Legionella Ag Pending Mycoplasma pneumon IgG Mycoplasma pneumon IgM M. pneumoniae (PCR) Not Detected Parainfluenza 1 (PCR) Not Detected Parainfluenza 2 (PCR) Not Detected Parainfluenza 3 (PCR) Not Detected Parainfluenza 4 (PCR) Not Detected A. galactomannan Ag A. galactomannan Ag Idx RSV (PCR) Not Detected Entero/Rhino (PCR) Not Detected TB Test (QFT) Gold Plus TB Test (QFT) Nil TB Test Mitogen - Nil TB Test Ag - Nil 1 TB Test Ag - Nil 2 Beta-(1,3)-D-Glucan B-(1,3)-D-Glucan Intrp 03/30/20 03/30/20 03/30/20 12:10 12:10 12:10 WBC RBC Hgb Hct MCV MCH MCHC RDW Std Deviation RDW Coeff of Ct Plt Count MPV Immature Gran % (Auto) Neut % (Auto) Lymph % (Auto) Rankin % (Auto) Eos % (Auto) Baso % (Auto) Immature Gran # (Auto) Neut # (Auto) Lymph # (Auto) Rankin # (Auto) Eos # (Auto) Baso # (Auto) Sodium Potassium Chloride Carbon Dioxide Anion Gap BUN Creatinine Est Cr Clr Drug Dosing Est GFR ( Amer) Est GFR (Non-Af Amer) BUN/Creatinine Ratio Glucose POC Glucose Calcium A.fumigatus Allerg IgE Pending A. fumigatus ASM Class Pending Nasal Screen MRSA (PCR) IgG 917.0 IgA 158.0 IgM 38.0 L IgE Pending Adenovirus (PCR) B. pertussis DNA (PCR) B.parapertussis DNA PCR C. pneumoniae DNA (PCR) Coronavirus OC43 (PCR) Coronavirus HKU1 (PCR) Coronavirus 229E (PCR) Coronavirus NL63 (PCR) CMV IgM Ab CMV IgG Ab/TORCH Human Metapneumovir PCR Influenza Type A (PCR) Influenza Type B (PCR) L.pneumophila IgM Ab Urine Legionella Ag Mycoplasma pneumon IgG Mycoplasma pneumon IgM M. pneumoniae (PCR) Parainfluenza 1 (PCR) Parainfluenza 2 (PCR) Parainfluenza 3 (PCR) Parainfluenza 4 (PCR) A. galactomannan Ag Cancelled A. galactomannan Ag Idx Cancelled RSV (PCR) Entero/Rhino (PCR) TB Test (QFT) Gold Plus Pending TB Test (QFT) Nil Pending TB Test Mitogen - Nil Pending TB Test Ag - Nil 1 Pending TB Test Ag - Nil 2 Pending Beta-(1,3)-D-Glucan Cancelled B-(1,3)-D-Glucan Intrp Cancelled 03/30/20 03/30/20 03/30/20 12:56 12:56 Unknown WBC RBC Hgb Hct MCV MCH MCHC RDW Std Deviation RDW Coeff of Ct Plt Count MPV Immature Gran % (Auto) Neut % (Auto) Lymph % (Auto) Rankin % (Auto) Eos % (Auto) Baso % (Auto) Immature Gran # (Auto) Neut # (Auto) Lymph # (Auto) Rankin # (Auto) Eos # (Auto) Baso # (Auto) Sodium Potassium Chloride Carbon Dioxide Anion Gap BUN Creatinine Est Cr Clr Drug Dosing Est GFR ( Amer) Est GFR (Non-Af Amer) BUN/Creatinine Ratio Glucose POC Glucose Calcium A.fumigatus Allerg IgE A. fumigatus ASM Class Nasal Screen MRSA (PCR) Positive A IgG IgA IgM IgE Adenovirus (PCR) B. pertussis DNA (PCR) B.parapertussis DNA PCR C. pneumoniae DNA (PCR) Coronavirus OC43 (PCR) Coronavirus HKU1 (PCR) Coronavirus 229E (PCR) Coronavirus NL63 (PCR) CMV IgM Ab CMV IgG Ab/TORCH Human Metapneumovir PCR Influenza Type A (PCR) Influenza Type B (PCR) L.pneumophila IgM Ab Urine Legionella Ag Mycoplasma pneumon IgG Mycoplasma pneumon IgM M. pneumoniae (PCR) Parainfluenza 1 (PCR) Parainfluenza 2 (PCR) Parainfluenza 3 (PCR) Parainfluenza 4 (PCR) A. galactomannan Ag Pending A. galactomannan Ag Idx Pending RSV (PCR) Entero/Rhino (PCR) TB Test (QFT) Gold Plus TB Test (QFT) Nil TB Test Mitogen - Nil TB Test Ag - Nil 1 TB Test Ag - Nil 2 Beta-(1,3)-D-Glucan Cancelled B-(1,3)-D-Glucan Intrp Cancelled
[2020-03-30] MEDS ORDERED: MUPIROCIN 2% OINT 22 GM TUBE EXT SCH (15:55)
--- NOTE | 2020-03-30 16:05 | Discharge Summary ---
Date of Service March 30, 2020 Admission HPI Per Admitting Provider History obtained from patient and records. Medical history significant for chronic diastolic heart failure (EF 60 to 64%, TTE 2019), A. fib/atrial flutter on Eliquis, complete heart block status post PPM, hypertension, hyperlipidemia, JUVE on CPAP, DM2 insulin requiring, hypothyroidism, chronic anemia (baseline hemoglobin 12-13), chronic thrombocytopenia. Last confinement October 2018 for decompensated heart failure. 2 months ago, patient treated for bronchitis symptoms outpatient with steroids/neb course. Outpatient flu/COVID testing was negative. 1 week history of cough symptoms later noted to be bloody the last few days with worsening shortness of breath. Chest pain from coughing. No headache. O2 sats noted to be 80s at home. Possible sick contacts as per patient. No recent aspiration as per patient. Denies unusual fluid retention. No abdominal pain, stools occasionally get dark green as per patient. Outpatient chest x-ray showed patchy opacification right mid to lower lung concerning for pneumonia. Patient directed to ER by PCP. At the ER, patient received Levaquin for pneumonia. Medical History as above Surgical History : Back surgery, knee surgery, hip surgery, eye surgery, shoulder surgery carpal tunnel surgery, PPM Family History : Hypertension Personal/Social history : Non-smoker, occasional EtOH intake, retired educator/sales agent financial report service Admission Exam Per Admitting Provider GENERAL: Comfortable, pleasant, obese, minimal respiratory distress, tremulous SKIN: Pallor , warm HEENT: Pale palpebral conjunctivae, R ptosis (chronic), dry buccal mucosa, nasal cannula in place NECK : Supple, short neck, no tenderness CHEST : Decreased breath sounds , no tenderness HEART : RRR, no obvious murmurs ABDOMEN: Some distention, nontender RECTAL : Intact sphincter, brown stool (FOBT negative) EXTREMITIES : Bilateral LE with venous stasis, no LE tenderness, no other conspicuous deformities noted NEUROLOGIC : Coherent, chronic ptosis right, chronic rest tremors, no other gross focality Principal Diagnosis Acute hypoxic respiratory failure, pneumonia bilateral, hemoptysis Discharge Exam General- oriented x 3, not in distress, speaks in sentences with no effort or accessory muscle use Eyes- anicteric Neck- no JVD Lungs-mild rhonchi on the right, no wheezing, clear on the left good air entry bilaterally Heart- normal rate, regular rhythm; no murmurs Abdomen- normal bowel sounds, nondistended, soft, nontender Extremities-mild bilateral lower leg edema, no calf tenderness, no erythema Neuro- alert, oriented x 3; no gross focal neurologic deficits Skin- warm & dry Discharge Data Allergies Allergy/AdvReac Type Severity Reaction Status Date / Time Penicillins Allergy Intermediate RASH AND Verified 03/27/20 20:03 WELTS Consultations 03/27/20 19:58 ED Decision to Admit Stat 03/28/20 02:16 Consult Pulmonology Routine Ordered Studies 03/27/20 22:32 CT chest wo con Urgent FINDINGS: Left-sided pacemaker. The heart is mildly enlarged with advanced coronary artery calcification. No pericardial effusion. No mediastinal lymphadenopathy. Extensive groundglass airspace opacities seen throughout the majority of the right lung with a few scattered patchy ground glass airspace opacities within the periphery of the left lung. Findings favor a atypical pneumonitis, likely a viral process. The central airways are patent. Trace right pleural effusion. No hilar lymphadenopathy. Limited views of the upper abdomen demonstrate a cirrhotic liver and a normal spleen. Normal esophagus. No suspicious lytic or blastic osseous lesions. Possible 6 mm nodule within the right middle lobe on image 196. However, this is likely due to the consolidation. No pneumothorax. The central airways are patent. IMPRESSION: 1. Extensive groundglass airspace opacity seen throughout the majority of the right lung with a few scattered patchy groundglass airspace opacities within the periphery the left lung. Findings favor an atypical pneumonitis, likely a viral process. 2. Trace right pleural effusion. 3. Mild cardiomegaly. 4. Possible 6 mm nodule within the right middle lobe. Follow-up chest CT in 6 months is recommended to ensure stability/resolution. Hospital Course (1) Acute hypoxemic respiratory failure: Acute hypoxic respiratory failure, secondary to bronchopneumonia, community-acquired infection Hemoptysis secondary to above -- CT chest: 1. Extensive groundglass airspace opacity seen throughout the majority of the right lung with a few scattered patchy groundglass airspace opacities within the periphery the left lung. Findings favor an atypical pneumonitis, likely a viral process. 2. Trace right pleural effusion. 3. Mild cardiomegaly. 4. Possible 6 mm nodule within the right middle lobe. Follow-up chest CT in 6 months is recommended to ensure stability/resolution. --COVID test 03/27/2020: Negative --Blood cultures: Negative so far Sputum culture 03/28: Negative repeat Sputum culture 03/30: Pending --Nasal MRSA screen 03/30/2020: Positive --Pulmonary consulted-Dr. Villanueva He was given IV ceftriaxone plus doxycycline x2 days Aspirin and Eliquis held Overall patient states that he feels improved Remains on 2 L of nasal cannula Overall fever was improving until last midnight, fever spike of 38.0 Hemoptysis is improving but still persistent despite holding aspirin and Eliquis, hemoglobin stable --Additional serologic studies ordered today Including: Aspergillus antigen, RAMON, ANCA, CMV antibodies, Legionella, plasma, QuantiFERON gold --Was given ceftriaxone plus doxycycline then transitioned to linezolid and Levaquin --Discussed with pulmonary service, in light of intermittent fever and persistence of hemoptysis despite antibiotics IV, Recommend to transition to tertiary level of care, patient may need bronchoscopy, possible lung biopsy if condition does not improve --Discussed with patient and his over the phone, they are understanding, agreeable, comfortable with the plan of care Discussed with Dr. Harrell, hospitalist at , she kindly accepted the patient for transfer Pulmonary nodule --CT chest: Possible 6 mm nodule within the right middle lobe. Follow-up chest CT in 6 months is recommended to ensure stability/resolution. Acute on chronic anemia Hemoglobin drop from baseline secondary to above --Hemoglobin stable around 1-110 Acute renal failure secondary to infection --Held losartan and Lasix plus Aldactone --Resolved --Continue to hold losartan chronic diastolic heart failure (EF 60 to 64%, TTE 2019) --Restarted Lasix and spironolactone Monitor renal function closely A. fib/atrial flutter on Eliquis --Hold Eliquis for hemoptysis complete heart block status post PPM hypertension, stable --Holding losartan for elevated creatinine JUVE on CPAP --Tolerating inpatient CPAP DM2 insulin requiring, well-controlled as of recent hemoglobin A1c of 6.09 May 2019 hypothyroidism, euthyroid chronic thrombocytopenia --Platelets stable around 105-1 12k DVT prophylaxis. SCDs RE hemoptysis Full code Plan of care discussed with patient and his over the phone All questions were answered They are comfortable, agreeable, understanding the plan of care Total Time Total Time Spent Total Time Spent (In Minutes): 60 Discharge Plan Discharge Items Patient Disposition: Transfer Acute Care Hospital Reason For Visit: RESP FAILURE Discharge Diagnosis: Acute hypoxic respiratory failure, pneumonia, hemoptysis Activity: As commented below Activity Comment: Out of bed as tolerated Non-emergency contact: Primary Care Provider Call non-emergency contact if: you have any medication questions, your symptoms worsen and you have a fever Follow-up/Referrals: Akhil Nevarez MD [Primary Care Provider] - Diet: Carb Consistent or DM2 and Heart Healthy Addtl Attending Provider Instructions: Please refer to accompanying hospital discharge summary for further details. Pending Studies at Discharge: Yes Studies:: Please refer to accompanying discharge summary for further details. Stand-Alone Forms: My [facility] ok[facility], Smoking Cessation Skilled Items Patient informed of condition?: Yes DNR: No Discharge Level of Care: Other Communicable Disease: No Discharge Prognosis: Stable Lines: None Urinary Catheter: No Medications and DC Order Prescriptions: Continued ferrous sulfate [Feosol] 325 mg (65 mg iron) Tablet 325 mg PO QAM RF: 0 furosemide 40 mg tablet 40 mg PO BID RF: 0 ipratropium-albuterol 0.5 mg-3 mg(2.5 mg base)/3 mL solution for nebulization 3 ml INHALATION Q6H PRN (Reason: Cough or Wheezing) RF: 0 metoprolol succinate 50 mg tablet extended release 24 hr 50 mg PO QAM RF: 0 amlodipine 5 mg tablet 2.5 mg PO QPM RF: 0 spironolactone 25 mg tablet 25 mg PO QAM RF: 0 levothyroxine 75 mcg tablet 75 mcg PO QAM RF: 0 vitamin E 400 unit Capsule 400 unit PO QAM RF: 0 ascorbic acid (vitamin C) [Vitamin C] 1,000 mg Tablet 1,000 mg PO QAM RF: 0 atorvastatin 20 mg Tablet 20 mg PO QAM RF: 0 albuterol sulfate [Ventolin HFA] 90 mcg/actuation Hfa Aerosol Inhaler 2 - 4 puff INHALATION Q6H PRN (Reason: Shortness Of Breath Or Wheezing) RF: 0 hydrocodone-acetaminophen 5-300 mg Tablet 1 tab PO Q6H PRN (Reason: Pain) RF: 0 Discontinued losartan 50 mg tablet 100 mg PO QPM RF: 0 metformin 500 mg Tablet 500 mg PO AMHS RF: 0 Lantus U-100 Insulin 100 unit/mL Solution 70 unit SUBCUT AMPM RF: 0 aspirin [Aspir-81] 81 mg Tablet,Delayed Release (Dr/Ec) 81 mg PO QAM RF: 0 Victoza 3-Michael 0.6 mg/0.1 mL (18 mg/3 mL) Pen Injector 1.2 mg SUBCUT QPM RF: 0 Eliquis 5 mg tablet 5 mg PO BID Qty: 30 RF: 2 Discharge Orders: Discharge Order (Routine); Ordered 03/30/20 Ordered By: Gt Liang/Other Patient Handouts: Diabetes Type 2 Managing Admission Data Admit Date/Time: 03/27/20 22:34 Attending Provider: Gt Han Admit Provider: Chris Martinez Primary Care Provider: Akhil Nevarez Other Providers: Chris Martinez ; Rusty Villanueva ; Darvin Rios ; Daisy Galeas ; Rock Castillo ; Maria Teresa Natarajan ; Chris Galloway ; Yang Coates Janet R. ; Hunter Williamson ; Kylee Prieto Other Interventions: Discharge Summary Assessment (RN) Last Done: 03/30/20 15:34
[2020-04-02 13:09] LABS: Asperg Fumig Class 0; Asperg Fumig IgE <0.10 kU/L; Immunoglobulin IgE 39 kU/L (<OR=114)
[2020-04-03 11:07] LABS: ANCA Screen Negative (Negative); Anti Nuclear Antibody Screen NEGATIVE (NEGATIVE); Myeloperoxidase Ab <1.0 AI (<1.0); Proteinase-3 AB <1.0 AI (<1.0)
[2020-04-03 14:44] LABS: Quantiferon Mitogen-NIL >10.00 IU/mL; Quantiferon NIL 0.02 IU/mL; Quantiferon TB Gold Plus NEGATIVE (NEGATIVE); Quantiferon TB2-NIL 0.01 IU/mL
[2020-04-04 18:05] LABS: Fungitell (1-3)-B-D-Glucan <31
[2020-04-05 15:08] LABS: Aspergillus Ag Index 0.07 (<0.50); Aspergillus Antigen, Serum Not Detected (Not Detected)
[2020-04-05 16:25] LABS: CMV IgM Antibody <30.00 AU/mL; Legionella pneumoph IgM, IFA <1:256; Mycoplasma pneumoniae Ab, IgG 1.21 (<=0.90); Mycoplasma pneumoniae Ab, IgM 33 U/mL (<770)
== END 2020-03-30 17:00 | disposition short-term general hospital (02) | DRG 193 ==
LOC: ED 18:36 → 2S 03-28 → 2N 03-28 22:31

== ENCOUNTER 2020-11-09 20:28 | Inpatient (IN) ==
[2020-11-09 21:04] LABS: Basophils # (auto) 0.01 K/uL (0-0.2); Basophils % (auto) 0.1 %; Eosinophils # (auto) 0.01 K/uL (0-0.5); Eosinophils % (auto) 0.1 %; Hematocrit (blood only) 36.4 % (42-52); Hemoglobin 11.7 g/dL (14.0-18.0); Immature Granulocytes # (auto) 0.04 K/uL (0.00-0.02); Immature Granulocytes % (auto) 0.3 %; Lymphocytes # (auto) 1.41 K/uL (1.2-3.4); Lymphocytes % (auto) 9.1 %; Mean Corpuscular Hemoglobin 29.3 pg (25-34); Mean Corpuscular Hgb Conc 32.1 g/dL (32-36); Mean Corpuscular Volume 91.2 fL (80-100); Mean Platelet Volume 11.4 fL (7.4-10.4); Monocytes # (auto) 0.77 K/uL (0.11-0.59); Neutrophils # (auto) 13.19 K/uL (1.4-6.5); Neutrophils % (auto) 85.4 %; Platelet Count 143 K/uL (130-400); RDW Standard Deviation 50.8 fL (36.4-46.3); Red Blood Count 3.99 M/uL (4.7-6.1); White Blood Count 15.43 K/uL (4.8-10.8)
[2020-11-09 21:18] LABS: INR 1.1 (0.9-1.1); Partial Thromboplastin Ratio 1.1; Partial Thromboplastin Time 30.5 Seconds (21.0-31.0); Prothrombin Time 11.5 Seconds (9.0-12.0)
[2020-11-09] MEDS ORDERED: methylPREDNISolone 125 MG/2 ML VIAL IV STA (21:21)
[2020-11-09 21:35] LABS: Alanine Aminotransferase 24 U/L (12-78); Albumin Level 3.9 gm/dl (3.4-5.0); Aspartate Aminotransferase 17 U/L (15-37); BUN Creatinine Ratio 19.2 (10-20); Blood Urea Nitrogen 37 mg/dl (7-18); C Reactive Protein 1.81 mg/dl (0-0.29); Calcium 9.5 mg/dl (8.5-10.1); Carbon Dioxide 21 mmol/L (21-32); Chloride 100 mmol/L (98-107); Creatinine Clr Calc Pharmacy 41.2 ml/min; Est GFR (Non-African American) 31.1; Glucose 377 mg/dl (70-99); Lipase 153 U/L (73-393); Potassium 4.3 mmol/L (3.5-5.1); Sodium 134 mmol/L (136-145)
[2020-11-09 21:38] LABS: Albumin Globulin Ratio 0.8 (0.9-2); Alkaline Phosphatase 85 U/L (45-117); Bilirubin,Total 1.2 mg/dl (0.2-1); Ferritin 66.8 ng/ml (8-388); Globulin 4.7 gm/dl (2.5-4.0); NT Pro B Type Natriuretic Pept 3676 pg/ml (0-1800); Total Protein 8.6 gm/dl (6.4-8.2); Troponin I < 0.015 ng/ml (0-0.045)
[2020-11-09] MEDS ORDERED: CEFEPIME 2,000 MG/20 ML VIAL IV STA (21:38)
[2020-11-09] MEDS ORDERED: MAGNESIUM SULFATE / D5W 1 GM/100 ML BAG IV STA (21:38)
[2020-11-09] MEDS ORDERED: NovoLIN-R INSULIN PER UNIT CHARGE IV STA (21:38)
[2020-11-09] MEDS ORDERED: levoFLOXacin/D5W 750 MG/150 ML BAG IV STA (21:38)
[2020-11-09] MEDS ORDERED: LEVALBUTEROL HCL 1.25 MG/3 ML NEB NEB STA (21:38)
[2020-11-09] MEDS ORDERED: ALBUMIN 25% 12.5 GM/50 ML VIAL IV ONE (21:46)
[2020-11-09] MEDS ORDERED: FUROSEMIDE 40 MG/4 ML VIAL IV STA (21:46)
--- NOTE | 2020-11-09 21:52 | Emergency Department Note ---
History of Present Illness General Chief complaint: Respiratory Distress Stated complaint: RESPIRATORY DISTRESS Time Seen by Provider: 11/09/20 20:37 Source: patient, EMS, RN notes reviewed and old records reviewed Mode of arrival: EMS History of Present Illness Provider complaint: Shortness of breath, coughing up blood Onset (ago): day(s) 2 Location: chest Radiation: back Current Pain Intensity: 0 Relieved By: + immobilization and + rest Exacerbated By: + movement Associated symptoms: + shortness of breath; no diaphoresis, no fever/chills, no headaches, no loss of appetite, no malaise and no nausea/vomiting Treatments prior to arrival: none This is an 85-year-old male who presents to the emergency department complaining of shortness of breath. The patient reports he began coughing up blood 2 nights ago. He reports he is extremely short of breath with any exertion and cannot ambulate around his house. He reports rest makes this ambulation much better. He is on Lasix as well as apixaban. Home Medications Medication Instructions Recorded Confirmed Type albuterol sulfate [Ventolin HFA] 2 - 4 puff INHALATION Q6H PRN 10/08/18 11/09/20 History ascorbic acid (vitamin C) [Vitamin 1,000 mg PO QAM 10/08/18 11/09/20 History C] atorvastatin 20 mg PO QAM 10/08/18 11/09/20 History hydrocodone-acetaminophen 1 tab PO Q6H PRN 10/08/18 11/09/20 History ferrous sulfate [Feosol] 325 mg PO QAM 11/22/18 11/09/20 History amlodipine 2.5 mg PO QPM 03/27/20 11/09/20 History furosemide 40 mg PO BID 03/27/20 11/09/20 History ipratropium-albuterol 3 ml INHALATION Q6H PRN 03/27/20 11/09/20 History levothyroxine 75 mcg PO QAM 03/27/20 11/09/20 History metoprolol succinate 50 mg PO QAM 03/27/20 11/09/20 History spironolactone [Aldactone] 25 mg PO QAM 03/27/20 11/09/20 History vitamin E 0 unit PO QAM 03/27/20 11/09/20 History apixaban [Eliquis] 5 mg PO BID 11/09/20 11/09/20 History aspirin 81 mg PO QAM 11/09/20 11/09/20 History Allergies Allergy/AdvReac Type Severity Reaction Status Date / Time Penicillins Allergy Intermediate RASH AND Verified 11/09/20 21:23 WELTS Past Med/Surg History Medical History (Updated 11/09/20 @ 23:23 by Chaitanya Frances MD) Asthma Atrial fibrillation Atrial flutter DM type 2 (diabetes mellitus, type 2) Dyslipidemia HTN (hypertension) JUVE (obstructive sleep apnea) Thrombocytopenia Surgical History H/O eye surgery "eye removed, implant attached" H/O repair of left rotator cuff H/O repair of right rotator cuff History of back surgery History of bilateral knee arthroplasty History of carpal tunnel surgery of left wrist History of carpal tunnel surgery of right wrist S/P hip replacement S/P laminectomy Family History Other Family history non-contributory Social History Smoking Status: Never smoker Hx Alcohol Use: Yes Alcohol type: beer Hx Substance Use: No Preferred Language: Hebrew Communication Ability: Effective Reimbursement Representative Required: No Beliefs That Will Affect Care: None marital status: Current Living Situation: Spouse current occupation: self-employed Feels Safe at Home: Yes Assistive Devices: CPAP and Oxygen - Continuous Review of Systems A total of 10 systems reviewed and were otherwise negative Physical Exam Vital Signs Vital Signs - 24 hr 11/09/20 20:35 11/09/20 20:38 11/09/20 20:46 Temperature Temperature Source Pulse Rate 74 70 83 Pulse Rate [Apical] Pulse Rate from SpO2 Sensor 72 70 Respiratory Rate 20 25 H 32 H Respiratory Effort / Characteristics Blood Pressure 173/77 H Blood Pressure Mean 138 Pulse Oximetry 94 95 Oxygen Delivery Method Oxygen Flow Rate 3 3 3 Sepsis Recent Fever Within 48 Hours Sepsis New/Unexplained Change in Mental Status Sepsis Action Taken by Nursing Oxygen Flow Rate - Titration Pulse Oximetry Post Tiitration 11/09/20 20:49 11/09/20 21:00 11/09/20 21:01 Temperature 36.9 C Temperature Source Oral Pulse Rate 77 66 70 Pulse Rate [Apical] Pulse Rate from SpO2 Sensor 65 67 Respiratory Rate 28 H 26 H 30 H Respiratory Effort / Characteristics Spontaneous Labored Blood Pressure 173/77 H 157/55 H Blood Pressure Mean 109 86 Pulse Oximetry 94 92 92 Oxygen Delivery Method Nasal Cannula Oxygen Flow Rate 3 3 3 Sepsis Recent Fever Within 48 Hours No Sepsis New/Unexplained Change in Mental Status No Sepsis Action Taken by Nursing No Action Required Oxygen Flow Rate - Titration Pulse Oximetry Post Tiitration 11/09/20 21:02 11/09/20 21:03 11/09/20 21:15 Temperature Temperature Source Pulse Rate 69 67 Pulse Rate [Apical] Pulse Rate from SpO2 Sensor 69 70 Respiratory Rate 26 H 20 Respiratory Effort / Characteristics Blood Pressure Blood Pressure Mean Pulse Oximetry 93 71 L 90 Oxygen Delivery Method Nasal Cannula Room Air Nasal Cannula Oxygen Flow Rate 3 0 3 Sepsis Recent Fever Within 48 Hours Sepsis New/Unexplained Change in Mental Status Sepsis Action Taken by Nursing Oxygen Flow Rate - Titration 3 Pulse Oximetry Post Tiitration 93 11/09/20 21:17 11/09/20 21:30 11/09/20 21:31 Temperature Temperature Source Pulse Rate 72 65 60 Pulse Rate [Apical] Pulse Rate from SpO2 Sensor 68 65 61 Respiratory Rate 25 H Respiratory Effort / Characteristics Blood Pressure 131/50 L 128/68 Blood Pressure Mean 94 82 Pulse Oximetry 92 89 L 92 Oxygen Delivery Method Nasal Cannula Nasal Cannula Nasal Cannula Oxygen Flow Rate 3 3 3 Sepsis Recent Fever Within 48 Hours Sepsis New/Unexplained Change in Mental Status Sepsis Action Taken by Nursing Oxygen Flow Rate - Titration Pulse Oximetry Post Tiitration 11/09/20 21:45 11/09/20 21:46 11/09/20 22:00 Temperature Temperature Source Pulse Rate 66 70 71 Pulse Rate [Apical] Pulse Rate from SpO2 Sensor 65 72 Respiratory Rate 19 22 27 H Respiratory Effort / Characteristics Blood Pressure 119/78 Blood Pressure Mean 82 Pulse Oximetry 91 91 Oxygen Delivery Method Nasal Cannula Nasal Cannula Nasal Cannula Oxygen Flow Rate 3 3 3 Sepsis Recent Fever Within 48 Hours Sepsis New/Unexplained Change in Mental Status Sepsis Action Taken by Nursing Oxygen Flow Rate - Titration Pulse Oximetry Post Tiitration 11/09/20 22:15 11/09/20 22:30 11/09/20 22:45 Temperature Temperature Source Pulse Rate 65 66 69 Pulse Rate [Apical] Pulse Rate from SpO2 Sensor Respiratory Rate 17 20 18 Respiratory Effort / Characteristics Blood Pressure Blood Pressure Mean Pulse Oximetry Oxygen Delivery Method Oxygen Flow Rate 3 3 3 Sepsis Recent Fever Within 48 Hours Sepsis New/Unexplained Change in Mental Status Sepsis Action Taken by Nursing Oxygen Flow Rate - Titration Pulse Oximetry Post Tiitration 11/09/20 22:46 11/09/20 23:06 Temperature Temperature Source Pulse Rate 63 Pulse Rate [Apical] 78 Pulse Rate from SpO2 Sensor Respiratory Rate 16 20 Respiratory Effort / Characteristics Non-Labored Spontaneous Blood Pressure 112/71 Blood Pressure Mean 81 Pulse Oximetry 93 Oxygen Delivery Method Nasal Cannula Oxygen Flow Rate 3 2 Sepsis Recent Fever Within 48 Hours Sepsis New/Unexplained Change in Mental Status Sepsis Action Taken by Nursing Oxygen Flow Rate - Titration Pulse Oximetry Post Tiitration VITAL SIGNS - Vital signs and nursing notes were reviewed. GENERAL - 89-year-old male appearing stated age who is in moderate distress. Extremely winded on physical exam SKIN - Without rashes. HEAD - NC/AT. EYES - PERRL with EOMI bilaterally. Sclera anicteric. Palpebral conjunctiva pink and moist with no injection noted. EARS - No deformities of external structures noted on gross examination bi laterally. No pain elicited with palpation of the tragus bilaterally. External auditory canals without discharge or otorrhea. Tympanic membranes pearly rea without retraction or bulging. No fluid or purulent material visualized behind the TM. Handle of malleus, umbo, cone of light, pars tensa/flaccid all easily visualized. NOSE - Midline and without cyanosis. No epistaxis or purulent drainage noted. Septum midline without deviation or septal hematoma noted. MOUTH/OROPHARYNX - Without perioral cyanosis. Buccal mucosa pink and moist and without leukoplakia. Tongue midline with equal elevation of palate bilaterally. No tonsillar hypertrophy, erythema, or exudates noted. dentition noted. NECK - Neck with FROM. Supple to palpation. lymphadenopathy noted. No nuchal rigidity. LUNGS - Chest wall symmetric without accessory muscle use, intercostals retractions, or central cyanosis. Normal vesicular breath sounds CTA B/L. No wheezes, rales, or rhonchi appreciated. CARDIAC - RRR with S1/S2. No murmur, rubs, or gallops appreciated. ABDOMEN - Abdominal contour without pulsations or visible masses. BS normoactive all four quadrants. No tenderness, palpable masses, hepatosplenomegaly, or ascites noted. EXTREMITIES - No clubbing or peripheral cyanosis. No pretibial edema present. +3/5 radial, posterior tibial, and dorsalis pedis pulses palpated throughout. +5/5 strength noted in UE/LE bilaterally. NEUROLOGIC - Cranial nerves II through XII grossly intact. Sensory intact to light touch throughout. Patellar reflexes +2/4. PSYCH - A&Ox3 and cooperates fully with examiner. Pt is very pleasant and interacts well with examiner. Course Administered Medications Discontinued Medications Furosemide (Furosemide 40 Mg/4 Ml Vial) 60 mg IV NOW STA Stop: 11/09/20 21:47 Last Admin: 11/09/20 22:09 Dose: 60 mg Documented by: [id number] Cefepime HCl (Maxipime) 2,000 mg in 20 mls @ 5 mls/min IV NOW STA Stop: 11/09/20 21:41 Last Admin: 11/09/20 22:45 Dose: 5 mls/min Documented by: [id number] Levofloxacin/Dextrose (Levaquin/D5w) 750 mg in 150 mls @ 100 mls/hr IV NOW STA Stop: 11/09/20 23:07 Last Admin: 11/09/20 22:50 Dose: 100 mls/hr Documented by: [id number] Insulin Human Regular (Novolin-R Insulin Per Unit Charge) 10 units IV NOW STA Stop: 11/09/20 21:39 Last Admin: 11/09/20 22:09 Dose: 10 units Documented by: [id number] Cosigned by: [id number] Levalbuterol HCl (Levalbuterol Hcl 1.25 Mg/3 Ml Neb) 1.25 mg NEB NOW STA Stop: 11/09/20 21:39 Last Admin: 11/09/20 23:06 Dose: 1.25 mg Documented by: [id number] Methylprednisolone (Methylprednisolone 125 Mg/2 Ml Vial) 125 mg IV NOW STA Stop: 11/09/20 21:22 Last Admin: 11/09/20 21:34 Dose: 125 mg Documented by: [id number] Medical Decision Making Differential Diagnosis Reactive airway disease, pneumonia, pneumothorax, COPD, CHF, infections, cardiac ischemia, pulmonary embolism, musculoskeletal, gastrointestinal, as well as other pathologies. Medical Records Attestation: I reviewed the patient's medical records. Home Medications Current Medication List: was personally reviewed by me Laboratory Data Attestation: I reviewed the patient's lab results. Result diagrams: 11/09/20 20:56 11/09/20 20:56 Lab Results 11/09/20 11/09/20 11/09/20 Range/Units 20:56 20:56 20:56 WBC 15.43 H (4.8-10.8) K/uL RBC 3.99 L (4.7-6.1) M/uL Hgb 11.7 L (14.0-18.0) g/dL Hct 36.4 L (42-52) % MCV 91.2 (80-100) fL MCH 29.3 (25-34) pg MCHC 32.1 (32-36) g/dL RDW Std Deviation 50.8 H (36.4-46.3) fL RDW Coeff of Ct 15.0 H (11.5-14.5) % Plt Count 143 (130-400) K/uL MPV 11.4 H (7.4-10.4) fL Immature Gran % (Auto) 0.3 % Neut % (Auto) 85.4 % Lymph % (Auto) 9.1 % Ocean % (Auto) 5.0 % Eos % (Auto) 0.1 % Baso % (Auto) 0.1 % Neut # (Auto) 13.19 H (1.4-6.5) K/uL Lymph # (Auto) 1.41 (1.2-3.4) K/uL Ocean # (Auto) 0.77 H (0.11-0.59) K/uL Eos # (Auto) 0.01 (0-0.5) K/uL Baso # (Auto) 0.01 (0-0.2) K/uL Immature Gran # (Auto) 0.04 H (0.00-0.02) K/uL ESR 38 H (0-14) mm/hr PT 11.5 (9.0-12.0) Seconds INR 1.1 (0.9-1.1) APTT 30.5 (21.0-31.0) Seconds PTT Ratio 1.1 ABG pH (7.35-7.45) ABG pCO2 (35-46) mmHg ABG pO2 (80-95) mmHg ABG HCO3 (19-24) mmol/L ABG O2 Saturation (90-95) % ABG Base Excess (-9-1.8) mEq/L Frankie Test (Pos) Barometric Pressure mm/Hg Oxygen Given Sodium (136-145) mmol/L Potassium (3.5-5.1) mmol/L Chloride (98-107) mmol/L Carbon Dioxide (21-32) mmol/L Anion Gap (3-11) BUN (7-18) mg/dl Creatinine (0.6-1.4) mg/dl Est Cr Clr Drug Dosing ml/min Est GFR ( Amer) Est GFR (Non-Af Amer) BUN/Creatinine Ratio (10-20) Glucose (70-99) mg/dl POC Glucose (70-99) mg/dl Lactate (0.4-2.0) mmol/L Calcium (8.5-10.1) mg/dl Magnesium (1.8-2.4) mg/dl Ferritin (8-388) ng/ml Total Bilirubin (0.2-1) mg/dl AST (15-37) U/L ALT (12-78) U/L Alkaline Phosphatase (45-117) U/L Lactate Dehydrogenase (87-241) U/L Troponin I (0-0.045) ng/ml C-Reactive Protein (0-0.29) mg/dl NT-Pro-B Natriuret Pep (0-1800) pg/ml Total Protein (6.4-8.2) gm/dl Albumin (3.4-5.0) gm/dl Globulin (2.5-4.0) gm/dl Albumin/Globulin Ratio (0.9-2) Lipase (73-393) U/L Beta-Hydroxybutyric Acd (0.2-2.81) mg/dl Urine Color Urine Appearance (Clear) Urine pH (4.5-7.5) Ur Specific [place] (1.000-1.030) Urine Protein (Negative) Urine Glucose (UA) (Negative) Urine Ketones (Negative) Urine Blood (Negative) Urine Nitrite (Negative) Urine Bilirubin (Negative) Urine Urobilinogen (Negative) Ur Leukocyte Esterase (Negative) Urine WBC (Auto) (0-5) /hpf Urine RBC (Auto) (0-4) /hpf U Hyaline Cast (Auto) (0-5) /lpf U Epithel Cells (Auto) (0-5) /lpf Urine Bacteria (Auto) (Negative) COVID-19 Eval Order SARS-CoV-2, RNA, NAAT (NEGATIVE) 11/09/20 11/09/20 11/09/20 Range/Units 20:56 20:56 21:03 WBC (4.8-10.8) K/uL RBC (4.7-6.1) M/uL Hgb (14.0-18.0) g/dL Hct (42-52) % MCV (80-100) fL MCH (25-34) pg MCHC (32-36) g/dL RDW Std Deviation (36.4-46.3) fL RDW Coeff of Ct (11.5-14.5) % Plt Count (130-400) K/uL MPV (7.4-10.4) fL Immature Gran % (Auto) % Neut % (Auto) % Lymph % (Auto) % Ocean % (Auto) % Eos % (Auto) % Baso % (Auto) % Neut # (Auto) (1.4-6.5) K/uL Lymph # (Auto) (1.2-3.4) K/uL Ocean # (Auto) (0.11-0.59) K/uL Eos # (Auto) (0-0.5) K/uL Baso # (Auto) (0-0.2) K/uL Immature Gran # (Auto) (0.00-0.02) K/uL ESR (0-14) mm/hr PT (9.0-12.0) Seconds INR (0.9-1.1) APTT (21.0-31.0) Seconds PTT Ratio ABG pH (7.35-7.45) ABG pCO2 (35-46) mmHg ABG pO2 (80-95) mmHg ABG HCO3 (19-24) mmol/L ABG O2 Saturation (90-95) % ABG Base Excess (-9-1.8) mEq/L Frankie Test (Pos) Barometric Pressure mm/Hg Oxygen Given Sodium 134 L (136-145) mmol/L Potassium 4.3 (3.5-5.1) mmol/L Chloride 100 (98-107) mmol/L Carbon Dioxide 21 (21-32) mmol/L Anion Gap 13.0 H (3-11) BUN 37 H (7-18) mg/dl Creatinine 1.94 H (0.6-1.4) mg/dl Est Cr Clr Drug Dosing 41.2 ml/min Est GFR ( Amer) 36.0 Est GFR (Non-Af Amer) 31.1 BUN/Creatinine Ratio 19.2 (10-20) Glucose 377 H* (70-99) mg/dl POC Glucose (70-99) mg/dl Lactate (0.4-2.0) mmol/L Calcium 9.5 (8.5-10.1) mg/dl Magnesium 2.2 (1.8-2.4) mg/dl Ferritin 66.8 (8-388) ng/ml Total Bilirubin 1.2 H (0.2-1) mg/dl AST 17 (15-37) U/L ALT 24 (12-78) U/L Alkaline Phosphatase 85 (45-117) U/L Lactate Dehydrogenase 131 (87-241) U/L Troponin I < 0.015 (0-0.045) ng/ml C-Reactive Protein 1.81 H (0-0.29) mg/dl NT-Pro-B Natriuret Pep 3676 H (0-1800) pg/ml Total Protein 8.6 H (6.4-8.2) gm/dl Albumin 3.9 (3.4-5.0) gm/dl Globulin 4.7 H (2.5-4.0) gm/dl Albumin/Globulin Ratio 0.8 L (0.9-2) Lipase 153 (73-393) U/L Beta-Hydroxybutyric Acd 2.43 (0.2-2.81) mg/dl Urine Color Urine Appearance (Clear) Urine pH (4.5-7.5) Ur Specific [place] (1.000-1.030) Urine Protein (Negative) Urine Glucose (UA) (Negative) Urine Ketones (Negative) Urine Blood (Negative) Urine Nitrite (Negative) Urine Bilirubin (Negative) Urine Urobilinogen (Negative) Ur Leukocyte Esterase (Negative) Urine WBC (Auto) (0-5) /hpf Urine RBC (Auto) (0-4) /hpf U Hyaline Cast (Auto) (0-5) /lpf U Epithel Cells (Auto) (0-5) /lpf Urine Bacteria (Auto) (Negative) COVID-19 [email or web address] [place]-2, RNA, NAAT (NEGATIVE) 01/03/21 01/03/21 01/03/21 Range/Units 21:03 22:17 22:22 WBC (4.8-10.8) K/uL RBC (4.7-6.1) M/uL Hgb (14.0-18.0) g/dL Hct (42-52) % MCV (80-100) fL MCH (25-34) pg MCHC (32-36) g/dL RDW Std Deviation (36.4-46.3) fL RDW Coeff of Ct (11.5-14.5) % Plt Count (130-400) K/uL MPV (7.4-10.4) fL Immature Gran % (Auto) % Neut % (Auto) % Lymph % (Auto) % Ocean % (Auto) % Eos % (Auto) % Baso % (Auto) % Neut # (Auto) (1.4-6.5) K/uL Lymph # (Auto) (1.2-3.4) K/uL [place] # (Auto) (0.11-0.59) K/uL Eos # (Auto) (0-0.5) K/uL Baso # (Auto) (0-0.2) K/uL Immature Gran # (Auto) (0.00-0.02) K/uL ESR (0-14) mm/hr PT (9.0-12.0) Seconds INR (0.9-1.1) APTT (21.0-31.0) Seconds PTT Ratio ABG pH (7.35-7.45) ABG pCO2 (35-46) mmHg ABG pO2 (80-95) mmHg ABG HCO3 (19-24) mmol/L ABG O2 Saturation (90-95) % ABG Base Excess (-9-1.8) mEq/L Frankie Test (Pos) Barometric Pressure mm/Hg Oxygen Given Sodium (136-145) mmol/L Potassium (3.5-5.1) mmol/L Chloride (98-107) mmol/L Carbon Dioxide (21-32) mmol/L Anion Gap (3-11) BUN (7-18) mg/dl Creatinine (0.6-1.4) mg/dl Est Cr Clr Drug Dosing ml/min Est GFR ( Amer) Est GFR (Non-Af Amer) BUN/Creatinine Ratio (10-20) Glucose (70-99) mg/dl POC Glucose (70-99) mg/dl Lactate 4.4 H* (0.4-2.0) mmol/L Calcium (8.5-10.1) mg/dl Magnesium (1.8-2.4) mg/dl Ferritin (8-388) ng/ml Total Bilirubin (0.2-1) mg/dl AST (15-37) U/L ALT (12-78) U/L Alkaline Phosphatase (45-117) U/L Lactate Dehydrogenase (87-241) U/L Troponin I (0-0.045) ng/ml C-Reactive Protein (0-0.29) mg/dl NT-Pro-B Natriuret Pep (0-1800) pg/ml Total Protein (6.4-8.2) gm/dl Albumin (3.4-5.0) gm/dl Globulin (2.5-4.0) gm/dl Albumin/Globulin Ratio (0.9-2) Lipase (73-393) U/L Beta-Hydroxybutyric Acd (0.2-2.81) mg/dl Urine Color Yellow Urine Appearance Clear (Clear) Urine pH 5.5 (4.5-7.5) Ur Specific [place] 1.014 (1.000-1.030) Urine Protein Trace H (Negative) Urine Glucose (UA) 2+ H (Negative) Urine Ketones Negative (Negative) Urine Blood Negative (Negative) Urine Nitrite Negative (Negative) Urine Bilirubin Negative (Negative) Urine Urobilinogen Negative (Negative) Ur Leukocyte Esterase Negative (Negative) Urine WBC (Auto) 0 (0-5) /hpf Urine RBC (Auto) 0-4 (0-4) /hpf U Hyaline Cast (Auto) 1-5 (0-5) /lpf U Epithel Cells (Auto) 0-5 (0-5) /lpf Urine Bacteria (Auto) Negative (Negative) COVID-19 Eval Order SARS-CoV-2, RNA, NAAT NEGATIVE (NEGATIVE) 11/09/20 11/09/20 Range/Units 22:31 23:11 WBC (4.8-10.8) K/uL RBC (4.7-6.1) M/uL Hgb (14.0-18.0) g/dL Hct (42-52) % MCV (80-100) fL MCH (25-34) pg MCHC (32-36) g/dL RDW Std Deviation (36.4-46.3) fL RDW Coeff of Ct (11.5-14.5) % Plt Count (130-400) K/uL MPV (7.4-10.4) fL Immature Gran % (Auto) % Neut % (Auto) % Lymph % (Auto) % Ocean % (Auto) % Eos % (Auto) % Baso % (Auto) % Neut # (Auto) (1.4-6.5) K/uL Lymph # (Auto) (1.2-3.4) K/uL [place] # (Auto) (0.11-0.59) K/uL Eos # (Auto) (0-0.5) K/uL Baso # (Auto) (0-0.2) K/uL Immature Gran # (Auto) (0.00-0.02) K/uL ESR (0-14) mm/hr PT (9.0-12.0) Seconds INR (0.9-1.1) APTT (21.0-31.0) Seconds PTT Ratio ABG pH 7.44 (7.35-7.45) ABG pCO2 34 L (35-46) mmHg ABG pO2 104 H (80-95) mmHg ABG HCO3 23 (19-24) mmol/L ABG O2 Saturation 98.0 H (90-95) % ABG Base Excess -1.0 (-9-1.8) mEq/L Frankie Test Pos (Pos) Barometric Pressure 730 mm/Hg Oxygen Given 2% Sodium (136-145) mmol/L Potassium (3.5-5.1) mmol/L Chloride (98-107) mmol/L Carbon Dioxide (21-32) mmol/L Anion Gap (3-11) BUN (7-18) mg/dl Creatinine (0.6-1.4) mg/dl Est Cr Clr Drug Dosing ml/min Est GFR ( Amer) Est GFR (Non-Af Amer) BUN/Creatinine Ratio (10-20) Glucose (70-99) mg/dl POC Glucose 372 H* (70-99) mg/dl Lactate (0.4-2.0) mmol/L Calcium (8.5-10.1) mg/dl Magnesium (1.8-2.4) mg/dl Ferritin (8-388) ng/ml Total Bilirubin (0.2-1) mg/dl AST (15-37) U/L ALT (12-78) U/L Alkaline Phosphatase (45-117) U/L Lactate Dehydrogenase (87-241) U/L Troponin I (0-0.045) ng/ml C-Reactive Protein (0-0.29) mg/dl NT-Pro-B Natriuret Pep (0-1800) pg/ml Total Protein (6.4-8.2) gm/dl Albumin (3.4-5.0) gm/dl Globulin (2.5-4.0) gm/dl Albumin/Globulin Ratio (0.9-2) Lipase (73-393) U/L Beta-Hydroxybutyric Acd (0.2-2.81) mg/dl Urine Color Urine Appearance (Clear) Urine pH (4.5-7.5) Ur Specific [place] (1.000-1.030) Urine Protein (Negative) Urine Glucose (UA) (Negative) Urine Ketones (Negative) Urine Blood (Negative) Urine Nitrite (Negative) Urine Bilirubin (Negative) Urine Urobilinogen (Negative) Ur Leukocyte Esterase (Negative) Urine WBC (Auto) (0-5) /hpf Urine RBC (Auto) (0-4) /hpf U Hyaline Cast (Auto) (0-5) /lpf U Epithel Cells (Auto) (0-5) /lpf Urine Bacteria (Auto) (Negative) COVID-19 Eval Order SARS-CoV-2, RNA, NAAT (NEGATIVE) Imaging Data Attestation: I personally reviewed and interpreted this imaging study as follows: My Impression: 1 view the chest was interpreted by me shows what appears to be congestion versus ammonia bilaterally at the bases. ECG Data Attestation: I personally reviewed and interpreted this ECG as follows: Indication: + weakness Rate (beats per minute): 81 Rhythm: + normal sinus ECG Intervals/blocks: + Right Bundle branch block and + Normal QT-c (490) ECG [place]: + Normal ECG ST segments: no ST depression and no ST elevation ECG Findings: + PVCs Comparison ECG Date: from (03/27/2020) Change: the following changes noted (PVCs now present) MDM Narrative Patient was seen and evaluated as above in room B6. Review was performed of nursing notes and vital signs. I did review pertinent previous visits and patient history. After obtaining a thorough history and physical examination the above work up was performed. This is an 85-year-old male who presents emergency department hypoxic. The patient has an elevation in his white blood cell count. He was given Lasix here. His chest x-ray is concerning for congestive heart failure. He was sent for CAT scan of the chest. Because the patient is requiring more oxygen I did discuss the case with the hospitalist service who did agree to admit the patient. The patient's Covid test here is negative. Patient is in agreement with the treatment plan. An order was placed for continuous cardiac monitoring. The monitor shows a rate of 78 with Normal S[place]us rhythm. The patient was evaluated during a period of high volume and high acuity while the hospital was at overcapacity during the global COVID-19 pandemic, and that diagnosis was suspected/considered upon their initial presentation. Their evaluation, treatment and testing was consistent with current guidelines for patients who present with complaints or symptoms that may be related to COVID- 19. Impression & Plan Hypoxia, Hemoptysis, Acute hypoxemic respiratory failure, Acute on chronic diastolic heart failure Discharge Plan Visit Data Chief Complaint: Respiratory Distress Stated Complaint: RESPIRATORY DISTRESS ED Provider: Chaitanya Frances Discharge Problem: Hypoxia, Hemoptysis, Acute hypoxemic respiratory failure, Acute on chronic diastolic heart failure Forms Stand Alone Forms: [facility] Prescriptions Prescriptions: No Action ferrous sulfate [Feosol] 325 mg (65 mg iron) Tablet 325 mg PO QAM RF: 0 furosemide 40 mg tablet 40 mg PO BID RF: 0 ipratropium-albuterol 0.5 mg-3 mg(2.5 mg base)/3 mL solution for nebulization 3 ml INHALATION Q6H PRN (Reason: Cough or Wheezing) RF: 0 metoprolol succinate 50 mg tablet extended release 24 hr 50 mg PO QAM RF: 0 amlodipine 5 mg tablet 2.5 mg PO QPM RF: 0 spironolactone [Aldactone] 25 mg tablet 25 mg PO QAM RF: 0 levothyroxine 75 mcg tablet 75 mcg PO QAM RF: 0 vitamin E 400 unit Capsule 0 unit PO QAM RF: 0 aspirin 81 mg Tablet,Delayed Release (Dr/Ec) 81 mg PO QAM RF: 0 Eliquis 5 mg tablet 5 mg PO BID RF: 0 ascorbic acid (vitamin C) [Vitamin C] 1,000 mg Tablet 1,000 mg PO QAM RF: 0 atorvastatin 20 mg Tablet 20 mg PO QAM RF: 0 albuterol sulfate [Ventolin HFA] 90 mcg/actuation Hfa Aerosol Inhaler 2 - 4 puff INHALATION Q6H PRN (Reason: Shortness Of Breath Or Wheezing) RF: 0 hydrocodone-acetaminophen 5-300 mg Tablet 1 tab PO Q6H PRN (Reason: Pain) RF: 0
[2020-11-09 21:56] LABS: Beta-Hydroxybutyrate 2.43 mg/dl (0.2-2.81)
[2020-11-09 22:08] LABS: Magnesium 2.2 mg/dl (1.8-2.4)
[2020-11-09 23:03] LABS: Appearance Urine Clear (Clear); Bacteria Urine Automated Negative (Negative); Bilirubin Urine Negative (Negative); Blood Urine Negative (Negative); Color Urine Yellow; Epithelial Cell Urine Auto 0-5 /lpf (0-5); Glucose Urine UA 2+ (Negative); Ketones Urine Negative (Negative); Leukocyte Esterase Urine Negative (Negative); Nitrite Urine Negative (Negative); Protein Urine Trace (Negative); RBC Urine Automated 0-4 /hpf (0-4); Specific Gravity Urine 1.014 (1.000-1.030); Urobilinogen Urine Negative (Negative); WBC Urine Automated 0 /hpf (0-5); pH Urine 5.5 (4.5-7.5)
[2020-11-09 23:04] LABS: HCO3 ABG 23 mmol/L (19-24); PCO2 ABG 34 mmHg (35-46); PO2 ABG 104 mmHg (80-95); pH ABG 7.44 (7.35-7.45)
[2020-11-09 23:05] LABS: Allen Test Pos (Pos)
--- NOTE | 2020-11-09 23:27 | History & Physical Report ---
Date of Service November 09, 2020 Assessment & Plan (1) Acute hypoxemic respiratory failure: acute on chronic hx pulmonary HTN 2 to JUVE on CPAP, supplemental O2 in a.m. Multifactorial ILD exacerbation secondary to bronchopneumonia, community-acquired infection, severe sepsis Decompensated heart failure, history diastolic heart failure, possible cardiorenal syndrome with ARF on CKD Hemoptysis secondary to bronchopneumonia Patient predisposed by antiplatelet and Eliquis Rx Hemoglobin currently stable at baseline SSS sp PPM, paced rhythm on Eliquis HTN, slightly elevated DM2 insulin requiring, marked hyperglycemia; recent hemoglobin A1c of 6.5 last June 2020 hypothyroidism, euthyroid as of recent outpatient TSH cirrhosis, incidental finding on imaging done at [facility], 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, no prior work-up chronic thrombocytopenia PCU Supplemental O2 CS, check lactic acid Ceftriaxone, Doxycycline Prednisone course, nebs RTC for allergy exacerbation, antitussives as needed Pulmonary consult RE respiratory failure, hemoptysis Appropriate to hold aspirin and Eliquis for now given hemoptysis Follow H&H, transfuse PRBC if hemoglobin less than 7 and/ or for symptomatic anemia Lasix albumin for decompensated heart failure in the setting of possible cardiorenal syndrome Strict I/Os, daily weights, CHF education, fluid restriction Cardiology consult RE decompensated heart failure Follow renal function, renal ultrasound if without improvement Nephrology consult Re: ARF on CKD Outpatient GI consult for cirrhosis work-up Basal insulin, ISS BG goal [id number], update hemoglobin A1c May benefit from pharmacy glycemic control consult DVT prophylaxis. SCDs RE hemoptysis Full code Total critical care time was 45 minutes. Text document was generated using testbirds voice recognition software. It may contain grammatical or spelling errors. Kindly contact undersigned for clarification of any documentation item in question. History of Present Illness Chief Complaint: Hemoptysis, shortness of breath Primary Care Provider: Akhil Nevarez MD History obtained from patient and records. Medical history significant for chronic diastolic heart failure (EF 55%, TTE 2019), SSS sp PPM on Eliquis, hypertension, hyperlipidemia, chronic respiratory failure secondary to possible ILD as per records, pulmonary hypertension on home O2, JUVE on CPAP, DM2 insulin requiring, hypothyroidism, CRI (baseline creatinine 1.2), cirrhosis as per records, chronic anemia (baseline hemoglobin 11), chronic thrombocytopenia. Last confinement March 2020 for hemoptysis secondary to bilateral pneumonia. COVID-19 test was negative. Patient transferred to [facility]. Patient transferred to [facility]. CT chest revealed diffuse groundglass opacities suspicious of viral pneumonitis/atypical pneumonia. Bronchoscopy revealed erythematous bronchial mucosa, blood-tinged saline lavage without suggestion of DAH. 2 days history of cough symptoms productive of junky yellow sputum later with hemoptysis. No chest pain. Worsening shortness of breath. Denies aspiration. Fever, chills noted. No known recent COVID-19 contacts. Denies aspiration. Weight gain of about 30 pounds in the last few weeks despite compliance with diuretic regimen and fluid restriction. Denies dietary indiscretion. At the ER, patient noted to be hypoxemic. Patient received Solu-Medrol, Levaquin, and Cefepime for pneumonia. Medical History as above Surgical History : Back surgery, knee surgery, hip surgery, eye surgery, shoulder surgery carpal tunnel surgery, PPM Family History : Hypertension Personal/Social history : Non-smoker, occasional EtOH intake, retired educator/financial institution vice president Allergies Allergy/AdvReac Type Severity Reaction Status Date / Time Penicillins Allergy Intermediate RASH AND Verified 11/09/20 21:23 [facility] Home Medications Medication Instructions Recorded Confirmed Type albuterol sulfate [Ventolin HFA] 2 - 4 puff INHALATION Q6H PRN 10/08/18 11/09/20 History ascorbic acid (vitamin C) [Vitamin 1,000 mg PO QAM 10/08/18 11/09/20 History C] atorvastatin 20 mg PO QAM 10/08/18 11/09/20 History hydrocodone-acetaminophen 1 tab PO Q6H PRN 10/08/18 11/09/20 History ferrous sulfate [Feosol] 325 mg PO QAM 11/22/18 11/09/20 History amlodipine 2.5 mg PO QPM 03/27/20 11/09/20 History furosemide 40 mg PO BID 03/27/20 11/09/20 History ipratropium-albuterol 3 ml INHALATION Q6H PRN 03/27/20 11/09/20 History levothyroxine 75 mcg PO QAM 03/27/20 11/09/20 History metoprolol succinate 50 mg PO QAM 03/27/20 11/09/20 History spironolactone [Aldactone] 25 mg PO QAM 03/27/20 11/09/20 History vitamin E 0 unit PO QAM 03/27/20 11/09/20 History apixaban [Eliquis] 5 mg PO BID 11/09/20 11/09/20 History aspirin 81 mg PO QAM 11/09/20 11/09/20 History Past Med/Surg History Medical History Asthma Atrial fibrillation Atrial flutter Chronic diastolic heart failure CKD (chronic kidney disease) stage 3, GFR 30-59 ml/min DM type 2 (diabetes mellitus, type 2) Dyslipidemia HTN (hypertension) Liver cirrhosis Obesity BMI fall 2020 48 JUVE (obstructive sleep apnea) Pulmonary hypertension Thrombocytopenia Surgical History H/O eye surgery "eye removed, implant attached" H/O repair of left rotator cuff H/O repair of right rotator cuff History of back surgery History of bilateral knee arthroplasty History of carpal tunnel surgery of left wrist History of carpal tunnel surgery of right wrist S/P hip replacement S/P laminectomy Family History Other Family history non-contributory Social History Smoking Status: Never smoker Second Hand Exposure: No; Do You Dip or Chew Tobacco: No; Tobacco Cessation Education Requested by Patient: No Hx Alcohol Use: No Hx Substance Use: No Preferred Language: Kuwaiti Communication Ability: Effective Inflatable Buildings Laminator Required: No Beliefs That Will Affect Care: None marital status: Current Living Situation: Spouse current occupation: self-employed Other Information That Helps Us Care for You: Yes Feels Safe at Home: Yes Safety Concerns: Feels Safe At This Time Assistive Devices: BiPap, Cane, Denture - Upper and Denture - Lower Review of Systems Review of Systems: As per HPI, all 10 systems reviewed, all other ROS negative Physical Exam Physical Exam: GENERAL: Slightly uncomfortable, pleasant, morbidly obese, respiratory distress SKIN: Pallor, warm HEENT: Pale palpebral conjunctivae, chronic ptosis R, dry buccal mucosa, nasal cannula in place NECK : Supple, short neck, no tenderness CHEST : Gynecomastia, decreased breath sounds, occasional expiratory wheezes, no tenderness HEART : RRR, no obvious murmurs ABDOMEN: Marked distention, nontender EXTREMITIES : Bilateral LE swelling, no LE tenderness, no other conspicuous deformities noted NEUROLOGIC : Coherent, no facial asymmetry, no other gross focality Results & Data Results & Data ([facility]) Vital Signs (Past 12 Hours) Vital Signs Temp Pulse Pulse Resp BP Pulse Ox 11/09/20 23:15 71 16 96 11/09/20 23:06 78 20 93 11/09/20 23:00 67 23 94 11/09/20 22:46 63 16 112/71 11/09/20 22:45 69 18 11/09/20 22:30 66 20 11/09/20 22:15 65 17 11/09/20 22:00 71 27 H 11/09/20 21:46 70 22 119/78 91 11/09/20 21:45 66 19 91 11/09/20 21:31 60 92 11/09/20 21:30 65 128/68 89 L 11/09/20 21:17 72 25 H 131/50 L 92 11/09/20 21:15 67 20 90 11/09/20 21:03 79 L 11/09/20 21:02 69 26 H 93 11/09/20 21:01 70 30 H 157/55 H 92 11/09/20 21:00 66 26 H 92 11/09/20 20:49 36.9 C 77 28 H 173/77 H 94 11/09/20 20:46 83 32 H 11/09/20 20:38 70 25 H 95 11/09/20 20:35 74 20 173/77 H 94 Laboratory Results Laboratory Results WBC 15.43 K/uL (4.8-10.8) H 11/09/20 20:56 RBC 3.99 M/uL (4.7-6.1) L 11/09/20 20:56 Hgb 11.7 g/dL (14.0-18.0) L 11/09/20 20:56 Hct 36.4 % (42-52) L 11/09/20 20:56 MCV 91.2 fL (80-100) 11/09/20 20:56 MCH 29.3 pg (25-34) 11/09/20 20:56 MCHC 32.1 g/dL (32-36) 11/09/20 20:56 RDW Std Deviation 50.8 fL (36.4-46.3) H 11/09/20 20:[address] 15.0 % (11.5-14.5) H 11/09/20 20:56 Plt Count 143 K/uL (130-400) 11/09/20 20:56 MPV 11.4 fL (7.4-10.4) H 11/09/20 20:56 Immature Gran % (Auto) 0.3 % 11/09/20 20:56 Neut % (Auto) 85.4 % 11/09/20 20:56 Lymph % (Auto) 9.1 % 11/09/20 20:56 Curry % (Auto) 5.0 % 11/09/20 20:56 Eos % (Auto) 0.1 % 11/09/20 20:56 Baso % (Auto) 0.1 % 11/09/20 20:56 Neut # (Auto) 13.19 K/uL (1.4-6.5) H 11/09/20 20:56 Lymph # (Auto) 1.41 K/uL (1.2-3.4) 11/09/20 20:56 Curry # (Auto) 0.77 K/uL (0.11-0.59) H 11/09/20 20:56 Eos # (Auto) 0.01 K/uL (0-0.5) 11/09/20 20:56 Baso # (Auto) 0.01 K/uL (0-0.2) 11/09/20 20:56 Immature Gran # (Auto) 0.04 K/uL (0.00-0.02) H 11/09/20 20:56 ESR 38 mm/hr (0-14) H 11/09/20 20:56 PT 11.5 Seconds (9.0-12.0) 11/09/20 20:56 INR 1.1 (0.9-1.1) 11/09/20 20:56 APTT 30.5 Seconds (21.0-31.0) 11/09/20 20:56 PTT Ratio 1.1 11/09/20 20:56 ABG pH 7.44 (7.35-7.45) 11/09/20 22:31 ABG pCO2 34 mmHg (35-46) L 11/09/20 22:31 ABG pO2 104 mmHg (80-95) H 11/09/20 22:31 ABG HCO3 23 mmol/L (19-24) 11/09/20 22:31 ABG O2 Saturation 98.0 % (90-95) H 11/09/20 22:31 ABG Base Excess -1.0 mEq/L (-9-1.8) 11/09/20 22:31 Frankie Test Pos (Pos) 11/09/20 22:31 Barometric Pressure 730 mm/Hg 11/09/20 22:31 Oxygen Given 2% 11/09/20 22:31 Sodium 134 mmol/L (136-145) L 11/09/20 20:56 Potassium 4.3 mmol/L (3.5-5.1) 11/09/20 20:56 Chloride 100 mmol/L (98-107) 11/09/20 20:56 Carbon Dioxide 21 mmol/L (21-32) 11/09/20 20:56 Anion Gap 13.0 (3-11) H 11/09/20 20:56 BUN 37 mg/dl (7-18) H 11/09/20 20:56 Creatinine 1.94 mg/dl (0.6-1.4) H 11/09/20 20:56 Est Cr Clr Drug Dosing 41.2 ml/min 11/09/20 20:56 Est GFR ( Amer) 36.0 11/09/20 20:56 Est GFR (Non-Af Amer) 31.1 11/09/20 20:56 BUN/Creatinine Ratio 19.2 (10-20) 11/09/20 20:56 Glucose 377 mg/dl (70-99) H* 11/09/20 20:56 POC Glucose 372 mg/dl (70-99) H* 11/09/20 23:11 Lactate 4.4 mmol/L (0.4-2.0) H* 11/09/20 22:22 Calcium 9.5 mg/dl (8.5-10.1) 11/09/20 20:56 Magnesium 2.2 mg/dl (1.8-2.4) 11/09/20 20:56 Ferritin 66.8 ng/ml (8-388) 11/09/20 20:56 Total Bilirubin 1.2 mg/dl (0.2-1) H 11/09/20 20:56 AST 17 U/L (15-37) 11/09/20 20:56 ALT 24 U/L (12-78) 11/09/20 20:56 Alkaline Phosphatase 85 U/L (45-117) 11/09/20 20:56 Lactate Dehydrogenase 131 U/L (87-241) 11/09/20 20:56 Troponin I < 0.015 ng/ml (0-0.045) 11/09/20 20:56 C-Reactive Protein 1.81 mg/dl (0-0.29) H 11/09/20 20:56 NT-Pro-B Natriuret Pep 3676 pg/ml (0-1800) H 11/09/20 20:56 Total Protein 8.6 gm/dl (6.4-8.2) H 11/09/20 20:56 Albumin 3.9 gm/dl (3.4-5.0) 11/09/20 20:56 Globulin 4.7 gm/dl (2.5-4.0) H 11/09/20 20:56 Albumin/Globulin Ratio 0.8 (0.9-2) L 11/09/20 20:56 Lipase 153 U/L (73-393) 11/09/20 20:56 Beta-Hydroxybutyric Acd 2.43 mg/dl (0.2-2.81) 11/09/20 20:56 Urine Color Yellow 11/09/20 22:17 Urine Appearance Clear (Clear) 11/09/20 22:17 Urine pH 5.5 (4.5-7.5) 11/09/20 22:17 Ur Specific [place] 1.014 (1.000-1.030) 11/09/20 22:17 Urine Protein Trace (Negative) H 11/09/20 22:17 Urine Glucose (UA) 2+ (Negative) H 11/09/20 22:17 Urine Ketones Negative (Negative) 11/09/20 22:17 Urine Blood Negative (Negative) 11/09/20 22:17 Urine Nitrite Negative (Negative) 11/09/20 22:17 Urine Bilirubin Negative (Negative) 11/09/20 22:17 Urine Urobilinogen Negative (Negative) 11/09/20 22:17 Ur Leukocyte Esterase Negative (Negative) 11/09/20 22:17 Urine WBC (Auto) 0 /hpf (0-5) 11/09/20 22:17 Urine RBC (Auto) 0-4 /hpf (0-4) 11/09/20 22:17 U Hyaline Cast (Auto) 1-5 /lpf (0-5) 11/09/20 22:17 U Epithel Cells (Auto) 0-5 /lpf (0-5) 11/09/20 22:17 Urine Bacteria (Auto) Negative (Negative) 11/09/20 22:17 COVID-19 Eval Order Covid19 IDNow [facility] 11/09/20 21:03 SARS-CoV-2, RNA, NAAT NEGATIVE (NEGATIVE) 11/09/20 21:[address] chest initial read: Patchy groundglass opacities throughout the right greater than the left lungs compatible with multifocal pneumonia. No pleural effusions or pneumothorax. Left-sided cardiac pacemaker. Aortic valvular and coronary calcifications. Coarse calcification noted within the posterior inferior wall left lateral ventricle. Bilateral gynecomastia. Gallstones EKG as per my interpretation: Rate 80, A. fib with occasional paced rhythm, RAD, RBBB, T wave inversion inferior leads, PVCs
[2020-11-09] MEDS ORDERED: INSULIN GLARGINE SOLOSTAR 100 UNITS/ML 3 ML PEN SC STA (23:38)
[2020-11-10] MEDS ORDERED: DEXTROSE 50% 50 ML SYRINGE IV PRN (02:47)
[2020-11-10] MEDS ORDERED: INSULIN ASPART 100 UNITS/ML 3 ML PEN SC SCH ×2 (02:47→07:30)
[2020-11-10] MEDS ORDERED: GLUCOSE 40% GEL 15 GM TUBE PO PRN (02:47)
[2020-11-10] MEDS ORDERED: GLUCAGON FOR INJ 1 MG VIAL SQ PRN (02:47)
[2020-11-10] MEDS ORDERED: ACETAMINOPHEN 325 MG TAB PO PRN ×2 (02:47→03:59)
[2020-11-10] MEDS ORDERED: NITROGLYCERIN SL 0.4 MG/TAB TAB SL PRN (02:47)
[2020-11-10] MEDS ORDERED: GLUCOSE 10 TABS/TUBE PO PRN (02:47)
[2020-11-10] MEDS ORDERED: BENZONATATE 100 MG CAPSULE PO PRN (02:47)
[2020-11-10] MEDS ORDERED: DOXYCYCLINE HYCLATE 100 MG in DEXTROSE 5% 100 ML IV STA (02:47)
[2020-11-10] MEDS ORDERED: CARBOHYDRATES FOR HYPOGLYCEMIA PO PRN (02:47)
[2020-11-10] MEDS: ALBUMIN 25% 12.5 GM/50 ML VIAL IV SCH ×2 (03:14→04:07)
[2020-11-10] MEDS ORDERED: INSULIN PROTOCOL GOAL RANGE STA (03:57)
[2020-11-10] MEDS ORDERED: SEVERE STRESS LEVEL ONE (04:00)
[2020-11-10] MEDS ORDERED: PHARMACY GLYCEMIC MGMT CONSULT PRN (04:05)
[2020-11-10] MEDS ORDERED: INSULIN HUMAN REGULAR PER IV ONE (04:15)
[2020-11-10] MEDS ORDERED: INSULIN REGULAR 250 UNITS in SODIUM CHLORIDE 0.9% 247.5 ML IV SCH (04:30)
[2020-11-10 04:43] LABS: Hemoglobin 10.4 g/dL (14.0-18.0); Immature Granulocytes # (auto) 0.02 K/uL (0.00-0.02); Immature Granulocytes % (auto) 0.2 %; Lymphocytes # (auto) 0.64 K/uL (1.2-3.4); Lymphocytes % (auto) 7.4 %; Mean Corpuscular Hemoglobin 29.9 pg (25-34); Mean Corpuscular Hgb Conc 33.5 g/dL (32-36); Mean Corpuscular Volume 89.1 fL (80-100); Mean Platelet Volume 11.6 fL (7.4-10.4); Monocytes % (auto) 2.3 %; Neutrophils # (auto) 7.74 K/uL (1.4-6.5); Neutrophils % (auto) 90.1 %; Platelet Count 113 K/uL (130-400); RDW Coefficient of Variation 15.1 % (11.5-14.5); RDW Standard Deviation 49.1 fL (36.4-46.3); Red Blood Count 3.48 M/uL (4.7-6.1)
[2020-11-10 05:45] LABS: Blood Urea Nitrogen 39 mg/dl (7-18); Carbon Dioxide 25 mmol/L (21-32); Chloride 100 mmol/L (98-107); Creatinine Clr Calc Pharmacy 46.8 ml/min; Est GFR (African American) 42.3; Est GFR (Non-African American) 36.5; Glucose 421 mg/dl (70-99); Potassium 4.2 mmol/L (3.5-5.1); Sodium 133 mmol/L (136-145); Troponin I < 0.015 ng/ml (0-0.045)
[2020-11-10 06:01] LABS: Beta-Hydroxybutyrate 1.96 mg/dl (0.2-2.81)
[2020-11-10] MEDS: LEVOTHYROXINE SODIUM 75 MCG TABLET PO SCH (06:30)
[2020-11-10] MEDS ORDERED: ALBUT/IPRATROP 3MG/0.5MG NEB 3 ML VIAL NEB SCH (07:00)
--- NOTE | 2020-11-10 07:44 | CT Scan Report ---
CT OF THE CHEST WITHOUT IV CONTRAST CLINICAL HISTORY: hemoptysis COMPARISON STUDY: Chest CT March 27, 2020. Chest radiograph November 09, 2020. CT DOSE: 1163.52 mGy.cm TECHNIQUE: Axial images of the chest were obtained without IV contrast. Images were reviewed in the axial, sagittal, and coronal planes. IV contrast was not administered for this examination. Automat ed exposure control was utilized for the study. A dose lowering technique was utilized adhering to t he principles of ALARA. 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 There is moderate cardiomegaly and [place] n[place] artery calcification. There is no pericardial effusion. Note is made of mildly enlarged lower ri ght paratracheal lymph node on image 103 of 321. This measures 1.5 cm in short axis diameter. There i s no pneumothorax. There is a trace right pleural effusion. Extensive groundglass opacity within the right lung is noted. There is moderate multifocal groundglass opacity within the left lung. Similar f indings were shown on chest CT of March 27, 2020. Central airways are patent. There is no cavitation. B felipe thorax is unremarkable. The liver is cirrhotic. Recanalized periumbilical vein is noted. There ar e gallstones within the gallbladder. IMPRESSION: 1. Extensive groundglass opacities throughout the right lung with moderate groundglass opacities with in the left lung. Similar findings shown on chest CT of March 27, 2020. This favors an infectious proce ss. Less likely considerations include pulmonary pulmonary edema or pulmonary hemorrhage. 2. Mildly enlarged right paratracheal lymph node. This is probably reactive. A follow-up chest CT in 6 months is recommended. 3. Moderate cardiomegaly. 4. Cirrhosis. ACT 112: Negative or not required by law. Electronically signed by: Jerald Beverly M.D. 11/10/2020 7:42 AM
[2020-11-10 07:56] LABS: Estimated Average Glucose 212 mg/dl
--- NOTE | 2020-11-10 08:14 | XRay Report ---
XR chest 1V portable HISTORY: Shortness of breath. Atypical Chest Pain COMPARISON: Chest 03/30/2020. FINDINGS: No pneumothorax or no pleural effusions. The heart remains enlarged. The left-sided dual-ch samuel pacemaker. Right greater than left hazy airspace opacities persist. There are low lung volumes. IMPRESSION: No significant change in the cardiomegaly and bilateral groundglass airspace opacities. This could be due to asymmetric pulmonary edema or chronic infectious/inflammatory change. ACT 112: Negative or not required by law. Electronically signed by: Noble Vee M.D. 11/10/2020 8:12 AM
[2020-11-10] MEDS ORDERED: guaiFENesin/CODEINE 100MG/10MG 5ML UDC PO PRN (08:27)
--- NOTE | 2020-11-10 08:31 | Pulmonary Consultation ---
Date of Consultation November 10, 2020 Assessment & Plan (1) Hemoptysis: Bronchoscopy 04/01/[address] [facility]. Serial aliquots did not become more bloody with successive samples. BAL was mostly neutrophilic phallic and monocytic. Patient also had transjugular biopsy which showed benign bronchial tissue. No evidence of malignancy. Patient also had AFB negative, fungal cultures were negative. It did grow penicillium. Bacterial culture was negative and PCP smear was negative. Legionella negative, HSV and EBV along with CMV all negative. Aspergillus antigen was not detected. PFTs 08/12/2020: Mild restrictive lung disease, no obstructive dysfunction, mild decrease in DLCO. FVC 84%, FEV1 93%, FEV1/FVC 82%, RV 86%, TLC 75%, RV/TLC 46%, DLCO 64% --Hemoptysis with diffuse groundglass opacities bilaterally more on the right side Patient has similar presentation back in March when he was transferred to [facility] He had a bronchoscopy done over at that time. Patient had autoimmune work-up done back in March 2020 with similar presentation and it was negative. Patient's BNP at the time of presentation was 3676, CRP 1.81--> 1.26 COVID-19 PCR 11/09/2020 negative PT/INR within normal limit. Given the patient already had bronchoscopy done in the past as well along with transbronchial biopsy and cultures which were all negative. I doubt repeating bronchoscopy and autoimmune work-up will be helpful. I think diastolic CHF is playing a role in the findings that we see on the CAT scan. Patient might have NSIP-like pattern as well as the CAT scan which was done back in August 2020 still showed some groundglass opacities which are improving compared to the one done in March. Recommend holding apixaban for the time being. Cough medication to suppress the cough [id number] Monitor H&H Patient has prolonged QTC. Agree with Rocephin and doxycycline for total of 5. --Acute on chronic hypoxic respiratory failure Patient is on 2 L nasal cannula since March 2020 Patient was saturating well on 2 L He is back to his baseline. Continue O2 supplementation to keep oxygen saturation between 88-92% --JUVE with morbid obesity Continue with CPAP at night and when he is napping Plan: Continue with cough suppressant Hold apixaban Conservative management for hemoptysis Follow-up urine Legionella and mycoplasma IgM Follow-up procalcitonin Would recommend discontinuing prednisone. Lactic acidosis is most likely type II from the DuoNeb's which he is getting. Changed it to as needed. Diuresis as tolerated to keep negative balance. Recommend strict in and out Please note the above document was generated using voice recognition software. It may contain grammatical, syntax or spelling errors.Any formal questions or concerns about the content, text or information contained within the body of this dictation should be directly addressed to the provider for clarification. (2) Acute and chronic respiratory failure with hypoxia: (3) JUVE (obstructive sleep apnea): History of Present Illness Attending Physician: Lilia Dickey DO History of Present Illness 85-year-old male with past medical history of diastolic heart failure, hypertension, chronic hypoxic respiratory failure on 2 L nasal cannula since March 2020, JUVE on CPAP, diabetes type 2 hypothyroidism He was admitted to the hospital because of worsening shortness of breath going on since last couple of days along with hemoptysis. Hemoptysis has been going on since the last 3-4 days but it has gradually decreased in amount since coming to the hospital. He said that he started with shortness of breath followed by cough and that is how he ended up with hemoptysis. No dysuria, no diarrhea. No recent travel history. No ageusia, no anosmia, mild headache. Denies any fever or chills Does complain of weight gain of approximately 30 pounds. Patient started taking prednisone when he got short of breath on his own as he had rescue prednisone at home. Social history: Non-smoker, no illicit drug use, no alcohol use. Allergies Allergy/AdvReac Type Severity Reaction Status Date / Time Penicillins Allergy Intermediate RASH AND Verified 11/09/20 21:23 [facility] Home Medications Medication Instructions Recorded Confirmed Type albuterol sulfate [Ventolin HFA] 2 - 4 puff INHALATION Q6H PRN 10/08/18 11/09/20 History ascorbic acid (vitamin C) [Vitamin 1,000 mg PO QAM 10/08/18 11/09/20 History C] atorvastatin 20 mg PO QAM 10/08/18 11/09/20 History hydrocodone-acetaminophen 1 tab PO Q6H PRN 10/08/18 11/09/20 History ferrous sulfate [Feosol] 325 mg PO QAM 11/22/18 11/09/20 History amlodipine 2.5 mg PO QPM 03/27/20 11/09/20 History furosemide 40 mg PO BID 03/27/20 11/09/20 History ipratropium-albuterol 3 ml INHALATION Q6H PRN 03/27/20 11/09/20 History levothyroxine 75 mcg PO QAM 03/27/20 11/09/20 History metoprolol succinate 50 mg PO QAM 03/27/20 11/09/20 History spironolactone [Aldactone] 25 mg PO QAM 03/27/20 11/09/20 History vitamin E 0 unit PO QAM 03/27/20 11/09/20 History apixaban [Eliquis] 5 mg PO BID 11/09/20 11/09/20 History aspirin 81 mg PO QAM 11/09/20 11/09/20 History Patient History Medical History Asthma Atrial fibrillation Atrial flutter Chronic diastolic heart failure CKD (chronic kidney disease) stage 3, GFR 30-59 ml/min DM type 2 (diabetes mellitus, type 2) Dyslipidemia HTN (hypertension) Liver cirrhosis Obesity BMI fall 2020 48 JUVE (obstructive sleep apnea) Pulmonary hypertension Thrombocytopenia Surgical History H/O eye surgery "eye removed, implant attached" H/O repair of left rotator cuff H/O repair of right rotator cuff History of back surgery History of bilateral knee arthroplasty History of carpal tunnel surgery of left wrist History of carpal tunnel surgery of right wrist S/P hip replacement S/P laminectomy Family History Other Family history non-contributory Social History Smoking Status: Never smoker Second Hand Exposure: No; Do You Dip or Chew Tobacco: No; Tobacco Cessation Education Requested by Patient: No Hx Alcohol Use: No Hx Substance Use: No Preferred Language: Setswana Communication Ability: Effective Lap Layer Required: No Beliefs That Will Affect Care: None marital status: Current Living Situation: Spouse current occupation: self-employed Other Information That Helps Us Care for You: Yes Feels Safe at Home: Yes Safety Concerns: Feels Safe At This Time Assistive Devices: Oxygen - Continuous Review of Systems Review of Systems: All systems reviewed & are unremarkable except as noted in HPI & below Physical Exam Physical Exam: Constitutional: No acute distress HEENT: EOMI, PERRLA Respiratory system: Decreased air entry bilaterally, no wheeze, no rhonchi, mild crackles bilateral lower lobes CVS: S1-S2 positive, no murmurs or gallops, distant heart sounds Abdomen: Soft, nontender, nondistended, positive bowel sounds x4, obese Extremities: +2 pulses bilaterally radialis/ dorsalis pedis, no cyanosis, +1 edema bilateral lower extremity Neuro: Awake alert oriented x3 Psych: Normal mood and affect G/U: No Edward Skin: no rashes, warm and dry Lymphatic: no cervical or axillary lymphadenopathy Results & Data Results & Data ([facility]) Vital Signs (Past 12 Hours) Vital Signs Temp Pulse Pulse Resp BP BP Pulse Ox 11/10/20 07:39 36.5 C 69 18 154/69 H 97 11/10/20 07:36 62 18 95 11/10/20 03:12 36.5 C 69 22 160/75 H 95 11/10/20 02:30 72 11/10/20 02:00 20 116/74 11/10/20 01:45 98 H 13 139/59 L 95 11/10/20 01:32 63 24 94 11/10/20 01:31 65 19 149/62 H 11/10/20 01:30 73 13 93 11/10/20 01:16 60 19 11/10/20 01:15 60 14 134/78 11/10/20 01:00 60 20 117/80 95 11/10/20 00:46 60 16 11/10/20 00:45 60 19 157/64 H 11/10/20 00:31 63 20 128/45 L 11/10/20 00:30 61 18 11/10/20 00:16 115 H 21 11/10/20 00:15 76 20 130/60 11/10/20 00:02 64 23 92 11/10/20 00:01 64 23 131/58 L 94 11/10/20 00:00 66 20 93 11/09/20 23:57 91 11/09/20 23:31 106 H 16 131/52 L 11/09/20 23:30 61 14 11/09/20 23:15 71 16 96 11/09/20 23:06 78 20 93 11/09/20 23:00 67 23 94 11/09/20 22:46 63 16 112/71 11/09/20 22:45 69 18 11/09/20 22:30 66 20 11/09/20 22:15 65 17 11/09/20 22:00 71 27 H 11/09/20 21:46 70 22 119/78 91 11/09/20 21:45 66 19 91 11/09/20 21:31 60 92 11/09/20 21:30 65 128/68 89 L 11/09/20 21:17 72 25 H 131/50 L 92 11/09/20 21:15 67 20 90 11/09/20 21:03 79 L 11/09/20 21:02 69 26 H 93 11/09/20 21:01 70 30 H 157/55 H 92 11/09/20 21:00 66 26 H 92 11/09/20 20:49 36.9 C 77 28 H 173/77 H 94 11/09/20 20:46 83 32 H 11/09/20 20:38 70 25 H 95 11/09/20 20:35 74 20 173/77 H 94 11/10/20 04:29 11/10/20 04:29 PG Care Time/CCT Total # of Minutes Spent Total Time Spent with Patient: Total time spent is greater than 50% in coordination of care (as documented) at patient's floor/unit and/or counseling patient: Coding Level of Care Code 27905 Initial Inpt Care Lvl 3 Diagnoses Hemoptysis R04.2 Acute and chronic respiratory failure with hypoxia J96.21 JUVE (obstructive sleep apnea) G47.33
[2020-11-10] MEDS: cefTRIAXone SODIUM 2,000 MG in DEXTROSE 5% 50 ML IV SCH (08:34)
[2020-11-10] MEDS: FUROSEMIDE 40 MG/4 ML VIAL IV SCH ×2 (08:34→20:28)
[2020-11-10] MEDS: METOPROLOL SUCC 50MG EXT REL TAB PO SCH (08:35)
[2020-11-10] MEDS: ATORVASTATIN 20 MG TAB PO SCH (08:35)
[2020-11-10] MEDS: INSULIN GLARGINE SOLOSTAR 100 UNITS/ML 3 ML PEN SC SCH ×2 (08:35→20:21)
[2020-11-10] MEDS: DOXYCYCLINE HYCLATE 100 MG CAP PO SCH ×2 (08:36→20:25)
[2020-11-10] MEDS ORDERED: predniSONE 20 MG TAB PO SCH (09:00)
[2020-11-10] MEDS ORDERED: CONSULT PHARMACY SCH (09:00)
[2020-11-10] MEDS ORDERED: ALBUMIN 25% 12.5 GM/50 ML VIAL IV SCH (09:00)
--- NOTE | 2020-11-10 09:51 | Electrocardiogram Report ---
Test Reason : Blood Pressure : / mmHG Vent. Rate : 081 BPM Atrial Rate : 081 BPM P-R Int : 000 ms QRS Dur : 132 ms QT Int : 422 ms P-R-T Axes : 000 099 -47 degrees QTc Int : 490 ms Poor data quality, interpretation may be adversely affected Probable Atrial fibrillation with frequent ventricular-paced complexes and with frequent Premature ve ntricular complexes Right bundle branch block T wave abnormality, consider inferolateral ischemia Abnormal ECG When compared with ECG of 27-MAR-2020 19:10, Premature ventricular complexes are now Present Vent. rate has increased BY 13 BPM Confirmed by Rusty Erickson ([id number]) on 11/10/2020 9:50:43 AM Referred By: REFERRED SELF Confirmed By:Rusty Erickson
[2020-11-10] MEDS ORDERED: ALBUT/IPRATROP 3MG/0.5MG NEB 3 ML VIAL NEB PRN (09:56)
--- NOTE | 2020-11-10 09:59 | Nephrology Consultation ---
Date of Consultation November 10, 2020 Assessment & Plan (1) Acute on chronic renal failure: baseline creatinine 1.2 w/ albuminuria about 100 mg daily, CKD 3A. Presenting creatinine 1.9; down to 1.7 this am. urine sediment essentially bland. this in the setting of volume overload leading to acute hypoxemic respiratory failure; concern for cardiorenal syndrome. stage 1 nonoliguric SHANIA on CKD 3 from cardiorenal syndrome I/O not fully documented in this pt undergoing diuresis. as OP on lasix 40 mg bid and spironolact 25 mg daily. thrombocytopenia at baseline; no likely relation to renal disease. needs diuresis; he is volume overloaded. chemistries acceptable for the most part apart from very elevated BG in 300-400s -cont to hold moise antag -agree w/ lasix dosing -agree w/ 2L FR while on clears; when taking regular po, limit to 1.5 L daily -doubt need for albumin and will stop since it can complicate fluid status in this pt -needs DAILY standing wt and when taking regular po < 2 gm daily Na diet -pls give him HF teaching -daily bmp -no indication at this time for discussion of dialysis Present on Admission?: Yes (2) Right lower lobe pneumonia: on ceftriaxone and doxycycline; per primary service and pulmonary Present on Admission?: Yes (3) Acute on chronic diastolic heart failure: currently on albumin and lasix 60 mg IV bid-- as above Present on Admission?: Yes History of Present Illness Reason for Consultation: SHANIA on CKD Requesting Physician: Dr Carpenter Attending Physician: Lilia Dickey, History of Present Illness 85 y/o M whom I'm asked to see for SHANIA after he was admitted overnight for acute on chronic hypoxemic respiratory failure and hemoptysis. Pt came in with progressive generalized weakness, 25 lb wt gain over past 2 mos. 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 He also has CKD3A w/ baseline creatinine of about 1.2 in EPIC as of 06/2020; does not follow w/ nephro as OP. He was admitted to [facility] March 2020 for a week for PNA. He is getting ceftriaxone, lasix IV 60 mg bid, albumin 12.5 gm bid, prednisone 20 mg daily. He is currently on liquid diet w/ 2L FR. He tells me he does not weigh himself daily or limit fluids as OP; in fact aims for 2L fluid intake daily Allergies Allergy/AdvReac Type Severity Reaction Status Date / Time Penicillins Allergy Intermediate RASH AND Verified 11/09/20 21:23 [facility] Home Medications Medication Instructions Recorded Confirmed Type albuterol sulfate [Ventolin HFA] 2 - 4 puff INHALATION Q6H PRN 10/08/18 11/09/20 History ascorbic acid (vitamin C) [Vitamin 1,000 mg PO QAM 10/08/18 11/09/20 History C] atorvastatin 20 mg PO QAM 10/08/18 11/09/20 History hydrocodone-acetaminophen 1 tab PO Q6H PRN 10/08/18 11/09/20 History ferrous sulfate [Feosol] 325 mg PO QAM 11/22/18 11/09/20 History amlodipine 2.5 mg PO QPM 03/27/20 11/09/20 History furosemide 40 mg PO BID 03/27/20 11/09/20 History ipratropium-albuterol 3 ml INHALATION Q6H PRN 03/27/20 11/09/20 History levothyroxine 75 mcg PO QAM 03/27/20 11/09/20 History metoprolol succinate 50 mg PO QAM 03/27/20 11/09/20 History spironolactone [Aldactone] 25 mg PO QAM 03/27/20 11/09/20 History vitamin E 0 unit PO QAM 03/27/20 11/09/20 History apixaban [Eliquis] 5 mg PO BID 11/09/20 11/09/20 History aspirin 81 mg PO QAM 11/09/20 11/09/20 History Patient History Medical History Asthma Atrial fibrillation Atrial flutter Chronic diastolic heart failure CKD (chronic kidney disease) stage 3, GFR 30-59 ml/min DM type 2 (diabetes mellitus, type 2) Dyslipidemia HTN (hypertension) Liver cirrhosis Obesity BMI fall 2020 48 JUVE (obstructive sleep apnea) Pulmonary hypertension Thrombocytopenia Surgical History H/O eye surgery "eye removed, implant attached" H/O repair of left rotator cuff H/O repair of right rotator cuff History of back surgery History of bilateral knee arthroplasty History of carpal tunnel surgery of left wrist History of carpal tunnel surgery of right wrist S/P hip replacement S/P laminectomy Family History Other Family history non-contributory Social History Smoking Status: Never smoker Second Hand Exposure: No; Do You Dip or Chew Tobacco: No; Tobacco Cessation Education Requested by Patient: No Hx Alcohol Use: No Hx Substance Use: No Preferred Language: Persian Communication Ability: Effective Bail Bondsman Required: No Beliefs That Will Affect Care: None marital status: Current Living Situation: Spouse current occupation: self-employed Other Information That Helps Us Care for You: Yes Feels Safe at Home: Yes Safety Concerns: Feels Safe At This Time Assistive Devices: BiPap, Cane, Denture - Upper and Denture - Lower Review of Systems Review of Systems: All systems reviewed & are unremarkable except as noted in HPI & below Respiratory: + dyspnea (improved since admission) Cardiovascular: + dyspnea on exertion and + edema (chornic / stable) Physical Exam Constitutional: well developed and well nourished; no acute distress obese sitting in bed, on 2l02NC Eyes: EOM intact bilaterally ENMT: Ears: no external ear abnormality Nose: no external nose abnormality Mouth: + dry oral mucous membranes Neck: no nuchal rigidity Respiratory: normal respiratory effort and able to speak in complete sentences; no labored breathing and no cough Auscultation: + diminished lung sounds, + crackles and + rhonchi Cardiovascular: Rate/Rhythm: regular rate and regular rhythm Extremities: + edema (1-2+) Gastrointestinal (Abdomen): Inspection/Auscultation: normal bowel sounds Percussion/Palpation: abdomen soft; abdomen nontender Musculoskeletal: Extremities: strength 5/5 throughout Skin: no rashes, warm and dry Neurologic: carlson, fluent speech, no tremor Psychiatric: A+Ox3, euthymic affect Affect: + anxious affect Insight: good insight Judgement: good judgement Genitourinary: no saldana Results & Data ([facility]) Vital Signs (Past 12 Hours) Vital Signs Temp Pulse Pulse Resp BP BP Pulse Ox 11/10/20 07:39 36.5 C 69 18 154/69 H 97 11/10/20 07:36 62 18 95 11/10/20 03:12 36.5 C 69 22 160/75 H 95 11/10/20 02:30 72 11/10/20 02:00 20 116/74 11/10/20 01:45 98 H 13 139/59 L 95 11/10/20 01:32 63 24 94 11/10/20 01:31 65 19 149/62 H 11/10/20 01:30 73 13 93 11/10/20 01:16 60 19 11/10/20 01:15 60 14 134/78 11/10/20 01:00 60 20 117/80 95 11/10/20 00:46 60 16 11/10/20 00:45 60 19 157/64 H 11/10/20 00:31 63 20 128/45 L 11/10/20 00:30 61 18 11/10/20 00:16 115 H 21 11/10/20 00:15 76 20 130/60 11/10/20 00:02 64 23 92 11/10/20 00:01 64 23 131/58 L 94 11/10/20 00:00 66 20 93 11/09/20 23:57 91 11/09/20 23:31 106 H 16 131/52 L 11/09/20 23:30 61 14 11/09/20 23:15 71 16 96 11/09/20 23:06 78 20 93 11/09/20 23:00 67 23 94 11/09/20 22:46 63 16 112/71 11/09/20 22:45 69 18 11/09/20 22:30 66 20 11/09/20 22:15 65 17 11/09/20 22:00 71 27 H Laboratory Results 11/10/20 04:29 11/10/20 04:29 UA sg 1017; 2+ glucose, trace dipstick protein C19 neg Diagnostic Findings CT Chest non con 1. Extensive groundglass opacities throughout the right lung with moderate groundglass opacities within the left lung. Similar findings shown on chest CT of March 27, 2020. This favors an infectious process. Less likely considerations include pulmonary pulmonary edema or pulmonary hemorrhage. 2. Mildly enlarged right paratracheal lymph node. This is probably reactive. A follow-up chest CT in 6 months is recommended. 3. Moderate cardiomegaly. 4. Cirrhosis. cxr No significant change in the cardiomegaly and bilateral groundglass airspace opacities. This could be due to asymmetric pulmonary edema or chronic infectious/inflammatory change. (1) Right lower lobe pneumonia Pneumonia type: due to unspecified organism Qualified Code(s): J18.9 - Pneumonia, unspecified organism (2) Acute on chronic renal failure Chronic kidney disease stage 3 subtype: stage 3a (GFR 45-59)
[2020-11-10] MEDS: amLODIPine BESYLATE 5 MG TAB PO SCH ×2 (11:32→20:24)
--- NOTE | 2020-11-10 11:34 | Cardiology Consultation ---
Date of Consultation November 10, 2020 Assessment & Plan (1) Acute hypoxemic respiratory failure: Patient is an 85-year-old male with complex history as outlined above presents with symptoms of dyspnea, weight gain cough as well as blood-tinged sputum. Past history of pneumonia hemoptysis in March 2020 Suspect multifactorial presentation including diastolic heart failure superimposed on underlying pulmonary issue acute renal insufficiency Recent difficulty using CPAP may have been at least partially a precipitant Agree with diuresis Would discontinue aspirin indefinitely Patient has indications for chronic anticoagulation with chronic atrial fibrillation, [id number] score elevated greater than 5. Once stable reinitiate Eliquis though at reduced dose age greater than 80 and diminished GFR Treat underlying pulmonary infection issues Follow renal function closely as planned We will follow during admission (2) Right lower lobe pneumonia: (3) Acute on chronic renal failure: (4) Acute on chronic diastolic heart failure: (5) Atrial fibrillation: (6) Hemoptysis: (7) JUVE (obstructive sleep apnea): History of Present Illness Reason for Consultation: Hemoptysis, respiratory failure Requesting Physician: Dr. Dickey Attending Physician: Lilia Dickey, DO History of Present Illness Patient is an 85-year-old male with complex issues which include 1. Longstanding hypertension with hypertensive heart disease, diastolic dysfunction and preserved systolic ejection fraction 2. Paroxysmal atrial fibrillation now persistent A. fib / flutter 3. 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 model [id number], implanted 11/23/2018 4. Moderate atherosclerotic coronary disease without obstruction with cardiac catheterization 2010, November 22, 2018 5. Morbid obesity 6. Chronic hypoxic respiratory failure with sleep apnea O2 and CPAP dependent 7. Bilateral pneumonia March 2020 with associated hemoptysis. Unrevealing bronchoscopy/bronchoalveolar lavage/transbronchial biopsy 8. Pulmonary hypertension 9. CKD stage III 10. Chronic mild thrombocytopenia 11. Hepatic cirrhosis by CT scan 12. Type 2 diabetes mellitus insulin requiring Patient is referred now after acute hospitalization for worsening dyspnea and cough with hemoptysis/blood-tinged sputum. Notes chronic dyspnea since last hospitalization in March 2020 but most recently has been aware of increasing dyspnea and cough times several days. Gradual weight gain of nearly 10 kg. No fevers or chills. No change in smell or taste. No chest pains or discomfort. No tachypalpitations or orthopnea. Taking medications as prescribed. Notes no worsening edema. No bleeding difficulties other than hemoptysis as described. No melena hematochezia dysuria, hematuria. Patient does note inability use CPAP for several days due to irritation of his nose but usually compliant Still works as a [employer] but has had more difficulty ambulating about office. Uses 2 canes usually but now avoiding stairs due to dyspnea Allergies Allergy/AdvReac Type Severity Reaction Status Date / Time Penicillins Allergy Intermediate RASH AND Verified 11/09/20 21:23 [facility] Medications Medication Instructions Recorded Confirmed Type albuterol sulfate [Ventolin HFA] 2 - 4 puff INHALATION Q6H PRN 10/08/18 11/09/20 History ascorbic acid (vitamin C) [Vitamin 1,000 mg PO QAM 10/08/18 11/09/20 History C] atorvastatin 20 mg PO QAM 10/08/18 11/09/20 History hydrocodone-acetaminophen 1 tab PO Q6H PRN 10/08/18 11/09/20 History ferrous sulfate [Feosol] 325 mg PO QAM 11/22/18 11/09/20 History amlodipine 2.5 mg PO QPM 03/27/20 11/09/20 History furosemide 40 mg PO BID 03/27/20 11/09/20 History ipratropium-albuterol 3 ml INHALATION Q6H PRN 03/27/20 11/09/20 History levothyroxine 75 mcg PO QAM 03/27/20 11/09/20 History metoprolol succinate 50 mg PO QAM 03/27/20 11/09/20 History spironolactone [Aldactone] 25 mg PO QAM 03/27/20 11/09/20 History vitamin E 0 unit PO QAM 03/27/20 11/09/20 History apixaban [Eliquis] 5 mg PO BID 11/09/20 11/09/20 History aspirin 81 mg PO QAM 11/09/20 11/09/20 History Patient History Medical History Asthma Atrial fibrillation Atrial flutter Chronic diastolic heart failure CKD (chronic kidney disease) stage 3, GFR 30-59 ml/min DM type 2 (diabetes mellitus, type 2) Dyslipidemia HTN (hypertension) Liver cirrhosis Obesity BMI fall 2020 48 JUVE (obstructive sleep apnea) Pulmonary hypertension Thrombocytopenia Surgical History H/O eye surgery "eye removed, implant attached" H/O repair of left rotator cuff H/O repair of right rotator cuff History of back surgery History of bilateral knee arthroplasty History of carpal tunnel surgery of left wrist History of carpal tunnel surgery of right wrist S/P hip replacement S/P laminectomy Family History Other Family history non-contributory Social History Smoking Status: Never smoker Second Hand Exposure: No; Do You Dip or Chew Tobacco: No; Tobacco Cessation Education Requested by Patient: No Hx Alcohol Use: No Hx Substance Use: No Preferred Language: Tajik Communication Ability: Effective Data Warehouse Manager Required: No Beliefs That Will Affect Care: None marital status: Current Living Situation: Spouse current occupation: self-employed Other Information That Helps Us Care for You: Yes Feels Safe at Home: Yes Safety Concerns: Feels Safe At This Time Assistive Devices: BiPap, Cane, Denture - Upper and Denture - Lower Review of Systems Review of Systems: All systems reviewed & are unremarkable except as noted in HPI & below Physical Exam Constitutional: WD/WN, vitals as above + morbidly obese Eyes: PERRL, conjunctivae normal, anicteric sclerae Mild disconjugate gaze ENMT: external ear and nose normal, oropharynx normal Neck: trachea midline, no thyromegaly + thick neck Cardiovascular: Rate/Rhythm: regular rate and regular rhythm (Paced during examination) Heart Sounds: normal S1 and normal S2; no gallop and no murmur Palpation: normal PMI Vessels: normal carotid upstroke and radial pulses present; no JVD and no carotid bruit Extremities: + edema (Trace) Gastrointestinal (Abdomen): Inspection/Auscultation: abdomen normal to inspection and + abdomen distended (Mildly) No palpable hepatosplenomegaly Musculoskeletal: no cyanosis or clubbing, extremities motor strength 5/5 Skin: no rashes, warm and dry Neurologic: PERRL, EOMI, accommodation nl, no face palsy, no dysarthria Psychiatric: A+Ox3, euthymic affect Results & Data ([place]) Vital Signs (Past 12 Hours) Vital Signs Temp Pulse Pulse Resp BP BP Pulse Ox 11/10/20 10:47 36.7 C 63 18 125/71 95 11/10/20 07:39 36.5 C 69 18 154/69 H 97 11/10/20 07:36 62 18 95 11/10/20 03:12 36.5 C 69 22 160/75 H 95 11/10/20 02:30 72 11/10/20 02:00 20 116/74 11/10/20 01:45 98 H 13 139/59 L 95 11/10/20 01:32 63 24 94 11/10/20 01:31 65 19 149/62 H 11/10/20 01:30 73 13 93 11/10/20 01:16 60 19 11/10/20 01:15 60 14 134/78 11/10/20 01:00 60 20 117/80 95 11/10/20 00:46 60 16 11/10/20 00:45 60 19 157/64 H 11/10/20 00:31 63 20 128/45 L 11/10/20 00:30 61 18 11/10/20 00:16 115 H 21 11/10/20 00:15 76 20 130/60 11/10/20 00:02 64 23 92 11/10/20 00:01 64 23 131/58 L 94 11/10/20 00:00 66 20 93 11/09/20 23:57 91 Laboratory Results Laboratory Results - last 24 hr 11/09/20 11/09/20 11/09/20 20:42 20:56 20:56 WBC 15.43 H RBC 3.99 L Hgb 11.7 L Hct 36.4 L MCV 91.2 MCH 29.3 MCHC 32.1 RDW Std Deviation 50.[address] Coeff of Ct 15.0 H Plt Count 143 MPV 11.4 H Immature Gran % (Auto) 0.3 Neut % (Auto) 85.4 Lymph % (Auto) 9.1 [place] % (Auto) 5.0 Eos % (Auto) 0.1 Baso % (Auto) 0.1 Neut # (Auto) 13.19 H Lymph # (Auto) 1.41 [place] # (Auto) 0.77 H Eos # (Auto) 0.01 Baso # (Auto) 0.01 Immature Gran # (Auto) 0.04 H ESR 38 H PT INR APTT PTT Ratio ABG pH ABG pCO2 ABG pO2 ABG HCO3 ABG O2 Saturation ABG Base Excess Frankie Test Barometric Pressure Oxygen Given Sodium Potassium Chloride Carbon Dioxide Anion Gap BUN Creatinine Est Cr Clr Drug Dosing Est GFR ( Amer) Est GFR (Non-Af Amer) BUN/Creatinine Ratio Glucose POC Glucose Estimat Average Glucose 212 Hemoglobin A1c 9.0 H Lactate Calcium Magnesium Ferritin Total Bilirubin AST ALT Alkaline Phosphatase Lactate Dehydrogenase Troponin I C-Reactive Protein NT-Pro-B Natriuret Pep Total Protein Albumin Globulin Albumin/Globulin Ratio Lipase Beta-Hydroxybutyric Acd TSH Urine Color Urine Appearance Urine pH Ur Specific [place] Urine Protein Urine Glucose (UA) Urine Ketones Urine Blood Urine Nitrite Urine Bilirubin Urine Urobilinogen Ur Leukocyte Esterase Urine WBC (Auto) Urine RBC (Auto) U Hyaline Cast (Auto) U Epithel Cells (Auto) Urine Bacteria (Auto) COVID-19 Eval Order SARS-CoV-2, RNA, NAAT Blood Type Antibody Screen 11/09/20 11/09/20 11/09/20 20:56 20:56 20:56 WBC RBC Hgb Hct MCV MCH MCHC RDW Std Deviation RDW Coeff of Ct Plt Count MPV Immature Gran % (Auto) Neut % (Auto) Lymph % (Auto) [place] % (Auto) Eos % (Auto) Baso % (Auto) Neut # (Auto) Lymph # (Auto) [place] # (Auto) Eos # (Auto) Baso # (Auto) Immature Gran # (Auto) ESR PT 11.5 INR 1.1 APTT 30.5 PTT Ratio 1.1 ABG pH ABG pCO2 ABG pO2 ABG HCO3 ABG O2 Saturation ABG Base Excess Frankie Test Barometric Pressure Oxygen Given Sodium 134 L Potassium 4.3 Chloride 100 Carbon Dioxide 21 Anion Gap 13.0 H BUN 37 H Creatinine 1.94 H Est Cr Clr Drug Dosing 41.2 Est GFR ( Amer) 36.0 Est GFR (Non-Af Amer) 31.1 BUN/Creatinine Ratio 19.2 Glucose 377 H* POC Glucose Estimat Average Glucose Hemoglobin A1c Lactate Calcium 9.5 Magnesium 2.2 Ferritin 66.8 Total Bilirubin 1.2 H AST 17 ALT 24 Alkaline Phosphatase 85 Lactate Dehydrogenase 131 Troponin I < 0.015 C-Reactive Protein 1.81 H NT-Pro-B Natriuret Pep 3676 H Total Protein 8.6 H Albumin 3.9 Globulin 4.7 H Albumin/Globulin Ratio 0.8 L Lipase 153 Beta-Hydroxybutyric Acd 2.43 TSH Urine Color Urine Appearance Urine pH Ur Specific [place] Urine Protein Urine Glucose (UA) Urine Ketones Urine Blood Urine Nitrite Urine Bilirubin Urine Urobilinogen Ur Leukocyte Esterase Urine WBC (Auto) Urine RBC (Auto) U Hyaline Cast (Auto) U Epithel Cells (Auto) Urine Bacteria (Auto) COVID-19 Eval Order SARS-CoV-2, RNA, NAAT Blood Type Antibody Screen 11/09/20 11/09/20 11/09/20 21:03 21:03 22:17 WBC RBC Hgb Hct MCV MCH MCHC RDW Std Deviation RDW Coeff of Ct Plt Count MPV Immature Gran % (Auto) Neut % (Auto) Lymph % (Auto) [place] % (Auto) Eos % (Auto) Baso % (Auto) Neut # (Auto) Lymph # (Auto) [place] # (Auto) Eos # (Auto) Baso # (Auto) Immature Gran # (Auto) ESR PT INR APTT PTT Ratio ABG pH ABG pCO2 ABG pO2 ABG HCO3 ABG O2 Saturation ABG Base Excess Frankie Test Barometric Pressure Oxygen Given Sodium Potassium Chloride Carbon Dioxide Anion Gap BUN Creatinine Est Cr Clr Drug Dosing Est GFR ( Amer) Est GFR (Non-Af Amer) BUN/Creatinine Ratio Glucose POC Glucose Estimat Average Glucose Hemoglobin A1c Lactate Calcium Magnesium Ferritin Total Bilirubin AST ALT Alkaline Phosphatase Lactate Dehydrogenase Troponin I C-Reactive Protein NT-Pro-B Natriuret Pep Total Protein Albumin Globulin Albumin/Globulin Ratio Lipase Beta-Hydroxybutyric Acd TSH Urine Color Yellow Urine Appearance Clear Urine pH 5.5 Ur Specific [place] 1.014 Urine Protein Trace H Urine Glucose (UA) 2+ H Urine Ketones Negative Urine Blood Negative Urine Nitrite Negative Urine Bilirubin Negative Urine Urobilinogen Negative Ur Leukocyte Esterase Negative Urine WBC (Auto) 0 Urine RBC (Auto) 0-4 U Hyaline Cast (Auto) 1-5 U Epithel Cells (Auto) 0-5 Urine Bacteria (Auto) Negative COVID-19 Eval Order [facility] SARS-CoV-2, RNA, NAAT NEGATIVE Blood Type Antibody Screen 11/09/20 11/09/20 11/09/20 22:22 22:31 23:11 WBC RBC Hgb Hct MCV MCH MCHC RDW Std Deviation RDW Coeff of Ct Plt Count MPV Immature Gran % (Auto) Neut % (Auto) Lymph % (Auto) [place] % (Auto) Eos % (Auto) Baso % (Auto) Neut # (Auto) Lymph # (Auto) [place] # (Auto) Eos # (Auto) Baso # (Auto) Immature Gran # (Auto) ESR PT INR APTT PTT Ratio ABG pH 7.44 ABG pCO2 34 L ABG pO2 104 H ABG HCO3 23 ABG O2 Saturation 98.0 H ABG Base Excess -1.0 Frankie Test Pos Barometric Pressure 730 Oxygen Given 2% Sodium Potassium Chloride Carbon Dioxide Anion Gap BUN Creatinine Est Cr Clr Drug Dosing Est GFR ( Amer) Est GFR (Non-Af Amer) BUN/Creatinine Ratio Glucose POC Glucose 372 H* Estimat Average Glucose Hemoglobin A1c Lactate 4.4 H* Calcium Magnesium Ferritin Total Bilirubin AST ALT Alkaline Phosphatase Lactate Dehydrogenase Troponin I C-Reactive Protein NT-Pro-B Natriuret Pep Total Protein Albumin Globulin Albumin/Globulin Ratio Lipase Beta-Hydroxybutyric Acd TSH Urine Color Urine Appearance Urine pH Ur Specific [place] Urine Protein Urine Glucose (UA) Urine Ketones Urine Blood Urine Nitrite Urine Bilirubin Urine Urobilinogen Ur Leukocyte Esterase Urine WBC (Auto) Urine RBC (Auto) U Hyaline Cast (Auto) U Epithel Cells (Auto) Urine Bacteria (Auto) COVID-19 Eval Order SARS-CoV-2, RNA, NAAT Blood Type Antibody Screen 11/10/20 11/10/20 11/10/20 03:41 04:29 04:29 WBC 8.60 RBC 3.48 L Hgb 10.4 L Hct 31.0 L MCV 89.1 MCH 29.9 MCHC 33.5 RDW Std Deviation 49.[address] Coeff of Ct 15.1 H Plt Count 113 L MPV 11.6 H Immature Gran % (Auto) 0.2 Neut % (Auto) 90.1 Lymph % (Auto) 7.4 [place] % (Auto) 2.3 Eos % (Auto) 0.0 Baso % (Auto) 0.0 Neut # (Auto) 7.74 H Lymph # (Auto) 0.64 L [place] # (Auto) 0.20 Eos # (Auto) 0.00 Baso # (Auto) 0.00 Immature Gran # (Auto) 0.02 ESR PT INR APTT PTT Ratio ABG pH ABG pCO2 ABG pO2 ABG HCO3 ABG O2 Saturation ABG Base Excess Frankie Test Barometric Pressure Oxygen Given Sodium Potassium Chloride Carbon Dioxide Anion Gap BUN Creatinine Est Cr Clr Drug Dosing Est GFR ( Amer) Est GFR (Non-Af Amer) BUN/Creatinine Ratio Glucose POC Glucose 443 H* Estimat Average Glucose Hemoglobin A1c Lactate Calcium Magnesium Ferritin Total Bilirubin AST ALT Alkaline Phosphatase Lactate Dehydrogenase Troponin I C-Reactive Protein NT-Pro-B Natriuret Pep Total Protein Albumin Globulin Albumin/Globulin Ratio Lipase Beta-Hydroxybutyric Acd TSH Urine Color Urine Appearance Urine pH Ur Specific [place] Urine Protein Urine Glucose (UA) Urine Ketones Urine Blood Urine Nitrite Urine Bilirubin Urine Urobilinogen Ur Leukocyte Esterase Urine WBC (Auto) Urine RBC (Auto) U Hyaline Cast (Auto) U Epithel Cells (Auto) Urine Bacteria (Auto) COVID-19 Eval Order SARS-CoV-2, RNA, NAAT Blood Type O Positive Antibody Screen NEGATIVE 11/10/20 11/10/20 11/10/20 04:29 04:29 05:56 WBC RBC Hgb Hct MCV MCH MCHC RDW Std Deviation RDW Coeff of Ct Plt Count MPV Immature Gran % (Auto) Neut % (Auto) Lymph % (Auto) [place] % (Auto) Eos % (Auto) Baso % (Auto) Neut # (Auto) Lymph # (Auto) [place] # (Auto) Eos # (Auto) Baso # (Auto) Immature Gran # (Auto) ESR PT INR APTT PTT Ratio ABG pH ABG pCO2 ABG pO2 ABG HCO3 ABG O2 Saturation ABG Base Excess Frankie Test Barometric Pressure Oxygen Given Sodium 133 L Potassium 4.2 Chloride 100 Carbon Dioxide 25 Anion Gap 8.0 BUN 39 H Creatinine 1.70 H Est Cr Clr Drug Dosing 46.8 Est GFR ( Amer) 42.3 Est GFR (Non-Af Amer) 36.5 BUN/Creatinine Ratio 23.0 H Glucose 421 H* POC Glucose 399 H* Estimat Average Glucose Hemoglobin A1c Lactate 3.6 H* Calcium 9.0 Magnesium Ferritin Total Bilirubin AST ALT Alkaline Phosphatase Lactate Dehydrogenase Troponin I < 0.015 C-Reactive Protein NT-Pro-B Natriuret Pep Total Protein Albumin Globulin Albumin/Globulin Ratio Lipase Beta-Hydroxybutyric Acd 1.96 TSH 0.880 Urine Color Urine Appearance Urine pH Ur Specific [place] Urine Protein Urine Glucose (UA) Urine Ketones Urine Blood Urine Nitrite Urine Bilirubin Urine Urobilinogen Ur Leukocyte Esterase Urine WBC (Auto) Urine RBC (Auto) U Hyaline Cast (Auto) U Epithel Cells (Auto) Urine Bacteria (Auto) COVID-19 Eval Order SARS-CoV-2, RNA, NAAT Blood Type Antibody Screen 11/10/20 11/10/20 11/10/20 06:49 07:48 07:49 WBC RBC Hgb Hct MCV MCH MCHC RDW Std Deviation RDW Coeff of Ct Plt Count MPV Immature Gran % (Auto) Neut % (Auto) Lymph % (Auto) [place] % (Auto) Eos % (Auto) Baso % (Auto) Neut # (Auto) Lymph # (Auto) [place] # (Auto) Eos # (Auto) Baso # (Auto) Immature Gran # (Auto) ESR PT INR APTT PTT Ratio ABG pH ABG pCO2 ABG pO2 ABG HCO3 ABG O2 Saturation ABG Base Excess Frankie Test Barometric Pressure Oxygen Given Sodium Potassium Chloride Carbon Dioxide Anion Gap BUN Creatinine Est Cr Clr Drug Dosing Est GFR ( Amer) Est GFR (Non-Af Amer) BUN/Creatinine Ratio Glucose POC Glucose 384 H* 373 H* 351 H* Estimat Average Glucose Hemoglobin A1c Lactate Calcium Magnesium Ferritin Total Bilirubin AST ALT Alkaline Phosphatase Lactate Dehydrogenase Troponin I C-Reactive Protein NT-Pro-B Natriuret Pep Total Protein Albumin Globulin Albumin/Globulin Ratio Lipase Beta-Hydroxybutyric Acd TSH Urine Color Urine Appearance Urine pH Ur Specific [place] Urine Protein Urine Glucose (UA) Urine Ketones Urine Blood Urine Nitrite Urine Bilirubin Urine Urobilinogen Ur Leukocyte Esterase Urine WBC (Auto) Urine RBC (Auto) U Hyaline Cast (Auto) U Epithel Cells (Auto) Urine Bacteria (Auto) COVID-19 Eval Order SARS-CoV-2, RNA, NAAT Blood Type Antibody Screen 11/10/20 11/10/20 11/10/20 09:03 09:03 10:07 WBC RBC Hgb Hct MCV MCH MCHC RDW Std Deviation RDW Coeff of Ct Plt Count MPV Immature Gran % (Auto) Neut % (Auto) Lymph % (Auto) [place] % (Auto) Eos % (Auto) Baso % (Auto) Neut # (Auto) Lymph # (Auto) [place] # (Auto) Eos # (Auto) Baso # (Auto) Immature Gran # (Auto) ESR PT INR APTT PTT Ratio ABG pH ABG pCO2 ABG pO2 ABG HCO3 ABG O2 Saturation ABG Base Excess Frankie Test Barometric Pressure Oxygen Given Sodium Potassium Chloride Carbon Dioxide Anion Gap BUN Creatinine Est Cr Clr Drug Dosing Est GFR ( Amer) Est GFR (Non-Af Amer) BUN/Creatinine Ratio Glucose POC Glucose 360 H* 336 H* 271 H Estimat Average Glucose Hemoglobin A1c Lactate Calcium Magnesium Ferritin Total Bilirubin AST ALT Alkaline Phosphatase Lactate Dehydrogenase Troponin I C-Reactive Protein NT-Pro-B Natriuret Pep Total Protein Albumin Globulin Albumin/Globulin Ratio Lipase Beta-Hydroxybutyric Acd TSH Urine Color Urine Appearance Urine pH Ur Specific [place] Urine Protein Urine Glucose (UA) Urine Ketones Urine Blood Urine Nitrite Urine Bilirubin Urine Urobilinogen Ur Leukocyte Esterase Urine WBC (Auto) Urine RBC (Auto) U Hyaline Cast (Auto) U Epithel Cells (Auto) Urine Bacteria (Auto) COVID-19 Eval Order SARS-CoV-2, RNA, NAAT Blood Type Antibody Screen 11/10/20 11:21 WBC RBC Hgb Hct MCV MCH MCHC RDW Std Deviation RDW Coeff of Ct Plt Count MPV Immature Gran % (Auto) Neut % (Auto) Lymph % (Auto) [place] % (Auto) Eos % (Auto) Baso % (Auto) Neut # (Auto) Lymph # (Auto) [place] # (Auto) Eos # (Auto) Baso # (Auto) Immature Gran # (Auto) ESR PT INR APTT PTT Ratio ABG pH ABG pCO2 ABG pO2 ABG HCO3 ABG O2 Saturation ABG Base Excess Frankie Test Barometric Pressure Oxygen Given Sodium Potassium Chloride Carbon Dioxide Anion Gap BUN Creatinine Est Cr Clr Drug Dosing Est GFR ( Amer) Est GFR (Non-Af Amer) BUN/Creatinine Ratio Glucose POC Glucose 263 H Estimat Average Glucose Hemoglobin A1c Lactate Calcium Magnesium Ferritin Total Bilirubin AST ALT Alkaline Phosphatase Lactate Dehydrogenase Troponin I C-Reactive Protein NT-Pro-B Natriuret Pep Total Protein Albumin Globulin Albumin/Globulin Ratio Lipase Beta-Hydroxybutyric Acd TSH Urine Color Urine Appearance Urine pH Ur Specific [place] Urine Protein Urine Glucose (UA) Urine Ketones Urine Blood Urine Nitrite Urine Bilirubin Urine Urobilinogen Ur Leukocyte Esterase Urine WBC (Auto) Urine RBC (Auto) U Hyaline Cast (Auto) U Epithel Cells (Auto) Urine Bacteria (Auto) COVID-19 Eval Order SARS-CoV-2, RNA, NAAT Blood Type Antibody Screen Diagnostic Findings Echocardiogram 04/01/2020 The LV wall thickness is moderately increased (concentric). The qualitative LV ejection fraction is 55-59% (normal). The left ventricular wall motion is normal. The right ventricular cavity size is not assessed due to very poor Image resolution. The right ventricular systolic function is qualitatively normal. The left atrium is severely enlarged (>48 ml/m^2). The aortic valve is moderately calcified. Aortic stenosis is absent. Mild pulmonary hypertension is present. The proximal ascending thoracic aorta is mildly enlarged. (1) Acute on chronic renal failure Chronic kidney disease stage 3 subtype: stage 3a (GFR 45-59) (2) Right lower lobe pneumonia Pneumonia type: due to unspecified organism Qualified Code(s): J18.9 - Pneumonia, unspecified organism
[2020-11-10] MEDS: INSULIN ASPART 100 UNITS/ML 3 ML PEN SC SCH ×3 (12:35→20:19)
[2020-11-10] MEDS: FERROUS SULFATE 325 MG TAB PO SCH (12:36)
[2020-11-10] MEDS ORDERED: amLODIPine BESYLATE 5 MG TAB PO SCH (21:00)
--- NOTE | 2020-11-10 23:37 | Hospitalist Progress Note ---
Date of Service November 10, 2020 Assessment & Plan (1) Acute and chronic respiratory failure with hypoxia: Back to only requiring 2LPM, which is his baseline. Feels better since starting diuresis. Strict I/Os, daily standing weights. salt and fluid restriction per Nephro. Pneumonia present and he is improved on current therapy. Cont this for 5 days per pulmonary. = ?compliance with CPAP per Cardiology note also may be contributing. Recent bronchoscopy and ILD workup was unremarkable in March 2020. Prednisone was stopped. Findings more consistent with CHF on clinical diagnostics. Cont diuresis efforts and titrate therapies per specialist input. (2) Acute on chronic renal failure: Up from baseline, now down 1.9 to 1.7 today. Cont daily BMP. (3) Hemoptysis: Eliquis stopped and should be restarted at lower 2.5mg BID dose when infection has resolved. Aspirin was stopped indefinitely by Paper Core Machine Operator. Trend H/H (4) Right lower lobe pneumonia: Rocephinx and Azithromycin x 5 days. Duonebs/incentive spirometer as needed. (5) Atrial fibrillation: paced/flutter on telemetry overnight. Holding Eliquis as above. Cont Toprol XL 50mg daily for rate control. PM in place. (6) DM type 2 (diabetes mellitus, type 2): Hyperglycemic and coming down. Glargine 40 Units BID-may need more as he is on 70 Units BID, however, I question his compliance with an A1C of 9.0. Cont basal bolus insulin while admitted and perform overnight check with coverage if needed. (7) HTN (hypertension): controlled (8) JUVE (obstructive sleep apnea): CPAP qHS (9) Morbid obesity: (10) DVT prophylaxis: no chemoprophylaxis in setting of hemoptysis-will restart Eliquis once more stable. Full Code Dispo-cont PCU monitoring. Lilia Dickey DO [facility] Hospitalist Admission and Anticipated Discharge Date Admission Date: November 09, 2020 Subjective cc: 85 yo M presented with progressive WALSH to now dyspnea at rest, admitted for CHF exacerbation and pneumonia with hemoptysis -no further hemoptysis reported today -cough and sob are improving and he feels better overall -no chest pain reported -tolerating PO -afebrile Review of Systems Review of Systems: All systems reviewed & are unremarkable except as noted in Subjective Physical Exam Physical Exam: CONSTITUTIONAL: obese, vitals as above, generally well- appearing EYES: normal conjunctivae, no scleral icterus ENT: external ear and nose normal, oropharynx clear, MMM NECK: trachea midline, no JVD, obese RESPIRATORY: clear to auscultation bilaterally, no crackles, rales or wheezes, normal respiratory effort CARDIOVASCULAR: regular rate and rhythm, S1 and 2 heard without murmurs, gallops or rubs, no JVD, no peripheral edema GASTROINTESTINAL: soft, nontender, nondistended, no guarding MUSCULOSKELETAL: strength 5/5 throughout, head is normocephalic and atraumatic SKIN: warm and dry NEUROLOGIC: No facial palsy, no dysarthria. CN 2-12 grossly intact, no sensory deficit, normal cognition, normal speech PSYCHIATRIC: alert cooperative and oriented to person, place and time. Results & Data Results & Data ([facility]) Vital Signs (Past 12 Hours) Vital Signs Temp Pulse Pulse Resp BP Pulse Ox 11/10/20 23:35 36.6 C 65 20 110/68 93 11/10/20 20:00 36.9 C 62 18 132/63 92 11/10/20 15:34 66 11/10/20 15:18 36.8 C 60 19 125/74 94 Laboratory Results Short CBC 11/10/20 Range/Units 04:29 WBC 8.60 (4.8-10.8) K/uL Hgb 10.4 L (14.0-18.0) g/dL Hct 31.0 L (42-52) % Plt Count 113 L (130-400) K/uL BMP 11/10/20 04:29 Sodium 133 L Potassium 4.2 Chloride 100 Carbon Dioxide 25 BUN 39 H Creatinine 1.70 H Glucose 421 H* Calcium 9.0 Cardiac Enzymes 11/10/20 Range/Units 04:29 Troponin I < 0.015 (0-0.045) ng/ml Medications Administered Current Inpatient Medications Acetaminophen (Acetaminophen 325 Mg Tab) 325 mg PO Q6H PRN PRN Reason: Mild Pain Stop: 12/10/20 03:58 Hydrocodone Bitart/Acetaminophen (Hydrocodone/Acetamophen 5/325mg Tab) 1 tab PO Q6H PRN PRN Reason: Pain Stop: 12/10/20 02:46 Albuterol (Albut/Ipratrop 3mg/0.5mg Neb 3 Ml Vial) 3 ml NEB Q4 PRN PRN Reason: Shortness Of Breath Or Wheezing Stop: 12/10/20 09:54 Amlodipine Besylate (Amlodipine Besylate 5 Mg Tab) 2.5 mg PO QPM [facility] Stop: 12/10/20 06:34 Last Admin: 11/10/20 20:24 Dose: 2.5 mg Documented by: Atorvastatin Calcium (Atorvastatin 20 Mg Tab) 20 mg PO QAM [facility] Stop: 12/10/20 08:59 Last Admin: 11/10/20 08:35 Dose: 20 mg Documented by: Benzonatate (Benzonatate 100 Mg Capsule) 100 mg PO TID PRN PRN Reason: Cough Stop: 12/10/20 02:46 Last Admin: 11/10/20 08:36 Dose: 100 mg Documented by: Dextrose (Dextrose 50% 50 Ml Syringe) 25 - 50 ml IV UD PRN; Protocol PRN Reason: Hypoglycemia Protocol Stop: 12/10/20 02:46 Doxycycline Hyclate (Doxycycline Hyclate 100 Mg Cap) 100 mg PO BID [facility] Stop: 11/17/20 08:59 Last Admin: 11/10/20 20:25 Dose: 100 mg Documented by: Ferrous Sulfate (Ferrous Sulfate 325 Mg Tab) 325 mg PO DAILY@1200 [facility] Stop: 12/10/20 11:59 Last Admin: 11/10/20 12:36 Dose: 325 mg Documented by: Glucagon (Glucagon For Inj 1 Mg Vial) 1 mg SQ UD PRN; Protocol PRN Reason: Hypoglycemia Protocol Stop: 12/10/20 02:46 Glucose (Glucose 10 Tabs/Tube) 4 - 8 tabs PO UD PRN; Protocol PRN Reason: Hypoglycemia Protocol Stop: 12/10/20 02:46 Glucose (Glucose 40% Gel 15 Gm Tube) 15 - 30 gm PO UD PRN; Protocol PRN Reason: Hypoglycemia Protocol Stop: 12/10/20 02:46 Guaifenesin/Codeine Phosphate (Guaifenesin/Codeine 100mg/10mg 5ml Udc) 5 ml PO Q6H PRN PRN Reason: Cough Stop: 12/10/20 08:26 Ceftriaxone Sodium 2,000 mg/ (Dextrose) 50 mls @ 100 mls/hr IV DAILY [facility]; Protocol Stop: 11/17/20 08:59 Last Infusion: 11/10/20 09:50 Dose: Infused Documented by: Insulin Aspart (Insulin Aspart 100 Units/Ml 3 Ml Pen) 0 units SC ACHS [facility] Stop: 12/10/20 11:29 Last Admin: 11/10/20 20:19 Dose: 7 units Documented by: Insulin Glargine (Insulin Glargine Solostar 100 Units/Ml 3 Ml Pen) 40 units SC BID [facility] Stop: 12/10/20 08:59 Last Admin: 11/10/20 20:21 Dose: 40 units Documented by: Levothyroxine Sodium (Levothyroxine Sodium 75 Mcg Tablet) 75 mcg PO DAILYBB [facility] Stop: 12/10/20 06:29 Last Admin: 11/10/20 06:30 Dose: 75 mcg Documented by: Metoprolol Succinate (Metoprolol Succ 50mg Ext Rel Tab) 50 mg PO QAM [facility] Stop: 12/10/20 08:59 Last Admin: 11/10/20 08:35 Dose: 50 mg Documented by: Miscellaneous (Carbohydrates For Hypoglycemia ) 15 - 30 gm PO UD PRN PRN Reason: Hypoglycemia Protocol Stop: 12/10/20 02:46 Nitroglycerin (Nitroglycerin Sl 0.4 Mg/Tab Tab) 0.4 mg SL UD PRN PRN Reason: Chest Pain Stop: 12/10/20 02:46 Prednisone (Prednisone 20 Mg Tab) 20 mg PO DAILY [facility] Stop: 11/14/20 08:59 Last Admin: 11/10/20 08:35 Dose: 20 mg Documented by: (1) Atrial fibrillation Atrial fibrillation type: paroxysmal Qualified Code(s): I48.0 - Paroxysmal atrial fibrillation (2) Right lower lobe pneumonia Pneumonia type: due to unspecified organism Qualified Code(s): J18.9 - Pneumonia, unspecified organism (3) Acute on chronic renal failure Chronic kidney disease stage 3 subtype: stage 3a (GFR 45-59) (4) HTN (hypertension) Hypertension type: essential hypertension Qualified Code(s): I10 - Essential (primary) hypertension
[2020-11-11] MEDS ORDERED: INSULIN ASPART 100 UNITS/ML 3 ML PEN SC ONE (01:00)
[2020-11-11] MEDS: LEVOTHYROXINE SODIUM 75 MCG TABLET PO SCH (06:32)
--- NOTE | 2020-11-11 07:42 | Cardioversion ---
Date of Service November 11, 2020 Electrical Cardioversion Rpt Electrical Cardioversion Report Patient was seen and examined, records reviewed. Procedure , synchronized electrical cardioversion explained in detail, informed consent obtained. After formal TIME OUT, patient was sedated via anesthesia consult, Dr Goldstein, with continuos O2, BP, HR monitoring. Single 150J synchronized electrical biphasic shock administered with successful conversion to sinus bradycardia. Post procedure patient aroused having tolerated well. EKG Sinus bradycardia with 1st degree AV block, rate 50 bpm. QTc 446 Plan continued medical rx with reduction in amiodarone to 200 mg per day
[2020-11-11 07:48] LABS: Hematocrit (blood only) 33.3 % (42-52); Hemoglobin 11.3 g/dL (14.0-18.0); Mean Corpuscular Hemoglobin 30.2 pg (25-34); Mean Corpuscular Hgb Conc 33.9 g/dL (32-36); Mean Platelet Volume 11.5 fL (7.4-10.4); Platelet Count 133 K/uL (130-400); RDW Coefficient of Variation 15.2 % (11.5-14.5); RDW Standard Deviation 49.8 fL (36.4-46.3); Red Blood Count 3.74 M/uL (4.7-6.1); White Blood Count 10.25 K/uL (4.8-10.8)
[2020-11-11 08:27] LABS: BUN Creatinine Ratio 28.2 (10-20); Calcium 9.1 mg/dl (8.5-10.1); Creatinine Clr Calc Pharmacy 50.8 ml/min; Est GFR (African American) 48.4; Est GFR (Non-African American) 41.8; Magnesium 2.7 mg/dl (1.8-2.4); Potassium 3.5 mmol/L (3.5-5.1)
[2020-11-11] MEDS: FUROSEMIDE 60 MG in SYRINGE 0 ML IV SCH ×2 (09:17→16:44)
[2020-11-11] MEDS: ATORVASTATIN 20 MG TAB PO SCH (09:18)
[2020-11-11] MEDS: BENZONATATE 100 MG CAPSULE PO SCH ×3 (09:18→19:49)
[2020-11-11] MEDS: METOPROLOL SUCC 50MG EXT REL TAB PO SCH (09:19)
[2020-11-11] MEDS: DOXYCYCLINE HYCLATE 100 MG CAP PO SCH ×2 (09:19→19:49)
[2020-11-11] MEDS: INSULIN GLARGINE SOLOSTAR 100 UNITS/ML 3 ML PEN SC SCH ×2 (09:19→20:23)
[2020-11-11] MEDS: INSULIN ASPART 100 UNITS/ML 3 ML PEN SC SCH ×4 (09:20→21:06)
[2020-11-11] MEDS: cefTRIAXone SODIUM 2,000 MG in DEXTROSE 5% 50 ML IV SCH (11:16)
--- NOTE | 2020-11-11 12:14 | Cardiology Progress Note ---
Date of Service November 11, 2020 Assessment & Plan (1) Acute hypoxemic respiratory failure: Patient is an 85-year-old male with complex history as outlined above presents with symptoms of dyspnea, weight gain cough as well as blood-tinged sputum. Past history of pneumonia hemoptysis in March 2020 Suspect multifactorial presentation including diastolic heart failure superimposed on underlying pulmonary issue acute renal insufficiency Recent difficulty using CPAP may have been at least partially a precipitant Patient improving with diuresis and antibiotic therapy. Renal function improving We will continue current therapies as prescribed Continue to hold apixaban and aspirin with ultimate goals resumption of reduced dose apixaban (2) Right lower lobe pneumonia: (3) Acute on chronic renal failure: (4) Acute on chronic diastolic heart failure: (5) Atrial fibrillation: (6) Hemoptysis: (7) JUVE (obstructive sleep apnea): Admission and Anticipated Discharge Date Admission Date: November 09, 2020 Subjective Patient seen and examined, chart, medications, telemetry reviewed. Patient feels significantly improved today by his own description. Now able to move about in room without profound dyspnea. No edema. No dizziness or lightheadedness. Still with cough with blood-tinged sputum. No fevers or chills Physical Exam Constitutional: WD/WN, vitals as above + morbidly obese Eyes: PERRL, conjunctivae normal, anicteric sclerae ENMT: external ear and nose normal, oropharynx normal Neck: trachea midline, no thyromegaly + thick neck Cardiovascular: Rate/Rhythm: regular rate and regular rhythm (Paced during examination) Heart Sounds: normal S1 and normal S2; no gallop and no murmur Palpation: normal PMI Vessels: normal carotid upstroke and radial pulses present; no JVD and no carotid bruit Extremities: no edema Gastrointestinal (Abdomen): Inspection/Auscultation: abdomen normal to ins pection and + abdomen distended (Mildly) Musculoskeletal: no cyanosis or clubbing, extremities motor strength 5/5 Skin: no rashes, warm and dry Neurologic: PERRL, EOMI, accommodation nl, no face palsy, no dysarthria Psychiatric: A+Ox3, euthymic affect Results & Data ([facility]) Vital Signs (Past 12 Hours) Vital Signs Temp Pulse Resp BP Pulse Ox 11/11/20 11:37 36.6 C 66 20 118/64 95 11/11/20 08:11 36.8 C 63 22 159/72 H 93 11/11/20 03:53 36.6 C 60 22 138/71 93 Laboratory Results Laboratory Results - last 24 hr 11/10/20 11/10/20 11/10/20 12:56 12:56 12:56 WBC RBC Hgb Hct MCV MCH MCHC RDW Std Deviation RDW Coeff of Ct Plt Count MPV ESR 21 H Sodium Potassium Chloride Carbon Dioxide Anion Gap BUN Creatinine Est Cr Clr Drug Dosing Est GFR ( Amer) Est GFR (Non-Af Amer) BUN/Creatinine Ratio Glucose POC Glucose Calcium Magnesium C-Reactive Protein 1.26 H NT-Pro-B Natriuret Pep Procalcitonin Urine Legionella Ag Mycoplasma pneumon IgM Pending 11/10/20 11/10/20 11/10/20 16:05 18:16 20:00 WBC RBC Hgb Hct MCV MCH MCHC RDW Std Deviation RDW Coeff of Ct Plt Count MPV ESR Sodium Potassium Chloride Carbon Dioxide Anion Gap BUN Creatinine Est Cr Clr Drug Dosing Est GFR ( Amer) Est GFR (Non-Af Amer) BUN/Creatinine Ratio Glucose POC Glucose 252 H Calcium Magnesium C-Reactive Protein NT-Pro-B Natriuret Pep Procalcitonin < 0.05 Urine Legionella Ag Pending Mycoplasma pneumon IgM 11/10/20 11/11/20 11/11/20 20:18 00:41 07:31 WBC 10.25 RBC 3.74 L Hgb 11.3 L Hct 33.3 L MCV 89.0 MCH 30.2 MCHC 33.9 RDW Std Deviation 49.[address] of [address] 15.2 H Plt Count 133 MPV 11.5 H ESR Sodium Potassium Chloride Carbon Dioxide Anion Gap BUN Creatinine Est Cr Clr Drug Dosing Est GFR ( Amer) Est GFR (Non-Af Amer) BUN/Creatinine Ratio Glucose POC Glucose 249 H 324 H* Calcium Magnesium C-Reactive Protein NT-Pro-B Natriuret Pep Procalcitonin Urine Legionella Ag Mycoplasma pneumon IgM 11/11/20 11/11/20 11/11/20 07:31 07:47 11:40 WBC RBC Hgb Hct MCV MCH MCHC RDW Std Deviation RDW Coeff of Ct Plt Count MPV ESR Sodium 140 D Potassium 3.5 D Chloride 106 Carbon Dioxide 27 Anion Gap 7.0 BUN 43 H Creatinine 1.52 H Est Cr Clr Drug Dosing 50.8 Est GFR ( Amer) 48.4 Est GFR (Non-Af Amer) 41.8 BUN/Creatinine Ratio 28.2 H Glucose 164 H POC Glucose 157 H 223 H Calcium 9.1 Magnesium 2.7 H C-Reactive Protein NT-Pro-B Natriuret Pep 2290 H Procalcitonin Urine Legionella Ag Mycoplasma pneumon IgM (1) Right lower lobe pneumonia Pneumonia type: due to unspecified organism Qualified Code(s): J18.9 - Pneumonia, unspecified organism (2) Acute on chronic renal failure Chronic kidney disease stage 3 subtype: stage 3a (GFR 45-59)
[2020-11-11] MEDS: FERROUS SULFATE 325 MG TAB PO SCH (14:03)
--- NOTE | 2020-11-11 15:03 | Hospitalist Progress Note ---
Date of Service November 11, 2020 Assessment & Plan (1) Acute and chronic respiratory failure with hypoxia: Back to only requiring 2LPM, which is his baseline. Feels better since starting diuresis. Strict I/Os, daily standing weights. Salt and fluid restriction per Nephro. Pneumonia present and he is improved on current therapy. Cont this for 5 days per pulmonary. ?compliance with CPAP per Cardiology note also may be contributing to OSB on arrival. Recent bronchoscopy and ILD workup was unremarkable in March 2020. Prednisone was stopped. Findings more consistent with CHF on clinical diagnostics. Cont diuresis efforts (3L out overnight) and titrate therapies per specialist input. (2) Acute on chronic renal failure: Up from baseline, now down 1.9 to 15 today. Cont daily BMP. (3) Hemoptysis: Eliquis stopped and should be restarted at lower 2.5mg BID dose when infection has resolved. Aspirin was stopped indefinitely by Radio Communication Coordinator. Trend H/H (4) Right lower lobe pneumonia: Rocephinx and Azithromycin x 5 days. Duonebs/incentive spirometer as needed. (5) Atrial fibrillation: paced/flutter on telemetry overnight. Holding Eliquis as above. Cont Toprol XL 50mg daily for rate control. PM in place. (6) DM type 2 (diabetes mellitus, type 2): Hyperglycemic but now at goal.A1C is 9.0, Cont basal (glargine 40Units BID) and bolus insulin while admitted (7) HTN (hypertension): controlled (8) JUVE (obstructive sleep apnea): CPAP qHS (9) Morbid obesity: (10) DVT prophylaxis: no chemoprophylaxis in setting of hemoptysis-will restart Eliquis once more stable. Full Code Dispo-cont PCU monitoring. DO [facility] Hospitalist Admission and Anticipated Discharge Date Admission Date: November 09, 2020 Subjective cc: SOB and hemoptysis Patient is improved WRT breathing and feeling short of breath Denies chest pain Tolerating PO reports ambulating with therapy today. Review of Systems Review of Systems: All systems reviewed & are unremarkable except as noted in Subjective Physical Exam Physical Exam: CONSTITUTIONAL: obese, vitals as above, generally well- appearing EYES: normal conjunctivae, no scleral icterus ENT: external ear and nose normal, oropharynx clear, MMM NECK: trachea midline, no JVD, obese RESPIRATORY: clear to auscultation bilaterally, no crackles, rales or wheezes, normal respiratory effort CARDIOVASCULAR: regular rate and rhythm, S1 and 2 heard without murmurs, gallops or rubs, no JVD, no peripheral edema GASTROINTESTINAL: soft, nontender, nondistended, no guarding MUSCULOSKELETAL: strength 5/5 throughout, head is normocephalic and atraumatic SKIN: warm and dry NEUROLOGIC: No facial palsy, no dysarthria. CN 2-12 grossly intact, no sensory deficit, normal cognition, normal speech PSYCHIATRIC: alert cooperative and oriented to person, place and time. Results & Data Results & Data ([facility]) Vital Signs (Past 12 Hours) Vital Signs Temp Pulse Resp BP Pulse Ox 11/11/20 11:37 36.6 C 66 20 118/64 95 11/11/20 08:11 36.8 C 63 22 159/72 H 93 11/11/20 03:53 36.6 C 60 22 138/71 93 Laboratory Results Short CBC 11/11/20 Range/Units 07:31 WBC 10.25 (4.8-10.8) K/uL Hgb 11.3 L (14.0-18.0) g/dL Hct 33.3 L (42-52) % Plt Count 133 (130-400) K/uL BMP 11/11/20 07:31 Sodium 140 D Potassium 3.5 D Chloride 106 Carbon Dioxide 27 BUN 43 H Creatinine 1.52 H Glucose 164 H Calcium 9.1 Medications Administered Current Inpatient Medications Acetaminophen (Acetaminophen 325 Mg Tab) 325 mg PO Q6H PRN PRN Reason: Mild Pain Stop: 12/10/20 03:58 Hydrocodone Bitart/Acetaminophen (Hydrocodone/Acetamophen 5/325mg Tab) 1 tab PO Q6H PRN PRN Reason: Pain Stop: 12/10/20 02:46 Albuterol (Albut/Ipratrop 3mg/0.5mg Neb 3 Ml Vial) 3 ml NEB Q4 PRN PRN Reason: Shortness Of Breath Or Wheezing Stop: 12/10/20 09:54 Amlodipine Besylate (Amlodipine Besylate 5 Mg Tab) 2.5 mg PO QPM [facility] Stop: 12/10/20 06:34 Last Admin: 01/04/21 20:24 Dose: 2.5 mg Documented by: Atorvastatin Calcium (Atorvastatin 20 Mg Tab) 20 mg PO QAM [facility] Stop: 12/10/20 08:59 Last Admin: 11/11/20 09:18 Dose: 20 mg Documented by: Benzonatate (Benzonatate 100 Mg Capsule) 100 mg PO TID [facility] Stop: 12/11/20 08:59 Last Admin: 11/11/20 14:03 Dose: 100 mg Documented by: Dextrose (Dextrose 50% 50 Ml Syringe) 25 - 50 ml IV UD PRN; Protocol PRN Reason: Hypoglycemia Protocol Stop: 12/10/20 02:46 Doxycycline Hyclate (Doxycycline Hyclate 100 Mg Cap) 100 mg PO BID [facility] Stop: 11/17/20 08:59 Last Admin: 11/11/20 09:19 Dose: 100 mg Documented by: Ferrous Sulfate (Ferrous Sulfate 325 Mg Tab) 325 mg PO DAILY@1200 [facility] Stop: 12/10/20 11:59 Last Admin: 11/11/20 14:03 Dose: 325 mg Documented by: Glucagon (Glucagon For Inj 1 Mg Vial) 1 mg SQ UD PRN; Protocol PRN Reason: Hypoglycemia Protocol Stop: 12/10/20 02:46 Glucose (Glucose 10 Tabs/Tube) 4 - 8 tabs PO UD PRN; Protocol PRN Reason: Hypoglycemia Protocol Stop: 12/10/20 02:46 Glucose (Glucose 40% Gel 15 Gm Tube) 15 - 30 gm PO UD PRN; Protocol PRN Reason: Hypoglycemia Protocol Stop: 12/10/20 02:46 Guaifenesin/Codeine Phosphate (Guaifenesin/Codeine 100mg/10mg 5ml Udc) 5 ml PO Q6H PRN PRN Reason: Cough Stop: 12/10/20 08:26 Ceftriaxone Sodium 2,000 mg/ (Dextrose) 50 mls @ 100 mls/hr IV DAILY [facility]; Protocol Stop: 11/17/20 08:59 Last Infusion: 11/11/20 11:50 Dose: Infused Documented by: Furosemide 60 mg/ Syringe 6 mls @ 4 mls/min IV [id number] [facility] Stop: 12/11/20 08:59 Last Admin: 11/11/20 09:17 Dose: 4 mls/min Documented by: Insulin Aspart (Insulin Aspart 100 Units/Ml 3 Ml Pen) 0 units SC ACHS [facility] Stop: 12/10/20 11:29 Last Admin: 11/11/20 12:30 Dose: 10 units Documented by: Insulin Glargine (Insulin Glargine Solostar 100 Units/Ml 3 Ml Pen) 40 units SC BID [facility] Stop: 12/10/20 08:59 Last Admin: 11/11/20 09:19 Dose: 40 units Documented by: Levothyroxine Sodium (Levothyroxine Sodium 75 Mcg Tablet) 75 mcg PO DAILYBB [facility] Stop: 12/10/20 06:29 Last Admin: 11/11/20 06:32 Dose: 75 mcg Documented by: Metoprolol Succinate (Metoprolol Succ 50mg Ext Rel Tab) 50 mg PO QAM [facility] Stop: 12/10/20 08:59 Last Admin: 11/11/20 09:19 Dose: 50 mg Documented by: Miscellaneous (Carbohydrates For Hypoglycemia ) 15 - 30 gm PO UD PRN PRN Reason: Hypoglycemia Protocol Stop: 12/10/20 02:46 Nitroglycerin (Nitroglycerin Sl 0.4 Mg/Tab Tab) 0.4 mg SL UD PRN PRN Reason: Chest Pain Stop: 12/10/20 02:46 (1) Atrial fibrillation Atrial fibrillation type: paroxysmal Qualified Code(s): I48.0 - Paroxysmal atrial fibrillation (2) Right lower lobe pneumonia Pneumonia type: due to unspecified organism Qualified Code(s): J18.9 - Pneumonia, unspecified organism (3) Acute on chronic renal failure Chronic kidney disease stage 3 subtype: stage 3a (GFR 45-59) (4) HTN (hypertension) Hypertension type: essential hypertension Qualified Code(s): I10 - Essential (primary) hypertension
--- NOTE | 2020-11-11 15:07 | Pulmonology Progress Note ---
Date of Service November 11, 2020 Assessment & Plan (1) Hemoptysis: Bronchoscopy 04/01/2020 at [facility]. Serial aliquots did not become more bloody with successive samples. BAL was mostly neutrophilic phallic and monocytic. Patient also had transjugular biopsy which showed benign bronchial tissue. No evidence of malignancy. Patient also had AFB negative, fungal cultures were negative. It did grow penicillium. Bacterial culture was negative and PCP smear was negative. Legionella negative, HSV and EBV along with CMV all negative. Aspergillus antigen was not detected. PFTs 08/12/2020: Mild restrictive lung disease, no obstructive dysfunction, mild decrease in DLCO. FVC 84%, FEV1 93%, FEV1/FVC 82%, RV 86%, TLC 75%, RV/TLC 46%, DLCO 64% --Hemoptysis with diffuse groundglass opacities bilaterally more on the right side Patient has similar presentation back in March when he was transferred to [facility] He had a bronchoscopy done over at that time. Patient had autoimmune work-up done back in March 2020 with similar presentation and it was negative. Patient's BNP at the time of presentation was 3676, CRP 1.81--> 1.26 COVID-19 PCR 11/09/2020 negative PT/INR within normal limit. Given the patient already had bronchoscopy done in the past as well along with transbronchial biopsy and cultures which were all negative. I doubt repeating bronchoscopy and autoimmune work-up will be helpful. I think diastolic CHF is playing a role in the findings that we see on the CAT scan. Especially given patient has gained 30 pounds. Patient might have NSIP-like pattern as well as the CAT scan which was done back in August 2020 still showed some groundglass opacities which are improving compared to the one done in March. Although his RAMON, ANCA, antiproteinase 3 and antimyeloperoxidase antibodies were negative on 03/28/2020 Recommend holding apixaban for the time being. Cough medication to suppress the cough [id number] Monitor H&H Patient has prolonged QTC. Agree with Rocephin and doxycycline for total of 5. --Acute on chronic hypoxic respiratory failure Patient is on 2 L nasal cannula since March 2020 Patient was saturating well on 2 L He is back to his baseline. Continue O2 supplementation to keep oxygen saturation between 88-92% --JUVE with morbid obesity Continue with CPAP at night and when he is napping Plan: In/out: -1300, urine output 2350 Repeat chest x-ray in the morning. Given significant improvement in SOB after diuresing, I think HFpEF was playing major role in patient's SOB. Pulmonary edema like picture can give hemoptysis as well. Continue with cough suppressant round the clocl Continue holding apixaban Conservative management for hemoptysis Please note the above document was generated using voice recognition software. It may contain grammatical, syntax or spelling errors.Any formal questions or concerns about the content, text or information contained within the body of this dictation should be directly addressed to the provider for clarification. (2) Acute and chronic respiratory failure with hypoxia: (3) JUVE (obstructive sleep apnea): Admission and Anticipated Discharge Date Admission Date: November 09, 2020 Subjective Patient seen and examined at bedside. NAD, ALIREZA overnight. Urinating well. Feeling better, SOB improved. Denies any CP. Still complaining of hemoptysis. The cough has decreased in intensity. Review of Systems Review of Systems: All systems reviewed & are unremarkable except as noted in Subjective Physical Exam Physical Exam: Constitutional: No acute distress HEENT: EOMI, PERRLA left eyes, ptosis rigth side. Prosthetic right eye. Respiratory system: Decreased air entry bilaterally, no wheeze, no rhonchi, mild crackles bilateral lower lobes CVS: S1-S2 positive, no murmurs or gallops, distant heart sounds Abdomen: Soft, nontender, nondistended, positive bowel sounds x4, obese Extremities: +2 pulses bilaterally radialis/ dorsalis pedis, no cyanosis, +1 edema bilateral lower extremity Neuro: Awake alert oriented x3 Psych: Normal mood and affect G/U: No Edward Skin: no rashes, warm and dry Lymphatic: no cervical or axillary lymphadenopathy Results & Data Results & Data ([facility]) Vital Signs (Past 12 Hours) Vital Signs Temp Pulse Resp BP Pulse Ox 11/11/20 11:37 36.6 C 66 20 118/64 95 11/11/20 08:11 36.8 C 63 22 159/72 H 93 11/11/20 03:53 36.6 C 60 22 138/71 93 11/11/20 07:31 11/11/20 07:31 PG Care Time/CCT Total # of Minutes Spent Total Time Spent with Patient: Total time spent is greater than 50% in coordination of care (as documented) at patient's floor/unit and/or counseling patient: Coding Level of Care Code 48631 Subseq Hosp Care Lvl 3 Diagnoses Hemoptysis R04.2 Acute and chronic respiratory failure with hypoxia J96.21 JUVE (obstructive sleep apnea) G47.33
--- NOTE | 2020-11-11 16:35 | Nephrology Progress Note ---
Date of Service November 11, 2020 Assessment & Plan (1) Acute on chronic renal failure: baseline creatinine 1.2 w/ albuminuria about 100 mg daily, CKD 3A. Presenting creatinine 1.9; down to 1.7 this am. urine sediment essentially bland. this in the setting of volume overload leading to acute hypoxemic respiratory failure; concern for cardiorenal syndrome. stage 1 nonoliguric SHANIA on CKD 3 from cardiorenal syndrome I/O not fully documented in this pt undergoing diuresis. as OP on lasix 40 mg bid and spironolact 25 mg daily. thrombocytopenia at baseline; no likely relation to renal disease. needs diuresis; he is volume overloaded. chemistries acceptable for the most part apart from very elevated BG in 300-400s -cont to hold moise antag -agree w/ current lasix dosing -now on low Na regular diet so will limit fluids to 1.8L/day (1.5 L/day is ultimate targe -needs DAILY standing wt pls -- baseline from this am is 147.3 kg -pls give him HF teaching -daily bmp -no indication at this time for discussion of dialysis (2) Right lower lobe pneumonia: on ceftriaxone and doxycycline; per primary service and pulmonary (3) Acute on chronic diastolic heart failure: currently on lasix 60 mg IV bid-- as above Admission and Anticipated Discharge Date Admission Date: November 09, 2020 Subjective seen on rounds at 1500; breathing better, slept well; walked halls w/ cane; was played out afterward but not overly so; denies concerns about voiding; toleraing fluid limit Review of Systems Review of Systems: All systems reviewed & are unremarkable except as noted in Subjective Physical Exam Constitutional: well developed and well nourished; no acute distress Eyes: EOM intact bilaterally ENMT: Ears: no external ear abnormality Nose: no external nose abnormality Mouth: + dry oral mucous membranes Neck: no nuchal rigidity Respiratory: normal respiratory effort and able to speak in complete sentences; no labored breathing and no cough Auscultation: + diminished lung sounds and + crackles (R base); no rhonchi Cardiovascular: Rate/Rhythm: regular rate and regular rhythm Extremities: + edema (trace) Gastrointestinal (Abdomen): Inspection/Auscultation: normal bowel sounds Percussion/Palpation: abdomen soft; abdomen nontender Musculoskeletal: Extremities: strength 5/5 throughout Skin: no rashes, warm and dry Neurologic: carlson, fluent speech, maneuvers independently for exam Psychiatric: A+Ox3, euthymic affect Affect: + anxious affect Insight: good insight Judgement: good judgement Results & Data ([facility]) Vital Signs (Past 12 Hours) Vital Signs Temp Pulse Resp BP Pulse Ox 11/11/20 15:49 68 20 97 11/11/20 15:07 36.8 C 72 20 136/76 96 11/11/20 11:37 36.6 C 66 20 118/64 95 11/11/20 08:11 36.8 C 63 22 159/72 H 93 (1) Right lower lobe pneumonia Pneumonia type: due to unspecified organism Qualified Code(s): J18.9 - Pneumonia, unspecified organism (2) Acute on chronic renal failure Chronic kidney disease stage 3 subtype: stage 3a (GFR 45-59)
[2020-11-11] MEDS: amLODIPine BESYLATE 5 MG TAB PO SCH (19:48)
[2020-11-11] MEDS: guaiFENesin/DEXTROM SYRUP 200MG/20MG 10ML UDC PO SCH (19:51)
[2020-11-11] MEDS: HYDROCODONE/ACETAMOPHEN 5/325MG TAB PO PRN (20:57)
[2020-11-12] MEDS: HYDROCODONE/ACETAMOPHEN 5/325MG TAB PO PRN ×2 (04:00→17:01)
[2020-11-12] MEDS: guaiFENesin/DEXTROM SYRUP 200MG/20MG 10ML UDC PO SCH ×3 (04:02→21:26)
[2020-11-12] MEDS: LEVOTHYROXINE SODIUM 75 MCG TABLET PO SCH (04:03)
[2020-11-12 07:55] LABS: BUN Creatinine Ratio 27.8 (10-20); Calcium 8.6 mg/dl (8.5-10.1); Creatinine Clr Calc Pharmacy 51.2 ml/min; Est GFR (African American) 49.2; Est GFR (Non-African American) 42.4; Potassium 3.4 mmol/L (3.5-5.1)
[2020-11-12] MEDS: ATORVASTATIN 20 MG TAB PO SCH (08:13)
[2020-11-12] MEDS: BENZONATATE 100 MG CAPSULE PO SCH ×3 (08:13→20:55)
[2020-11-12] MEDS: DOXYCYCLINE HYCLATE 100 MG CAP PO SCH ×2 (08:13→20:56)
[2020-11-12] MEDS: METOPROLOL SUCC 50MG EXT REL TAB PO SCH (08:14)
[2020-11-12] MEDS: INSULIN GLARGINE SOLOSTAR 100 UNITS/ML 3 ML PEN SC SCH ×2 (08:14→21:24)
[2020-11-12] MEDS: INSULIN ASPART 100 UNITS/ML 3 ML PEN SC SCH ×4 (08:17→21:25)
--- NOTE | 2020-11-12 08:43 | XRay Report ---
XR chest 1V portable CLINICAL HISTORY: Shortness of breath. Atypical chest pain COMPARISON STUDY: 11/09/2020 FINDINGS: The heart is mildly enlarged. There is a left subclavian dual-chamber central venous pacema ker present. There are hazy bibasilar airspace opacities with perhaps slight improvement within the r ight mid to upper lung zone. IMPRESSION: Persistent hazy bibasilar airspace opacities with perhaps slight improvement in the right mid to upper lung zone. ACT 112: Negative or not required by law. Electronically signed by: Nasir Rogers M.D. 11/12/2020 8:41 AM
[2020-11-12] MEDS: cefTRIAXone SODIUM 2,000 MG in DEXTROSE 5% 50 ML IV SCH (08:52)
[2020-11-12] MEDS: FUROSEMIDE 60 MG in SYRINGE 0 ML IV SCH ×2 (08:52→17:02)
--- NOTE | 2020-11-12 10:02 | Pulmonology Progress Note ---
Date of Service November 12, 2020 Assessment & Plan (1) Hemoptysis: Bronchoscopy 04/01/2020 at [facility]. Serial aliquots did not become more bloody with successive samples. BAL was mostly neutrophilic phallic and monocytic. Patient also had transjugular biopsy which showed benign bronchial tissue. No evidence of malignancy. Patient also had AFB negative, fungal cultures were negative. It did grow penicillium. Bacterial culture was negative and PCP smear was negative. Legionella negative, HSV and EBV along with CMV all negative. Aspergillus antigen was not detected. PFTs 08/12/2020: Mild restrictive lung disease, no obstructive dysfunction, mild decrease in DLCO. FVC 84%, FEV1 93%, FEV1/FVC 82%, RV 86%, TLC 75%, RV/TLC 46%, DLCO 64% --Hemoptysis with diffuse groundglass opacities bilaterally more on the right side Patient has similar presentation back in March when he was transferred to [facility] He had a bronchoscopy done over at that time. Patient had autoimmune work-up done back in March 2020 with similar presentation and it was negative. Patient's BNP at the time of presentation was 3676, CRP 1.81--> 1.26 COVID-19 PCR 11/09/2020 negative PT/INR within normal limit. Given the patient already had bronchoscopy done in the past as well along with transbronchial biopsy and cultures which were all negative. I doubt repeating bronchoscopy and autoimmune work-up will be helpful. I think diastolic CHF is playing a role in the findings that we see on the CAT scan. Especially given patient has gained 30 pounds. Patient might have NSIP-like pattern as well as the CAT scan which was done back in August 2020 still showed some groundglass opacities which are improving compared to the one done in March. Although his RAMON, ANCA, antiproteinase 3 and antimyeloperoxidase antibodies were negative on 03/28/2020 Recommend holding apixaban for the time being. Cough medication to suppress the cough [id number] Monitor H&H Patient has prolonged QTC. Agree with Rocephin and doxycycline for total of 5. --Acute on chronic hypoxic respiratory failure Patient is on 2 L nasal cannula since March 2020 Patient was saturating well on 2 L He is back to his baseline. Continue O2 supplementation to keep oxygen saturation between 88-92% --JUVE with morbid obesity Continue with CPAP at night and when he is napping Plan: In/out: -1360, urine output 1850 Chest x-ray from today shows improvement in opacities compared to the time of presentation. Continue with cough suppressant round the clock Continue holding apixaban Conservative management for hemoptysis Please note the above document was generated using voice recognition software. It may contain grammatical, syntax or spelling errors.Any formal questions or concerns about the content, text or information contained within the body of this dictation should be directly addressed to the provider for clarification. (2) Acute and chronic respiratory failure with hypoxia: (3) JUVE (obstructive sleep apnea): Admission and Anticipated Discharge Date Admission Date: November 09, 2020 Subjective Patient seen and examined at bedside. No acute distress, no adverse events overnight. Patient states that he is doing better when it comes to his breathing. His cough is decreased in intensity and frequency. Still complaining of mild hemoptysis but this is significantly decreased in amount. Denies any chest pain, no dizziness Review of Systems Review of Systems: All systems reviewed & are unremarkable except as noted in Subjective Physical Exam Physical Exam: Constitutional: No acute distress HEENT: EOMI, PERRLA left eyes, ptosis rigth side. Prosthetic right eye. Respiratory system: Decreased air entry bilaterally, no wheeze, no rhonchi, mild crackles bilateral lower lobes CVS: S1-S2 positive, no murmurs or gallops, distant heart sounds Abdomen: Soft, nontender, nondistended, positive bowel sounds x4, obese Extremities: +2 pulses bilaterally radialis/ dorsalis pedis, no cyanosis, +1 edema bilateral lower extremity Neuro: Awake alert oriented x3 Psych: Normal mood and affect G/U: No Edward Skin: no rashes, warm and dry Lymphatic: no cervical or axillary lymphadenopathy Results & Data Results & Data ([facility]) Vital Signs (Past 12 Hours) Vital Signs Temp Pulse Resp BP Pulse Ox 11/12/20 07:15 36.6 C 60 18 166/79 H 97 11/12/20 04:18 36.5 C 60 18 135/75 98 11/11/20 23:51 36.3 C L 62 16 148/65 H 97 11/11/20 07:31 11/12/20 06:23 PG Care Time/CCT Total # of Minutes Spent Total Time Spent with Patient: Total time spent is greater than 50% in coordination of care (as documented) at patient's floor/unit and/or counseling patient: Coding Level of Care Code 87485 Subseq Hosp Care Lvl 3 Diagnoses Hemoptysis R04.2 Acute and chronic respiratory failure with hypoxia J96.21 JUVE (obstructive sleep apnea) G47.33
--- NOTE | 2020-11-12 11:15 | Nephrology Progress Note ---
Date of Service November 12, 2020 Assessment & Plan (1) Acute on chronic renal failure: baseline creatinine 1.2 w/ albuminuria about 100 mg daily, CKD 3A. Presenting creatinine 1.9; down to 1.5 this am. urine sediment essentially bland. stage 1 nonoliguric SHANIA on CKD 3 from cardiorenal syndrome as OP on lasix 40 mg bid and spironolact 25 mg daily. thrombocytopenia at baseline; no likely relation to renal disease. needs diuresis; he is volume overloaded. chemistries acceptable for the most part apart from very elevated BG in 300-400s initially now better -cont to hold moise antag -agree w/ current lasix dosing >> look to change to po tomorrow possibly -now on low Na regular diet so will limit fluids to 1.8L/day (1.5 L/day is ultimate target) -needs DAILY standing wt pls -- baseline from 11/11 is 141.3 kg > 11/12 139.8 kg -pls ensure he's had HF teaching -daily bmp -no indication at this time for discussion of dialysis (2) Right lower lobe pneumonia: on ceftriaxone and doxycycline; per primary service and pulmonary (3) Acute on chronic diastolic heart failure: currently on lasix 60 mg IV bid-- as above Admission and Anticipated Discharge Date Admission Date: November 09, 2020 Subjective cont to feel improved; diuresing well; ambulated. singing his favorite [place] Review of Systems Review of Systems: All systems reviewed & are unremarkable except as noted in Subjective Respiratory: + dyspnea on exertion (less) Physical Exam Constitutional: well developed and well nourished; no acute distress Eyes: EOM intact bilaterally ENMT: Ears: no external ear abnormality Nose: no external nose abnormality Mouth: + dry oral mucous membranes Neck: no nuchal rigidity Respiratory: normal respiratory effort and able to speak in complete sentences; no labored breathing and no cough Auscultation: lungs clear to auscultation bilaterally and + diminished lung sounds; no rhonchi Cardiovascular: Rate/Rhythm: regular rate and regular rhythm Extremities: + edema (trace) Gastrointestinal (Abdomen): Inspection/Auscultation: normal bowel sounds Percussion/Palpation: abdomen soft; abdomen nontender Musculoskeletal: Extremities: strength 5/5 throughout Skin: no rashes, warm and dry Neurologic: carlson, fluent speech, no tremor Psychiatric: A+Ox3, euthymic affect Affect: + anxious affect Insight: good insight Judgement: good judgement Results & Data ([facility]) Vital Signs (Past 12 Hours) Vital Signs Temp Pulse Resp BP Pulse Ox 11/12/20 07:15 36.6 C 60 18 166/79 H 97 11/12/20 04:18 36.5 C 60 18 135/75 98 11/11/20 23:51 36.3 C L 62 16 148/65 H 97 Laboratory Results 11/11/20 07:31 11/12/20 06:23 (1) Right lower lobe pneumonia Pneumonia type: due to unspecified organism Qualified Code(s): J18.9 - Pneumonia, unspecified organism (2) Acute on chronic renal failure Chronic kidney disease stage 3 subtype: stage 3a (GFR 45-59)
[2020-11-12] MEDS ORDERED: POTASSIUM CHLORIDE CRTAB 20 MEQ TABCR PO ONE (11:30)
[2020-11-12] MEDS: FERROUS SULFATE 325 MG TAB PO SCH (12:29)
--- NOTE | 2020-11-12 13:50 | Cardiology Progress Note ---
Date of Service November 12, 2020 Assessment & Plan (1) Acute hypoxemic respiratory failure: Patient is an 85-year-old male with complex history as outlined above presents with symptoms of dyspnea, weight gain cough as well as blood-tinged sputum. Past history of pneumonia hemoptysis in March 2020 Suspect multifactorial presentation including diastolic heart failure superimposed on underlying pulmonary issue acute renal insufficiency Recent difficulty using CPAP may have been at least partially a precipitant Patient improving with diuresis has been noted. Exercise capacity improving. Less dyspneic and resolved orthopnea still with mild cough Would continue IV diuretics as ordered. Potassium already supplemented Continue to hold apixaban and aspirin with ultimate goals resumption of reduced dose apixaban (2) Right lower lobe pneumonia: (3) Acute on chronic renal failure: (4) Acute on chronic diastolic heart failure: (5) Atrial fibrillation: (6) Hemoptysis: (7) JUVE (obstructive sleep apnea): Admission and Anticipated Discharge Date Admission Date: November 09, 2020 Subjective Patient seen and examined, chart, medications, telemetry reviewed. Patient clinically improved with diuresis Still mild cough with mild sputum production. No overt bleeding Physical Exam Constitutional: WD/WN, vitals as above + morbidly obese Eyes: PERRL, conjunctivae normal, anicteric sclerae ENMT: external ear and nose normal, oropharynx normal Neck: trachea midline, no thyromegaly + thick neck Cardiovascular: Rate/Rhythm: regular rate and regular rhythm (Paced during examination) Heart Sounds: normal S1 and normal S2; no gallop and no murmur Palpation: normal PMI Vessels: normal carotid upstroke and radial pulses present; no JVD and no carotid bruit Extremities: no edema Gastrointestinal (Abdomen): Inspection/Auscultation: abdomen normal to inspection; abdomen not distended Musculoskeletal: no cyanosis or clubbing, extremities motor strength 5/5 Skin: no rashes, warm and dry Neurologic: PERRL, EOMI, accommodation nl, no face palsy, no dysarthria Psychiatric: A+Ox3, euthymic affect Results & Data ([facility]) Vital Signs (Past 12 Hours) Vital Signs Temp Pulse Resp BP Pulse Ox 11/12/20 07:15 36.6 C 60 18 166/79 H 97 11/12/20 04:18 36.5 C 60 18 135/75 98 Laboratory Results Laboratory Results - last 24 hr 11/10/20 11/11/20 11/11/20 20:00 16:01 19:54 Sodium Potassium Chloride Carbon Dioxide Anion Gap BUN Creatinine Est Cr Clr Drug Dosing Est GFR ( Amer) Est GFR (Non-Af Amer) BUN/Creatinine Ratio Glucose POC Glucose 177 H 176 H Calcium Procalcitonin Urine Legionella Ag SEE NOTE 11/12/20 11/12/20 11/12/20 06:23 06:23 07:47 Sodium 138 Potassium 3.4 L Chloride 105 Carbon Dioxide 28 Anion Gap 5.0 BUN 42 H Creatinine 1.50 H Est Cr Clr Drug Dosing 51.2 Est GFR ( Amer) 49.2 Est GFR (Non-Af Amer) 42.4 BUN/Creatinine Ratio 27.8 H Glucose 209 H POC Glucose 196 H Calcium 8.6 Procalcitonin 0.06 Urine Legionella Ag 11/12/20 11:52 Sodium Potassium Chloride Carbon Dioxide Anion Gap BUN Creatinine Est Cr Clr Drug Dosing Est GFR ( Amer) Est GFR (Non-Af Amer) BUN/Creatinine Ratio Glucose POC Glucose 242 H Calcium Procalcitonin Urine Legionella Ag (1) Right lower lobe pneumonia Pneumonia type: due to unspecified organism Qualified Code(s): J18.9 - Pneumonia, unspecified organism (2) Acute on chronic renal failure Chronic kidney disease stage 3 subtype: stage 3a (GFR 45-59)
--- NOTE | 2020-11-12 17:19 | Hospitalist Progress Note ---
Date of Service November 12, 2020 Assessment & Plan (1) Acute and chronic respiratory failure with hypoxia: Patient is an 85-year-old male with complex history as outlined above presents with symptoms of dyspnea, weight gain cough as well as blood-tinged sputum. Back to only requiring 2LPM, which is his baseline. Feels better since starting diuresis. Strict I/Os, daily standing weights. Salt and fluid restriction per Nephro. Appreciate pulmonary input and recommendation Recent bronchoscopy and ILD workup was unremarkable in March 2020. Prednisone was stopped. Findings more consistent with CHF on clinical diagnostics. Cont diuresis efforts (3L out overnight) and titrate therapies per specialist input. Has been on Lasix 40 mg p.o. twice daily and spironolactone 25 mg daily as per condenser operator (2) Acute on chronic renal failure: Up from baseline, now down 1.9 to 15 today. Cont daily BMP. Appreciate nephrology input and recommendation Has been on Lasix 40 mg twice daily and spironolactone 25 mg daily (3) Hemoptysis: Eliquis stopped and should be restarted at lower 2.5mg BID dose when infection has resolved. Appreciate pulmonary input and recommendation Aspirin was stopped indefinitely by Medical Anthropology Director. (4) Right lower lobe pneumonia: Rocephinx and Azithromycin x 5 days. Duonebs/incentive spirometer as needed. Pneumonia present and he is improved on current therapy. Cont this for 5 days per pulmonary. (5) Atrial fibrillation: Paced/flutter on telemetry overnight. Holding Eliquis as above. Cont Toprol XL 50mg daily for rate control. PM in place. (6) DM type 2 (diabetes mellitus, type 2): Hyperglycemic but now at goal.A1C is 9.0, Cont basal (glargine 40Units BID) and bolus insulin while admitted (7) HTN (hypertension): controlled (8) JUVE (obstructive sleep apnea): CPAP qHS (9) Morbid obesity: (10) DVT prophylaxis: no chemoprophylaxis in setting of hemoptysis-will restart Eliquis once more stable. Full Code Dispo-cont PCU monitoring. Admission and Anticipated Discharge Date Admission Date: November 09, 2020 Subjective The patient was seen and examined in telemetry unit He is obese with multiple comorbid medical condition was admitted with acute on chronic respiratory failure with hemoptysis and acute kidney failure Does not have any complaint at rest and has been feeling better Complains shortness of breath with minimal exertion Hemoptysis seems to be improved Review of Systems Review of Systems: All systems reviewed and are unremarkable except as noted below Constitutional: + fatigue and + weakness Respiratory: + dyspnea on exertion Cardiovascular: + edema; no chest pain and no palpitations Neurologic: + generalized weakness Physical Exam Physical Exam: Sitting on a chair without any acute distress Constitutional: well developed, well nourished, + ill appearing and + morbidly obese Eyes: PERRL, conjunctivae normal, anicteric sclerae ENMT: external ear and nose normal, oropharynx normal Neck: trachea midline, no thyromegaly Respiratory: no respiratory distress (At rest) Auscultation: + diminished lung sounds and + crackles (Minimal bibasilar crackles) Neurologic: Alert, awake and oriented x3. Generally weak Psychiatric: A+Ox3, euthymic affect Lymphatic: no cervical or axillary lymphadenopathy Results & Data Results & Data ([facility]) Vital Signs (Past 12 Hours) Vital Signs Temp Pulse Pulse Resp BP Pulse Ox 11/12/20 15:20 76 11/12/20 15:16 36.6 C 60 20 118/77 98 11/12/20 07:15 36.6 C 60 18 166/79 H 97 Laboratory Results [facility] 11/12/20 06:23 Sodium 138 Potassium 3.4 L Chloride 105 Carbon Dioxide 28 BUN 42 H Creatinine 1.50 H Glucose 209 H Calcium 8.6 Medications Administered Current Inpatient Medications Acetaminophen (Acetaminophen 325 Mg Tab) 325 mg PO Q6H PRN PRN Reason: Mild Pain Stop: 12/10/20 03:58 Hydrocodone Bitart/Acetaminophen (Hydrocodone/Acetamophen 5/325mg Tab) 1 tab PO Q6H PRN PRN Reason: Pain Stop: 12/10/20 02:46 Last Admin: 11/12/20 17:01 Dose: 1 tab Documented by: Albuterol (Albut/Ipratrop 3mg/0.5mg Neb 3 Ml Vial) 3 ml NEB Q4 PRN PRN Reason: Shortness Of Breath Or Wheezing Stop: 12/10/20 09:54 Last Admin: 11/11/20 15:49 Dose: 3 ml Documented by: Amlodipine Besylate (Amlodipine Besylate 5 Mg Tab) 2.5 mg PO QPM VISHNU Stop: 12/10/20 06:34 Last Admin: 11/11/20 19:48 Dose: 2.5 mg Documented by: Atorvastatin Calcium (Atorvastatin 20 Mg Tab) 20 mg PO QAM [facility] Stop: 12/10/20 08:59 Last Admin: 11/12/20 08:13 Dose: 20 mg Documented by: Benzonatate (Benzonatate 100 Mg Capsule) 100 mg PO TID [facility] Stop: 12/11/20 08:59 Last Admin: 11/12/20 14:16 Dose: 100 mg Documented by: Dextrose (Dextrose 50% 50 Ml Syringe) 25 - 50 ml IV UD PRN; Protocol PRN Reason: Hypoglycemia Protocol Stop: 12/10/20 02:46 Doxycycline Hyclate (Doxycycline Hyclate 100 Mg Cap) 100 mg PO BID [facility] Stop: 11/17/20 08:59 Last Admin: 11/12/20 08:13 Dose: 100 mg Documented by: Ferrous Sulfate (Ferrous Sulfate 325 Mg Tab) 325 mg PO DAILY@1200 [facility] Stop: 12/10/20 11:59 Last Admin: 11/12/20 12:29 Dose: 325 mg Documented by: Glucagon (Glucagon For Inj 1 Mg Vial) 1 mg SQ UD PRN; Protocol PRN Reason: Hypoglycemia Protocol Stop: 12/10/20 02:46 Glucose (Glucose 10 Tabs/Tube) 4 - 8 tabs PO UD PRN; Protocol PRN Reason: Hypoglycemia Protocol Stop: 12/10/20 02:46 Glucose (Glucose 40% Gel 15 Gm Tube) 15 - 30 gm PO UD PRN; Protocol PRN Reason: Hypoglycemia Protocol Stop: 12/10/20 02:46 Guaifenesin/Codeine Phosphate (Guaifenesin/Codeine 100mg/10mg 5ml Udc) 5 ml PO Q6H PRN PRN Reason: Cough Stop: 12/10/20 08:26 Last Admin: 11/11/20 16:44 Dose: 5 ml Documented by: Guaifenesin/Dextromethorphan (Guaifenesin/Dextrom Syrup 200mg/20mg 10ml Udc) 10 ml PO Q8 [facility] Stop: 12/11/20 21:59 Last Admin: 11/12/20 14:16 Dose: 10 ml Documented by: Ceftriaxone Sodium 2,000 mg/ (Dextrose) 50 mls @ 100 mls/hr IV DAILY [facility]; Protocol Stop: 11/17/20 08:59 Last Infusion: 11/12/20 09:25 Dose: Infused Documented by: Furosemide 60 mg/ Syringe 6 mls @ 4 mls/min IV BID17 [facility] Stop: 12/11/20 08:59 Last Admin: 11/12/20 17:02 Dose: 4 mls/min Documented by: Insulin Aspart (Insulin Aspart 100 Units/Ml 3 Ml Pen) 0 units SC ACHS [facility] Stop: 12/10/20 11:29 Last Admin: 11/12/20 16:57 Dose: 18 units Documented by: Insulin Glargine (Insulin Glargine Solostar 100 Units/Ml 3 Ml Pen) 40 units SC BID [facility] Stop: 12/10/20 08:59 Last Admin: 11/12/20 08:14 Dose: 40 units Documented by: Levothyroxine Sodium (Levothyroxine Sodium 75 Mcg Tablet) 75 mcg PO DAILYBB [facility] Stop: 12/10/20 06:29 Last Admin: 11/12/20 04:03 Dose: 75 mcg Documented by: Metoprolol Succinate (Metoprolol Succ 50mg Ext Rel Tab) 50 mg PO QAM [facility] Stop: 12/10/20 08:59 Last Admin: 11/12/20 08:14 Dose: 50 mg Documented by: Miscellaneous (Carbohydrates For Hypoglycemia ) 15 - 30 gm PO UD PRN PRN Reason: Hypoglycemia Protocol Stop: 12/10/20 02:46 Nitroglycerin (Nitroglycerin Sl 0.4 Mg/Tab Tab) 0.4 mg SL UD PRN PRN Reason: Chest Pain Stop: 12/10/20 02:46 (1) Acute on chronic renal failure Chronic kidney disease stage 3 subtype: stage 3a (GFR 45-59) (2) Right lower lobe pneumonia Pneumonia type: due to unspecified organism Qualified Code(s): J18.9 - Pneumonia, unspecified organism (3) Atrial fibrillation Atrial fibrillation type: paroxysmal Qualified Code(s): I48.0 - Paroxysmal atrial fibrillation (4) HTN (hypertension) Hypertension type: essential hypertension Qualified Code(s): I10 - Essential (primary) hypertension
[2020-11-12] MEDS: amLODIPine BESYLATE 5 MG TAB PO SCH (20:56)
[2020-11-13] MEDS: LEVOTHYROXINE SODIUM 75 MCG TABLET PO SCH (05:45)
[2020-11-13] MEDS: guaiFENesin/DEXTROM SYRUP 200MG/20MG 10ML UDC PO SCH ×2 (05:45→14:43)
[2020-11-13 06:10] LABS: Basophils # (auto) 0.01 K/uL (0-0.2); Basophils % (auto) 0.1 %; Eosinophils # (auto) 0.28 K/uL (0-0.5); Eosinophils % (auto) 3.8 %; Hematocrit (blood only) 35.4 % (42-52); Hemoglobin 11.4 g/dL (14.0-18.0); Immature Granulocytes # (auto) 0.03 K/uL (0.00-0.02); Immature Granulocytes % (auto) 0.4 %; Lymphocytes # (auto) 1.73 K/uL (1.2-3.4); Lymphocytes % (auto) 23.7 %; Mean Corpuscular Hemoglobin 28.9 pg (25-34); Mean Corpuscular Hgb Conc 32.2 g/dL (32-36); Mean Corpuscular Volume 89.8 fL (80-100); Mean Platelet Volume 11.5 fL (7.4-10.4); Monocytes # (auto) 0.38 K/uL (0.11-0.59); Monocytes % (auto) 5.2 %; Neutrophils # (auto) 4.88 K/uL (1.4-6.5); Neutrophils % (auto) 66.8 %; Platelet Count 135 K/uL (130-400); RDW Coefficient of Variation 14.7 % (11.5-14.5); RDW Standard Deviation 48.5 fL (36.4-46.3); Red Blood Count 3.94 M/uL (4.7-6.1); White Blood Count 7.31 K/uL (4.8-10.8)
[2020-11-13 06:41] LABS: BUN Creatinine Ratio 24.8 (10-20); Calcium 8.8 mg/dl (8.5-10.1); Creatinine Clr Calc Pharmacy 58.2 ml/min; Est GFR (African American) 57.4; Est GFR (Non-African American) 49.5; Magnesium 2.4 mg/dl (1.8-2.4); Potassium 3.6 mmol/L (3.5-5.1)
[2020-11-13] MEDS: METOPROLOL SUCC 50MG EXT REL TAB PO SCH (07:52)
[2020-11-13] MEDS: FUROSEMIDE 60 MG in SYRINGE 0 ML IV SCH (07:52)
[2020-11-13] MEDS: FERROUS SULFATE 325 MG TAB PO SCH (07:52)
[2020-11-13] MEDS: ATORVASTATIN 20 MG TAB PO SCH (07:52)
[2020-11-13] MEDS: DOXYCYCLINE HYCLATE 100 MG CAP PO SCH (07:52)
[2020-11-13] MEDS: INSULIN GLARGINE SOLOSTAR 100 UNITS/ML 3 ML PEN SC SCH (07:53)
[2020-11-13] MEDS: BENZONATATE 100 MG CAPSULE PO SCH ×2 (07:53→14:43)
[2020-11-13] MEDS: cefTRIAXone SODIUM 2,000 MG in DEXTROSE 5% 50 ML IV SCH (07:55)
[2020-11-13] MEDS: INSULIN ASPART 100 UNITS/ML 3 ML PEN SC SCH ×2 (07:56→11:52)
--- NOTE | 2020-11-13 08:28 | XRay Report ---
XR chest 1V portable CLINICAL HISTORY: f/u COMPARISON STUDY: Chest CT November 09, 2000. Chest radiograph November 12, 2020. 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 Moderate cardiomegaly is noted. There is no pneumothorax or pleural effusion. Slight improvement in bilateral airspace opacities is noted. At most, there are mild residual opacities. IMPRESSION: 1. Continued improvement in airspace opacities. 2. Cardiomegaly without evidence for pulmonary edema. ACT 112: Negative or not required by law. Electronically signed by: Jerald Beverly M.D. 11/13/2020 8:27 AM
--- NOTE | 2020-11-13 08:30 | Pulmonology Progress Note ---
Date of Service November 13, 2020 Assessment & Plan (1) Hemoptysis: Bronchoscopy 04/01/[address] [facility]. Serial aliquots did not become more bloody with successive samples. BAL was mostly neutrophilic phallic and monocytic. Patient also had transjugular biopsy which showed benign bronchial tissue. No evidence of malignancy. Patient also had AFB negative, fungal cultures were negative. It did grow penicillium. Bacterial culture was negative and PCP smear was negative. Legionella negative, HSV and EBV along with CMV all negative. Aspergillus antigen was not detected. PFTs 08/12/2020: Mild restrictive lung disease, no obstructive dysfunction, mild decrease in DLCO. FVC 84%, FEV1 93%, FEV1/FVC 82%, RV 86%, TLC 75%, RV/TLC 46%, DLCO 64% --Hemoptysis with diffuse groundglass opacities bilaterally more on the right side Patient has similar presentation back in March when he was transferred to [facility] He had a bronchoscopy done over at that time. Patient had autoimmune work-up done back in March 2020 with similar presentation and it was negative. Patient's BNP at the time of presentation was 3676, CRP 1.81--> 1.26 COVID-19 PCR 11/09/2020 negative PT/INR within normal limit. Given the patient already had bronchoscopy done in the past as well along with transbronchial biopsy and cultures which were all negative. I doubt repeating bronchoscopy and autoimmune work-up will be helpful. I think diastolic CHF is playing a role in the findings that we see on the CAT scan. Especially given patient has gained 30 pounds. Patient might have NSIP-like pattern as well as the CAT scan which was done back in August 2020 still showed some groundglass opacities which are improving compared to the one done in March. Although his RAMON, ANCA, antiproteinase 3 and antimyeloperoxidase antibodies were negative on 03/28/2020 Recommend holding apixaban for the time being. Cough medication to suppress the cough [id number] Monitor H&H Patient has prolonged QTC. Agree with Rocephin and doxycycline for total of 5. --Acute on chronic hypoxic respiratory failure Patient is on 2 L nasal cannula since March 2020 Patient was saturating well on 2 L He is back to his baseline. Continue O2 supplementation to keep oxygen saturation between 88-92% --JUVE with morbid obesity Continue with CPAP at night and when he is napping Plan: In/out: -1500, urine output 1850 CXR improvement in b/l opacities with good aeration. Continue with cough suppressant round the clock Continue holding apixaban Conservative management for hemoptysis From pulmonary perspective I think we need to hold apixaban due to his hemoptysis has decreased in amount significantly. Apixaban can be gradually restarted even at home and monitor for hemoptysis. The patient again is hemoptysis then whether to continue apixaban or no should be thought and discussed with cardiology. No further recommendations from pulmonary perspective. Will sign off. Please call if needed. Please note the above document was generated using voice recognition software. It may contain grammatical, syntax or spelling errors.Any formal questions or concerns about the content, text or information contained within the body of this dictation should be directly addressed to the provider for clarification. (2) Acute and chronic respiratory failure with hypoxia: (3) JUVE (obstructive sleep apnea): Admission and Anticipated Discharge Date Admission Date: November 09, 2020 Subjective Patient seen and examined at bedside. No acute distress, no adverse events overnight. Patient states that he is feeling much better. He is urinating well. Shortness of breath is significantly improved compared to when you presented to the hospital. He says the cough is decreased in amount significantly. He still gets blood-t inged phlegm on and off but it is not as bad as it used to be. No chest pain, no dizziness, no palpitations. Review of Systems Review of Systems: All systems reviewed & are unremarkable except as noted in Subjective Physical Exam Physical Exam: Constitutional: No acute distress HEENT: EOMI, PERRLA left eye, ptosis rigth side. Prosthetic right eye. Respiratory system: Decreased air entry bilaterally, no wheeze, no rhonchi, mild crackles bilateral lower lobes CVS: S1-S2 positive, no murmurs or gallops, distant heart sounds Abdomen: Soft, nontender, nondistended, positive bowel sounds x4, obese Extremities: +2 pulses bilaterally radialis/ dorsalis pedis, no cyanosis, +1 edema bilateral lower extremity Neuro: Awake alert oriented x3 Psych: Normal mood and affect G/U: No Edward Skin: no rashes, warm and dry Lymphatic: no cervical or axillary lymphadenopathy Results & Data Results & Data ([facility]) Vital Signs (Past 12 Hours) Vital Signs Temp Pulse Pulse Resp BP Pulse Ox 11/13/20 08:00 36.5 C 66 20 127/77 94 11/13/20 04:00 36.4 C L 71 20 139/77 98 11/13/20 00:09 36.3 C L 62 18 129/68 98 11/12/20 23:00 66 11/13/20 05:34 11/13/20 05:34 PG Care Time/CCT Total # of Minutes Spent Total Time Spent with Patient: Total time spent is greater than 50% in coordination of care (as documented) at patient's floor/unit and/or counseling patient: Coding Level of Care Code 54472 Subseq Hosp Care Lvl 3 Diagnoses Hemoptysis R04.2 Acute and chronic respiratory failure with hypoxia J96.21 JUVE (obstructive sleep apnea) G47.33
--- NOTE | 2020-11-13 10:18 | Nephrology Progress Note ---
Date of Service November 13, 2020 Assessment & Plan (1) Acute on chronic renal failure: baseline creatinine 1.2 w/ albuminuria about 100 mg daily, CKD 3A. Presenting creatinine 1.9; down to 1.3 this am. urine sediment essentially bland. stage 1 nonoliguric SHANIA on CKD 3 from cardiorenal syndrome as OP on lasix 40 mg bid and spironolact 25 mg daily. thrombocytopenia at baseline; no likely relation to renal disease. needs diuresis; he is volume overloaded. chemistries acceptable for the most part apart from very elevated BG in 300-400s initially now better -resumed moise antag OP dose -changed IV lasix to 80 mg bid17 po >>recommend d/c on above meds if cardiology agrees as well as current other antihypertensives >recommend bmp w/in one week of d/c; f/u in nephro clinic [facility] w/ any provider (Michael Fisher Andersen) in 6-8 wks -now on low Na regular diet so will limit fluids to 1.8L/day (1.5 L/day is ultimate target) -needs DAILY standing wt pls -- baseline from 11/11 is 141.3 kg > 11/12 139.8 kg; none today -pls ensure he's had HF teaching -daily bmp -no indication at this time for discussion of dialysis (2) Right lower lobe pneumonia: on ceftriaxone and doxycycline; per primary service and pulmonary (3) Acute on chronic diastolic heart failure: currently on lasix 60 mg IV bid as of this am -- as above Admission and Anticipated Discharge Date Admission Date: November 09, 2020 Subjective cont to feel improved; remains on 02; still some edema but improved; tolerating po, no voiding concerns Review of Systems Review of Systems: All systems reviewed & are unremarkable except as noted in Subjective Physical Exam Constitutional: well developed and well nourished; no acute distress Eyes: EOM intact bilaterally ENMT: Ears: no external ear abnormality Nose: no external nose abnormality Mouth: + dry oral mucous membranes Neck: no nuchal rigidity Respiratory: normal respiratory effort and able to speak in complete sentences; no labored breathing and no cough Auscultation: lungs clear to auscultation bilaterally and + diminished lung sounds; no rhonchi Cardiovascular: Rate/Rhythm: regular rate and regular rhythm Extremities: + edema (trace) Gastrointestinal (Abdomen): Inspection/Auscultation: normal bowel sounds Percussion/Palpation: abdomen soft; abdomen nontender Musculoskeletal: Extremities: strength 5/5 throughout Skin: no rashes, warm and dry Psychiatric: A+Ox3, euthymic affect Affect: + anxious affect Insight: good insight Judgement: good judgement Results & Data ([facility]) Vital Signs (Past 12 Hours) Vital Signs Temp Pulse Pulse Resp BP Pulse Ox 11/13/20 08:00 36.5 C 63 66 20 127/77 94 11/13/20 04:00 36.4 C L 71 20 139/77 98 11/13/20 00:09 36.3 C L 62 18 129/68 98 11/12/20 23:00 66 Laboratory Results 11/13/20 05:34 11/13/20 05:34 (1) Right lower lobe pneumonia Pneumonia type: due to unspecified organism Qualified Code(s): J18.9 - P neumonia, unspecified organism (2) Acute on chronic renal failure Chronic kidney disease stage 3 subtype: stage 3a (GFR 45-59)
[2020-11-13] MEDS ORDERED: SPIRONOLACTONE 25 MG TAB PO SCH (10:30)
--- NOTE | 2020-11-13 11:29 | Cardiology Progress Note ---
Date of Service November 13, 2020 Assessment & Plan (1) Acute hypoxemic respiratory failure: Patient is an 85-year-old male with complex history as outlined above presents with symptoms of dyspnea, weight gain cough as well as blood-tinged sputum. Past history of pneumonia hemoptysis in March 2020 Suspect multifactorial presentation including diastolic heart failure superimposed on underlying pulmonary issue acute renal insufficiency Recent difficulty using CPAP may have been at least partially a precipitant Patient substantially improved after diuresis. Treatment of underlying bronchitis with oral antibiotic Recommendations: Discontinue IV furosemide discharge on furosemide 80 mg twice per day as an increased dose, continue spironolactone Given hemoptysis with hold aspirin and apixaban with plans to restart apixaban at appropriate reduced dose 2.5 mg twice per day due to age and diminished GFR in 2 weeks time CHF instructions to be given Patient will need very close clinical follow-up Oxygen determination prior to discharge (2) Right lower lobe pneumonia: (3) Acute on chronic renal failure: (4) Acute on chronic diastolic heart failure: (5) Atrial fibrillation: (6) Hemoptysis: (7) JUVE (obstructive sleep apnea): Admission and Anticipated Discharge Date Admission Date: November 09, 2020 Subjective Patient seen and examined, chart, medications, telemetry reviewed. Patient anxious to be discharged. Breathlessness substantially improved. No chest pains no dizziness or lightheadedness. Has manifested significant diuresis since admission with improvement in renal function. Minimal sputum production Physical Exam Constitutional: WD/WN, vitals as above + obese; no acute distress Eyes: PERRL, conjunctivae normal, anicteric sclerae ENMT: external ear and nose normal, oropharynx normal Neck: + thick neck Respiratory: Auscultation: + diminished lung sounds (But currently clear) Cardiovascular: Rate/Rhythm: regular rate (Paced) Heart Sounds: normal S1 and normal S2 Vessels: no JVD Extremities: + edema (Trace) Results & Data ([facility]) Vital Signs (Past 12 Hours) Vital Signs Temp Pulse Pulse Resp BP Pulse Ox 11/13/20 08:00 36.5 C 63 66 20 127/77 94 11/13/20 04:00 36.4 C L 71 20 139/77 98 11/13/20 00:09 36.3 C L 62 18 129/68 98 (1) Right lower lobe pneumonia Pneumonia type: due to unspecified organism Qualified Code(s): J18.9 - Pneumonia, unspecified organism (2) Acute on chronic renal failure Chronic kidney disease stage 3 subtype: stage 3a (GFR 45-59)
--- NOTE | 2020-11-13 11:45 | Hospitalist Progress Note ---
Date of Service November 13, 2020 Assessment & Plan (1) Acute and chronic respiratory failure with hypoxia: Patient is an 85-year-old male with complex history as outlined above presents with symptoms of dyspnea, weight gain cough as well as blood-tinged sputum. Back to only requiring 2LPM, which is his baseline. Feels better since starting diuresis. Strict I/Os, daily standing weights. Salt and fluid restriction per Nephro. Appreciate pulmonary input and recommendation Recent bronchoscopy and ILD workup was unremarkable in March 2020. Prednisone was stopped. Findings more consistent with CHF on clinical diagnostics. Cont diuresis efforts (3L out overnight) and titrate therapies per specialist input. Denies any acute symptoms at rest but he still has minimal shortness of breath with exertion Lasix has been changed to 60 mg p.o. twice daily Will be discharged home this afternoon with 80mg BID dose of Lasix (2) Acute on chronic renal failure: Up from baseline, now down 1.9 to 15 today. Cont daily BMP. Appreciate nephrology input and recommendation Has been on Lasix 60 mg twice daily and spironolactone 25 mg daily We will discharge him on Lasix 80 mg twice daily as per the land surveyor manager (3) Hemoptysis: Eliquis stopped and should be restarted at lower 2.5mg BID dose when infection has resolved. Appreciate pulmonary input and recommendation Aspirin was stopped indefinitely by Machine Operator Picker. Hemoptysis has been improving and will hold Eliquis and aspirin for at least 2 weeks before being evaluated by the land surveyor manager as an outpatient His Eliquis doses should be decreased to 2.5 mg twice daily when it will be restarted (4) Right lower lobe pneumonia: Rocephinx and Azithromycin x 5 days. Duonebs/incentive spirometer as needed. Pneumonia present and he is improved on current therapy. Cont this for 5 days per pulmonary. We will prescribe oral Ceftin and doxycycline to finish the course of antibiotic (5) Atrial fibrillation: Paced/flutter on telemetry overnight. Holding Eliquis as above. Cont Toprol XL 50mg daily for rate control. PM in place. (6) DM type 2 (diabetes mellitus, type 2): Hyperglycemic but now at goal.A1C is 9.0, Cont basal (glargine 40Units BID) and bolus insulin while admitted Insulin doses will be adjusted (7) HTN (hypertension): controlled (8) JUEV (obstructive sleep apnea): CPAP qHS (9) Morbid obesity: (10) DVT prophylaxis: no chemoprophylaxis in setting of hemoptysis-will restart Eliquis once more stable. Full Code Dispo-cont PCU monitoring. Will be discharged home this afternoon Admission and Anticipated Discharge Date Admission Date: November 09, 2020 Subjective The patient was seen and examined in telemetry unit He is obese with multiple comorbid medical condition was admitted with acute on chronic respiratory failure with hemoptysis and acute kidney failure Does not have any complaint at rest and has been feeling better Complains shortness of breath with minimal exertion Hemoptysis seems to be improved 11/13/2020 The patient was seen and examined in telemetry unit He has been feeling a lot better and seems to back to his baseline and wants to go home Denies any symptoms of bloating, shortness of breath, abdominal pain, nausea or vomiting Review of Systems Review of Systems: All systems reviewed and are unremarkable except as noted below Constitutional: + weakness Respiratory: + dyspnea on exertion Cardiovascular: + edema; no chest pain and no palpitations Neurologic: + generalized weakness Physical Exam Physical Exam: Sitting on a chair without any acute distress Constitutional: well developed, well nourished, + ill appearing and + morbidly obese Eyes: PERRL, conjunctivae normal, anicteric sclerae ENMT: external ear and nose normal, oropharynx normal Neck: trachea midline, no thyromegaly Respiratory: no respiratory distress (At rest) Auscultation: + diminished lung sounds and + crackles (Minimal bibasilar crackles) Cardiovascular: Rate/Rhythm: regular rate and regular rhythm Heart Sounds: no murmur Extremities: + edema (1+ bilateral leg edema) Gastrointestinal (Abdomen): Inspection/Auscultation: + abdomen distended and normal bowel sounds Percussion/Palpation: abdomen soft; abdomen nontender Musculoskeletal: No acute arthritis in any joint Psychiatric: A+Ox3, euthymic affect Lymphatic: no cervical or axillary lymphadenopathy Results & Data Results & Data ([facility]) Vital Signs (Past 12 Hours) Vital Signs Temp Pulse Pulse Resp BP Pulse Ox 11/13/20 08:00 36.5 C 63 66 20 127/77 94 11/13/20 04:00 36.4 C L 71 20 139/77 98 11/13/20 00:09 36.3 C L 62 18 129/68 98 Laboratory Results Short CBC 11/13/20 Range/Units 05:34 WBC 7.31 (4.8-10.8) K/uL Hgb 11.4 L (14.0-18.0) g/dL Hct 35.4 L (42-52) % Plt Count 135 (130-400) K/uL BMP 11/13/20 05:34 Sodium 139 Potassium 3.6 Chloride 105 Carbon Dioxide 27 BUN 33 H Creatinine 1.32 Glucose 244 H Calcium 8.8 Medications Administered Current Inpatient Medications Acetaminophen (Acetaminophen 325 Mg Tab) 325 mg PO Q6H PRN PRN Reason: Mild Pain Stop: 12/10/20 03:58 Hydrocodone Bitart/Acetaminophen (Hydrocodone/Acetamophen 5/325mg Tab) 1 tab PO Q6H PRN PRN Reason: Pain Stop: 12/10/20 02:46 Last Admin: 11/12/20 17:01 Dose: 1 tab Documented by: Albuterol (Albut/Ipratrop 3mg/0.5mg Neb 3 Ml Vial) 3 ml NEB Q4 PRN PRN Reason: Shortness Of Breath Or Wheezing Stop: 12/10/20 09:54 Last Admin: 11/11/20 15:49 Dose: 3 ml Documented by: Amlodipine Besylate (Amlodipine Besylate 5 Mg Tab) 2.5 mg PO QPM VISHNU Stop: 12/10/20 06:34 Last Admin: 11/12/20 20:56 Dose: 2.5 mg Documented by: Atorvastatin Calcium (Atorvastatin 20 Mg Tab) 20 mg PO QAM VISHNU Stop: 12/10/20 08:59 Last Admin: 11/13/20 07:52 Dose: 20 mg Documented by: Benzonatate (Benzonatate 100 Mg Capsule) 100 mg PO TID VISHNU Stop: 12/11/20 08:59 Last Admin: 11/13/20 07:53 Dose: 100 mg Documented by: Dextrose (Dextrose 50% 50 Ml Syringe) 25 - 50 ml IV UD PRN; Protocol PRN Reason: Hypoglycemia Protocol Stop: 12/10/20 02:46 Doxycycline Hyclate (Doxycycline Hyclate 100 Mg Cap) 100 mg PO BID VISHNU Stop: 11/17/20 08:59 Last Admin: 11/13/20 07:52 Dose: 100 mg Documented by: Ferrous Sulfate (Ferrous Sulfate 325 Mg Tab) 325 mg PO DAILY@1200 [facility] Stop: 12/10/20 11:59 Last Admin: 11/13/20 07:52 Dose: 325 mg Documented by: Furosemide (Furosemide 80 Mg Tab) 80 mg PO BID17 [facility] Stop: 12/13/20 16:59 Glucagon (Glucagon For Inj 1 Mg Vial) 1 mg SQ UD PRN; Protocol PRN Reason: Hypoglycemia Protocol Stop: 12/10/20 02:46 Glucose (Glucose 10 Tabs/Tube) 4 - 8 tabs PO UD PRN; Protocol PRN Reason: Hypoglycemia Protocol Stop: 12/10/20 02:46 Glucose (Glucose 40% Gel 15 Gm Tube) 15 - 30 gm PO UD PRN; Protocol PRN Reason: Hypoglycemia Protocol Stop: 12/10/20 02:46 Guaifenesin/Codeine Phosphate (Guaifenesin/Codeine 100mg/10mg 5ml Udc) 5 ml PO Q6H PRN PRN Reason: Cough Stop: 12/10/20 08:26 Last Admin: 11/11/20 16:44 Dose: 5 ml Documented by: Guaifenesin/Dextromethorphan (Guaifenesin/Dextrom Syrup 200mg/20mg 10ml Udc) 10 ml PO Q8 [facility] Stop: 12/11/20 21:59 Last Admin: 11/13/20 05:45 Dose: 10 ml Documented by: Ceftriaxone Sodium 2,000 mg/ (Dextrose) 50 mls @ 100 mls/hr IV DAILY [facility]; Protocol Stop: 11/17/20 08:59 Last Infusion: 11/13/20 09:11 Dose: Infused Documented by: Insulin Aspart (Insulin Aspart 100 Units/Ml 3 Ml Pen) 0 units SC ACHS [facility] Stop: 12/10/20 11:29 Last Admin: 11/13/20 07:56 Dose: 23 units Documented by: Insulin Glargine (Insulin Glargine Solostar 100 Units/Ml 3 Ml Pen) 50 units SC BID [facility] Stop: 12/10/20 08:59 Levothyroxine Sodium (Levothyroxine Sodium 75 Mcg Tablet) 75 mcg PO DAILYBB [facility] Stop: 12/10/20 06:29 Last Admin: 11/13/20 05:45 Dose: 75 mcg Documented by: Metoprolol Succinate (Metoprolol Succ 50mg Ext Rel Tab) 50 mg PO QAM [facility] Stop: 12/10/20 08:59 Last Admin: 11/13/20 07:52 Dose: 50 mg Documented by: Miscellaneous (Carbohydrates For Hypoglycemia ) 15 - 30 gm PO UD PRN PRN Reason: Hypoglycemia Protocol Stop: 12/10/20 02:46 Nitroglycerin (Nitroglycerin Sl 0.4 Mg/Tab Tab) 0.4 mg SL UD PRN PRN Reason: Chest Pain Stop: 12/10/20 02:46 Spironolactone ([facility] 25 Mg Tab) [facility] [place]: 12/13/20 10:29 (1) Acute on chronic renal failure Chronic kidney disease stage 3 subtype: stage 3a (GFR 45-59) (2) Right lower lobe pneumonia Pneumonia type: due to unspecified organism Qualified Code(s): J18.9 - Pneumonia, unspecified organism (3) Atrial fibrillation Atrial fibrillation type: paroxysmal Qualified Code(s): I48.0 - Paroxysmal atrial fibrillation (4) HTN (hypertension) Hypertension type: essential hypertension Qualified Code(s): I10 - Essential (primary) hypertension
[2020-11-13 12:04] VITALS: BP 134/61; TEMP 98.2; O2SAT 99
[2020-11-13 14:09] VITALS: PULSE 62
[2020-11-13] MEDS ORDERED: FUROSEMIDE 80 MG TAB PO SCH (17:00)
[2020-11-13] MEDS ORDERED: FUROSEMIDE 20 MG TAB PO SCH (17:00)
[2020-11-13] MEDS ORDERED: INSULIN GLARGINE SOLOSTAR 100 UNITS/ML 3 ML PEN SC SCH (21:00)
--- NOTE | 2020-11-14 08:00 | Discharge Summary ---
Date of Service November 14, 2020 Admission HPI Per Admitting Provider History obtained from patient and records. Medical history significant for chronic diastolic heart failure (EF 55%, TTE 2019), SSS sp PPM on Eliquis, hypertension, hyperlipidemia, chronic respiratory failure secondary to possible ILD as per records, pulmonary hypertension on home O2, JUVE on CPAP, DM2 insulin requiring, hypothyroidism, CRI (baseline creatinine 1.2), cirrhosis as per records, chronic anemia (baseline hemoglobin 11), chronic thrombocytopenia. Last confinement March 2020 for hemoptysis secondary to bilateral pneumonia. COVID-19 test was negative. Patient transferred to [facility]. Patient transferred to [facility]. CT chest revealed diffuse groundglass opacities suspicious of viral pneumonitis/atypical pneumonia. Bronchoscopy revealed erythematous bronchial mucosa, blood-tinged saline lavage without suggestion of DAH. 2 days history of cough symptoms productive of junky yellow sputum later with hemoptysis. No chest pain. Worsening shortness of breath. Denies aspiration. Fever, chills noted. No known recent COVID-19 contacts. Denies aspiration. Weight gain of about 30 pounds in the last few weeks despite compliance with diuretic regimen and fluid restriction. Denies dietary indiscretion. At the ER, patient noted to be hypoxemic. Patient received Solu-Medrol, Levaquin, and Cefepime for pneumonia. Medical History as above Surgical History : Back surgery, knee surgery, hip surgery, eye surgery, shoulder surgery carpal tunnel surgery, PPM Family History : Hypertension Personal/Social history : Non-smoker, occasional EtOH intake, retired educator/financial reporting advisor Admission Exam Per Admitting Provider Physical Exam: GENERAL: Slightly uncomfortable, pleasant, morbidly obese, respiratory distress SKIN: Pallor, warm HEENT: Pale palpebral conjunctivae, chronic ptosis R, dry buccal mucosa, nasal cannula in place NECK : Supple, short neck, no tenderness CHEST : Gynecomastia, decreased breath sounds, occasional expiratory wheezes, no tenderness HEART : RRR, no obvious murmurs ABDOMEN: Marked distention, nontender EXTREMITIES : Bilateral LE swelling, no LE tenderness, no other conspicuous deformities noted NEUROLOGIC : Coherent, no facial asymmetry, no other gross focality Principal Diagnosis Acute on chronic respiratory failure with hypoxia, acute on chronic renal failure, hemoptysis, right lower lobe pneumonia, atrial fibrillation Discharge Exam Constitutional well developed, well nourished, + ill appearing and + morbidly obese Eyes PERRL, conjunctivae normal, anicteric sclerae ENMT external ear and nose normal, oropharynx normal Neck trachea midline, no thyromegaly Respiratory no respiratory distress (At rest) Auscultation: + diminished lung sounds and + crackles (Minimal bibasilar crackles) Cardiovascular Rate/Rhythm: regular rate and regular rhythm Heart Sounds: no murmur Extremities: + edema (1+ bilateral leg edema) Gastrointestinal (Abdomen) Inspection/Auscultation: + abdomen distended and normal bowel sounds Percussion/Palpation: abdomen soft; abdomen nontender Psychiatric A+Ox3, euthymic affect Lymphatic no cervical or axillary lymphadenopathy Discharge Data Allergies Allergy/AdvReac Type Severity Reaction Status Date / Time Penicillins Allergy Intermediate RASH AND Verified 11/09/20 21:23 WELTS Consultations 11/09/20 21:43 ED Decision to Admit Stat 11/10/20 02:47 Consult Cardiology Routine Consult Pulmonology Routine 11/10/20 03:27 Consult Nephrology Routine Ordered Studies 11/09/20 21:48 CT chest diagnostic wo con Urgent Diabetes Follow up Diabetes Follow-up Needed for HgbA1c >9% Hospital Course (1) Acute and chronic respiratory failure with hypoxia: Patient is an 85-year-old male with complex history as outlined above presents with symptoms of dyspnea, weight gain cough as well as blood-tinged sputum. Back to only requiring 2LPM, which is his baseline. Feels better since starting diuresis. Strict I/Os, daily standing weights. Salt and fluid restriction per Nephro. Appreciate pulmonary input and recommendation Recent bronchoscopy and ILD workup was unremarkable in March 2020. Prednisone was stopped. Findings more consistent with CHF on clinical diagnostics. Cont diuresis efforts (3L out overnight) and titrate therapies per specialist input. Denies any acute symptoms at rest but he still has minimal shortness of breath with exertion Lasix has been changed to 60 mg p.o. twice daily Will be discharged home this afternoon with 80mg BID dose of Lasix (2) Acute on chronic renal failure: Up from baseline, now down 1.9 to 15 today. Cont daily BMP. Appreciate nephrology input and recommendation Has been on Lasix 60 mg twice daily and spironolactone 25 mg daily We will discharge him on Lasix 80 mg twice daily as per the desk representative (3) Hemoptysis: Eliquis stopped and should be restarted at lower 2.5mg BID dose when infection has resolved. Appreciate pulmonary input and recommendation Aspirin was stopped indefinitely by Shelf Drier Operator. Hemoptysis has been improving and will hold Eliquis and aspirin for at least 2 weeks before being evaluated by the desk representative as an outpatient His Eliquis doses should be decreased to 2.5 mg twice daily when it will be restarted (4) Right lower lobe pneumonia: Rocephinx and Azithromycin x 5 days. Duonebs/incentive spirometer as needed. Pneumonia present and he is improved on current therapy. Cont this for 5 days per pulmonary. We will prescribe oral Ceftin and doxycycline to finish the course of antibiotic (5) Atrial fibrillation: Paced/flutter on telemetry overnight. Holding Eliquis as above. Cont Toprol XL 50mg daily for rate control. PM in place. (6) DM type 2 (diabetes mellitus, type 2): Hyperglycemic but now at goal.A1C is 9.0, Cont basal (glargine 40Units BID) and bolus insulin while admitted Insulin doses will be adjusted (7) HTN (hypertension): controlled (8) JUVE (obstructive sleep apnea): CPAP qHS (9) Morbid obesity: (10) DVT prophylaxis: no chemoprophylaxis in setting of hemoptysis-will restart Eliquis once more stable. Full Code Dispo-cont PCU monitoring. Will be discharged home this afternoon Total Time Total Time Spent Total Time Spent (In Minutes): 40 minutes Total Time Includes: Examination of the Patient, Discharge Planning, Medication Reconciliation and Communication With Other Providers Discharge Plan Discharge Items Patient Disposition: Home - Self-Care Reason For Visit: RESP FAILURE Discharge Diagnosis: Acute on chronic respiratory failure with hypoxia, acute on chronic renal failure, hemoptysis, right lower lobe pneumonia, atrial fibrillation Condition on Discharge: Fair Activity: Resume your previous activity Non-emergency contact: Primary Care Provider Call non-emergency contact if: you have any medication questions and your symptoms worsen Follow-up/Referrals: Anh Sarah MD, PhD [Physician] - (Date & Time 12/29/2020 2:30 PM Provider Anh Sarah MD Department Nephrology, [facility] ) Aaron Mas DO [Shelf Drier Operator] - (Date & Time 12/02/2020 2:30 PM Provider Aaron Mas DO Department Cardiology, [facility] ) Akhil Nevarez MD [Primary Care Provider] - (Date & Time 11/18/2020 11:00 AM Provider Akhil Nevarez III, MD Department Family [facility] ) Diet: Carb Consistent or DM2 and Low Sodium (2gm) Fluids: 1800ml (7 cups) Ambulatory Orders: Basic Metabolic Panel (Routine) Timeframe: 1 Week Location: Determined by Patient Ordered By: Katharina Naranjo Attending Provider Instructions: Please take precaution to avoid falls. Take your medications as advised Keep appointments with your healthcare providers Use oxygen as advised and use CPAP as before Please have the blood test done when you see your primary care physician Pending Studies at Discharge: No Stand-Alone Forms: My Ismole, Smoking Cessation Medications and DC Order Prescriptions: New doxycycline hyclate 100 mg Capsule 100 mg PO BID 3 Days Qty: 6 RF: 0 spironolactone 25 mg Tablet 25 mg PO QAM 30 Days Qty: 30 RF: 0 furosemide 80 mg Tablet 80 mg PO BID17 30 Days Qty: 60 RF: 0 Lantus Solostar U-100 Insulin 100 unit/mL (3 mL) Insulin Pen 50 unit SC BID 30 Days Qty: 30 RF: 0 benzonatate [Tessalon Perles] 100 mg Capsule 100 mg PO TID 10 Days Qty: 30 RF: 0 Robitussin Cough-Chest Benjamin DM 5-100 mg/5 mL Liquid 10 ml PO Q8 10 Days Qty: 300 RF: 0 Continued ferrous sulfate [Feosol] 325 mg (65 mg iron) Tablet 325 mg PO QAM RF: 0 ipratropium-albuterol 0.5 mg-3 mg(2.5 mg base)/3 mL solution for nebulization 3 ml INHALATION Q6H PRN (Reason: Cough or Wheezing) RF: 0 metoprolol succinate 50 mg tablet extended release 24 hr 50 mg PO QAM RF: 0 amlodipine 5 mg tablet 2.5 mg PO QPM RF: 0 spironolactone [Aldactone] 25 mg tablet 25 mg PO QAM RF: 0 levothyroxine 75 mcg tablet 75 mcg PO QAM RF: 0 vitamin E 400 unit Capsule 0 unit PO QAM RF: 0 ascorbic acid (vitamin C) [Vitamin C] 1,000 mg Tablet 1,000 mg PO QAM RF: 0 atorvastatin 20 mg Tablet 20 mg PO QAM RF: 0 albuterol sulfate [Ventolin HFA] 90 mcg/actuation Hfa Aerosol Inhaler 2 - 4 puff INHALATION Q6H PRN (Reason: Shortness Of Breath Or Wheezing) RF: 0 hydrocodone-acetaminophen 5-300 mg Tablet 1 tab PO Q6H PRN (Reason: Pain) RF: 0 Discontinued furosemide 40 mg tablet 40 mg PO BID RF: 0 aspirin 81 mg Tablet,Delayed Release (Dr/Ec) 81 mg PO QAM RF: 0 Eliquis 5 mg tablet 5 mg PO BID RF: 0 Discharge Orders: Discharge Order (Routine); Ordered 11/13/20 Ordered By: Katharina Onofre Admission Data Admit Date/Time: 11/09/20 23:30 Attending Provider: Katharina Onofre Admit Provider: Chris Martinez Primary Care Provider: Akhil Nevarez Other Providers: Chris Martinez ; Nikhil Good ; Yordan Mitchell ; Kain Castillo ; Woody Drummond ; Aaron Mas ; Que Ren ; Roseline Borrero ; Danae Uribe ; Fortunato Doyle ; Rusty Villanueva ; Darvin Rios ; Daisy Galeas ; Rock Castillo ; Amberly Loo ; Yang Coates ; Hunter Williamson ; Kylee Prieto ; Anh Sarah ; Fahad Fisher ; Liza Chung ; Shirley Rodriguez ; Keagan Azevedo ; Kain Valdovinos ; Lilia Dickey Other Interventions: Discharge Summary Assessment (RN) Last Done: 11/13/20 14:07
== END 2020-11-13 15:07 | disposition home or self-care (01) | DRG 291 ==
LOC: ED 20:28 → 2S 23:30 → SUATTDRO 23:30 → 2S 11-10 01:59

== ENCOUNTER 2021-06-01 14:56 | Inpatient (IN) ==
--- NOTE | 2021-06-01 15:13 | Emergency Department Note ---
Impression & Plan SOB (shortness of breath), CHF (congestive heart failure), Cough, Fluid overload ED Provider Note NAME: TONY ADAMSON AGE: 85 SEX: M : 1935 ARRIVES VIA: Ambulance INFORMANT: [Patient][ems] ED PROVIDER(S): [Rock Josue MD] CHIEF COMPLAINT: Shortness of breath HISTORY OF PRESENT ILLNESS: The patient is an 85-year-old male presents with about 4 days of increased shortness of breath. He has had a cough productive of some bloody sputum. He notices the shortness of breath primarily with exertion. He has been using his oxygen more and this does seem to help. He has also started using his nebulizer which also at times seems to help his breathing. The patient has had chills, no fever. No vomiting or diarrhea. He is not vaccinated against COVID-19. The patient states that he has had pneumonia 3 times in the last year. He is concerned he may be developing pneumonia again. He spoke to [facility] today, they referred him to the ED. REVIEW OF SYSTEMS: See HPI for pertinent positives and negatives. A total of ten systems were reviewed and were otherwise negative. PMHx/PSHx: See Below SOCIAL HISTORY: See Below. PHYSICAL EXAM: GENERAL: Patient is in no acute distress. HEENT: No acute trauma, normocephalic atraumatic, mucous membranes moist, no nasal congestion, no scleral icterus. NECK: No stridor, no adenopathy, no meningismus, trachea is midline. LUNGS: Diminished breath sounds bilaterally, no wheezing or rhonchi, no sign ificant respiratory distress. HEART: Without murmurs gallops or rubs, regular rate and rhythm. ABDOMEN: Soft, nontender, bowel sounds positive, no hernias, no peritonitis. EXTREMITIES: No cyanosis, full range of motion of all the joints without pain or difficulty, no signs for acute trauma. NEUROLOGIC: Oriented x 3, no acute motor or sensory deficits, no focal weakness. SKIN: No rash, no jaundice, no diaphoresis. DIFFERENTIAL DIAGNOSIS: Reactive airway disease, pneumonia, pneumothorax, COPD, COVID-19, CHF, infection, cardiac ischemia, pulmonary embolism, bronchitis, musculoskeletal, gastrointestinal, as well as other pathologies. EMERGENCY DEPARTMENT COURSE/PROCEDURES: ECG: Indication was shortness of breath. The ECG shows a ventricular pacemaker with a rate of 61. There is some baseline artifact. No PVCs, no obvious ST elevation. The QTc is 493. Continuous Cardiac Monitoring: An order was placed for continuous cardiac monitoring. The monitor shows a rate of 62 with a ventricular pacemaker. MEDICAL DECISION MAKING: There is no leukocytosis. The patient is anemic but this is baseline when looking back at previous testing. Platelet count somewhat low at 103. No coagulopathy. Creatinine is elevated at 1.62, this is relatively baseline for the patient. Lactic acid level is elevated at 3.4, this could be consistent with infection. Of note, looking back at previous testing, his lactic acid level has been higher with most of his visits. Bilirubin was up at 1.8, no other liver enzyme elevation. BNP was elevated at over 4000, consistent with CHF and fluid overload. ECG showed a ventricular pacemaker. Cardiac enzyme testing x1 was not consistent with acute cardiac injury. Chest film was suggestive of some CHF. Chest CT shows evidence for CHF. No pneumonia. Covid testing returned negative. The patient initially received a small IV 500 cc saline bolus. He was given IV cefepime for antibiotic coverage. He was given a DuoNeb. When the findings of CHF were discovered, the patient was given IV Lasix and nitroglycerin paste. The patient presents with cough, increasing dyspnea. He has underlying lung and cardiac disease. He appears to be in heart failure. I do think a hospital stay for diuresis would be warranted. I spoke to the patient, I talked to case management. The on-call hospitalist was consulted. Past Med/Surg History Medical History Asthma Atrial fibrillation Atrial flutter Chronic diastolic heart failure CKD (chronic kidney disease) stage 3, GFR 30-59 ml/min DM type 2 (diabetes mellitus, type 2) Dyslipidemia HTN (hypertension) Liver cirrhosis Obesity BMI fall 2019 48 JUVE (obstructive sleep apnea) Pulmonary hypertension Thrombocytopenia Surgical History H/O eye surgery "eye removed, implant attached" H/O repair of left rotator cuff H/O repair of right rotator cuff History of back surgery History of bilateral knee arthroplasty History of carpal tunnel surgery of left wrist History of carpal tunnel surgery of right wrist S/P hip replacement S/P laminectomy Family History Other Family history non-contributory Social History Smoking Status: Former smoker Second Hand Exposure: No; Hx Alcohol Use: No Hx Substance Use: No Preferred Language: Cameroonian Communication Ability: Effective 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 Beliefs That Will Affect Care: None marital status: Current Living Situation: Spouse current occupation: self-employed Feels Safe at Home: Yes Assistive Devices: CPAP and Oxygen - Continuous Allergies Allergies Allergy/AdvReac Type Severity Reaction Status Date / Time Penicillins Allergy Intermediate RASH AND Verified 06/01/21 15:20 [facility] Home Meds Home Medications Medication Instructions Recorded Confirmed albuterol sulfate 90 mcg/actuation 2 - 4 puff INHALATION Q6H PRN 10/08/18 06/01/21 aerosol inhaler (Ventolin HFA) ascorbic acid (vitamin C) 1,000 mg 1,000 mg PO QAM 10/08/18 06/01/21 tablet (Vitamin C) atorvastatin 20 mg tablet 20 mg PO QAM 10/08/18 06/01/21 hydrocodone 5 mg-acetaminophen 300 1 tab PO Q6H PRN 10/08/18 06/01/21 mg tablet amlodipine 5 mg tablet 2.5 mg PO QPM 03/27/20 06/01/21 ipratropium 0.5 mg-albuterol 3 mg 3 ml INHALATION Q6H PRN 03/27/20 06/01/21 (2.5 mg base)/3 mL nebulization soln metoprolol succinate 50 mg 50 mg PO QAM 03/27/20 06/01/21 tablet,extended release 24 hr spironolactone 25 mg tablet 25 mg PO QAM 03/27/20 06/01/21 (Aldactone) vitamin E 400 unit capsule 400 unit PO QAM 03/27/20 06/01/21 apixaban 5 mg tablet (Eliquis) 5 mg PO BID 06/01/21 06/01/21 furosemide 40 mg tablet 40 mg PO BID 06/01/21 06/01/21 insulin glargine 100 unit/mL 70 unit SUBCUT BID 06/01/21 06/01/21 subcutaneous solution (Lantus U-100 Insulin) levothyroxine 50 mcg tablet 50 mcg PO DAILY 06/01/21 06/01/21 metformin 500 mg tablet 1,000 mg PO BID 06/01/21 06/01/21 semaglutide (Ozempic) 0.5 mg SUBCUT WK 06/01/21 06/01/21 tamsulosin 0.4 mg capsule 0.4 mg PO DAILY 06/01/21 06/01/21 Results & Data (ED) Vital Signs Vital Signs - 24 hr 06/01/21 15:05 06/01/21 15:07 06/01/21 15:16 Temperature 37.1 C Temperature Source Oral Pulse Rate 66 75 Pulse Rate [Right Finger] Pulse Rate from SpO2 Sensor 66 Respiratory Rate 18 Respiratory Effort / Characteristics Blood Pressure 138/110 H 138/110 H Blood Pressure Mean 119 119 Pulse Oximetry 97 95 95 Oxygen Delivery Method Nasal Cannula Nasal Cannula Nasal Cannula Oxygen Flow Rate 2 2 2 Sepsis Recent Fever Within 48 Hours No Sepsis New/Unexplained Change in Mental Status No Sepsis Action Taken by Nursing No Action Required 06/01/21 15:23 06/01/21 15:30 06/01/21 15:40 Temperature Temperature Source Pulse Rate 64 66 63 Pulse Rate [Right Finger] Pulse Rate from SpO2 Sensor 65 66 64 Respiratory Rate 22 21 Respiratory Effort / Characteristics Blood Pressure Blood Pressure Mean Pulse Oximetry 91 99 99 Oxygen Delivery Method Nasal Cannula Nasal Cannula Nasal Cannula Oxygen Flow Rate 2 2 2 Sepsis Recent Fever Within 48 Hours Sepsis New/Unexplained Change in Mental Status Sepsis Action Taken by Nursing 06/01/21 15:50 06/01/21 16:00 06/01/21 16:10 Temperature Temperature Source Pulse Rate 60 62 60 Pulse Rate [Right Finger] Pulse Rate from SpO2 Sensor 60 62 60 Respiratory Rate 24 Respiratory Effort / Characteristics Blood Pressure Blood Pressure Mean Pulse Oximetry 97 98 100 Oxygen Delivery Method Nasal Cannula Oxygen Flow Rate 2 Sepsis Recent Fever Within 48 Hours Sepsis New/Unexplained Change in Mental Status Sepsis Action Taken by Nursing 06/01/21 16:20 06/01/21 16:30 06/01/21 17:28 Temperature Temperature Source Pulse Rate 66 80 Pulse Rate [Right Finger] 68 Pulse Rate from SpO2 Sensor 66 69 Respiratory Rate 18 Respiratory Effort / Characteristics Non-Labored Spontaneous Blood Pressure 143/58 H Blood Pressure Mean 86 Pulse Oximetry 99 99 Oxygen Delivery Method Nasal Cannula Oxygen Flow Rate 2 Sepsis Recent Fever Within 48 Hours Sepsis New/Unexplained Change in Mental Status Sepsis Action Taken by Custodial Medications Current Medication List: was personally reviewed by me Laboratory Data Attestation: I reviewed the patient's lab results. Result diagrams: 06/01/21 15:05 06/01/21 15:05 Lab Results 06/01/21 06/01/21 06/01/21 Range/Units 15:05 15:05 15:05 WBC 7.64 (4.8-10.8) K/uL RBC 3.94 L (4.7-6.1) M/uL Hgb 11.8 L (14.0-18.0) g/dL Hct 35.6 L (42-52) % MCV 90.4 (80-100) fL MCH 29.9 (25-34) pg MCHC 33.1 (32-36) g/dL RDW Std Deviation 48.4 H (36.4-46.3) fL RDW Coeff of Ct 14.7 H (11.5-14.5) % Plt Count 103 L (130-400) K/uL MPV 12.1 H (7.4-10.4) fL Immature Gran % (Auto) 0.3 % Neut % (Auto) 73.7 % Lymph % (Auto) 13.6 % Amelia % (Auto) 11.9 % Eos % (Auto) 0.4 % Baso % (Auto) 0.1 % Neut # (Auto) 5.63 (1.4-6.5) K/uL Lymph # (Auto) 1.04 L (1.2-3.4) K/uL Amelia # (Auto) 0.91 H (0.11-0.59) K/uL Eos # (Auto) 0.03 (0-0.5) K/uL Baso # (Auto) 0.01 (0-0.2) K/uL Immature Gran # (Auto) 0.02 (0.00-0.02) K/uL Platelet Estimate Decreased L (Normal) Polychromasia 1+ PT 10.7 (9.0-12.0) Seconds INR 1.1 (0.9-1.1) APTT 33.0 H (21.0-31.0) Seconds PTT Ratio 1.3 Sodium 139 (136-145) mmol/L Potassium 3.8 (3.5-5.1) mmol/L Chloride 107 (98-107) mmol/L Carbon Dioxide 23 (21-32) mmol/L Anion Gap 9.0 (3-11) BUN 26 H (7-18) mg/dl Creatinine 1.62 H (0.6-1.4) mg/dl Est Cr Clr Drug Dosing 50.0 ml/min Est GFR ( Amer) 44.8 ml/min Est GFR (Non-Af Amer) 38.7 ml/min BUN/Creatinine Ratio 15.9 (10-20) Glucose 109 H (70-99) mg/dl Lactate (0.4-2.0) mmol/L Calcium 8.8 (8.5-10.1) mg/dl Magnesium 2.2 (1.8-2.4) mg/dl Total Bilirubin 1.8 H (0.2-1) mg/dl AST 25 (15-37) U/L ALT 20 (12-78) U/L Alkaline Phosphatase 45 (45-117) U/L Troponin I < 0.015 (0-0.045) ng/ml NT-Pro-B Natriuret Pep (0-1800) pg/ml Total Protein 7.5 (6.4-8.2) gm/dl Albumin 3.4 (3.4-5.0) gm/dl Globulin 4.1 H (2.5-4.0) gm/dl Albumin/Globulin Ratio 0.8 L (0.9-2) COVID-19 Eval Order SARS-CoV-2 (PCR) (Negative) 06/01/21 06/01/21 06/01/21 Range/Units 15:05 15:20 15:20 WBC (4.8-10.8) K/uL RBC (4.7-6.1) M/uL Hgb (14.0-18.0) g/dL Hct (42-52) % MCV (80-100) fL MCH (25-34) pg MCHC (32-36) g/dL RDW Std Deviation (36.4-46.3) fL RDW Coeff of Ct (11.5-14.5) % Plt Count (130-400) K/uL MPV (7.4-10.4) fL Immature Gran % (Auto) % Neut % (Auto) % Lymph % (Auto) % Amelia % (Auto) % Eos % (Auto) % Baso % (Auto) % Neut # (Auto) (1.4-6.5) K/uL Lymph # (Auto) (1.2-3.4) K/uL Amelia # (Auto) (0.11-0.59) K/uL Eos # (Auto) (0-0.5) K/uL Baso # (Auto) (0-0.2) K/uL Immature Gran # (Auto) (0.00-0.02) K/uL Platelet Estimate (Normal) Polychromasia PT (9.0-12.0) Seconds INR (0.9-1.1) APTT (21.0-31.0) Seconds PTT Ratio Sodium (136-145) mmol/L Potassium (3.5-5.1) mmol/L Chloride (98-107) mmol/L Carbon Dioxide (21-32) mmol/L Anion Gap (3-11) BUN (7-18) mg/dl Creatinine (0.6-1.4) mg/dl Est Cr Clr Drug Dosing ml/min Est GFR ( Amer) ml/min Est GFR (Non-Af Amer) ml/min BUN/Creatinine Ratio (10-20) Glucose (70-99) mg/dl Lactate (0.4-2.0) mmol/L Calcium (8.5-10.1) mg/dl Magnesium (1.8-2.4) mg/dl Total Bilirubin (0.2-1) mg/dl AST (15-37) U/L ALT (12-78) U/L Alkaline Phosphatase (45-117) U/L Troponin I (0-0.045) ng/ml NT-Pro-B Natriuret Pep 4232 H (0-1800) pg/ml Total Protein (6.4-8.2) gm/dl Albumin (3.4-5.0) gm/dl Globulin (2.5-4.0) gm/dl Albumin/Globulin Ratio (0.9-2) COVID-19 Eval Order Covid19 at [facility] SARS-CoV-2 (PCR) NEGATIVE (Negative) 06/01/21 Range/Units 15:40 WBC (4.8-10.8) K/uL RBC (4.7-6.1) M/uL Hgb (14.0-18.0) g/dL Hct (42-52) % MCV (80-100) fL MCH (25-34) pg MCHC (32-36) g/dL RDW Std Deviation (36.4-46.3) fL RDW Coeff of Ct (11.5-14.5) % Plt Count (130-400) K/uL MPV (7.4-10.4) fL Immature Gran % (Auto) % Neut % (Auto) % Lymph % (Auto) % Amelia % (Auto) % Eos % (Auto) % Baso % (Auto) % Neut # (Auto) (1.4-6.5) K/uL Lymph # (Auto) (1.2-3.4) K/uL Amelia # (Auto) (0.11-0.59) K/uL Eos # (Auto) (0-0.5) K/uL Baso # (Auto) (0-0.2) K/uL Immature Gran # (Auto) (0.00-0.02) K/uL Platelet Estimate (Normal) Polychromasia PT (9.0-12.0) Seconds INR (0.9-1.1) APTT (21.0-31.0) Seconds PTT Ratio Sodium (136-145) mmol/L Potassium (3.5-5.1) mmol/L Chloride (98-107) mmol/L Carbon Dioxide (21-32) mmol/L Anion Gap (3-11) BUN (7-18) mg/dl Creatinine (0.6-1.4) mg/dl Est Cr Clr Drug Dosing ml/min Est GFR ( Amer) ml/min Est GFR (Non-Af Amer) ml/min BUN/Creatinine Ratio (10-20) Glucose (70-99) mg/dl Lactate 3.4 H* (0.4-2.0) mmol/L Calcium (8.5-10.1) mg/dl Magnesium (1.8-2.4) mg/dl Total Bilirubin (0.2-1) mg/dl AST (15-37) U/L ALT (12-78) U/L Alkaline Phosphatase (45-117) U/L Troponin I (0-0.045) ng/ml NT-Pro-B Natriuret Pep (0-1800) pg/ml Total Protein (6.4-8.2) gm/dl Albumin (3.4-5.0) gm/dl Globulin (2.5-4.0) gm/dl Albumin/Globulin Ratio (0.9-2) COVID-19 Eval Order SARS-CoV-2 (PCR) (Negative) Administered Medications Discontinued Medications Albuterol (Albut/Ipratrop 3mg/0.5mg Neb 3 Ml Vial) 3 ml NEB NOW STA Stop: 06/01/21 16:30 Last Admin: 06/01/21 17:26 Dose: 3 ml Documented by: [id number] Sodium Chloride (Nss 1000ml) 500 mls @ 999 mls/hr IV .Q31M ONE Stop: 06/01/21 16:59 Last Admin: 06/01/21 17:11 Dose: 999 mls/hr Documented by: [id number] Cefepime HCl (Maxipime) 2,000 mg in 20 mls @ 5 mls/min IV NOW STA; Protocol Stop: 06/01/21 16:32 Last Admin: 06/01/21 17:10 Dose: 5 mls/min Documented by: [id number] Imaging Data Radiologist's Impression: Chest X-Ray 06/01/21 15:10 XR chest 1V portable CLINICAL HISTORY: SOB COMPARISON STUDY: November 13, 2020 FINDINGS: No pneumothorax. No pleural effusion. Lung volumes are decreased with crowded lung markings. Bronchograms are seen at the left retrocardiac region which could represent atelectasis or scarring and appears similar to prior study. Mild reticular nodular prominence of pulmonary interstitium is seen within left upper lung and the right upper and lower lungs and could represent scattered atelectasis of pulmonary edema. Cardiomediastinal silhouette is prominent. Pulmonary vasculature is indistinct.. Osseous structures: Degenerative changes of the spine. Degenerative changes of bilateral shoulders. Stable position of left-sided dual-lead pacemaker with battery pack seen within left axilla. IMPRESSION: 1. Mild reticular prominence of pulmonary interstitium which could be in part due to low lung volumes and could also represent pulmonary edema. 2. Redemonstration of prominent cardiomediastinal silhouette. 3. No pleural effusion seen. 4. The rest of findings as above. ACT 112: Negative or not required by law. The above report was generated using voice recognition software. It may contain grammatical, syntax or spelling errors. Electronically signed by: Rayna Pressely DO 06/01/2021 4:[address] 06/01/21 16:19 CT chest diagnostic wo con CT DOSE: 1268.59 mGy.cm CLINICAL HISTORY: 85 years-old Male with sob. Acute shortness of breath TECHNIQUE: Multiaxial CT images of the chest were performed without contrast. A dose lowering technique was utilized adhering to the principles of ALARA. COMPARISON: Chest CT 11/09/2020 FINDINGS: Unremarkable thyroid. Left subclavian pacer. Moderate cardiomegaly with extensive coronary artery calcifications. Mild fusiform dilation of the ascending thoracic aorta measuring 4.1 x 4.1 cm is unchanged. Mildly enlarged mediastinal lymph nodes include unchanged 1.5 cm right paratracheal lymph node on image 108. A 1.5 cm pretracheal lymph node on image 110. Small layering pleural effusions. No pneumothorax. Scattered calcified granulomata. Intralobular septal thickening is noted with multilobar bilateral intermixed centrilobular groundglass opacities within the right greater than left lungs. Subpleural reticular densities are also noted. Mild right hemidiaphragmatic elevation. The central airways are patent. No acute process of the imaged upper abdomen. Cholelithiasis. Marginal nodularity of the liver compatible with cirrhosis. No ascites. 9 mm hypodense lesion of the right hepatic lobe, possibly a cyst. Degenerative changes of the spine and shoulders. IMPRESSION: 1. Cardiomegaly with interstitial pulmonary edema and small pleural effusions. 2. Right greater than left multilobar distribution of centrilobular groundglass opacities are suggestive of alveolar pulmonary edema versus superimposed pneumonia. 3. Unchanged mild mediastinal adenopathy. 4. Cirrhosis. ACT 112: Negative or not required by law. Electronically signed by: David Cui M.D. 06/01/2021 4:56 PM Discharge Plan Visit Data Chief Complaint: Shortness of Breath/Dyspnea ED Provider: Rock Josue Discharge Problem: SOB (shortness of breath), CHF (congestive heart failure), Cough, Fluid overload Patient Disposition: Admitted As Inpatient Condition: Fair Forms Stand Alone Forms: [employer] Prescriptions Prescriptions: No Action ipratropium-albuterol 0.5 mg-3 mg(2.5 mg base)/3 mL solution for nebulization 3 ml INHALATION Q6H PRN (Reason: Cough or Wheezing) RF: 0 metoprolol succinate 50 mg tablet extended release 24 hr 50 mg PO QAM RF: 0 amlodipine 5 mg tablet 2.5 mg PO QPM RF: 0 spironolactone [Aldactone] 25 mg tablet 25 mg PO QAM RF: 0 vitamin E 400 unit Capsule 400 unit PO QAM RF: 0 ascorbic acid (vitamin C) [Vitamin C] 1,000 mg Tablet 1,000 mg PO QAM RF: 0 atorvastatin 20 mg Tablet 20 mg PO QAM RF: 0 albuterol sulfate [Ventolin HFA] 90 mcg/actuation Hfa Aerosol Inhaler 2 - 4 puff INHALATION Q6H PRN (Reason: Shortness Of Breath Or Wheezing) RF: 0 hydrocodone-acetaminophen 5-300 mg Tablet 1 tab PO Q6H PRN (Reason: Pain) RF: 0 Eliquis 5 mg tablet 5 mg PO BID RF: 0 furosemide 40 mg tablet 40 mg PO BID RF: 0 Lantus U-100 Insulin 100 unit/mL solution 70 unit SUBCUT BID RF: 0 levothyroxine 50 mcg tablet 50 mcg PO DAILY RF: 0 Ozempic 0.25 mg or 0.5 mg(2 mg/1.5 mL) pen injector 0.5 mg SUBCUT WK RF: 0 tamsulosin 0.4 mg capsule 0.4 mg PO DAILY RF: 0 metformin 500 mg tablet 1,000 mg PO BID RF: 0 Referrals Referrals: Akhil Nevarez MD [Primary Care Provider] -
[2021-06-01 15:33] LABS: INR 1.1 (0.9-1.1); Partial Thromboplastin Ratio 1.3; Prothrombin Time 10.7 Seconds (9.0-12.0)
[2021-06-01 15:39] LABS: Hematocrit (blood only) 35.6 % (42-52); Hemoglobin 11.8 g/dL (14.0-18.0); Mean Corpuscular Hemoglobin 29.9 pg (25-34); Mean Corpuscular Hgb Conc 33.1 g/dL (32-36); Mean Corpuscular Volume 90.4 fL (80-100); Mean Platelet Volume 12.1 fL (7.4-10.4); Platelet Count 103 K/uL (130-400); RDW Coefficient of Variation 14.7 % (11.5-14.5); RDW Standard Deviation 48.4 fL (36.4-46.3); Red Blood Count 3.94 M/uL (4.7-6.1); White Blood Count 7.64 K/uL (4.8-10.8)
[2021-06-01 15:40] LABS: Alanine Aminotransferase 20 U/L (12-78); Albumin Level 3.4 gm/dl (3.4-5.0); Aspartate Aminotransferase 25 U/L (15-37); BUN Creatinine Ratio 15.9 (10-20); Basophils # (auto) 0.01 K/uL (0-0.2); Basophils % (auto) 0.1 %; Blood Urea Nitrogen 26 mg/dl (7-18); Calcium 8.8 mg/dl (8.5-10.1); Carbon Dioxide 23 mmol/L (21-32); Chloride 107 mmol/L (98-107); Eosinophils # (auto) 0.03 K/uL (0-0.5); Eosinophils % (auto) 0.4 %; Est GFR (African American) 44.8 ml/min; Est GFR (Non-African American) 38.7 ml/min; Glucose 109 mg/dl (70-99); Immature Granulocytes # (auto) 0.02 K/uL (0.00-0.02); Immature Granulocytes % (auto) 0.3 %; Lymphocytes # (auto) 1.04 K/uL (1.2-3.4); Lymphocytes % (auto) 13.6 %; Magnesium 2.2 mg/dl (1.8-2.4); Monocytes # (auto) 0.91 K/uL (0.11-0.59); Monocytes % (auto) 11.9 %; Neutrophils # (auto) 5.63 K/uL (1.4-6.5); Neutrophils % (auto) 73.7 %; Platelet Estimate Decreased (Normal); Polychromasia 1+; Potassium 3.8 mmol/L (3.5-5.1); Sodium 139 mmol/L (136-145)
[2021-06-01 15:45] LABS: Albumin Globulin Ratio 0.8 (0.9-2); Alkaline Phosphatase 45 U/L (45-117); Bilirubin,Total 1.8 mg/dl (0.2-1); Globulin 4.1 gm/dl (2.5-4.0); Total Protein 7.5 gm/dl (6.4-8.2); Troponin I < 0.015 ng/ml (0-0.045)
--- NOTE | 2021-06-01 16:07 | XRay Report ---
XR chest 1V portable CLINICAL HISTORY: SOB COMPARISON STUDY: November 13, 2020 FINDINGS: No pneumothorax. No pleural effusion. Lung volumes are decreased with crowded lung markings. Bronchograms are seen at the left retrocardiac region which could represent atelectasis or scarring a nd appears similar to prior study. Mild reticular nodular prominence of pulmonary interstitium is seen within left upper lung and the ri ght upper and lower lungs and could represent scattered atelectasis of pulmonary edema. Cardiomediastinal silhouette is prominent. Pulmonary vasculature is indistinct.. Osseous structures: Degenerative changes of the spine. Degenerative changes of bilateral shoulders. Stable position of left-sided dual-lead pacemaker with battery pack seen within left axilla. IMPRESSION: 1. Mild reticular prominence of pulmonary interstitium which could be in part due to low lung volume s and could also represent pulmonary edema. 2. Redemonstration of prominent cardiomediastinal silhouette. 3. No pleural effusion seen. 4. The rest of findings as above. ACT 112: Negative or not required by law. The above report was generated using voice recognition software. It may contain grammatical, syntax o r spelling errors. Electronically signed by: Rayna Pressley DO 06/01/2021 4:05 PM
--- NOTE | 2021-06-01 16:20 | Electrocardiogram Report ---
Test Reason : Blood Pressure : / mmHG Vent. Rate : 061 BPM Atrial Rate : 050 BPM P-R Int : 000 ms QRS Dur : 184 ms QT Int : 490 ms P-R-T Axes : 000 -86 111 degrees QTc Int : 493 ms Poor data quality, interpretation may be adversely affected Ventricular-paced rhythm Underlying rhythm Atrial fibrillation Abnormal ECG When compared with ECG of 09-NOV-2020 20:47, Premature ventricular complexes are no longer Present Vent. rate has decreased BY 20 BPM Confirmed by Jacques Bishop ([id number]) on 06/01/2021 4:20:15 PM Referred By: ED Confirmed By:Jacques Bishop
[2021-06-01] MEDS ORDERED: CEFEPIME 2,000 MG/20 ML VIAL IV STA (16:29)
[2021-06-01] MEDS ORDERED: ALBUT/IPRATROP 3MG/0.5MG NEB 3 ML VIAL NEB STA (16:29)
[2021-06-01] MEDS ORDERED: SODIUM CHLORIDE 0.9% 1000ML 500 ML IV ONE (16:29)
--- NOTE | 2021-06-01 16:57 | CT Scan Report ---
CT chest diagnostic wo con CT DOSE: 1268.59 mGy.cm CLINICAL HISTORY: 85 years-old Male with sob. Acute shortness of breath TECHNIQUE: Multiaxial CT images of the chest were performed without contrast. A dose lowering techni que was utilized adhering to the principles of ALARA. COMPARISON: Chest CT 11/09/2020 FINDINGS: Unremarkable thyroid. Left subclavian pacer. Moderate cardiomegaly with extensive coronary artery calcifications. Mild fusiform dilation of the ascending thoracic aorta measuring 4.1 x 4.1 cm is unchanged. Mildly enlarged mediastinal lymph nodes include unchanged 1.5 cm right paratracheal lym ph node on image 108. A 1.5 cm pretracheal lymph node on image 110. Small layering pleural effusions. No pneumothorax. Scattered calcified granulomata. Intralobular septal thickening is noted with multi lobar bilateral intermixed centrilobular groundglass opacities within the right greater than left luis gs. Subpleural reticular densities are also noted. Mild right hemidiaphragmatic elevation. The centra l airways are patent. No acute process of the imaged upper abdomen. Cholelithiasis. Marginal nodularity of the liver compat ible with cirrhosis. No ascites. 9 mm hypodense lesion of the right hepatic lobe, possibly a cyst. De generative changes of the spine and shoulders. IMPRESSION: 1. Cardiomegaly with interstitial pulmonary edema and small pleural effusions. 2. Right greater than left multilobar distribution of centrilobular groundglass opacities are suggest ankur of alveolar pulmonary edema versus superimposed pneumonia. 3. Unchanged mild mediastinal adenopathy. 4. Cirrhosis. ACT 112: Negative or not required by law. Electronically signed by: David Cui M.D. 06/01/2021 4:56 PM
[2021-06-01] MEDS ORDERED: FUROSEMIDE 40 MG/4 ML VIAL IV STA (17:13)
[2021-06-01] MEDS ORDERED: NITROGLYCERIN 2% OINTMENT 30GM TUBE EXT STA (17:13)
--- NOTE | 2021-06-01 17:46 | History & Physical Report ---
Date of Service June 01, 2021 Assessment & Plan (1) Acute on chronic respiratory failure with hypoxia: (2) SOB (shortness of breath): Plan: This is an 85yo M with a PMH of chronic diastolic heart failure (EF 55%, TTE 2019), SSS s/p pacemaker, paroxysmal A Fib on Eliquis, chronic respiratory failure 2/2 possible ILD and pulmonary hypertension on 2L home O2 PRN, JUVE on CPAP, HTN,DM II, CKD III, cirrhosis as per records, chronic anemia (baseline hemoglobin 11), chronic thrombocytopenia and other medical problems listed below who presents with SOB and blood-tinged sputum since this morning. More short of breath over the past few days, prompting continuous 2-3 L NC oxygen rather than as needed baseline Likely multifactorial in setting of decompensated heart failure, hemoptysis in setting of possible pneumonia Continue supplemental O2 (3) Hemoptysis: Plan: Productive cough with blood tinged sputum x 1 day Similar to presentations of PNA in the past in setting of viral/atypical PNA Followed by pulm on previous admissions - bronchoscopy in March 2020 revealing erythematous bronchial mucosa with blood-tinged saline lavage, prompting transfer to [facility] Plan to hold Eliquis and schedule cough suppressants round the clock for now CT chest with interstitial pulmonary edema and small pleural effusions, R>L multilobar distribution of centrilobular ground glass opacities are suggestive of alveolar pulmonary edema versus superimposed pneumonia Covid PCR negative. Patient vaccinated Continue empiric Cefepime, doxycycline. MRSA swab pending. Follow blood cultures Pulmonology consult (4) Acute on chronic diastolic heart failure: Plan: Endorsing 50 pound weight gain over the past 6 months Multiple admissions in the past with decompensated CHF requiring IV diuresis Most recent echo from January 2020 with preserved EF of 55% Given 40 mg IV Lasix in ED. Plan to give additional dose of 40 mg IV in a.m. Cardiology consult placed Low-sodium diet, strict I&Os, daily weights (5) Lactic acidosis: Plan: Lactate initially 3.4 but now 2 Likely elevated in setting of home nebs, metformin (6) Generalized weakness: Plan: In setting of decompensated HF, infection, weight gain Fall precautions, PT/OT evaluation, discharge planning (7) Atrial fibrillation: Plan: Continue Toprol Holding anticoagulation for now in setting of hemoptysis Consider reducing Eliquis dose in manager intermediate (8) DM type 2 (diabetes mellitus, type 2): Plan: A1c 8.3 in January 2021 Hold home agents Glycemic consult placed BSG AC HS (9) HTN (hypertension): Plan: Continue Toprol, Losartan, amlodipine (10) Thrombocytopenia: Plan: Plt 103 (lower end of baseline). 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 Working with RD in outpatient setting DVT Ppx: Holding Eliquis in setting of hemoptysis Code status: FULL PCP: Geri Dispo: Admitted to PCU. Discharge planning ordered Patient seen in collaboration with Dr. Onofre. Please see addendum. History of Present Illness Chief Complaint: SOB, hemoptysis Primary Care Provider: Akhil Nevarez MD This is an 85yo M with a PMH of chronic diastolic heart failure (EF 55%, TTE 2019), SSS s/p pacemaker, paroxysmal A Fib on Eliquis, chronic respiratory failure 2/2 possible ILD and pulmonary hypertension on 2L home O2 PRN, JUVE on CPAP, HTN,DM II, CKD III, cirrhosis as per records, chronic anemia (baseline hemoglobin 11), chronic thrombocytopenia and other medical problems listed below who presents with SOB and blood-tinged sputum since this morning. Patient has been feeling more short of breath over the past few days, prompting him to use 2 to 3 L nasal cannula oxygen continuously rather than as needed baseline. Also feeling significantly more generally weak even with ambulation around his home. Developed blood tinged sputum this morning, coughing up 1/4 teaspoon amounts of sputum at a time that is clear but streaked with bright red blood. States he has been admitted for something similar multiple times in the past, most recently in November 2020. Presentation usually mixed decompensated heart failure requiring IV diuresis as well as hemoptysis in setting of viral pneumonitis/atypical pneumonia. Back in 2019, patient was transferred to [facility] due to bronchoscopy revealing erythematous bronchial mucosa with blood- tinged saline lavage. Patient improved with antibiotics and diuresis. During admission, cardiology recommended that Eliquis dose be decreased to 2.5 mg twice daily eventually - was held at discharge and then eventually resumed in outpatient setting to 5mg BID. Patient endoring approximate 50 pound weight gain in past 6-7 months. Is taking medications as scheduled. Endorses chills, nasal congestion, SOB, generalized weakness and pleuritic chest pain. Denies fever, lightheadedness, headache or wheezing. No palpitations, orthopnea, PND or BLE edema. No nausea, vomiting, abdominal pain, dysuria, diarrhea or constipation. Allergies Allergy/AdvReac Type Severity Reaction Status Date / Time Penicillins Allergy Intermediate RASH AND Verified 06/01/21 15:20 [facility] Home Medications Medication Instructions Recorded Confirmed Type albuterol sulfate 90 mcg/actuation 2 - 4 puff INHALATION Q6H PRN 10/08/18 06/01/21 History aerosol inhaler (Ventolin HFA) ascorbic acid (vitamin C) 1,000 mg 1,000 mg PO QAM 10/08/18 06/01/21 History tablet (Vitamin C) atorvastatin 20 mg tablet 20 mg PO QAM 10/08/18 06/01/21 History hydrocodone 5 mg-acetaminophen 300 1 tab PO Q6H PRN 10/08/18 06/01/21 History mg tablet amlodipine 5 mg tablet 2.5 mg PO QPM 03/27/20 06/01/21 History ipratropium 0.5 mg-albuterol 3 mg 3 ml INHALATION Q6H PRN 03/27/20 06/01/21 History (2.5 mg base)/3 mL nebulization soln metoprolol succinate 50 mg 50 mg PO QAM 03/27/20 06/01/21 History tablet,extended release 24 hr spironolactone 25 mg tablet 25 mg PO QAM 03/27/20 06/01/21 History (Aldactone) vitamin E 400 unit capsule 400 unit PO QAM 03/27/20 06/01/21 History apixaban 5 mg tablet (Eliquis) 5 mg PO BID 06/01/21 06/01/21 History cyanocobalamin (vitamin B-12) 100 100 mcg PO DAILY 06/01/21 06/01/21 History mcg tablet ferrous sulfate 325 mg (65 mg 325 mg PO DAILY 06/01/21 06/01/21 History iron) tablet furosemide 40 mg tablet 40 mg PO BID 06/01/21 06/01/21 History insulin glargine 100 unit/mL 70 unit SUBCUT BID 06/01/21 06/01/21 History subcutaneous solution (Lantus U-100 Insulin) levothyroxine 50 mcg tablet 50 mcg PO DAILY 06/01/21 06/01/21 History losartan 50 mg tablet 50 mg PO BID 06/01/21 06/01/21 History metformin 500 mg tablet 1,000 mg PO BID 06/01/21 06/01/21 History semaglutide (Ozempic) 0.5 mg SUBCUT WK 06/01/21 06/01/21 History tamsulosin 0.4 mg capsule 0.4 mg PO DAILY 06/01/21 06/01/21 History Past Med/Surg History Medical History (Updated 06/01/21 @ 19:34 by Shira Nunez PA-C) Anemia due to chronic kidney disease Asthma Atherosclerotic heart disease Atrial fibrillation Blind right eye Chronic diastolic heart failure Chronic hypoxemic respiratory failure CKD (chronic kidney disease) stage 3, GFR 30-59 ml/min DM type 2 (diabetes mellitus, type 2) Dyslipidemia History of complete heart block History of pacemaker History of recurrent pneumonia HTN (hypertension) 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 Liver cirrhosis Long-term insulin use Lumbar degenerative disc disease LVH (left ventricular hypertrophy) due to hypertensive disease Obesity BMI fall 2019 48 JUVE (obstructive sleep apnea) on CPAP Pulmonary hypertension SOB (shortness of breath) Thrombocytopenia Surgical History H/O eye surgery "eye removed, implant attached" H/O repair of left rotator cuff H/O repair of right rotator cuff History of back surgery History of bilateral knee arthroplasty History of carpal tunnel surgery of left wrist History of carpal tunnel surgery of right wrist S/P hip replacement S/P laminectomy Family History (Updated 06/01/21 @ 19:02 by Shira Nunez PA-C) Other Diabetes Heart disease Social History Smoking Status: Never smoker Second Hand Exposure: No; Hx Alcohol Use: Yes Alcohol type: beer Hx Substance Use: No Preferred Language: Czech Communication Ability: Effective Thoracic Medicine Physician Required: No Beliefs That Will Affect Care: None marital status: Current Living Situation: Spouse current occupation: self-employed Feels Safe at Home: Yes Safety Concerns: Feels Safe At This Time Assistive Devices: BiPap, Denture - Upper, Denture - Lower and Glasses Review of Systems Review of Systems: At least ten systems reviewed and negative except as noted in the HPI. Physical Exam Physical Exam: Please see Dr. Onofre's addendum for physical exam. Results & Data Results & Data ([facility]) Vital Signs (Past 12 Hours) Vital Signs Temp Pulse Pulse Resp BP Pulse Ox 06/01/21 17:28 68 18 99 06/01/21 16:30 80 143/58 H 06/01/21 16:20 66 99 06/01/21 16:10 60 24 100 06/01/21 16:00 62 98 06/01/21 15:50 60 97 06/01/21 15:40 63 21 99 06/01/21 15:30 66 22 99 06/01/21 15:23 64 91 06/01/21 15:16 95 06/01/21 15:07 37.1 C 75 18 138/110 H 95 06/01/21 15:05 66 138/110 H 97 Laboratory Results Short CBC 06/01/21 Range/Units 15:05 WBC 7.64 (4.8-10.8) K/uL Hgb 11.8 L (14.0-18.0) g/dL Hct 35.6 L (42-52) % Plt Count 103 L (130-400) K/uL BMP 06/01/21 15:05 Sodium 139 Potassium 3.8 Chloride 107 Carbon Dioxide 23 BUN 26 H Creatinine 1.62 H Glucose 109 H Calcium 8.8 Cardiac Enzymes 06/01/21 Range/Units 15:05 Troponin I < 0.015 (0-0.045) ng/ml Liver Function 06/01/21 Range/Units 15:05 Total Bilirubin 1.8 H (0.2-1) mg/dl AST 25 (15-37) U/L ALT 20 (12-78) U/L Alkaline Phosphatase 45 (45-117) U/L Albumin 3.4 (3.4-5.0) gm/dl Diagnostic Findings Chest X-Ray 06/01/21 15:10 XR chest 1V portable CLINICAL HISTORY: SOB COMPARISON STUDY: November 13, 2020 FINDINGS: No pneumothorax. No pleural effusion. Lung volumes are decreased with crowded lung markings. Bronchograms are seen at the left retrocardiac region which could represent atelectasis or scarring and appears similar to prior study. Mild reticular nodular prominence of pulmonary interstitium is seen within left upper lung and the right upper and lower lungs and could represent scattered atelectasis of pulmonary edema. Cardiomediastinal silhouette is prominent. Pulmonary vasculature is indistinct.. Osseous structures: Degenerative changes of the spine. Degenerative changes of bilateral shoulders. Stable position of left-sided dual-lead pacemaker with battery pack seen within left axilla. IMPRESSION: 1. Mild reticular prominence of pulmonary interstitium which could be in part due to low lung volumes and could also represent pulmonary edema. 2. Redemonstration of prominent cardiomediastinal silhouette. 3. No pleural effusion seen. 4. The rest of findings as above. ACT 112: Negative or not required by law. The above report was generated using voice recognition software. It may contain grammatical, syntax or spelling errors. Electronically signed by: Rayna Pressley DO 06/01/2021 4:[address] 06/01/21 16:19 CT chest diagnostic wo con CT DOSE: 1268.59 mGy.cm CLINICAL HISTORY: 85 years-old Male with sob. Acute shortness of breath TECHNIQUE: Multiaxial CT images of the chest were performed without contrast. A dose lowering technique was utilized adhering to the principles of ALARA. COMPARISON: Chest CT 11/09/2020 FINDINGS: Unremarkable thyroid. Left subclavian pacer. Moderate cardiomegaly with extensive coronary artery calcifications. Mild fusiform dilation of the ascending thoracic aorta measuring 4.1 x 4.1 cm is unchanged. Mildly enlarged mediastinal lymph nodes include unchanged 1.5 cm right paratracheal lymph node on image 108. A 1.5 cm pretracheal lymph node on image 110. Small layering pleural effusions. No pneumothorax. Scattered calcified granulomata. Intralobular septal thickening is noted with multilobar bilateral intermixed centrilobular groundglass opacities within the right greater than left lungs. Subpleural reticular densities are also noted. Mild right hemidiaphragmatic elevation. The central airways are patent. No acute process of the imaged upper abdomen. Cholelithiasis. Marginal nodularity of the liver compatible with cirrhosis. No ascites. 9 mm hypodense lesion of the right hepatic lobe, possibly a cyst. Degenerative changes of the spine and shoulders. IMPRESSION: 1. Cardiomegaly with interstitial pulmonary edema and small pleural effusions. 2. Right greater than left multilobar distribution of centrilobular groundglass opacities are suggestive of alveolar pulmonary edema versus superimposed pneumonia. 3. Unchanged mild mediastinal adenopathy. 4. Cirrhosis. ACT 112: Negative or not required by law. Electronically signed by: David Cui M.D. 06/01/2021 4:56 PM ECG Additional Comments: Ventricular paced rhythm, underlying atrial fibrillation. No significant changes from previous Supervising Physician Co-Signing Physician Notes Attending addendum: The patient was seen and examined in the emergency room in presence of the He has been complaining of increasing shortness of breath, cough with hemoptysis for the last few days Denies any chest pain and/or palpitation He has gained about 50 pounds in the last 6 months or so and he has some edema of the legs He has had hemoptysis before which resolved spontaneously He has history of pneumonia about 3 times last year On examination Minimal distress at rest Afebrile and hemodynamically stable Chestdecreased breath sounds with minimal crackles at the bases, more on the right than the left HeartS1-S2, irregular Abdomendistended, soft, bowel sounds present Extremities1+ edema bilaterally CNSalert, awake and oriented x3. Moves all extremities His admission labs, EKG and imaging studies reviewed Chest x-ray did show CHF and could be possible ongoing interstitial lung disease no definite pneumonic focus Afebrile and no increasing white count Ongoing hemoptysis likely secondary to interstitial lung disease, CHF were reviewed pneumonia Antibiotics have been started and he has been getting Lasix for CHF Cardiology and pulmonary medicine consulted Agree with assessment and plan as outlined above by MIAH [address] Dr (1) Atrial fibrillation Atrial fibrillation type: paroxysmal Qualified Code(s): I48.0 - Paroxysmal atrial fibrillation (2) HTN (hypertension) Hypertension type: essential hypertension Qualified Code(s): I10 - Essential (primary) hypertension
[2021-06-01] MEDS ORDERED: PHARMACY GLYCEMIC MGMT CONSULT STA (18:34)
[2021-06-01] MEDS ORDERED: CONSULT PHARMACY STA (18:36)
[2021-06-01] MEDS ORDERED: guaiFENesin/CODEINE 100MG/10MG 5ML UDC PO PRN (18:47)
[2021-06-01] MEDS ORDERED: DEXTROSE 50% 50 ML SYRINGE IV PRN (20:21)
[2021-06-01] MEDS ORDERED: ONDANSETRON INJ 2 MG/ML 2 ML VIAL IV PRN (20:21)
[2021-06-01] MEDS ORDERED: ALBUTEROL HFA 8 GM INHALER INH PRN (20:21)
[2021-06-01] MEDS ORDERED: ACETAMINOPHEN 325 MG TAB PO PRN (20:21)
[2021-06-01] MEDS ORDERED: GLUCAGON FOR INJ 1 MG VIAL SQ PRN (20:21)
[2021-06-01] MEDS ORDERED: CARBOHYDRATES FOR HYPOGLYCEMIA PO PRN (20:21)
[2021-06-01] MEDS ORDERED: GLUCOSE 10 TABS/TUBE PO PRN (20:21)
[2021-06-01] MEDS ORDERED: ALBUT/IPRATROP 3MG/0.5MG NEB 3 ML VIAL INH PRN (20:21)
[2021-06-01] MEDS ORDERED: GLUCOSE 40% GEL 15 GM TUBE PO PRN (20:21)
[2021-06-01] MEDS ORDERED: POLYETHYLENE (MIRALAX) 17 GM PACK PO PRN (20:21)
[2021-06-01] MEDS ORDERED: PHARMACY GLYCEMIC MGMT CONSULT PRN (20:22)
[2021-06-01] MEDS ORDERED: CONSULT PHARMACY PRN (20:22)
[2021-06-01] MEDS ORDERED: CEFEPIME CONSULT ACTIVE PRN (21:22)
[2021-06-01] MEDS: amLODIPine BESYLATE 5 MG TAB PO SCH (21:50)
[2021-06-01] MEDS: DOXYCYCLINE HYCLATE 100 MG in DEXTROSE 5% 100 ML IV SCH (21:50)
[2021-06-01] MEDS: BENZONATATE 100 MG CAPSULE PO SCH ×2 (21:50→22:07)
[2021-06-01] MEDS: LOSARTAN POTASSIUM 50 MG TAB PO SCH (21:50)
[2021-06-01] MEDS: INSULIN ASPART 100 UNITS/ML 3 ML PEN SC SCH (21:52)
[2021-06-01] MEDS ORDERED: DOXYCYCLINE PHARMACY CONSULT IN PROGRESS PRN (21:58)
[2021-06-01] MEDS ORDERED: INSULIN GLARGINE SOLOSTAR 100 UNITS/ML 3 ML PEN SC SCH (22:00)
[2021-06-02] MEDS: HYDROCODONE/ACETAMOPHEN 5/325MG TAB PO PRN ×2 (01:41→22:04)
[2021-06-02] MEDS ORDERED: INSULIN ASPART 100 UNITS/ML 3 ML PEN SC SCH (02:00)
[2021-06-02] MEDS: ZOLPIDEM TARTRATE 5 MG TAB PO PRN (02:03)
[2021-06-02 03:32] LABS: Hematocrit (blood only) 33.2 % (42-52); Hemoglobin 11.1 g/dL (14.0-18.0); Mean Corpuscular Hemoglobin 30.2 pg (25-34); Mean Corpuscular Hgb Conc 33.4 g/dL (32-36); Mean Corpuscular Volume 90.2 fL (80-100); Mean Platelet Volume 12.2 fL (7.4-10.4); Platelet Count 85 K/uL (130-400); RDW Coefficient of Variation 14.7 % (11.5-14.5); RDW Standard Deviation 48.3 fL (36.4-46.3); Red Blood Count 3.68 M/uL (4.7-6.1); White Blood Count 7.04 K/uL (4.8-10.8)
[2021-06-02 03:47] LABS: BUN Creatinine Ratio 17.6 (10-20); Blood Urea Nitrogen 27 mg/dl (7-18); Calcium 8.4 mg/dl (8.5-10.1); Carbon Dioxide 27 mmol/L (21-32); Chloride 109 mmol/L (98-107); Creatinine Clr Calc Pharmacy 50.5 ml/min; Est GFR (African American) 47.6 ml/min; Est GFR (Non-African American) 41.1 ml/min; Glucose 152 mg/dl (70-99); Potassium 3.8 mmol/L (3.5-5.1); Sodium 139 mmol/L (136-145)
[2021-06-02 03:52] LABS: Troponin I < 0.015 ng/ml (0-0.045)
[2021-06-02] MEDS: CEFEPIME 2,000 MG in SYRINGE 0 ML IV SCH ×2 (04:02→16:57)
[2021-06-02] MEDS: LEVOTHYROXINE SODIUM 50 MCG TABLET PO SCH (06:04)
--- NOTE | 2021-06-02 07:17 | Pulmonary Consultation ---
Date of Consultation June 02, 2021 Assessment & Plan (1) Acute on chronic respiratory failure with hypoxia: (2) Hemoptysis: (3) Acute on chronic diastolic heart failure: (4) SOB (shortness of breath): (5) Abnormal chest CT: (6) JUVE (obstructive sleep apnea): CT chest 06/01/2021 personally reviewed: Patchy groundglass opacities appreciated bilaterally upper and lower lobes more on the right upper and right lower lobe. Minimal mediastinal lymphadenopathy CAT scan 11/09/2020 has similar but worse opacities. Bronchoscopy 04/01/2020 at [facility]. Serial aliquots did not become more bloody with successive samples. BAL was mostly neutrophilic phallic and monocytic. Patient also had transjugular biopsy which showed benign bronchial tissue. No evidence of malignancy. Patient also had AFB negative, fungal cultures were negative. It did grow penicillium. Bacterial culture was negative and PCP smear was negative. Legionella negative, HSV and EBV along with CMV all negative. Aspergillus antigen was not detected. PFTs 08/12/2020: Mild restrictive lung disease, no obstructive dysfunction, mild decrease in DLCO. FVC 84%, FEV1 93%, FEV1/FVC 82%, RV 86%, TLC 75%, RV/TLC 46%, DLCO 64% --Hemoptysis with diffuse patchy groundglass opacities bilaterally more on the right side Patient has similar presentation back in March 2020 when he was transferred to [facility] and also November 2020 Patient had autoimmune work-up done back in March 2020 with similar presentation and it was negative. BNP 4232 WBC within normal limit COVID-19 PCR negative 06/01/2021 PT/INR within normal limit. Differential here for the patchy groundglass opacities could be atypical pulmonary edema, diffuse lower hemorrhage as well as atypical pneumonia I think diastolic CHF is playing a role in the findings that we see on the CAT scan. Especially given patient has gained 25 pounds. Patient might have NSIP-like pattern as well as the CAT scan which was done back in August 2020 still showed some groundglass opacities which are improving compared to the one done in March. Although his RAMON, ANCA, antiproteinase 3 and antimyeloperoxidase antibodies were negative on 03/28/2020 --Acute on chronic hypoxic respiratory failure Patient is on 2 L nasal cannula since March 2020 Continue O2 supplementation to keep oxygen saturation between 88-92% --JUVE with morbid obesity Continue with CPAP at night and when he is napping Plan: Continue with aggressive diuretics to keep the patient negative balance BiPAP nightly and as needed shortness of breath Hold apixaban Continue with rounder clock antitussive medication Monitor H&H Follow-up procalcitonin, CRP, urine Legionella as well as mycoplasma IgM Continue with antibiotics for the time being No plan for bronchoscopy currently Pulmonary will continue to follow. Please note the above document was generated using voice recognition software. It may contain grammatical, syntax or spelling errors.Any formal questions or concerns about the content, text or information contained within the body of this dictation should be directly addressed to the provider for clarification. History of Present Illness Attending Physician: Katharina Onofre MD History of Present Illness 85-year-old male with past medical history of diastolic heart failure, hypertension, chronic hypoxic respiratory failure on 2 L nasal cannula since March 2020, JUVE on CPAP, diabetes type 2, hypothyroidism Patient was admitted to the hospital with worsening shortness of breath going on since 7-10 days following cough and hemoptysis Hemoptysis has been going on since last 2 days. It is already decreased in amount since coming to the hospital Pulmonary were consulted for same Patient had exact same presentation back in November 2020 but he responded to IV diuretics and cough suppressant medication At the time of examination patient states that he feels better after coming to [facility] Cough is mostly clear sometimes he brings up blood which is bright red. Less than quarter in size. Denies any chest pain, no headache, no dizziness. No dysuria, no diarrhea. No hematuria, no hematochezia. Denies any fever or chills Does complain of weight gain of approximately 25 pounds. Social history: Non-smoker, no illicit drug use, no alcohol use. Allergies Allergy/AdvReac Type Severity Reaction Status Date / Time Penicillins Allergy Intermediate RASH AND Verified 06/01/21 15:20 [facility] Home Medications Medication Instructions Recorded Confirmed Type albuterol sulfate 90 mcg/actuation 2 - 4 puff INHALATION Q6H PRN 10/08/18 06/01/21 History aerosol inhaler (Ventolin HFA) ascorbic acid (vitamin C) 1,000 mg 1,000 mg PO QAM 10/08/18 06/01/21 History tablet (Vitamin C) atorvastatin 20 mg tablet 20 mg PO QAM 10/08/18 06/01/21 History hydrocodone 5 mg-acetaminophen 300 1 tab PO Q6H PRN 10/08/18 06/01/21 History mg tablet amlodipine 5 mg tablet 2.5 mg PO QPM 03/27/20 06/01/21 History ipratropium 0.5 mg-albuterol 3 mg 3 ml INHALATION Q6H PRN 03/27/20 06/01/21 History (2.5 mg base)/3 mL nebulization soln metoprolol succinate 50 mg 50 mg PO QAM 03/27/20 06/01/21 History tablet,extended release 24 hr spironolactone 25 mg tablet 25 mg PO QAM 03/27/20 06/01/21 History (Aldactone) vitamin E 400 unit capsule 400 unit PO QAM 03/27/20 06/01/21 History apixaban 5 mg tablet (Eliquis) 5 mg PO BID 06/01/21 06/01/21 History cyanocobalamin (vitamin B-12) 100 100 mcg PO DAILY 06/01/21 06/01/21 History mcg tablet ferrous sulfate 325 mg (65 mg 325 mg PO DAILY 06/01/21 06/01/21 History iron) tablet furosemide 40 mg tablet 40 mg PO BID 06/01/21 06/01/21 History insulin glargine 100 unit/mL 70 unit SUBCUT BID 06/01/21 06/01/21 History subcutaneous solution (Lantus U-100 Insulin) levothyroxine 50 mcg tablet 50 mcg PO DAILY 06/01/21 06/01/21 History losartan 50 mg tablet 50 mg PO BID 06/01/21 06/01/21 History metformin 500 mg tablet 1,000 mg PO BID 06/01/21 06/01/21 History semaglutide (Ozempic) 0.5 mg SUBCUT WK 06/01/21 06/01/21 History tamsulosin 0.4 mg capsule 0.4 mg PO DAILY 06/01/21 06/01/21 History Patient History Medical History Anemia due to chronic kidney disease Asthma Atherosclerotic heart disease Atrial fibrillation Blind right eye Chronic diastolic heart failure Chronic hypoxemic respiratory failure CKD (chronic kidney disease) stage 3, GFR 30-59 ml/min DM type 2 (diabetes mellitus, type 2) Dyslipidemia History of complete heart block History of pacemaker History of recurrent pneumonia HTN (hypertension) 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 Liver cirrhosis Long-term insulin use Lumbar degenerative disc disease LVH (left ventricular hypertrophy) due to hypertensive disease Obesity BMI fall 2019 48 JUVE (obstructive sleep apnea) on CPAP Pulmonary hypertension SOB (shortness of breath) Thrombocytopenia Surgical History H/O eye surgery "eye removed, implant attached" H/O repair of left rotator cuff H/O repair of right rotator cuff History of back surgery History of bilateral knee arthroplasty History of carpal tunnel surgery of left wrist History of carpal tunnel surgery of right wrist S/P hip replacement S/P laminectomy Family History Other Diabetes Heart disease Social History Smoking Status: Never smoker Second Hand Exposure: No; Hx Alcohol Use: Yes Alcohol type: beer Hx Substance Use: No Preferred Language: Tamazight Communication Ability: Effective Core Paster Required: No Beliefs That Will Affect Care: None marital status: Current Living Situation: Spouse current occupation: self-employed Feels Safe at Home: Yes Safety Concerns: Feels Safe At This Time Assistive Devices: Oxygen - Continuous Review of Systems Review of Systems: All systems reviewed & are unremarkable except as noted in HPI & below Physical Exam Physical Exam: Constitutional: No acute distress HEENT: EOMI, PERRLA Respiratory system: Decreased air entry bilaterally, no wheeze, no rhonchi, mild crackles bilateral lower lobes CVS: S1-S2 positive, no murmurs or gallops, distant heart sounds Abdomen: Soft, nontender, nondistended, positive bowel sounds x4, obese Extremities: +2 pulses bilaterally radialis/ dorsalis pedis, no cyanosis, +1 edema bilateral lower extremity Neuro: Awake alert oriented x3 Psych: Normal mood and affect G/U: No Edward Skin: no rashes, warm and dry Lymphatic: no cervical or axillary lymphadenopathy Results & Data Results & Data ([facility]) Vital Signs (Past 12 Hours) Vital Signs Temp Pulse Resp BP Pulse Ox 06/02/21 07:13 36.8 C 60 21 112/61 95 06/02/21 03:33 37.2 C 67 18 111/55 L 94 06/01/21 22:37 37.4 C 63 20 133/56 L 92 06/01/21 19:24 36.7 C 64 23 95 06/02/21 02:56 06/02/21 02:56 PG Care Time/CCT Total # of Minutes Spent Total Time Spent with Patient: Total time spent is greater than 50% in coordination of care (as documented) at patient's floor/unit and/or counseling patient: Coding Level of Care Code 83375 Initial Inpt Care Lvl 3 Diagnoses Acute on chronic respiratory failure with hypoxia J96.21 Hemoptysis R04.2 Acute on chronic diastolic heart failure I50.33 SOB (shortness of breath) R06.[address] R93.89 JUVE (obstructive sleep apnea) G47.33
[2021-06-02] MEDS: INSULIN ASPART 100 UNITS/ML 3 ML PEN SC SCH ×4 (08:18→23:40)
[2021-06-02] MEDS: INSULIN GLARGINE SOLOSTAR 100 UNITS/ML 3 ML PEN SC SCH ×2 (08:19→23:41)
[2021-06-02] MEDS: METOPROLOL SUCC 50MG EXT REL TAB PO SCH (08:20)
[2021-06-02] MEDS: SPIRONOLACTONE 25 MG TAB PO SCH (08:20)
[2021-06-02] MEDS: TAMSULOSIN HCL 0.4 MG CAP PO SCH (08:20)
[2021-06-02] MEDS: TOCOPHERYL, DL-ALPHA 400 UNITS 180 MG CAP PO SCH (08:21)
[2021-06-02] MEDS: ATORVASTATIN 20 MG TAB PO SCH (08:21)
[2021-06-02] MEDS: ASCORBIC ACID 500 MG TAB PO SCH (08:21)
[2021-06-02] MEDS: CYANOCOBALAMIN (VITAMIN B-12) 100 MCG TABLET PO SCH (08:21)
[2021-06-02] MEDS: FERROUS SULFATE 325 MG TAB PO SCH (08:21)
[2021-06-02] MEDS: LOSARTAN POTASSIUM 50 MG TAB PO SCH ×2 (08:21→21:53)
[2021-06-02] MEDS: BENZONATATE 100 MG CAPSULE PO SCH ×3 (08:21→21:52)
[2021-06-02] MEDS: DOXYCYCLINE HYCLATE 100 MG in DEXTROSE 5% 100 ML IV SCH ×2 (08:27→22:03)
--- NOTE | 2021-06-02 08:57 | Electrocardiogram Report ---
Test Reason : Blood Pressure : / mmHG Vent. Rate : 069 BPM Atrial Rate : 277 BPM P-R Int : 000 ms QRS Dur : 140 ms QT Int : 454 ms P-R-T Axes : 000 092 -74 degrees QTc Int : 486 ms Suspect unspecified pacemaker failure Atrial fibrillation with occasional ventricular-paced complexes Right bundle branch block T wave abnormality, consider inferolateral ischemia Abnormal ECG When compared with ECG of 01-JUN-2021 15:06, No significant change Confirmed by Jacques Bishop ([id number]) on 06/02/2021 8:56:46 AM Referred By: REFERRED SELF Confirmed By:Jacques Bishop
[2021-06-02 10:18] LABS: Estimated Average Glucose 140 mg/dl; Hemoglobin A1C 6.5 % (4.5-5.6)
--- NOTE | 2021-06-02 10:46 | Cardiology Consultation ---
Date of Consultation June 02, 2021 Assessment & Plan (1) Acute on chronic respiratory failure with hypoxia: (2) Acute on chronic diastolic heart failure: (3) Atrial fibrillation: Complex 85 year old male with recurrent admission with acute decompensated diastolic heart failure superimposed on underlying pulmonary issue. Patient has responded to initial measures as ordered. Continue IV furosemide as prescribed. Resting echocardiography requested to reassess LV systolic function noting chronic atrial fibrillation with recent device interrogation demonstrating a high percentage of right ventricular pacing (83%). Recommend resumption of anticoagulation if/when able, with reduced dose Eliquis anticoagulation given serum creatinine greater than or equal to 1.5 mg/dL and age greater than 80. Supervising Physician Co-Signing Physician Notes Patient was seen and examined personally. Chart telemetry and medications reviewed. Full assessment as well outlined above. Patient presented with mixed respiratory failure with diastolic heart failure contributing significantly. Echocardiogram today demonstrates localized apical wall motion abnormality consistent with paced rhythm with preserved overall systolic function very mild aortic stenosis mild to moderate mitral tricuspid insufficiency Plan continue IV diuretics History of Present Illness Reason for Consultation: CHF Requesting Physician: Enrique Attending Physician: [place] History of Present Illness Patient referred for hospitalization after failing outpatient attempts at treatment. Patient notes symptoms are very similar to those leading to hospitalization in November 2020, increased shortness of breath with associated cough and then hemoptysis. Chest imaging revealed cardiomegaly with interstitial pulmonary edema and small pleural effusions, right greater than left groundglass opacities suggestive of pulmonary edema versus superimposed pneumonia. Antibiotics and IV furosemide administered with significant impr ovement reported this morning. Patient notes significant weight gain following hip surgery, attributed to lack of physical activity as well as dietary indiscretion. Problem List: ASCVD. February 16, 2011 diagnostic cardiac catheterization at [facility] with normal coronary arteries. November 22, 2018 Cardiac Catheterization ([facility], Dr. Mas): Selective injection of the left coronary artery revealed the left main trunk to be widely patent. The left circumflex artery gives off multiple marginal branches which supply the lateral and posterior lateral myocardium. The left circumflex artery has minor luminal irregularities but is widely patent. The LAD gives off a large first septal retanner. In the proximalmid segment of the LAD there is a 50% long stenosis with the remainder of the artery being widely patent. Selective injections of the right coronary artery revealed it to be dominant. There is a 50% stenoses in the distal portion of the artery at a bend point otherwise the artery is widely patent. Diastolic congestive heart failure. Hypertension, hypertensive heart disease Chronic atrial fibrillation Intermittent complete heart block status post November 23, 2018 dual chamber pacemaker implantation with a [employer] device. Chronic hypoxic respiratory failure with sleep apnea O2 and CPAP dependent Pulmonary hypertension Bilateral pneumonia March 2020 with associated hemoptysis. Unrevealing bronchoscopy/bronchoalveolar lavage/transbronchial biopsy Type II diabetes mellitus CKD stage III Dyslipidemia Obesity Chronic mild thrombocytopenia Hepatic cirrhosis by CT scan Allergies Allergy/AdvReac Type Severity Reaction Status Date / Time Penicillins Allergy Intermediate RASH AND Verified 06/01/21 15:20 [facility] Home Medications Medication Instructions Recorded Confirmed Type albuterol sulfate 90 mcg/actuation 2 - 4 puff INHALATION Q6H PRN 10/08/18 06/01/21 History aerosol inhaler (Ventolin HFA) ascorbic acid (vitamin C) 1,000 mg 1,000 mg PO QAM 10/08/18 06/01/21 History tablet (Vitamin C) atorvastatin 20 mg tablet 20 mg PO QAM 10/08/18 06/01/21 History hydrocodone 5 mg-acetaminophen 300 1 tab PO Q6H PRN 10/08/18 06/01/21 History mg tablet amlodipine 5 mg tablet 2.5 mg PO QPM 03/27/20 06/01/21 History ipratropium 0.5 mg-albuterol 3 mg 3 ml INHALATION Q6H PRN 03/27/20 06/01/21 History (2.5 mg base)/3 mL nebulization soln metoprolol succinate 50 mg 50 mg PO QAM 03/27/20 06/01/21 History tablet,extended release 24 hr spironolactone 25 mg tablet 25 mg PO QAM 03/27/20 06/01/21 History (Aldactone) vitamin E 400 unit capsule 400 unit PO QAM 03/27/20 06/01/21 History apixaban 5 mg tablet (Eliquis) 5 mg PO BID 06/01/21 06/01/21 History cyanocobalamin (vitamin B-12) 100 100 mcg PO DAILY 06/01/21 06/01/21 History mcg tablet ferrous sulfate 325 mg (65 mg 325 mg PO DAILY 06/01/21 06/01/21 History iron) tablet furosemide 40 mg tablet 40 mg PO BID 06/01/21 06/01/21 History insulin glargine 100 unit/mL 70 unit SUBCUT BID 06/01/21 06/01/21 History subcutaneous solution (Lantus U-100 Insulin) levothyroxine 50 mcg tablet 50 mcg PO DAILY 06/01/21 06/01/21 History losartan 50 mg tablet 50 mg PO BID 06/01/21 06/01/21 History metformin 500 mg tablet 1,000 mg PO BID 06/01/21 06/01/21 History semaglutide (Ozempic) 0.5 mg SUBCUT WK 06/01/21 06/01/21 History tamsulosin 0.4 mg capsule 0.4 mg PO DAILY 06/01/21 06/01/21 History Patient History Medical History Anemia due to chronic kidney disease Asthma Atherosclerotic heart disease Atrial fibrillation Blind right eye Chronic diastolic heart failure Chronic hypoxemic respiratory failure CKD (chronic kidney disease) stage 3, GFR 30-59 ml/min DM type 2 (diabetes mellitus, type 2) Dyslipidemia History of complete heart block History of pacemaker History of recurrent pneumonia HTN (hypertension) 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 Liver cirrhosis Long-term insulin use Lumbar degenerative disc disease LVH (left ventricular hypertrophy) due to hypertensive disease Obesity BMI fall 2019 48 JUVE (obstructive sleep apnea) on CPAP Pulmonary hypertension SOB (shortness of breath) Thrombocytopenia Surgical History H/O eye surgery "eye removed, implant attached" H/O repair of left rotator cuff H/O repair of right rotator cuff History of back surgery History of bilateral knee arthroplasty History of carpal tunnel surgery of left wrist History of carpal tunnel surgery of right wrist S/P hip replacement S/P laminectomy Family History Other Diabetes Heart disease Social History Smoking Status: Never smoker Second Hand Exposure: No; Hx Alcohol Use: Yes Alcohol type: beer Hx Substance Use: No Preferred Language: Chinese Communication Ability: Effective Associate Editor Required: No Beliefs That Will Affect Care: None marital status: Current Living Situation: Spouse current occupation: self-employed Feels Safe at Home: Yes Safety Concerns: Feels Safe At This Time Assistive Devices: Oxygen - Continuous Review of Systems Review of Systems: Complete review of system is otherwise as stated above, negative, noncontributory. Physical Exam Physical Exam: General: A&Ox3. NAD. Elevated BMI HENT: Normocephalic. Atraumatic. Conjunctiva pink, sclera clear. Eyes: No carotid bruits. + JVD. Heart: Distant heart sounds. Irregular. Soft systolic murmur. Lungs: Diminished. Decreased. + Rales. No wheeze. Abdomen: +BS. Soft. Nontender. No masses or organomegaly. Extremities: 1+ edema. No cyanosis. Limited neurological examination is without focal deficits. Pulses: radial=2/4, posterior tibial=2/4. Results & Data ([facility]) Vital Signs (Past 12 Hours) Vital Signs Temp Pulse Resp BP Pulse Ox 06/02/21 07:13 36.8 C 60 21 112/61 95 06/02/21 03:33 37.2 C 67 18 111/55 L 94 Laboratory Results Laboratory Results - last 24 hr 06/01/21 06/01/21 06/01/21 15:05 15:05 15:05 WBC 7.64 RBC 3.94 L Hgb 11.8 L Hct 35.6 L MCV 90.4 MCH 29.9 MCHC 33.1 RDW Std Deviation 48.[address]eff of [address] 14.7 H Plt Count 103 L MPV 12.1 H Immature Gran % (Auto) 0.3 Neut % (Auto) 73.7 Lymph % (Auto) 13.6 [place] % (Auto) 11.9 Eos % (Auto) 0.4 Baso % (Auto) 0.1 Neut # (Auto) 5.63 Lymph # (Auto) 1.04 L [place] # (Auto) 0.91 H Eos # (Auto) 0.03 Baso # (Auto) 0.01 Immature Gran # (Auto) 0.02 Platelet Estimate Decreased L Polychromasia 1+ PT 10.7 INR 1.1 APTT 33.0 H PTT Ratio 1.3 Sodium 139 Potassium 3.8 Chloride 107 Carbon Dioxide 23 Anion Gap 9.0 BUN 26 H Creatinine 1.62 H Est Cr Clr Drug Dosing 50.0 Est GFR ( Amer) 44.8 Est GFR (Non-Af Amer) 38.7 BUN/Creatinine Ratio 15.9 Glucose 109 H POC Glucose Estimat Average Glucose Hemoglobin A1c Lactate Calcium 8.8 Magnesium 2.2 Total Bilirubin 1.8 H AST 25 ALT 20 Alkaline Phosphatase 45 Troponin I < 0.015 NT-Pro-B Natriuret Pep Total Protein 7.5 Albumin 3.4 Globulin 4.1 H Albumin/Globulin Ratio 0.8 L Nasal Screen MRSA (PCR) COVID-19 Eval Order SARS-CoV-2 (PCR) 06/01/21 06/01/21 06/01/21 15:05 15:20 15:20 WBC RBC Hgb Hct MCV MCH MCHC RDW Std Deviation RDW Coeff of Ct Plt Count MPV Immature Gran % (Auto) Neut % (Auto) Lymph % (Auto) [place] % (Auto) Eos % (Auto) Baso % (Auto) Neut # (Auto) Lymph # (Auto) [place] # (Auto) Eos # (Auto) Baso # (Auto) Immature Gran # (Auto) Platelet Estimate Polychromasia PT INR APTT PTT Ratio Sodium Potassium Chloride Carbon Dioxide Anion Gap BUN Creatinine Est Cr Clr Drug Dosing Est GFR ( Amer) Est GFR (Non-Af Amer) BUN/Creatinine Ratio Glucose POC Glucose Estimat Average Glucose Hemoglobin A1c Lactate Calcium Magnesium Total Bilirubin AST ALT Alkaline Phosphatase Troponin I NT-Pro-B Natriuret Pep 4232 H Total Protein Albumin Globulin Albumin/Globulin Ratio Nasal Screen MRSA (PCR) COVID-19 Eval Order Covid19 at [facility] SARS-CoV-2 (PCR) NEGATIVE 06/01/21 06/01/21 06/01/21 15:40 17:41 19:42 WBC RBC Hgb Hct MCV MCH MCHC RDW Std Deviation RDW Coeff of Ct Plt Count MPV Immature Gran % (Auto) Neut % (Auto) Lymph % (Auto) [place] % (Auto) Eos % (Auto) Baso % (Auto) Neut # (Auto) Lymph # (Auto) [place] # (Auto) Eos # (Auto) Baso # (Auto) Immature Gran # (Auto) Platelet Estimate Polychromasia PT INR APTT PTT Ratio Sodium Potassium Chloride Carbon Dioxide Anion Gap BUN Creatinine Est Cr Clr Drug Dosing Est GFR ( Amer) Est GFR (Non-Af Amer) BUN/Creatinine Ratio Glucose POC Glucose 128 H Estimat Average Glucose Hemoglobin A1c Lactate 3.4 H* 2.0 Calcium Magnesium Total Bilirubin AST ALT Alkaline Phosphatase Troponin I NT-Pro-B Natriuret Pep Total Protein Albumin Globulin Albumin/Globulin Ratio Nasal Screen MRSA (PCR) COVID-19 Eval Order SARS-CoV-2 (PCR) 06/01/21 06/02/21 06/02/21 21:21 02:06 02:56 WBC RBC Hgb Hct MCV MCH MCHC RDW Std Deviation RDW Coeff of Ct Plt Count MPV Immature Gran % (Auto) Neut % (Auto) Lymph % (Auto) [place] % (Auto) Eos % (Auto) Baso % (Auto) Neut # (Auto) Lymph # (Auto) [place] # (Auto) Eos # (Auto) Baso # (Auto) Immature Gran # (Auto) Platelet Estimate Polychromasia PT INR APTT PTT Ratio Sodium 139 Potassium 3.8 Chloride 109 H Carbon Dioxide 27 Anion Gap 3.0 BUN 27 H Creatinine 1.54 H Est Cr Clr Drug Dosing 50.5 Est GFR ( Amer) 47.6 Est GFR (Non-Af Amer) 41.1 BUN/Creatinine Ratio 17.6 Glucose 152 H POC Glucose 138 H Estimat Average Glucose Hemoglobin A1c Lactate Calcium 8.4 L Magnesium Total Bilirubin AST ALT Alkaline Phosphatase Troponin I < 0.015 < 0.015 NT-Pro-B Natriuret Pep Total Protein Albumin Globulin Albumin/Globulin Ratio Nasal Screen MRSA (PCR) COVID-19 Eval Order SARS-CoV-2 (PCR) 06/02/21 06/02/21 06/02/21 02:56 02:56 03:15 WBC 7.04 RBC 3.68 L Hgb 11.1 L Hct 33.2 L MCV 90.2 MCH 30.2 MCHC 33.4 RDW Std Deviation 48.[address]eff of [address] 14.7 H Plt Count 85 L MPV 12.2 H Immature Gran % (Auto) Neut % (Auto) Lymph % (Auto) [place] % (Auto) Eos % (Auto) Baso % (Auto) Neut # (Auto) Lymph # (Auto) [place] # (Auto) Eos # (Auto) Baso # (Auto) Immature Gran # (Auto) Platelet Estimate Polychromasia PT INR APTT PTT Ratio Sodium Potassium Chloride Carbon Dioxide Anion Gap BUN Creatinine Est Cr Clr Drug Dosing Est GFR ( Amer) Est GFR (Non-Af Amer) BUN/Creatinine Ratio Glucose POC Glucose Estimat Average Glucose 140 Hemoglobin A1c 6.5 H Lactate Calcium Magnesium Total Bilirubin AST ALT Alkaline Phosphatase Troponin I NT-Pro-B Natriuret Pep Total Protein Albumin Globulin Albumin/Globulin Ratio Nasal Screen MRSA (PCR) Positive A COVID-19 Eval Order SARS-CoV-2 (PCR) 06/02/21 07:10 WBC RBC Hgb Hct MCV MCH MCHC RDW Std Deviation RDW Coeff of Ct Plt Count MPV Immature Gran % (Auto) Neut % (Auto) Lymph % (Auto) [place] % (Auto) Eos % (Auto) Baso % (Auto) Neut # (Auto) Lymph # (Auto) [place] # (Auto) Eos # (Auto) Baso # (Auto) Immature Gran # (Auto) Platelet Estimate Polychromasia PT INR APTT PTT Ratio Sodium Potassium Chloride Carbon Dioxide Anion Gap BUN Creatinine Est Cr Clr Drug Dosing Est GFR ( Amer) Est GFR (Non-Af Amer) BUN/Creatinine Ratio Glucose POC Glucose 157 H Estimat Average Glucose Hemoglobin A1c Lactate Calcium Magnesium Total Bilirubin AST ALT Alkaline Phosphatase Troponin I NT-Pro-B Natriuret Pep Total Protein Albumin Globulin Albumin/Globulin Ratio Nasal Screen MRSA (PCR) COVID-19 Eval Order SARS-CoV-2 (PCR) (1) Atrial fibrillation Atrial fibrillation type: paroxysmal Qualified Code(s): I48.0 - Paroxysmal atrial fibrillation
--- NOTE | 2021-06-02 12:19 | Hospitalist Progress Note ---
Date of Service June 02, 2021 Assessment & Plan (1) Acute on chronic respiratory failure with hypoxia: Plan: Has interstitial lung disease,pulmonary hypertension and has been on home oxygen 2 L/min Has been requiring more than 3 L to maintain saturation recently Has been feeling much better since admission We will continue management as below (2) SOB (shortness of breath): Plan: This is an 85yo M with a PMH of chronic diastolic heart failure (EF 55%, TTE 2019), SSS s/p pacemaker, paroxysmal A Fib on Eliquis, chronic respiratory failure 2/2 possible ILD and pulmonary hypertension on 2L home O2 PRN, JUVE on CPAP, HTN,DM II, CKD III, cirrhosis as per records, chronic anemia (baseline hemoglobin 11), chronic thrombocytopenia and other medical problems listed below who presents with SOB and blood-tinged sputum since this morning. More short of breath over the past few days, prompting continuous 2-3 L NC oxygen rather than as needed baseline Likely multifactorial in setting of decompensated heart failure, hemoptysis in setting of possible pneumonia with history of interstitial lung disease Continue supplemental O2 Has been feeling much better since admission Appreciate cardiology input and recommendation We will have echo to evaluate LV function Continue diuresis (3) Hemoptysis: Plan: Productive cough with blood tinged sputum x 1 day Similar to presentations of PNA in the past in setting of viral/atypical PNA Followed by pulm on previous admissions - bronchoscopy in March 2020 revealing erythematous bronchial mucosa with blood-tinged saline lavage, [place] [facility] [place] to hold Eliquis and schedule cough suppressants round the clock for now CT chest with interstitial pulmonary edema and small pleural effusions, R>L multilobar distribution of centrilobular ground glass opacities are suggestive of alveolar pulmonary edema versus superimposed pneumonia Covid PCR negative. Patient vaccinated Continue empiric Cefepime, doxycycline. MRSA swab pending. Follow blood cultures Pulmonology consult-appreciate input and recommendation No more hemoptysis Will hold Eliquis for now (4) Acute on chronic diastolic heart failure: Plan: Endorsing 50 pound weight gain over the past 6 months Multiple admissions in the past with decompensated CHF requiring IV diuresis Most recent echo from January 2020 with preserved EF of 55% Given 40 mg IV Lasix in ED. Plan to give additional dose of 40 mg IV in a.m. Cardiology consult placed Low-sodium diet, strict I&Os, daily weights Aggressive diuresis with Lasix 40 mg intravenously twice daily for now Monitor PRP (5) Lactic acidosis: Plan: Lactate initially 3.4 but now 2 Likely elevated in setting of home nebs, metformin (6) Generalized weakness: Plan: In setting of decompensated HF, infection, weight gain Fall precautions, PT/OT evaluation, discharge planning (7) Atrial fibrillation: Plan: Continue Toprol Holding anticoagulation for now in setting of hemoptysis Consider reducing Eliquis dose in intermediate (8) DM type 2 (diabetes mellitus, type 2): Plan: A1c 8.3 in January 2021 Hold home agents Glycemic consult placed BSG AC HS (9) HTN (hypertension): Plan: Continue Toprol, Losartan, amlodipine (10) Thrombocytopenia: Plan: Plt 103 (lower end of baseline). 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 Working with RD in outpatient setting DVT Ppx: Holding Eliquis in setting of hemoptysis Code status: FULL PCP: Geri Dispo: Admitted to PCU. Discharge planning ordered Admission and Anticipated Discharge Date Admission Date: June 01, 2021 Subjective 06/02/2021 The patient was seen and examined in telemetry unit He has been feeling much better following admission Denies any more cough and/or hemoptysis and S OB has improved a lot Denies any more chest pain and/or palpitation Review of Systems Review of Systems: All systems reviewed and are unremarkable except as noted below Respiratory: Minimal cough but no shortness of breath at rest. No more hemoptysis Physical Exam Physical Exam: Lying in bed comfortably Constitutional: well developed, well nourished, + ill appearing and + obese; no acute distress Eyes: PERRL, conjunctivae normal, anicteric sclerae ENMT: external ear and nose normal, oropharynx normal Neck: trachea midline, no thyromegaly Respiratory: normal respiratory effort and + cough (Minimal cough without hemoptysis); no respiratory distress Auscultation: + diminished lung sounds and + crackles (Minimal crackles at the bases) Cardiovascular: Rate/Rhythm: + irregularly irregular Heart Sounds: normal S1 and normal S2; no murmur Extremities: + edema (1+ edema bilaterally) Gastrointestinal (Abdomen): normal bowel sounds, soft, nontender, no hepatosplenomegaly Musculoskeletal: No acute arthritis in any joint Neurologic: PERRL, EOMI, accommodation nl, no face palsy, no dysarthria Generally weak without any focal neuro deficit Psychiatric: A+Ox3, euthymic affect Results & Data Results & Data ([facility]) Vital Signs (Past 12 Hours) Vital Signs Temp Pulse Resp BP Pulse Ox 06/02/21 11:34 37.1 C 62 19 155/68 H 94 06/02/21 07:13 36.8 C 60 21 112/61 95 06/02/21 03:33 37.2 C 67 18 111/55 L 94 Laboratory Results Short CBC 06/01/21 06/02/21 Range/Units 15:05 02:56 WBC 7.64 7.04 (4.8-10.8) K/uL Hgb 11.8 L 11.1 L (14.0-18.0) g/dL Hct 35.6 L 33.2 L (42-52) % Plt Count 103 L 85 L (130-400) K/uL BMP 06/01/21 06/02/21 15:05 02:56 Sodium 139 139 Potassium 3.8 3.8 Chloride 107 109 H Carbon Dioxide 23 27 BUN 26 H 27 H Creatinine 1.62 H 1.54 H Glucose 109 H 152 H Calcium 8.8 8.4 L Cardiac Enzymes 06/01/21 06/01/21 06/02/21 Range/Units 15:05 21:21 02:56 Troponin I < 0.015 < 0.015 < 0.015 (0-0.045) ng/ml Liver Function 06/01/21 Range/Units 15:05 Total Bilirubin 1.8 H (0.2-1) mg/dl AST 25 (15-37) U/L ALT 20 (12-78) U/L Alkaline Phosphatase 45 (45-117) U/L Albumin 3.4 (3.4-5.0) gm/dl Medications Administered Current Inpatient Medications Acetaminophen (Acetaminophen 325 Mg Tab) 650 mg PO Q4H PRN PRN Reason: Pain or Fever Stop: 07/01/21 20:20 Hydrocodone Bitart/Acetaminophen (Hydrocodone/Acetamophen 5/325mg Tab) 1 tab PO Q6H PRN PRN Reason: Pain Stop: 06/15/21 20:48 Last Admin: 06/02/21 01:41 Dose: 1 tab Documented by: Albuterol (Albut/Ipratrop 3mg/0.5mg Neb 3 Ml Vial) 3 ml INH Q6H PRN PRN Reason: Cough or Wheezing Stop: 07/01/21 20:20 Albuterol (Albuterol Hfa 8 Gm Inhaler) 2 puffs INH Q6H PRN; Protocol PRN Reason: Shortness Of Breath Or Wheezing Stop: 07/01/21 20:20 Amlodipine Besylate (Amlodipine Besylate 5 Mg Tab) 2.5 mg PO QPM [facility] Stop: 07/01/21 20:59 Last Admin: 06/01/21 21:50 Dose: 2.5 mg Documented by: Ascorbic Acid (Ascorbic Acid 500 Mg Tab) 1,000 mg PO QAM [facility] Stop: 07/02/21 08:59 Last Admin: 06/02/21 08:21 Dose: 1,000 mg Documented by: Atorvastatin Calcium (Atorvastatin 20 Mg Tab) 20 mg PO QAM [facility] Stop: 07/02/21 08:59 Last Admin: 06/02/21 08:21 Dose: 20 mg Documented by: Benzonatate (Benzonatate 100 Mg Capsule) 100 mg PO TID [facility] Stop: 07/01/21 18:49 Last Admin: 06/02/21 08:21 Dose: 100 mg Documented by: Cyanocobalamin (Cyanocobalamin (Vitamin B-12) 100 Mcg Tablet) 100 mcg PO DAILY [facility] Stop: 07/02/21 08:59 Last Admin: 06/02/21 08:21 Dose: 100 mcg Documented by: Dextrose (Dextrose 50% 50 Ml Syringe) 25 - 50 ml IV UD PRN; Protocol PRN Reason: Hypoglycemia Protocol Stop: 07/01/21 20:20 Ferrous Sulfate (Ferrous Sulfate 325 Mg Tab) 325 mg PO DAILY [facility] Stop: 07/02/21 08:59 Last Admin: 06/02/21 08:21 Dose: 325 mg Documented by: Glucagon (Glucagon For Inj 1 Mg Vial) 1 mg SQ UD PRN; Protocol PRN Reason: Hypoglycemia Protocol Stop: 07/01/21 20:20 Glucose (Glucose 10 Tabs/Tube) 4 - 8 tabs PO UD PRN; Protocol PRN Reason: Hypoglycemia Protocol Stop: 07/01/21 20:20 Glucose (Glucose 40% Gel 15 Gm Tube) 15 - 30 gm PO UD PRN; Protocol PRN Reason: Hypoglycemia Protocol Stop: 07/01/21 20:20 Guaifenesin/Codeine Phosphate (Guaifenesin/Codeine 100mg/10mg 5ml Udc) 5 ml PO Q6H PRN PRN Reason: Cough Stop: 07/01/21 18:46 Guaifenesin/Dextromethorphan (Guaifenesin/Dextrom Syrup 100mg/10mg 5ml Udc) 5 ml PO Q6 [facility] Stop: 07/02/21 11:59 Cefepime HCl 2,000 mg/ Syringe 20 mls @ 5 mls/min IV Q12H [facility]; Protocol Stop: 06/09/21 04:59 Last Admin: 06/02/21 04:02 Dose: 5 mls/min Documented by: Doxycycline Hyclate 100 mg/ (Dextrose) 110 mls @ 55 mls/hr IV Q12H [facility]; Protocol Stop: 06/08/21 20:59 Last Infusion: 06/02/21 11:02 Dose: Infused Documented by: Furosemide 40 mg/ Syringe 4 mls @ 4 mls/min IV BID [facility] Stop: 07/02/21 12:14 Insulin Aspart (Insulin Aspart 100 Units/Ml 3 Ml Pen) 0 units SC ACHS [facility] Stop: 07/01/21 20:59 Last Admin: 06/02/21 08:18 Dose: 23 units Documented by: Insulin Glargine (Insulin Glargine Solostar 100 Units/Ml 3 Ml Pen) 50 units SC BID [facility]; Protocol Stop: 07/02/21 08:59 Last Admin: 06/02/21 08:19 Dose: 50 units Documented by: Levothyroxine Sodium (Levothyroxine Sodium 50 Mcg Tablet) 50 mcg PO DAILYBB [facility] Stop: 07/02/21 06:29 Last Admin: 06/02/21 06:04 Dose: 50 mcg Documented by: Losartan Potassium (Losartan Potassium 50 Mg Tab) 50 mg PO BID [facility] Stop: 07/01/21 20:59 Last Admin: 06/02/21 08:21 Dose: 50 mg Documented by: Metoprolol Succinate (Metoprolol Succ 50mg Ext Rel Tab) 50 mg PO QAM [facility] Stop: 07/02/21 08:59 Last Admin: 06/02/21 08:20 Dose: 50 mg Documented by: Miscellaneous (Carbohydrates For Hypoglycemia ) 15 - 30 gm PO UD PRN PRN Reason: Hypoglycemia Protocol Stop: 07/01/21 20:20 Miscellaneous Information (Pharmacy Glycemic Mgmt Consult) 1 ea N/A UD PRN PRN Reason: Consult Stop: 07/01/21 20:21 Miscellaneous Information (Cefepime Consult Active) 1 ea N/A UD PRN PRN Reason: Consult Stop: 07/01/21 21:21 Miscellaneous Information (Doxycycline Pharmacy Consult In Progress) 1 ea N/A UD PRN PRN Reason: Consult Stop: 07/01/21 21:57 Ondansetron HCl (Ondansetron Inj 2 Mg/Ml 2 Ml Vial) 4 mg IV Q6H PRN PRN Reason: Nausea Stop: 07/01/21 20:20 Polyethylene Glycol (Polyethylene (Miralax) 17 Gm Pack) 17 gm PO DAILY PRN PRN Reason: Constipation Stop: 07/01/21 20:20 Spironolactone (Spironolactone 25 Mg Tab) 25 mg PO QAM [facility] Stop: 07/02/21 08:59 Last Admin: 06/02/21 08:20 Dose: 25 mg Documented by: Tamsulosin HCl (Tamsulosin Hcl 0.4 Mg Cap) 0.4 mg PO DAILY [facility] Stop: 07/02/21 08:59 Last Admin: 06/02/21 08:20 Dose: 0.4 mg Documented by: Vitamin E (Tocopheryl, Dl-Alpha 400 Units 180 Mg Cap) 400 units PO QAM [facility] Stop: 07/02/21 08:59 Last Admin: 06/02/21 08:21 Dose: 400 units Documented by: Zolpidem Tartrate (Zolpidem Tartrate 5 Mg Tab) 5 mg PO HS PRN PRN Reason: Sleep Stop: 07/02/21 01:15 Last Admin: 06/02/21 02:03 Dose: 5 mg Documented by: (1) Atrial fibrillation Atrial fibrillation type: paroxysmal Qualified Code(s): I48.0 - Paroxysmal atrial fibrillation (2) HTN (hypertension) Hypertension type: essential hypertension Qualified Code(s): I10 - Essential (primary) hypertension
--- NOTE | 2021-06-02 12:28 | Pharmacy Report ---
Pharmacy Glycemic Short Note 2 - Date of Service June 02, 2021 - Glycemic Short BSG Results (Last 24 hours): 06/01/21 06/01/21 06/02/21 15:05 19:42 02:06 Glucose 109 H POC Glucose 128 H 138 H 06/02/21 06/02/21 06/02/21 02:56 07:10 11:30 Glucose 152 H POC Glucose 157 H 113 H OUTPATIENT ANTIDIABETIC REGIMEN: * Lantus 70 units SQ BID * Semaglutide 0.5mg SQ weekly * Metformin 1gm BID * A1c = 6.5% 06/02/21 ASSESSMENT: * Well controlled type 2 diabetic admitted for acute on chronic resp failure likely secondary to ADHF +/- pneumonia * Reviewed prior admission 11/2020 and will utilize a regimen that is similar to that used during that admission * Estimate patient's total daily insulin needs to be ~140 units/day while tolerating a diet * Of note, patient's prandial needs may be lesser than prior admission due to recent receipt of semaglutide on 05/31 PLAN FOR INPATIENT GLYCEMIC CONTROL: * Hold outpatient oral diabetes medications * Basal insulin * Lantus 50 units SQ BID * Bolus insulin * NovoLog per scale ACHS or Q6hrs while NPO * Goal Range: Low 110 mg/dL - High 140 mg/dL * Correction Factor: 12 mg/dL/unit * Nutritional / Prandial insulin per carb ratio of 1 unit per 4 grams CHO consumed PLAN FOR DISCHARGE: * may resume outpt regimen
[2021-06-02] MEDS: guaiFENesin/DEXTROM SYRUP 100MG/10MG 5ML UDC PO SCH ×3 (12:56→23:48)
[2021-06-02] MEDS: FUROSEMIDE 40 MG in SYRINGE 0 ML IV SCH ×2 (13:08→21:51)
[2021-06-02] MEDS: amLODIPine BESYLATE 5 MG TAB PO SCH (21:53)
[2021-06-03] MEDS: guaiFENesin/DEXTROM SYRUP 100MG/10MG 5ML UDC PO SCH ×4 (05:41→22:23)
[2021-06-03] MEDS: CEFEPIME 2,000 MG in SYRINGE 0 ML IV SCH ×2 (05:41→17:20)
[2021-06-03] MEDS: LEVOTHYROXINE SODIUM 50 MCG TABLET PO SCH (05:41)
[2021-06-03 07:09] LABS: Hemoglobin 11.6 g/dL (14.0-18.0); Mean Corpuscular Hemoglobin 30.1 pg (25-34); Mean Corpuscular Hgb Conc 33.1 g/dL (32-36); Mean Corpuscular Volume 90.9 fL (80-100); Mean Platelet Volume 12.2 fL (7.4-10.4); Platelet Count 90 K/uL (130-400); RDW Coefficient of Variation 14.5 % (11.5-14.5); RDW Standard Deviation 48.5 fL (36.4-46.3); Red Blood Count 3.85 M/uL (4.7-6.1); White Blood Count 6.36 K/uL (4.8-10.8)
--- NOTE | 2021-06-03 07:17 | XRay Report ---
XR chest 1V portable HISTORY: 85 years-old Male f/u follow-up study in a patient with acute shortness of breath and bilat eral pulmonary opacities COMPARISON: Chest CT and chest radiograph study 06/01/2021 TECHNIQUE: Portable AP view of the chest FINDINGS: Cardiac silhouette is enlarged. Left subclavian pacer. Trace pleural effusions. Patchy right greater than left bilateral pulmonary opacities are redemonstrated and appear generally unchanged from compar tressa. Pulmonary vascular congestion. No pneumothorax. Degenerative changes of the shoulders and spine . IMPRESSION: 1. Cardiomegaly with pulmonary vascular congestion and trace pleural effusions. 2. Patchy right greater than left bilateral pulmonary opacities are redemonstrated suggestive of asym metric pulmonary edema versus superimposed pneumonia. Follow-up recommended. ACT 112: Negative or not required by law. The above report was generated using voice recognition software. It may contain grammatical, syntax o r spelling errors. Electronically signed by: David Cui M.D. 06/03/2021 7:16 AM
[2021-06-03 07:32] LABS: Basophils # (auto) 0.02 K/uL (0-0.2); Basophils % (auto) 0.3 %; Eosinophils # (auto) 0.22 K/uL (0-0.5); Eosinophils % (auto) 3.5 %; Immature Granulocytes # (auto) 0.01 K/uL (0.00-0.02); Immature Granulocytes % (auto) 0.2 %; Lymphocytes # (auto) 1.16 K/uL (1.2-3.4); Lymphocytes % (auto) 18.2 %; Monocytes # (auto) 0.67 K/uL (0.11-0.59); Monocytes % (auto) 10.5 %; Neutrophils # (auto) 4.28 K/uL (1.4-6.5); Neutrophils % (auto) 67.3 %
[2021-06-03] MEDS: INSULIN ASPART 100 UNITS/ML 3 ML PEN SC SCH ×4 (07:46→22:28)
[2021-06-03] MEDS: INSULIN GLARGINE SOLOSTAR 100 UNITS/ML 3 ML PEN SC SCH ×2 (07:47→22:30)
[2021-06-03] MEDS: METOPROLOL SUCC 50MG EXT REL TAB PO SCH (07:48)
[2021-06-03 07:53] LABS: Est GFR (African American) 54.4 ml/min; Est GFR (Non-African American) 46.9 ml/min; Potassium 3.7 mmol/L (3.5-5.1)
[2021-06-03 07:54] LABS: BUN Creatinine Ratio 17.2 (10-20); Calcium 8.6 mg/dl (8.5-10.1); Creatinine Clr Calc Pharmacy 56.3 ml/min; Magnesium 2.2 mg/dl (1.8-2.4); Phosphorus 2.9 mg/dl (2.5-4.9)
[2021-06-03] MEDS: TOCOPHERYL, DL-ALPHA 400 UNITS 180 MG CAP PO SCH (08:15)
[2021-06-03] MEDS: LOSARTAN POTASSIUM 50 MG TAB PO SCH ×2 (08:15→22:21)
[2021-06-03] MEDS: FERROUS SULFATE 325 MG TAB PO SCH (08:15)
[2021-06-03] MEDS: CYANOCOBALAMIN (VITAMIN B-12) 100 MCG TABLET PO SCH (08:15)
[2021-06-03] MEDS: SPIRONOLACTONE 25 MG TAB PO SCH (08:15)
[2021-06-03] MEDS: TAMSULOSIN HCL 0.4 MG CAP PO SCH (08:15)
[2021-06-03] MEDS: ATORVASTATIN 20 MG TAB PO SCH (08:16)
[2021-06-03] MEDS: ASCORBIC ACID 500 MG TAB PO SCH (08:16)
[2021-06-03] MEDS: BENZONATATE 100 MG CAPSULE PO SCH ×3 (08:16→22:21)
[2021-06-03] MEDS: DOXYCYCLINE HYCLATE 100 MG in DEXTROSE 5% 100 ML IV SCH (08:18)
[2021-06-03] MEDS: FUROSEMIDE 40 MG in SYRINGE 0 ML IV SCH ×3 (08:18→22:33)
[2021-06-03] MEDS: HYDROCODONE/ACETAMOPHEN 5/325MG TAB PO PRN (10:03)
--- NOTE | 2021-06-03 10:16 | Cardiology Progress Note ---
Date of Service June 03, 2021 Assessment & Plan (1) Acute on chronic respiratory failure with hypoxia: Plan: 85-year-old male being cared for decompensated respiratory failure/diastolic heart failure. Chest x-ray improved but not resolved. Still room for further diuresis contributing to all aspects of patient's complaints. Including cough and possible hemoptysis. Renal function has improved with diuresis Echocardiogram without acute change in LV systolic function or valvular disease Will increase furosemide to 40 mg 3 times daily IV, still moderately volume overloaded Urged use of CPAP and oxygen necessary for management of his diastolic heart failure Blood counts and hemoglobins appear stable, no further hemoptysis. Would recommend resuming Eliquis at reduced dose 2.5 mg twice per day given age and renal dysfunction if no other further bleeding concern (2) Acute on chronic diastolic heart failure: (3) Atrial fibrillation: Admission and Anticipated Discharge Date Admission Date: June 01, 2021 Subjective Patient was seen and examined, chart, medications, telemetry reviewed. No acute complaints. Slept in a chair overnight as per usual. Did not use CPAP, "thought my breathing was getting better" No chest pains, tachypalpitations, dizziness or lightheadedness. No further cough or hemoptysis Review of Systems Review of Systems: All systems reviewed & are unremarkable except as noted in Subjective Physical Exam Constitutional: WD/WN, vitals as above + obese; no acute distress ENMT: external ear and nose normal, oropharynx normal Neck: trachea midline, no thyromegaly Respiratory: Auscultation: + diminished lung sounds Cardiovascular: Rate/Rhythm: regular rate (Ventricular paced) Heart Sounds: normal S1 and normal S2; no gallop and no murmur Palpation: normal PMI Vessels: normal carotid upstroke and radial pulses present; no JVD and no carotid bruit Extremities: + edema (2+) Gastrointestinal (Abdomen): normal bowel sounds, soft, nontender, no hepatosplenomegaly Musculoskeletal: no cyanosis or clubbing, extremities motor strength 5/5 Skin: no rashes, warm and dry Neurologic: PERRL, EOMI, accommodation nl, no face palsy, no dysarthria Psychiatric: A+Ox3, euthymic affect Results & Data ([facility]) Vital Signs (Past 12 Hours) Vital Signs Temp Pulse Resp BP BP Pulse Ox 06/03/21 07:14 36.9 C 60 19 139/83 96 06/03/21 03:19 36.6 C 71 18 137/72 92 06/02/21 23:51 37.0 C 65 18 131/72 95 Laboratory Results Laboratory Results - last 24 hr 06/02/21 06/02/21 06/02/21 11:30 11:34 11:34 WBC RBC Hgb Hct MCV MCH MCHC RDW Std Deviation RDW Coeff of Ct Plt Count MPV Immature Gran % (Auto) Neut % (Auto) Lymph % (Auto) Cottle % (Auto) Eos % (Auto) Baso % (Auto) Neut # (Auto) Lymph # (Auto) Cottle # (Auto) Eos # (Auto) Baso # (Auto) Immature Gran # (Auto) ESR 43 H Sodium Potassium Chloride Carbon Dioxide Anion Gap BUN Creatinine Est Cr Clr Drug Dosing Est GFR ( Amer) Est GFR (Non-Af Amer) BUN/Creatinine Ratio Glucose POC Glucose 113 H Calcium Phosphorus Magnesium C-Reactive Protein 9.60 H Procalcitonin Urine Legionella Ag Mycoplasma pneumon IgM 06/02/21 06/02/21 06/02/21 11:34 11:34 14:00 WBC RBC Hgb Hct MCV MCH MCHC RDW Std Deviation RDW Coeff of Ct Plt Count MPV Immature Gran % (Auto) Neut % (Auto) Lymph % (Auto) Cottle % (Auto) Eos % (Auto) Baso % (Auto) Neut # (Auto) Lymph # (Auto) Cottle # (Auto) Eos # (Auto) Baso # (Auto) Immature Gran # (Auto) ESR Sodium Potassium Chloride Carbon Dioxide Anion Gap BUN Creatinine Est Cr Clr Drug Dosing Est GFR ( Amer) Est GFR (Non-Af Amer) BUN/Creatinine Ratio Glucose POC Glucose Calcium Phosphorus Magnesium C-Reactive Protein Procalcitonin 0.07 Urine Legionella Ag Pending Mycoplasma pneumon IgM Pending 06/02/21 06/02/21 06/03/21 16:33 20:32 06:47 WBC 6.36 RBC 3.85 L Hgb 11.6 L Hct 35.0 L MCV 90.9 MCH 30.1 MCHC 33.1 RDW Std Deviation 48.[address] 14.5 Plt Count 90 L MPV 12.2 H Immature Gran % (Auto) 0.2 Neut % (Auto) 67.3 Lymph % (Auto) 18.2 Cottle % (Auto) 10.5 Eos % (Auto) 3.5 Baso % (Auto) 0.3 Neut # (Auto) 4.28 Lymph # (Auto) 1.16 L Cottle # (Auto) 0.67 H Eos # (Auto) 0.22 Baso # (Auto) 0.02 Immature Gran # (Auto) 0.01 ESR Sodium Potassium Chloride Carbon Dioxide Anion Gap BUN Creatinine Est Cr Clr Drug Dosing Est GFR ( Amer) Est GFR (Non-Af Amer) BUN/Creatinine Ratio Glucose POC Glucose 107 H 159 H Calcium Phosphorus Magnesium C-Reactive Protein Procalcitonin Urine Legionella Ag Mycoplasma pneumon IgM 06/03/21 06/03/21 06:47 07:13 WBC RBC Hgb Hct MCV MCH MCHC RDW Std Deviation RDW Coeff of Ct Plt Count MPV Immature Gran % (Auto) Neut % (Auto) Lymph % (Auto) Cottle % (Auto) Eos % (Auto) Baso % (Auto) Neut # (Auto) Lymph # (Auto) Cottle # (Auto) Eos # (Auto) Baso # (Auto) Immature Gran # (Auto) ESR Sodium 140 Potassium 3.7 Chloride 109 H Carbon Dioxide 26 Anion Gap 5.0 BUN 24 H Creatinine 1.38 Est Cr Clr Drug Dosing 56.3 Est GFR ( Amer) 54.4 Est GFR (Non-Af Amer) 46.9 BUN/Creatinine Ratio 17.2 Glucose 99 POC Glucose 100 H Calcium 8.6 Phosphorus 2.9 Magnesium 2.2 C-Reactive Protein Procalcitonin Urine Legionella Ag Mycoplasma pneumon IgM Medications Administered Current Medications Acetaminophen (Acetaminophen 325 Mg Tab) 650 mg PO Q4H PRN PRN Reason: Pain or Fever Stop: 07/01/21 20:20 Hydrocodone Bitart/Acetaminophen (Hydrocodone/Acetamophen 5/325mg Tab) 1 tab PO Q6H PRN PRN Reason: Pain Stop: 06/15/21 20:48 Last Admin: 06/03/21 10:03 Dose: 1 tab Documented by: Albuterol (Albut/Ipratrop 3mg/0.5mg Neb 3 Ml Vial) 3 ml INH Q6H PRN PRN Reason: Cough or Wheezing Stop: 07/01/21 20:20 Albuterol (Albuterol Hfa 8 Gm Inhaler) 2 puffs INH Q6H PRN; Protocol PRN Reason: Shortness Of Breath Or Wheezing Stop: 07/01/21 20:20 Amlodipine Besylate (Amlodipine Besylate 5 Mg Tab) 2.5 mg PO QPM [facility] Stop: 07/01/21 20:59 Last Admin: 06/02/21 21:53 Dose: 2.5 mg Documented by: Ascorbic Acid (Ascorbic Acid 500 Mg Tab) 1,000 mg PO QAM [facility] Stop: 07/02/21 08:59 Last Admin: 06/03/21 08:16 Dose: 1,000 mg Documented by: Atorvastatin Calcium (Atorvastatin 20 Mg Tab) 20 mg PO QAM [facility] Stop: 07/02/21 08:59 Last Admin: 06/03/21 08:16 Dose: 20 mg Documented by: Benzonatate (Benzonatate 100 Mg Capsule) 100 mg PO TID [facility] Stop: 07/01/21 18:49 Last Admin: 06/03/21 08:16 Dose: 100 mg Documented by: Cyanocobalamin (Cyanocobalamin (Vitamin B-12) 100 Mcg Tablet) 100 mcg PO DAILY [facility] Stop: 07/02/21 08:59 Last Admin: 06/03/21 08:15 Dose: 100 mcg Documented by: Dextrose (Dextrose 50% 50 Ml Syringe) 25 - 50 ml IV UD PRN; Protocol PRN Reason: Hypoglycemia Protocol Stop: 07/01/21 20:20 Ferrous Sulfate (Ferrous Sulfate 325 Mg Tab) 325 mg PO DAILY [facility] Stop: 07/02/21 08:59 Last Admin: 06/03/21 08:15 Dose: 325 mg Documented by: Glucagon (Glucagon For Inj 1 Mg Vial) 1 mg SQ UD PRN; Protocol PRN Reason: Hypoglycemia Protocol Stop: 07/01/21 20:20 Glucose (Glucose 10 Tabs/Tube) 4 - 8 tabs PO UD PRN; Protocol PRN Reason: Hypoglycemia Protocol Stop: 07/01/21 20:20 Glucose (Glucose 40% Gel 15 Gm Tube) 15 - 30 gm PO UD PRN; Protocol PRN Reason: Hypoglycemia Protocol Stop: 07/01/21 20:20 Guaifenesin/Codeine Phosphate (Guaifenesin/Codeine 100mg/10mg 5ml Udc) 5 ml PO Q6H PRN PRN Reason: Cough Stop: 07/01/21 18:46 Guaifenesin/Dextromethorphan (Guaifenesin/Dextrom Syrup 100mg/10mg 5ml Udc) 5 ml PO Q6 [facility] Stop: 07/02/21 11:59 Last Admin: 06/03/21 05:41 Dose: 5 ml Documented by: Cefepime HCl 2,000 mg/ Syringe 20 mls @ 5 mls/min IV Q12H [facility]; Protocol Stop: 06/09/21 04:59 Last Admin: 06/03/21 05:41 Dose: 5 mls/min Documented by: Doxycycline Hyclate 100 mg/ (Dextrose) 110 mls @ 55 mls/hr IV Q12H [facility]; Protocol Stop: 06/08/21 20:59 Last Admin: 06/03/21 08:18 Dose: 55 mls/hr Documented by: Furosemide 40 mg/ Syringe 4 mls @ 4 mls/min IV BID [facility] Stop: 07/02/21 12:14 Last Admin: 06/03/21 08:18 Dose: 4 mls/min Documented by: Insulin Aspart (Insulin Aspart 100 Units/Ml 3 Ml Pen) 0 units SC ACHS [facility] Stop: 07/01/21 20:59 Last Admin: 06/03/21 07:46 Dose: 17 units Documented by: Insulin Glargine (Insulin Glargine Solostar 100 Units/Ml 3 Ml Pen) 40 units SC BID [facility]; Protocol Stop: 07/03/21 08:59 Last Admin: 06/03/21 07:47 Dose: 40 units Documented by: Levothyroxine Sodium (Levothyroxine Sodium 50 Mcg Tablet) 50 mcg PO DAILYBB [facility] Stop: 07/02/21 06:29 Last Admin: 06/03/21 05:41 Dose: 50 mcg Documented by: Losartan Potassium (Losartan Potassium 50 Mg Tab) 50 mg PO BID [facility] Stop: 07/01/21 20:59 Last Admin: 06/03/21 08:15 Dose: 50 mg Documented by: Metoprolol Succinate (Metoprolol Succ 50mg Ext Rel Tab) 50 mg PO QAM [facility] Stop: 07/02/21 08:59 Last Admin: 06/03/21 07:48 Dose: 50 mg Documented by: Miscellaneous (Carbohydrates For Hypoglycemia ) 15 - 30 gm PO UD PRN PRN Reason: Hypoglycemia Protocol Stop: 07/01/21 20:20 Miscellaneous Information (Pharmacy Glycemic Mgmt Consult) 1 ea N/A UD PRN PRN Reason: Consult Stop: 07/01/21 20:21 Miscellaneous Information (Cefepime Consult Active) 1 ea N/A UD PRN PRN Reason: Consult Stop: 07/01/21 21:21 Miscellaneous Information (Doxycycline Pharmacy Consult In Progress) 1 ea N/A UD PRN PRN Reason: Consult Stop: 07/01/21 21:57 Ondansetron HCl (Ondansetron Inj 2 Mg/Ml 2 Ml Vial) 4 mg IV Q6H PRN PRN Reason: Nausea Stop: 07/01/21 20:20 Polyethylene Glycol (Polyethylene (Miralax) 17 Gm Pack) 17 gm PO DAILY PRN PRN Reason: Constipation Stop: 07/01/21 20:20 Spironolactone (Spironolactone 25 Mg Tab) 25 mg PO QAM [facility] Stop: 07/02/21 08:59 Last Admin: 06/03/21 08:15 Dose: 25 mg Documented by: Tamsulosin HCl (Tamsulosin Hcl 0.4 Mg Cap) 0.4 mg PO DAILY [facility] Stop: 07/02/21 08:59 Last Admin: 06/03/21 08:15 Dose: 0.4 mg Documented by: Vitamin E (Tocopheryl, Dl-Alpha 400 Units 180 Mg Cap) 400 units PO QAM [facility] Stop: 07/02/21 08:59 Last Admin: 06/03/21 08:15 Dose: 400 units Documented by: Zolpidem Tartrate (Zolpidem Tartrate 5 Mg Tab) 5 mg PO HS PRN PRN Reason: Sleep Stop: 07/02/21 01:15 Last Admin: 06/02/21 02:03 Dose: 5 mg Documented by: (1) Atrial fibrillation Atrial fibrillation type: paroxysmal Qualified Code(s): I48.0 - Paroxysmal atrial fibrillation
--- NOTE | 2021-06-03 10:33 | Hospitalist Progress Note ---
Date of Service June 03, 2021 Assessment & Plan (1) Acute on chronic respiratory failure with hypoxia: Plan: Has interstitial lung disease,pulmonary hypertension and has been on home oxygen 2 L/min Has been requiring more than 3 L to maintain saturation recently Has been feeling much better since admission We will continue management as below (2) SOB (shortness of breath): Plan: This is an 85yo M with a PMH of chronic diastolic heart failure (EF 55%, TTE 2019), SSS s/p pacemaker, paroxysmal A Fib on Eliquis, chronic respiratory failure 2/2 possible ILD and pulmonary hypertension on 2L home O2 PRN, JUVE on CPAP, HTN,DM II, CKD III, cirrhosis as per records, chronic anemia (baseline hemoglobin 11), chronic thrombocytopenia and other medical problems listed below who presents with SOB and blood-tinged sputum since this morning. More short of breath over the past few days, prompting continuous 2-3 L NC oxygen rather than as needed baseline Likely multifactorial in setting of decompensated heart failure, hemoptysis in setting of possible pneumonia with history of interstitial lung disease Continue supplemental O2 Has been feeling much better since admission Appreciate cardiology input and recommendation We will have echo to evaluate LV function-echo as below Continue diuresis (3) Hemoptysis: Plan: Productive cough with blood tinged sputum x 1 day Similar to presentations of PNA in the past in setting of viral/atypical PNA Followed by pulm on previous admissions - bronchoscopy in March 2020 revealing erythematous bronchial mucosa with blood-tinged saline lavage, prompting transfer to [facility] Plan to hold Eliquis and schedule cough suppressants round the clock for now CT chest with interstitial pulmonary edema and small pleural effusions, R>L multilobar distribution of centrilobular ground glass opacities are suggestive of alveolar pulmonary edema versus superimposed pneumonia Covid PCR negative. Patient vaccinated Continue empiric Cefepime, doxycycline. MRSA swab pending. Follow blood cultures Pulmonology consult-appreciate input and recommendation Will hold Eliquis for now No more hemoptysis-await further pulmonary recommendation about anticoagulation (4) Acute on chronic diastolic heart failure: Plan: Endorsing 50 pound weight gain over the past 6 months Multiple admissions in the past with decompensated CHF requiring IV diuresis Most recent echo from January 2020 with preserved EF of 55% Given 40 mg IV Lasix in ED. Plan to give additional dose of 40 mg IV in a.m. Cardiology consult placed Low-sodium diet, strict I&Os, daily weights Aggressive diuresis with Lasix 40 mg intravenously twice daily for now Echo of the heart showed-normal LV size, moderate concentric LVH, apical wall motion abnormality may reflect pacemaker activation, EF of 55 to 60%, aortic valve sclerosis moderate without any severe aortic stenosis, mild to moderate MR and moderate TR Has been diuresing enough with negative balance so far We will continue current dose of Lasix (5) Lactic acidosis: Plan: Lactate initially 3.4 but now 2 Likely elevated in setting of home nebs, metformin (6) Generalized weakness: Plan: In setting of decompensated HF, infection, weight gain Fall precautions, PT/OT evaluation, discharge planning Likely discharge in a day or 2 (7) Atrial fibrillation: Plan: Continue Toprol Holding anticoagulation for now in setting of hemoptysis Consider reducing Eliquis dose in terminal superintendent We will restart Eliquis as soon as okayed with pulmonary (8) DM type 2 (diabetes mellitus, type 2): Plan: A1c 8.3 in January 2021 Hold home agents Glycemic consult placed BSG AC HS (9) HTN (hypertension): Plan: Continue Toprol, Losartan, amlodipine (10) Thrombocytopenia: Plan: Plt 103 (lower end of baseline). 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 Working with RD in outpatient setting DVT Ppx: Holding Eliquis in setting of hemoptysis Code status: FULL PCP: Geri Dispo: Admitted to PCU. Discharge planning ordered Admission and Anticipated Discharge Date Admission Date: June 01, 2021 Subjective Patient was seen and examined, chart, medications, telemetry reviewed. No acute complaints. Slept in a chair overnight as per usual. Did not use CPAP, "thought my breathing was getting better" No chest pains, tachypalpitations, dizziness or lightheadedness. No further cough or hemoptysis 06/03/2021 The patient was seen and examined in telemetry unit He is out of bed on a chair without any symptoms His breathing is better and denies any more hemoptysis Does have minimal cough Review of Systems Review of Systems: All systems reviewed and are unremarkable except as noted below Respiratory: Minimal cough but no shortness of breath at rest. No more hemoptysis Cardiovascular: Additional Comments: No chest pain and/or palpitation Physical Exam Physical Exam: Sitting on a chair without any acute distress Constitutional: well developed, well nourished and + obese; no acute distress and not ill appearing Eyes: PERRL, conjunctivae normal, anicteric sclerae ENMT: external ear and nose normal, oropharynx normal Neck: trachea midline, no thyromegaly Respiratory: normal respiratory effort and + cough (Minimal cough without hemoptysis); no respiratory distress Auscultation: + diminished lung sounds; no crackles (Minimal crackles at the bases) Cardiovascular: Rate/Rhythm: + irregularly irregular Heart Sounds: normal S1 and normal S2; no murmur Extremities: + edema (1+ edema bilaterally) Gastrointestinal (Abdomen): normal bowel sounds, soft, nontender, no hepatosplenomegaly Musculoskeletal: No acute arthritis in any joint Neurologic: PERRL, EOMI, accommodation nl, no face palsy, no dysarthria Psychiatric: A+Ox3, euthymic affect Lymphatic: no cervical or axillary lymphadenopathy Results & Data Results & Data ([facility]) Vital Signs (Past 12 Hours) Vital Signs Temp Pulse Resp BP BP Pulse Ox 06/03/21 07:14 36.9 C 60 19 139/83 96 06/03/21 03:19 36.6 C 71 18 137/72 92 06/02/21 23:51 37.0 C 65 18 131/72 95 Laboratory Results Short CBC 06/03/21 Range/Units 06:47 WBC 6.36 (4.8-10.8) K/uL Hgb 11.6 L (14.0-18.0) g/dL Hct 35.0 L (42-52) % Plt Count 90 L (130-400) K/uL BMP 06/03/21 06:47 Sodium 140 Potassium 3.7 Chloride 109 H Carbon Dioxide 26 BUN 24 H Creatinine 1.38 Glucose 99 Calcium 8.6 Medications Administered Current Inpatient Medications Acetaminophen (Acetaminophen 325 Mg Tab) 650 mg PO Q4H PRN PRN Reason: Pain or Fever Stop: 07/01/21 20:20 Hydrocodone Bitart/Acetaminophen (Hydrocodone/Acetamophen 5/325mg Tab) 1 tab PO Q6H PRN PRN Reason: Pain Stop: 06/15/21 20:48 Last Admin: 06/03/21 10:03 Dose: 1 tab Documented by: Albuterol (Albut/Ipratrop 3mg/0.5mg Neb 3 Ml Vial) 3 ml INH Q6H PRN PRN Reason: Cough or Wheezing Stop: 07/01/21 20:20 Albuterol (Albuterol Hfa 8 Gm Inhaler) 2 puffs INH Q6H PRN; Protocol PRN Reason: Shortness Of Breath Or Wheezing Stop: 07/01/21 20:20 Amlodipine Besylate (Amlodipine Besylate 5 Mg Tab) 2.5 mg PO QPM VISHNU Stop: 07/01/21 20:59 Last Admin: 06/02/21 21:53 Dose: 2.5 mg Documented by: Ascorbic Acid (Ascorbic Acid 500 Mg Tab) 1,000 mg PO QAM VISHNU Stop: 07/02/21 08:59 Last Admin: 06/03/21 08:16 Dose: 1,000 mg Documented by: Atorvastatin Calcium (Atorvastatin 20 Mg Tab) 20 mg PO QAM VISHNU Stop: 07/02/21 08:59 Last Admin: 06/03/21 08:16 Dose: 20 mg Documented by: Benzonatate (Benzonatate 100 Mg Capsule) 100 mg PO TID VISHNU Stop: 07/01/21 18:49 Last Admin: 06/03/21 08:16 Dose: 100 mg Documented by: Cyanocobalamin (Cyanocobalamin (Vitamin B-12) 100 Mcg Tablet) 100 mcg PO DAILY VISHNU Stop: 07/02/21 08:59 Last Admin: 06/03/21 08:15 Dose: 100 mcg Documented by: Dextrose (Dextrose 50% 50 Ml Syringe) 25 - 50 ml IV UD PRN; Protocol PRN Reason: Hypoglycemia Protocol Stop: 07/01/21 20:20 Ferrous Sulfate (Ferrous Sulfate 325 Mg Tab) 325 mg PO DAILY VISHNU Stop: 07/02/21 08:59 Last Admin: 06/03/21 08:15 Dose: 325 mg Documented by: Glucagon (Glucagon For Inj 1 Mg Vial) 1 mg SQ UD PRN; Protocol PRN Reason: Hypoglycemia Protocol Stop: 07/01/21 20:20 Glucose (Glucose 10 Tabs/Tube) 4 - 8 tabs PO UD PRN; Protocol PRN Reason: Hypoglycemia Protocol Stop: 07/01/21 20:20 Glucose (Glucose 40% Gel 15 Gm Tube) 15 - 30 gm PO UD PRN; Protocol PRN Reason: Hypoglycemia Protocol Stop: 07/01/21 20:20 Guaifenesin/Codeine Phosphate (Guaifenesin/Codeine 100mg/10mg 5ml Udc) 5 ml PO Q6H PRN PRN Reason: Cough Stop: 07/01/21 18:46 Guaifenesin/Dextromethorphan (Guaifenesin/Dextrom Syrup 100mg/10mg 5ml Udc) 5 ml PO Q6 VISHNU Stop: 07/02/21 11:59 Last Admin: 06/03/21 05:41 Dose: 5 ml Documented by: Cefepime HCl 2,000 mg/ Syringe 20 mls @ 5 mls/min IV Q12H [facility]; Protocol Stop: 06/09/21 04:59 Last Admin: 06/03/21 05:41 Dose: 5 mls/min Documented by: Doxycycline Hyclate 100 mg/ (Dextrose) 110 mls @ 55 mls/hr IV Q12H [facility]; Protocol Stop: 06/08/21 20:59 Last Admin: 06/03/21 08:18 Dose: 55 mls/hr Documented by: Furosemide 40 mg/ Syringe 4 mls @ 4 mls/min IV TID [facility] Stop: 07/03/21 13:59 Insulin Aspart (Insulin Aspart 100 Units/Ml 3 Ml Pen) 0 units SC ACHS [facility] Stop: 07/01/21 20:59 Last Admin: 06/03/21 07:46 Dose: 17 units Documented by: Insulin Glargine (Insulin Glargine Solostar 100 Units/Ml 3 Ml Pen) 40 units SC BID [facility]; Protocol Stop: 07/03/21 08:59 Last Admin: 06/03/21 07:47 Dose: 40 units Documented by: Levothyroxine Sodium (Levothyroxine Sodium 50 Mcg Tablet) 50 mcg PO DAILYBB [facility] Stop: 07/02/21 06:29 Last Admin: 06/03/21 05:41 Dose: 50 mcg Documented by: Losartan Potassium (Losartan Potassium 50 Mg Tab) 50 mg PO BID [facility] Stop: 07/01/21 20:59 Last Admin: 06/03/21 08:15 Dose: 50 mg Documented by: Metoprolol Succinate (Metoprolol Succ 50mg Ext Rel Tab) 50 mg PO QAM [facility] Stop: 07/02/21 08:59 Last Admin: 06/03/21 07:48 Dose: 50 mg Documented by: Miscellaneous (Carbohydrates For Hypoglycemia ) 15 - 30 gm PO UD PRN PRN Reason: Hypoglycemia Protocol Stop: 07/01/21 20:20 Miscellaneous Information (Pharmacy Glycemic Mgmt Consult) 1 ea N/A UD PRN PRN Reason: Consult Stop: 07/01/21 20:21 Miscellaneous Information (Cefepime Consult Active) 1 ea N/A UD PRN PRN Reason: Consult Stop: 07/01/21 21:21 Miscellaneous Information (Doxycycline Pharmacy Consult In Progress) 1 ea N/A UD PRN PRN Reason: Consult Stop: 07/01/21 21:57 Ondansetron HCl (Ondansetron Inj 2 Mg/Ml 2 Ml Vial) 4 mg IV Q6H PRN PRN Reason: Nausea Stop: 07/01/21 20:20 Polyethylene Glycol (Polyethylene (Miralax) 17 Gm Pack) 17 gm PO DAILY PRN PRN Reason: Constipation Stop: 07/01/21 20:20 Spironolactone (Spironolactone 25 Mg Tab) 25 mg PO QAM [facility] Stop: 07/02/21 08:59 Last Admin: 06/03/21 08:15 Dose: 25 mg Documented by: Tamsulosin HCl (Tamsulosin Hcl 0.4 Mg Cap) 0.4 mg PO DAILY [facility] Stop: 07/02/21 08:59 Last Admin: 06/03/21 08:15 Dose: 0.4 mg Documented by: Vitamin E (Tocopheryl, Dl-Alpha 400 Units 180 Mg Cap) 400 units PO QAM [facility] Stop: 07/02/21 08:59 Last Admin: 06/03/21 08:15 Dose: 400 units Documented by: Zolpidem Tartrate (Zolpidem Tartrate 5 Mg Tab) 5 mg PO HS PRN PRN Reason: Sleep Stop: 07/02/21 01:15 Last Admin: 06/02/21 02:03 Dose: 5 mg Documented by: (1) Atrial fibrillation Atrial fibrillation type: paroxysmal Qualified Code(s): I48.0 - Paroxysmal atrial fibrillation (2) HTN (hypertension) Hypertension type: essential hypertension Qualified Code(s): I10 - Essential (primary) hypertension
--- NOTE | 2021-06-03 12:02 | Pharmacy Report ---
Pharmacy Glycemic Short Note 2 - Date of Service June 03, 2021 - Glycemic Short BSG Results (Last 24 hours): 06/02/21 06/02/21 06/03/21 16:33 20:32 06:47 Glucose 99 POC Glucose 107 H 159 H 06/03/21 06/03/21 07:13 11:16 Glucose POC Glucose 100 H 148 H OUTPATIENT ANTIDIABETIC REGIMEN: * Lantus 70 units SQ BID * Semaglutide 0.5mg SQ weekly * Metformin 1gm BID * A1c = 6.5% 06/02/21 ASSESSMENT: 06/03 * BSGs well controlled over last 24 hrs * 143 units SQ insulin admin over last 24 hours while tolerating a diet. * Fasting BSG 100 this AM w/ 100 units basal on board - will reduce dose 20% as a precaution * Post-prandial BSGs well controlled with current Novolog CF and CR - no change 06/02 * Well controlled type 2 diabetic admitted for acute on chronic resp failure likely secondary to ADHF +/- pneumonia * Reviewed prior admission 11/2020 and will utilize a regimen that is similar to that used during that admission * Estimate patient's total daily insulin needs to be ~140 units/day while t olerating a diet * Of note, patient's prandial needs may be lesser than prior admission due to recent receipt of semaglutide on 05/31 PLAN FOR INPATIENT GLYCEMIC CONTROL: * Hold outpatient oral diabetes medications * Basal insulin - decrease * Lantus 40 units SQ BID * Bolus insulin - no change * NovoLog per scale ACHS or Q6hrs while NPO * Goal Range: Low 110 mg/dL - High 140 mg/dL * Correction Factor: 12 mg/dL/unit * Nutritional / Prandial insulin per carb ratio of 1 unit per 4 grams CHO consumed PLAN FOR DISCHARGE: * may resume outpt regimen
--- NOTE | 2021-06-03 12:47 | Pulmonology Progress Note ---
Date of Service June 03, 2021 Assessment & Plan (1) Acute on chronic respiratory failure with hypoxia: (2) Hemoptysis: (3) Acute on chronic diastolic heart failure: (4) SOB (shortness of breath): (5) Abnormal chest CT: (6) JUVE (obstructive sleep apnea): Plan: CT chest 06/01/2021 personally reviewed: Patchy groundglass opacities appreciated bilaterally upper and lower lobes more on the right upper and right lower lobe. Minimal mediastinal lymphadenopathy CAT scan 11/09/2020 has similar but worse opacities. Bronchoscopy 04/01/2020 at [facility]. Serial aliquots did not become more bloody with successive samples. BAL was mostly neutrophilic phallic and monocytic. Patient also had transjugular biopsy which showed benign bronchial tissue. No evidence of malignancy. Patient also had AFB negative, fungal cultures were negative. It did grow penicillium. Bacterial culture was negative and PCP smear was negative. Legionella negative, HSV and EBV along with CMV all negative. Aspergillus antigen was not detected. PFTs 08/12/2020: Mild restrictive lung disease, no obstructive dysfunction, mild decrease in DLCO. FVC 84%, FEV1 93%, FEV1/FVC 82%, RV 86%, TLC 75%, RV/TLC 46%, DLCO 64% --Hemoptysis with diffuse patchy groundglass opacities bilaterally more on the right side Patient has similar presentation back in March 2020 when he was transferred to [facility] and also November 2020 Patient had autoimmune work-up done back in March 2020 with similar presentation and it was negative. BNP 4232 WBC within normal limit COVID-19 PCR negative 06/01/2021 PT/INR within normal limit. Procalcitonin 0.07, CRP 9.6 Differential here for the patchy groundglass opacities could be atypical pulmonary edema, diffuse lower hemorrhage as well as atypical pneumonia I think diastolic CHF is playing a role in the findings that we see on the CAT scan. Especially given patient has gained 25 pounds. Patient might have NSIP-like pattern as well as the CAT scan which was done back in August 2020 still showed some groundglass opacities which are improving compared to the one done in March. Although his RAMON, ANCA, antiproteinase 3 and antimyeloperoxidase antibodies were negative on 03/28/2020 --Acute on chronic hypoxic respiratory failure Patient is on 2 L nasal cannula since March 2020 Continue O2 supplementation to keep oxygen saturation between 88-92% --JUVE with morbid obesity Continue with CPAP at night and when he is napping Plan: In/out: -1.3 L Continue with aggressive diuretics to keep the patient negative balance BiPAP nightly and as needed shortness of breath Hold apixaban. H&H is stable. If he states this way we can plan on resuming apixaban at a lower dose may be tomorrow. Continue with rounder clock antitussive medication Procalcitonin was only 0.07, I think we can de-escalate antibiotics and continue only with doxycycline. DC cefepime Please note the above document was generated using voice recognition software. It may contain grammatical, syntax or spelling errors.Any formal questions or concerns about the content, text or information contained within the body of this dictation should be directly addressed to the provider for clarification. Admission and Anticipated Discharge Date Admission Date: June 01, 2021 Subjective Patient seen and examined at bedside. No acute distress, no adverse events overnight. Patient did not use his CPAP again at night stating that he is feeling better so is not using Problem using CPAP every single night and whenever he is napping explained. Patient was a little bit upset he as he wants to go home. I did explain to him that he needs to be diuresed well as he has gained 25 pounds His argument was that he urinates more at home than he does here. Does say that the shortness of breath has improved. Cough is significantly decreased Very minimal hemoptysis. Review of Systems Review of Systems: All systems reviewed & are unremarkable except as noted in Subjective Physical Exam Physical Exam: Constitutional: No acute distress HEENT: EOMI, PERRLA Respiratory system: Decreased air entry bilaterally, no wheeze, no rhonchi, mild crackles bilateral lower lobes CVS: S1-S2 positive, no murmurs or gallops, distant heart sounds Abdomen: Soft, nontender, nondistended, positive bowel sounds x4, obese Extremities: +2 pulses bilaterally radialis/ dorsalis pedis, no cyanosis, +1 edema bilateral lower extremity Neuro: Awake alert oriented x3 Psych: Normal mood and affect G/U: No Edward Skin: no rashes, warm and dry Lymphatic: no cervical or axillary lymphadenopathy Results & Data Results & Data ([facility]) Vital Signs (Past 12 Hours) Vital Signs Temp Pulse Resp BP BP Pulse Ox 06/03/21 11:18 36.6 C 64 19 137/69 98 06/03/21 07:14 36.9 C 60 19 139/83 96 06/03/21 03:19 36.6 C 71 18 137/72 92 06/03/21 06:47 06/03/21 06:47 PG Care Time/CCT Total # of Minutes Spent Total Time Spent with Patient: Total time spent is greater than 50% in coordination of care (as documented) at patient's floor/unit and/or counseling patient: Coding Level of Care Code 67520 Subseq Hosp Care Lvl 3 Diagnoses Acute on chronic respiratory failure with hypoxia J96.21 Hemoptysis R04.2 Acute on chronic diastolic heart failure I50.33 SOB (shortness of breath) R06.[address] R93.89 JUVE (obstructive sleep apnea) G47.33
[2021-06-03] MEDS: amLODIPine BESYLATE 5 MG TAB PO SCH (22:23)
[2021-06-03] MEDS: DOXYCYCLINE HYCLATE 100 MG CAP PO SCH (22:24)
[2021-06-03] MEDS ORDERED: FUROSEMIDE 40 MG/4 ML VIAL IV ONE (22:32)
[2021-06-04] MEDS: HYDROCODONE/ACETAMOPHEN 5/325MG TAB PO PRN (04:00)
[2021-06-04] MEDS: guaiFENesin/DEXTROM SYRUP 100MG/10MG 5ML UDC PO SCH ×4 (06:18→21:14)
[2021-06-04] MEDS: CEFEPIME 2,000 MG in SYRINGE 0 ML IV SCH (06:19)
[2021-06-04] MEDS: LEVOTHYROXINE SODIUM 50 MCG TABLET PO SCH (06:19)
[2021-06-04 07:36] LABS: Hematocrit (blood only) 35.2 % (42-52); Hemoglobin 11.6 g/dL (14.0-18.0); Mean Corpuscular Hemoglobin 29.7 pg (25-34); Mean Platelet Volume 12.1 fL (7.4-10.4); Platelet Count 106 K/uL (130-400); RDW Coefficient of Variation 14.4 % (11.5-14.5); RDW Standard Deviation 47.8 fL (36.4-46.3); Red Blood Count 3.91 M/uL (4.7-6.1); White Blood Count 6.38 K/uL (4.8-10.8)
[2021-06-04 07:38] LABS: Basophils # (auto) 0.02 K/uL (0-0.2); Basophils % (auto) 0.3 %; Eosinophils # (auto) 0.22 K/uL (0-0.5); Eosinophils % (auto) 3.4 %; Immature Granulocytes # (auto) 0.02 K/uL (0.00-0.02); Immature Granulocytes % (auto) 0.3 %; Lymphocytes # (auto) 0.98 K/uL (1.2-3.4); Lymphocytes % (auto) 15.4 %; Monocytes # (auto) 0.81 K/uL (0.11-0.59); Monocytes % (auto) 12.7 %; Neutrophils # (auto) 4.33 K/uL (1.4-6.5); Neutrophils % (auto) 67.9 %
[2021-06-04 07:57] LABS: Calcium 8.8 mg/dl (8.5-10.1); Creatinine Clr Calc Pharmacy 52.7 ml/min; Est GFR (African American) 50.8 ml/min; Est GFR (Non-African American) 43.9 ml/min; Magnesium 2.1 mg/dl (1.8-2.4); Potassium 3.5 mmol/L (3.5-5.1)
[2021-06-04 07:58] LABS: Phosphorus 3.2 mg/dl (2.5-4.9)
[2021-06-04] MEDS: INSULIN ASPART 100 UNITS/ML 3 ML PEN SC SCH ×4 (09:06→21:15)
[2021-06-04] MEDS: INSULIN GLARGINE SOLOSTAR 100 UNITS/ML 3 ML PEN SC SCH ×2 (09:07→21:16)
[2021-06-04] MEDS: CYANOCOBALAMIN (VITAMIN B-12) 100 MCG TABLET PO SCH (09:08)
[2021-06-04] MEDS: METOPROLOL SUCC 50MG EXT REL TAB PO SCH ×3 (09:08→09:24)
[2021-06-04] MEDS: DOXYCYCLINE HYCLATE 100 MG CAP PO SCH ×2 (09:09→21:14)
[2021-06-04] MEDS: FUROSEMIDE 40 MG in SYRINGE 0 ML IV SCH ×2 (09:09→14:00)
[2021-06-04] MEDS: FERROUS SULFATE 325 MG TAB PO SCH (09:09)
[2021-06-04] MEDS: BENZONATATE 100 MG CAPSULE PO SCH ×3 (09:10→21:13)
[2021-06-04] MEDS: ASCORBIC ACID 500 MG TAB PO SCH (09:10)
[2021-06-04] MEDS: TOCOPHERYL, DL-ALPHA 400 UNITS 180 MG CAP PO SCH (09:11)
[2021-06-04] MEDS: SPIRONOLACTONE 25 MG TAB PO SCH (09:11)
[2021-06-04] MEDS: LOSARTAN POTASSIUM 50 MG TAB PO SCH ×2 (09:11→21:15)
[2021-06-04] MEDS: TAMSULOSIN HCL 0.4 MG CAP PO SCH (09:12)
[2021-06-04] MEDS: ATORVASTATIN 20 MG TAB PO SCH (09:24)
--- NOTE | 2021-06-04 09:28 | Cardiology Progress Note ---
Date of Service June 04, 2021 Assessment & Plan (1) Acute on chronic respiratory failure with hypoxia: Plan: 85-year-old male being cared for decompensated respiratory failure/diastolic heart failure. Patient clinically improved today. Brisk diuresis overnight Plan: IV furosemide this morning and this afternoon then switch to oral dosing with increased furosemide 60 mg p.o. twice daily CHF nursing instructions Would recommend resuming Eliquis at reduced dose 2.5 mg twice per day given age and renal dysfunction if no other further bleeding concern (2) Acute on chronic diastolic heart failure: (3) Atrial fibrillation: Plan: Chronic persistent with underlying paced rhythm Admission and Anticipated Discharge Date Admission Date: June 01, 2021 Subjective Patient was seen and examined, chart, medications, telemetry reviewed. Patient had brisk diuresis yesterday, 3 L. Using CPAP and oxygen as prescribed. No tachypalpitations dizziness or lightheadedness abdominal girth and lower extremity edema improved. No arrhythmias on telemetry. No further hemoptysis. Cough improved Review of Systems Review of Systems: All systems reviewed & are unremarkable except as noted in Subjective Physical Exam Constitutional: WD/WN, vitals as above + obese; no acute distress ENMT: external ear and nose normal, oropharynx normal Neck: trachea midline, no thyromegaly Respiratory: Auscultation: + diminished lung sounds Cardiovascular: Rate/Rhythm: regular rate (Ventricular paced) Heart Sounds: normal S1 and normal S2; no gallop and no murmur Palpation: normal PMI Vessels: normal carotid upstroke and radial pulses present; no JVD and no carotid bruit Extremities: + edema (1+) Gastrointestinal (Abdomen): normal bowel sounds, soft, nontender, no hepatosplenomegaly Musculoskeletal: no cyanosis or clubbing, extremities motor strength 5/5 Skin: no rashes, warm and dry Neurologic: PERRL, EOMI, accommodation nl, no face palsy, no dysarthria Psychiatric: A+Ox3, euthymic affect Results & Data ([facility]) Vital Signs (Past 12 Hours) Vital Signs Temp Pulse Resp BP Pulse Ox 06/04/21 07:02 36.8 C 75 19 106/65 97 06/04/21 04:19 36.4 C L 63 18 113/66 96 06/04/21 01:52 22 97 06/04/21 00:00 36.9 C 72 18 124/58 L 95 Medications Administered Current Medications Acetaminophen (Acetaminophen 325 Mg Tab) 650 mg PO Q4H PRN PRN Reason: Pain or Fever Stop: 07/01/21 20:20 Hydrocodone Bitart/Acetaminophen (Hydrocodone/Acetamophen 5/325mg Tab) 1 tab PO Q6H PRN PRN Reason: Pain Stop: 06/15/21 20:48 Last Admin: 06/04/21 04:00 Dose: 1 tab Documented by: Albuterol (Albut/Ipratrop 3mg/0.5mg Neb 3 Ml Vial) 3 ml INH Q6H PRN PRN Reason: Cough or Wheezing Stop: 07/01/21 20:20 Albuterol (Albuterol Hfa 8 Gm Inhaler) 2 puffs INH Q6H PRN; Protocol PRN Reason: Shortness Of Breath Or Wheezing Stop: 07/01/21 20:20 Amlodipine Besylate (Amlodipine Besylate 5 Mg Tab) 2.5 mg PO QPM VISHNU Stop: 07/01/21 20:59 Last Admin: 06/03/21 22:23 Dose: 2.5 mg Documented by: Ascorbic Acid (Ascorbic Acid 500 Mg Tab) 1,000 mg PO QAM VISHNU Stop: 07/02/21 08:59 Last Admin: 06/04/21 09:10 Dose: 1,000 mg Documented by: Atorvastatin Calcium (Atorvastatin 20 Mg Tab) 20 mg PO QAM VISHNU Stop: 07/02/21 08:59 Last Admin: 06/04/21 09:24 Dose: 20 mg Documented by: Benzonatate (Benzonatate 100 Mg Capsule) 100 mg PO TID VISHNU Stop: 07/01/21 18:49 Last Admin: 06/04/21 09:10 Dose: 100 mg Documented by: Cyanocobalamin (Cyanocobalamin (Vitamin B-12) 100 Mcg Tablet) 100 mcg PO DAILY VISHNU Stop: 07/02/21 08:59 Last Admin: 06/04/21 09:08 Dose: 100 mcg Documented by: Dextrose (Dextrose 50% 50 Ml Syringe) 25 - 50 ml IV UD PRN; Protocol PRN Reason: Hypoglycemia Protocol Stop: 07/01/21 20:20 Doxycycline Hyclate (Doxycycline Hyclate 100 Mg Cap) 100 mg PO BID VISHNU Stop: 06/08/21 20:59 Last Admin: 06/04/21 09:09 Dose: 100 mg Documented by: Ferrous Sulfate (Ferrous Sulfate 325 Mg Tab) 325 mg PO DAILY VISHNU Stop: 07/02/21 08:59 Last Admin: 06/04/21 09:09 Dose: 325 mg Documented by: Glucagon (Glucagon For Inj 1 Mg Vial) 1 mg SQ UD PRN; Protocol PRN Reason: Hypoglycemia Protocol Stop: 07/01/21 20:20 Glucose (Glucose 10 Tabs/Tube) 4 - 8 tabs PO UD PRN; Protocol PRN Reason: Hypoglycemia Protocol Stop: 07/01/21 20:20 Glucose (Glucose 40% Gel 15 Gm Tube) 15 - 30 gm PO UD PRN; Protocol PRN Reason: Hypoglycemia Protocol Stop: 07/01/21 20:20 Guaifenesin/Codeine Phosphate (Guaifenesin/Codeine 100mg/10mg 5ml Udc) 5 ml PO Q6H PRN PRN Reason: Cough Stop: 07/01/21 18:46 Guaifenesin/Dextromethorphan (Guaifenesin/Dextrom Syrup 100mg/10mg 5ml Udc) 5 ml PO Q6 VISHNU Stop: 07/02/21 11:59 Last Admin: 06/04/21 06:18 Dose: 5 ml Documented by: Cefepime HCl 2,000 mg/ Syringe 20 mls @ 5 mls/min IV Q12H [facility]; Protocol Stop: 06/09/21 04:59 Last Admin: 06/04/21 06:19 Dose: 5 mls/min Documented by: Furosemide 40 mg/ Syringe 4 mls @ 4 mls/min IV TID [facility] Stop: 07/03/21 13:59 Last Admin: 06/04/21 09:09 Dose: 4 mls/min Documented by: Insulin Aspart (Insulin Aspart 100 Units/Ml 3 Ml Pen) 0 units SC ACHS [facility] Stop: 07/01/21 20:59 Last Admin: 06/04/21 09:06 Dose: 14 units Documented by: Insulin Glargine (Insulin Glargine Solostar 100 Units/Ml 3 Ml Pen) 40 units SC BID [facility]; Protocol Stop: 07/03/21 08:59 Last Admin: 06/04/21 09:07 Dose: 40 units Documented by: Levothyroxine Sodium (Levothyroxine Sodium 50 Mcg Tablet) [facility] Stop: 07/02/21 06:29 Last Admin: 06/04/21 06:19 Dose: 50 mcg Documented by: Losartan Potassium (Losartan Potassium 50 Mg Tab) 50 mg PO BID [facility] Stop: 07/01/21 20:59 Last Admin: 06/04/21 09:11 Dose: 50 mg Documented by: Metoprolol Succinate (Metoprolol Succ 50mg Ext Rel Tab) 50 mg PO QAM [facility] Stop: 07/02/21 08:59 Last Admin: 06/04/21 09:24 Dose: 50 mg Documented by: Miscellaneous (Carbohydrates For Hypoglycemia ) 15 - 30 gm PO UD PRN PRN Reason: Hypoglycemia Protocol Stop: 07/01/21 20:20 Miscellaneous Information (Pharmacy Glycemic Mgmt Consult) 1 ea N/A UD PRN PRN Reason: Consult Stop: 07/01/21 20:21 Miscellaneous Information (Cefepime Consult Active) 1 ea N/A UD PRN PRN Reason: Consult Stop: 07/01/21 21:21 Miscellaneous Information (Doxycycline Pharmacy Consult In Progress) 1 ea N/A UD PRN PRN Reason: Consult Stop: 07/01/21 21:57 Ondansetron HCl (Ondansetron Inj 2 Mg/Ml 2 Ml Vial) 4 mg IV Q6H PRN PRN Reason: Nausea Stop: 07/01/21 20:20 Polyethylene Glycol (Polyethylene (Miralax) 17 Gm Pack) 17 gm PO DAILY PRN PRN Reason: Constipation Stop: 07/01/21 20:20 Spironolactone (Spiron[facility]actone 25 Mg Tab) [facility] Stop: 07/02/21 08:59 Last Admin: 06/04/21 09:11 Dose: 25 mg Documented by: Tamsulosin HCl (Tamsulosin Hcl 0.4 Mg Cap) 0.4 mg PO DAILY [facility] Stop: 07/02/21 08:59 Last Admin: 06/04/21 09:12 Dose: 0.4 mg Documented by: Vitamin E (Tocopheryl, Dl-Alpha 400 Units 180 Mg Cap) 400 units PO QAM [facility] Stop: 07/02/21 08:59 Last Admin: 06/04/21 09:11 Dose: 400 units Documented by: Zolpidem Tartrate (Zolpidem Tartrate 5 Mg Tab) 5 mg PO HS PRN PRN Reason: Sleep Stop: 07/02/21 01:15 Last Admin: 06/02/21 02:03 Dose: 5 mg Documented by: (1) Atrial fibrillation Atrial fibrillation type: paroxysmal Qualified Code(s): I48.0 - Paroxysmal atrial fibrillation
--- NOTE | 2021-06-04 12:52 | Pharmacy Report ---
Pharmacy Glycemic Short Note 2 - Date of Service June 04, 2021 - Glycemic Short BSG Results (Last 24 hours): 06/03/21 06/03/21 06/04/21 16:14 20:47 07:03 Glucose POC Glucose 159 H 139 H 109 H 06/04/21 06/04/21 07:05 11:24 Glucose 108 H POC Glucose 161 H OUTPATIENT ANTIDIABETIC REGIMEN: * Lantus 70 units SQ BID * Semaglutide 0.5mg SQ weekly * Metformin 1gm BID * A1c = 6.5% 06/02/21 ASSESSMENT: 06/04 * BSGs continue to be controlled * 124 units of insulin over last 24 hours with diet * Fasting this AM in goal range, will continue current basal * No change to novolog parameters 06/03 * BSGs well controlled over last 24 hrs * 143 units SQ insulin admin over last 24 hours while tolerating a diet. * Fasting BSG 100 this AM w/ 100 units basal on board - will reduce dose 20% as a precaution * Post-prandial BSGs well controlled with current Novolog CF and CR - no change 06/02 * Well controlled type 2 diabetic admitted for acute on chronic resp failure likely secondary to ADHF +/- pneumonia * Reviewed prior admission 11/2020 and will utilize a regimen that is similar to that used during that admission * Estimate patient's total daily insulin needs to be ~140 units/day while tolerating a diet * Of note, patient's prandial needs may be lesser than prior admission due to recent receipt of semaglutide on 05/31 PLAN FOR INPATIENT GLYCEMIC CONTROL: * Hold outpatient oral diabetes medications * Basal insulin - no change * Lantus 40 units SQ BID * Bolus insulin - no change * NovoLog per scale ACHS or Q6hrs while NPO * Goal Range: Low 110 mg/dL - High 140 mg/dL * Correction Factor: 12 mg/dL/unit * Nutritional / Prandial insulin per carb ratio of 1 unit per 4 grams CHO consumed PLAN FOR DISCHARGE: * may resume outpt regimen
--- NOTE | 2021-06-04 13:24 | Hospitalist Progress Note ---
Date of Service June 04, 2021 Assessment & Plan (1) Acute on chronic respiratory failure with hypoxia: (2) SOB (shortness of breath): Plan: Present on admission with SOB and blood-tinged sputum since this morning. Likely multifactorial in setting of decompensated heart failure, hemoptysis in setting of possible pneumonia with history of interstitial lung disease CXR showed mild reticular prominence of pulmonary interstitium which could be in part due to low lung volumes and could also represent pulmonary edema. CT chest with interstitial pulmonary edema and small pleural effusions, R>L multilobar distribution of centrilobular ground glass opacities are suggestive of alveolar pulmonary edema versus superimposed pneumonia Covid PCR negative. Patient vaccinated MRSA swab positive blood culture no growth Was starting on empiric Cefepime, then abx was changed to doxycycline. MRSA swab pending. Follow blood cultures Pulmonary on board Continue with aggressive diuretics to keep the patient negative balance BiPAP nightly and as needed shortness of breath Continue supplemental O2 cardiology on board (3) Hemoptysis: Plan: Productive cough with blood tinged sputum x 1 day Similar to presentations of PNA in the past in setting of viral/atypical PNA Followed by pulm on previous admissions - bronchoscopy in March 2020 revealing erythematous bronchial mucosa with blood-tinged saline lavage, prompting transfer to [facility] Plan to hold Eliquis and schedule cough suppressants round the clock for now CT chest with interstitial pulmonary edema and small pleural effusions, R>L multilobar distribution of centrilobular ground glass opacities are suggestive of alveolar pulmonary edema versus superimposed pneumonia Covid PCR negative. Patient vaccinated MRSA swab positive blood culture no growth Continue to hold Eliquis (4) Acute on chronic diastolic heart failure: Plan: Endorsing 50 pound weight gain over the past 6 months Multiple admissions in the past with decompensated CHF requiring IV diuresis Most recent echo from January 2020 with preserved EF of 55% Given 40 mg IV Lasix in ED. Plan to give additional dose of 40 mg IV in a.m. Cardiology consult placed Low-sodium diet, strict I&Os, daily weights Aggressive diuresis with Lasix 40 mg intravenously twice daily for now Echo of the heart showed-normal LV size, moderate concentric LVH, apical wall motion abnormality may reflect pacemaker activation, EF of 55 to 60%, aortic valve sclerosis moderate without any severe aortic stenosis, mild to moderate MR and moderate TR Has been diuresing enough with negative balance so far We will continue current dose of Lasix (5) Lactic acidosis: Plan: Lactate initially 3.4 but now 2 Likely elevated in setting of home nebs, metformin (6) Generalized weakness: Plan: In setting of decompensated HF, infection, weight gain Fall precautions, PT/OT evaluation, discharge planning Likely discharge in a day or 2 (7) Atrial fibrillation: Plan: Continue Toprol Holding anticoagulation for now in setting of hemoptysis 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 Working with RD in outpatient setting CKD stage 3 Creatinine stable Continue monitor BMP while on Lasix DVT Ppx: Holding Eliquis in setting of hemoptysis Code status: FULL PCP: Geri Dispo: Admitted to PCU. Discharge planning ordered Admission and Anticipated Discharge Date Admission Date: June 01, 2021 Subjective Patient was seen and examined for follow-up of shortness of breath Sitting in chair with no distress watching TV. Patient said his breathing is much better Denies any chest pain, palpitation, dizziness, shortness of breath. Physical Exam Physical Exam: General- No acute distress Head- atraumatic Eyes- PERRL, EOMI, ENT- oropharynx clear Neck- supple, no JVD Lungs- +decrease breath sound Heart- regular rhythm; no murmur Abdomen- normal bowel sounds, soft, nontender Extremities- no calf tenderness Neuro- alert, oriented x 3; PERRL, EOMI; no facial palsy; no dysarthria Skin- warm & dry Results & Data Results & Data ([facility]) Vital Signs (Past 12 Hours) Vital Signs Temp Pulse Pulse Resp BP Pulse Ox 06/04/21 11:24 36.9 C 65 19 115/58 L 94 06/04/21 08:00 63 06/04/21 07:02 36.8 C 75 19 106/65 97 06/04/21 04:19 36.4 C L 63 18 113/66 96 06/04/21 01:52 22 97 (1) Atrial fibrillation Atrial fibrillation type: paroxysmal Qualified Code(s): I48.0 - Paroxysmal atrial fibrillation (2) HTN (hypertension) Hypertension type: essential hypertension Qualified Code(s): I10 - Essential (primary) hypertension
[2021-06-04] MEDS: FUROSEMIDE 20 MG TAB PO SCH (17:27)
--- NOTE | 2021-06-04 20:26 | Pulmonology Progress Note ---
Date of Service June 04, 2021 Assessment & Plan (1) Acute on chronic respiratory failure with hypoxia: (2) Hemoptysis: (3) Acute on chronic diastolic heart failure: (4) SOB (shortness of breath): (5) Abnormal chest CT: (6) JUVE (obstructive sleep apnea): Plan: CT chest 06/01/2021 personally reviewed: Patchy groundglass opacities appreciated bilaterally upper and lower lobes more on the right upper and right lower lobe. Minimal mediastinal lymphadenopathy CAT scan 11/09/2020 has similar but worse opacities. Bronchoscopy 04/01/2020 at [facility]. Serial aliquots did not become more bloody with successive samples. BAL was mostly neutrophilic phallic and monocytic. Patient also had transjugular biopsy which showed benign bronchial tissue. No evidence of malignancy. Patient also had AFB negative, fungal cultures were negative. It did grow penicillium. Bacterial culture was negative and PCP smear was negative. Legionella negative, HSV and EBV along with CMV all negative. Aspergillus antigen was not detected. PFTs 08/12/2020: Mild restrictive lung disease, no obstructive dysfunction, mild decrease in DLCO. FVC 84%, FEV1 93%, FEV1/FVC 82%, RV 86%, TLC 75%, RV/TLC 46%, DLCO 64% --Hemoptysis with diffuse patchy groundglass opacities bilaterally more on the right side Patient has similar presentation back in March 2020 when he was transferred to [facility] and also November 2020 Patient had autoimmune work-up done back in March 2020 with similar presentation and it was negative. BNP 4232 WBC within normal limit COVID-19 PCR negative 06/01/2021 PT/INR within normal limit. Procalcitonin 0.07, CRP 9.6 Differential here for the patchy groundglass opacities could be atypical pulmonary edema, diffuse lower hemorrhage as well as atypical pneumonia I think diastolic CHF is playing a role in the findings that we see on the CAT scan. Especially given patient has gained 25 pounds. Patient might have NSIP-like pattern as well as the CAT scan which was done back in August 2020 still showed some groundglass opacities which are improving compared to the one done in March. Although his RAMON, ANCA, antiproteinase 3 and antimyeloperoxidase antibodies were negative on 03/28/2020 --Acute on chronic hypoxic respiratory failure Patient is on 2 L nasal cannula since March 2020 Continue O2 supplementation to keep oxygen saturation between 88-92% --JUVE with morbid obesity Continue with CPAP at night and when he is napping Plan: In/out: -2.1L Continue with aggressive diuretics to keep the patient negative balance BiPAP nightly and as needed shortness of breath H&H has been stable. Patient's hemoptysis has resolved solved. Continue with [id number] antitussive while in the hospital. We can resume apixaban as of tonight Complete 5 days of doxycycline. No further recommendation from pulmonary perspective. Please call directly with any questions. Please note the above document was generated using voice recognition software. It may contain grammatical, syntax or spelling errors.Any formal questions or concerns about the content, text or information contained within the body of this dictation should be directly addressed to the provider for clarification. Admission and Anticipated Discharge Date Admission Date: June 01, 2021 Subjective Patient seen and examined at bedside. No acute distress, no adverse events overnight. Patient was in good mood today. He apologized for giving hard time yesterday. He is urinating well. Says the shortness of breath is improved. He is not coughing a lot. No more hemoptysis since yesterday. Denies any chest pain, no headache. Fair appetite Patient used BiPAP overnight. Review of Systems Review of Systems: All systems reviewed & are unremarkable except as noted in Subjective Physical Exam Physical Exam: Constitutional: No acute distress HEENT: EOMI, PERRLA Respiratory system: Decreased air entry bilaterally, no wheeze, no rhonchi, mild crackles bilateral lower lobes CVS: S1-S2 positive, no murmurs or gallops, distant heart sounds Abdomen: Soft, nontender, nondistended, positive bowel sounds x4, obese Extremities: +2 pulses bilaterally radialis/ dorsalis pedis, no cyanosis, +1 edema bilateral lower extremity Neuro: Awake alert oriented x3 Psych: Normal mood and affect G/U: No Edward Skin: no rashes, warm and dry Lymphatic: no cervical or axillary lymphadenopathy Results & Data Results & Data ([facility]) Vital Signs (Past 12 Hours) Vital Signs Temp Pulse Pulse Resp BP Pulse Ox 06/04/21 16:07 36.8 C 64 19 107/60 97 06/04/21 15:58 66 07/29/21 11:24 36.9 C 65 19 115/58 L 94 06/04/21 07:05 06/04/21 07:05 PG Care Time/CCT Total # of Minutes Spent Total Time Spent with Patient: Total time spent is greater than 50% in coordination of care (as documented) at patient's floor/unit and/or counseling patient: Coding Level of Care Code 04090 Subseq Hosp Care Lvl 3 Diagnoses Acute on chronic respiratory failure with hypoxia J96.21 Hemoptysis R04.2 Acute on chronic diastolic heart failure I50.33 SOB (shortness of breath) R06.[address] R93.89 JUVE (obstructive sleep apnea) G47.33
[2021-06-04] MEDS: amLODIPine BESYLATE 5 MG TAB PO SCH (21:14)
[2021-06-04] MEDS: APIXABAN 2.5 MG TAB PO SCH (21:56)
[2021-06-05] MEDS: ZOLPIDEM TARTRATE 5 MG TAB PO PRN (03:20)
[2021-06-05] MEDS: HYDROCODONE/ACETAMOPHEN 5/325MG TAB PO PRN (04:19)
[2021-06-05] MEDS: LEVOTHYROXINE SODIUM 50 MCG TABLET PO SCH (04:19)
[2021-06-05] MEDS: guaiFENesin/DEXTROM SYRUP 100MG/10MG 5ML UDC PO SCH ×2 (04:19→12:10)
[2021-06-05] MEDS ORDERED: INSULIN GLARGINE SOLOSTAR 100 UNITS/ML 3 ML PEN SC SCH ×2 (09:00→21:00)
[2021-06-05] MEDS: DOXYCYCLINE HYCLATE 100 MG CAP PO SCH (09:02)
[2021-06-05] MEDS: FUROSEMIDE 20 MG TAB PO SCH (09:02)
[2021-06-05] MEDS: ASCORBIC ACID 500 MG TAB PO SCH (09:03)
[2021-06-05] MEDS: BENZONATATE 100 MG CAPSULE PO SCH (09:03)
[2021-06-05] MEDS: SPIRONOLACTONE 25 MG TAB PO SCH (09:03)
[2021-06-05] MEDS: ATORVASTATIN 20 MG TAB PO SCH (09:03)
[2021-06-05] MEDS: CYANOCOBALAMIN (VITAMIN B-12) 100 MCG TABLET PO SCH (09:03)
[2021-06-05] MEDS: LOSARTAN POTASSIUM 50 MG TAB PO SCH (09:04)
[2021-06-05] MEDS: FERROUS SULFATE 325 MG TAB PO SCH (09:04)
[2021-06-05] MEDS: TOCOPHERYL, DL-ALPHA 400 UNITS 180 MG CAP PO SCH (09:04)
[2021-06-05] MEDS: TAMSULOSIN HCL 0.4 MG CAP PO SCH (09:04)
[2021-06-05] MEDS: INSULIN ASPART 100 UNITS/ML 3 ML PEN SC SCH ×2 (09:05→12:11)
[2021-06-05] MEDS: APIXABAN 2.5 MG TAB PO SCH (09:06)
[2021-06-05 09:24] LABS: BUN Creatinine Ratio 20.1 (10-20); Calcium 8.9 mg/dl (8.5-10.1); Creatinine Clr Calc Pharmacy 47.9 ml/min; Est GFR (African American) 46.2 ml/min; Est GFR (Non-African American) 39.9 ml/min; Potassium 3.5 mmol/L (3.5-5.1)
--- NOTE | 2021-06-05 09:59 | Cardiology Progress Note ---
Date of Service June 05, 2021 Assessment & Plan (1) Acute on chronic respiratory failure with hypoxia: Plan: 85-year-old male being cared for decompensated respiratory failure/diastolic heart failure. Patient clinically improved today. Brisk diuresis again yesterday Plan: Continue increased dose of furosemide 60 mg p.o. twice daily Single additional dose of potassium this morning Overall appears stable for discharge CHF nursing instructions Would recommend resuming Eliquis at reduced dose 2.5 mg twice per day given age and renal dysfunction Patient has scheduled follow-ups with her [facility] at home Cardiology 1 month (2) Acute on chronic diastolic heart failure: (3) Atrial fibrillation: Plan: Chronic persistent with underlying paced rhythm Admission and Anticipated Discharge Date Admission Date: June 01, 2021 Subjective Patient was seen and examined, chart, medications, telemetry reviewed. Once again good diuresis yesterday. Using oxygen and CPAP as directed. Overall feels well has been ambulatory in room with improved exercise tolerance. Review of Systems Review of Systems: All systems reviewed & are unremarkable except as noted in Subjective Physical Exam Constitutional: WD/WN, vitals as above + obese; no acute distress ENMT: external ear and nose normal, oropharynx normal Neck: trachea midline, no thyromegaly Respiratory: Auscultation: + diminished lung sounds Cardiovascular: Rate/Rhythm: regular rate (Ventricular paced) Heart Sounds: normal S1 and normal S2; no gallop and no murmur Palpation: normal PMI Vessels: normal carotid upstroke and radial pulses present; no JVD and no carotid bruit Extremities: + edema (1+) Gastrointestinal (Abdomen): normal bowel sounds, soft, nontender, no hepatosplenomegaly Musculoskeletal: no cyanosis or clubbing, extremities motor strength 5/5 Skin: no rashes, warm and dry Neurologic: PERRL, EOMI, accommodation nl, no face palsy, no dysarthria Psychiatric: A+Ox3, euthymic affect Results & Data ([facility]) Vital Signs (Past 12 Hours) Vital Signs Temp Pulse Pulse Resp BP BP Pulse Ox 06/05/21 07:15 36.5 C 64 19 114/70 97 06/05/21 04:35 36.7 C 60 16 115/60 94 06/05/21 00:26 60 06/05/21 00:21 36.9 C 66 22 118/36 L 97 Diagnostic Findings Laboratory Results - last 24 hr 06/02/21 06/04/21 06/04/21 14:00 11:24 16:07 Sodium Potassium Chloride Carbon Dioxide Anion Gap BUN Creatinine Est Cr Clr Drug Dosing Est GFR ( Amer) Est GFR (Non-Af Amer) BUN/Creatinine Ratio Glucose POC Glucose 161 H 127 H Calcium Urine Legionella Ag SEE NOTE 06/04/21 06/05/21 06/05/21 21:06 07:13 08:23 Sodium 139 Potassium 3.5 Chloride 107 Carbon Dioxide 25 Anion Gap 7.0 BUN 32 H Creatinine 1.57 H Est Cr Clr Drug Dosing 47.9 Est GFR ( Amer) 46.2 Est GFR (Non-Af Amer) 39.9 BUN/Creatinine Ratio 20.1 H Glucose 152 H POC Glucose 123 H 133 H Calcium 8.9 Urine Legionella Ag (1) Atrial fibrillation Atrial fibrillation type: paroxysmal Qualified Code(s): I48.0 - Paroxysmal atrial fibrillation
[2021-06-05] MEDS ORDERED: POTASSIUM CHLORIDE CRTAB 20 MEQ TABCR PO ONE (10:15)
--- NOTE | 2021-06-05 11:42 | Pharmacy Report ---
Pharmacy Glycemic Short Note 2 - Date of Service June 05, 2021 - Glycemic Short BSG Results (Last 24 hours): 06/04/21 06/04/21 06/05/21 16:07 21:06 07:13 Glucose POC Glucose 127 H 123 H 133 H 06/05/21 06/05/21 08:23 11:15 Glucose 152 H POC Glucose 122 H OUTPATIENT ANTIDIABETIC REGIMEN: * Lantus 70 units SQ BID * Semaglutide 0.5mg SQ weekly * Metformin 1gm BID * A1c = 6.5% 06/02/21 ASSESSMENT: 06/05 * Well controlled BSGs 109-161 mg/dL * Fasting at goal but trending up, slight increase in lantus this morning (~12.5%) with scale for PM (40/45) * Continue current novolog parameters 06/04 * BSGs continue to be controlled * 124 units of insulin over last 24 hours with diet * Fasting this AM in goal range, will continue current basal * No change to novolog parameters 06/03 * BSGs well controlled over last 24 hrs * 143 units SQ insulin admin over last 24 hours while tolerating a diet. * Fasting BSG 100 this AM w/ 100 units basal on board - will reduce dose 20% as a precaution * Post-prandial BSGs well controlled with current Novolog CF and CR - no change 06/02 * Well controlled type 2 diabetic admitted for acute on chronic resp failure likely secondary to ADHF +/- pneumonia * Reviewed prior admission 11/2020 and will utilize a regimen that is similar to that used during that admission * Estimate patient's total daily insulin needs to be ~140 units/day while tolerating a diet * Of note, patient's prandial needs may be lesser than prior admission due to recent receipt of semaglutide on 05/31 PLAN FOR INPATIENT GLYCEMIC CONTROL: * Hold outpatient oral diabetes medications * Basal insulin - * Lantus 45 units this AM, scale 40/45 units PM * Bolus insulin - no change * NovoLog per scale ACHS or Q6hrs while NPO * Goal Range: Low 110 mg/dL - High 140 mg/dL * Correction Factor: 12 mg/dL/unit * Nutritional / Prandial insulin per carb ratio of 1 unit per 4 grams CHO consumed PLAN FOR DISCHARGE: * may resume outpt regimen if not experiencing frequent hypoglycemia, A1c in goal range
--- NOTE | 2021-06-05 11:57 | Discharge Summary ---
Date of Service June 05, 2021 Admission HPI Per Admitting Provider This is an 85yo M with a PMH of chronic diastolic heart failure (EF 55%, TTE 2019), SSS s/p pacemaker, paroxysmal A Fib on Eliquis, chronic respiratory failure 2/2 possible ILD and pulmonary hypertension on 2L home O2 PRN, JUVE on CPAP, HTN,DM II, CKD III, cirrhosis as per records, chronic anemia (baseline hemoglobin 11), chronic thrombocytopenia and other medical problems listed below who presents with SOB and blood-tinged sputum since this morning. Patient has been feeling more short of breath over the past few days, prompting him to use 2 to 3 L nasal cannula oxygen continuously rather than as needed baseline. Also feeling significantly more generally weak even with ambulation around his home. Developed blood tinged sputum this morning, coughing up 1/4 teaspoon amounts of sputum at a time that is clear but streaked with bright red blood. States he has been admitted for something similar multiple times in the past, most recently in November 2020. Presentation usually mixed decompensated heart failure requiring IV diuresis as well as hemoptysis in setting of viral pneumonitis/atypical pneumonia. Back in 2019, patient was transferred to [facility] due to bronchoscopy revealing erythematous bronchial mucosa with blood- tinged saline lavage. Patient improved with antibiotics and diuresis. During admission, cardiology recommended that Eliquis dose be decreased to 2.5 mg twice daily eventually - was held at discharge and then eventually resumed in outpatient setting to 5mg BID. Patient endoring approximate 50 pound weight gain in past 6-7 months. Is taking medications as scheduled. Endorses chills, nasal congestion, SOB, generalized weakness and pleuritic chest pain. Denies fever, lightheadedness, headache or wheezing. No palpitations, orthopnea, PND or BLE edema. No nausea, vomiting, abdominal pain, dysuria, diarrhea or constipation. Admission Exam Per Admitting Provider Minimal distress at rest Afebrile and hemodynamically stable Chestdecreased breath sounds with minimal crackles at the bases, more on the right than the left HeartS1-S2, irregular Abdomendistended, soft, bowel sounds present Extremities1+ edema bilaterally CNSalert, awake and oriented x3. 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: (12) JUVE (obstructive sleep apnea): (13) Morbid obesity: Discharge Exam General- No acute distress Head- atraumatic Eyes- PERRL, EOMI, ENT- oropharynx clear Neck- supple, no JVD Lungs- +decrease breath sound Heart- regular rhythm; no murmur Abdomen- normal bowel sounds, soft, nontender Extremities- no calf tenderness Neuro- alert, oriented x 3; PERRL, EOMI; no facial palsy; no dysarthria Skin- warm & dry Discharge Data Allergies Allergy/AdvReac Type Severity Reaction Status Date / Time Penicillins Allergy Intermediate RASH AND Verified 06/01/21 15:20 WELTS Consultations 06/01/21 17:33 ED Decision to Admit Stat 06/01/21 18:35 Consult Cardiology Routine Consult Pulmonology Routine Ordered Studies 06/01/21 16:19 CT chest diagnostic wo con Stat XR chest 1V portable HISTORY: 85 years-old Male f/u follow-up study in a patient with acute shortness of breath and bilateral pulmonary opacities COMPARISON: Chest CT and chest radiograph study 06/01/2021 TECHNIQUE: Portable AP view of the chest FINDINGS: Cardiac silhouette is enlarged. Left subclavian pacer. Trace pleural effusions. Patchy right greater than left bilateral pulmonary opacities are redemonstrated and appear generally unchanged from comparison. Pulmonary vascular congestion. No pneumothorax. Degenerative changes of the shoulders and spine. IMPRESSION: 1. Cardiomegaly with pulmonary vascular congestion and trace pleural effusions. 2. Patchy right greater than left bilateral pulmonary opacities are redemonstrated suggestive of asymmetric pulmonary edema versus superimposed pneumonia. Follow-up recommended. ACT 112: Negative or not required by law. The above report was generated using voice recognition software. It may contain grammatical, syntax or spelling errors. Electronically signed by: David Cui M.D. 06/03/2021 7:16 AM Dictated: 06/03/21713Transcribed: 06/03/21713 CT chest diagnostic wo con CT DOSE: 1268.59 mGy.cm CLINICAL HISTORY: 85 years-old Male with sob. Acute shortness of breath TECHNIQUE: Multiaxial CT images of the chest were performed without contrast. A dose lowering technique was utilized adhering to the principles of ALARA. COMPARISON: Chest CT 11/09/2020 FINDINGS: Unremarkable thyroid. Left subclavian pacer. Moderate cardiomegaly with extensive coronary artery calcifications. Mild fusiform dilation of the ascending thoracic aorta measuring 4.1 x 4.1 cm is unchanged. Mildly enlarged mediastinal lymph nodes include unchanged 1.5 cm right paratracheal lymph node on image 108. A 1.5 cm pretracheal lymph node on image 110. Small layering pleural effusions. No pneumothorax. Scattered calcified granulomata. Intralobular septal thickening is noted with multilobar bilateral intermixed centrilobular groundglass opacities within the right greater than left lungs. Subpleural reticular densities are also noted. Mild right hemidiaphragmatic elevation. The central airways are patent. No acute process of the imaged upper abdomen. Cholelithiasis. Marginal nodularity of the liver compatible with cirrhosis. No ascites. 9 mm hypodense lesion of the right hepatic lobe, possibly a cyst. Degenerative changes of the spine and shoulders. IMPRESSION: 1. Cardiomegaly with interstitial pulmonary edema and small pleural effusions. 2. Right greater than left multilobar distribution of centrilobular groundglass opacities are suggestive of alveolar pulmonary edema versus superimposed pneumonia. 3. Unchanged mild mediastinal adenopathy. 4. Cirrhosis. ACT 112: Negative or not required by law. Electronically signed by: David Cui M.D. 06/01/2021 4:56 PM Dictated: 06/01/211648Transcribed: 06/01/211648 XR chest 1V portable CLINICAL HISTORY: SOB COMPARISON STUDY: November 13, 2020 FINDINGS: No pneumothorax. No pleural effusion. Lung volumes are decreased with crowded lung markings. Bronchograms are seen at the left retrocardiac region which could represent atelectasis or scarring and appears similar to prior study. Mild reticular nodular prominence of pulmonary interstitium is seen within left upper lung and the right upper and lower lungs and could represent scattered atelectasis of pulmonary edema. Cardiomediastinal silhouette is prominent. Pulmonary vasculature is indistinct.. Osseous structures: Degenerative changes of the spine. Degenerative changes of bilateral shoulders. Stable position of left-sided dual-lead pacemaker with battery pack seen within left axilla. IMPRESSION: 1. Mild reticular prominence of pulmonary interstitium which could be in part due to low lung volumes and could also represent pulmonary edema. 2. Redemonstration of prominent cardiomediastinal silhouette. 3. No pleural effusion seen. 4. The rest of findings as above. ACT 112: Negative or not required by law. The above report was generated using voice recognition software. It may contain grammatical, syntax or spelling errors. Electronically signed by: Rayna Pressley DO 06/01/2021 4:05 PM Dictated: 06/01/211601Transcribed: 06/01/211601 Hospital Course (1) Acute on chronic respiratory failure with hypoxia: (2) SOB (shortness of breath): Present on admission with SOB and blood-tinged sputum since this morning. Likely multifactorial in setting of decompensated heart failure, hemoptysis in setting of possible pneumonia with history of interstitial lung disease CXR showed mild reticular prominence of pulmonary interstitium which could be in part due to low lung volumes and could also represent pulmonary edema. CT chest with interstitial pulmonary edema and small pleural effusions, R>L multilobar distribution of centrilobular ground glass opacities are suggestive of alveolar pulmonary edema versus superimposed pneumonia Covid PCR negative. Patient vaccinated MRSA swab positive blood culture no growth Was starting on empiric Cefepime, then abx was changed to doxycycline. MRSA swab pending. Follow blood cultures Pulmonary on board Continue with aggressive diuretics to keep the patient negative balance BiPAP nightly and as needed shortness of breath Continue supplemental O2 cardiology on board (3) Hemoptysis: Productive cough with blood tinged sputum x 1 day Similar to presentations of PNA in the past in setting of viral/atypical PNA Followed by pulm on previous admissions - bronchoscopy in March 2020 revealing erythematous bronchial mucosa with blood-tinged saline lavage, [place] [facility] [place] to hold Eliquis and schedule cough suppressants round the clock for now CT chest with interstitial pulmonary edema and small pleural effusions, R>L multilobar distribution of centrilobular ground glass opacities are suggestive of alveolar pulmonary edema versus superimposed pneumonia Covid PCR negative. Patient vaccinated MRSA swab positive blood culture no growth Continue to hold Eliquis (4) Acute on chronic diastolic heart failure: Endorsing 50 pound weight gain over the past 6 months Multiple admissions in the past with decompensated CHF requiring IV diuresis Most recent echo from January 2020 with preserved EF of 55% Given 40 mg IV Lasix in ED. Plan to give additional dose of 40 mg IV in a.m. Cardiology consult placed Low-sodium diet, strict I&Os, daily weights Aggressive diuresis with Lasix 40 mg intravenously twice daily for now Echo of the heart showed-normal LV size, moderate concentric LVH, apical wall motion abnormality may reflect pacemaker activation, EF of 55 to 60%, aortic valve sclerosis moderate without any severe aortic stenosis, mild to moderate MR and moderate TR Has been diuresing enough with negative balance so far We will continue current dose of Lasix (5) Lactic acidosis: Lactate initially 3.4 but now 2 Likely elevated in setting of home nebs, metformin (6) Generalized weakness: In setting of decompensated HF, infection, weight gain Fall precautions, PT/OT evaluation, discharge planning Likely discharge in a day or 2 (7) Atrial fibrillation: Continue Toprol Holding anticoagulation for now in setting of hemoptysis Consider reducing Eliquis dose in intermediate frame tender We will restart Eliquis at a lower dose as per cardiology (8) DM type 2 (diabetes mellitus, type 2): A1c 8.3 in January 2021 Hold home agents Glycemic consult placed BSG AC HS (9) HTN (hypertension): Continue Toprol, Losartan, amlodipine (10) Thrombocytopenia: Plt 103 (lower end of baseline). 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 Working with RD in outpatient setting CKD stage 3 Creatinine stable Continue monitor BMP while on Lasix DVT Ppx: Holding Eliquis in setting of hemoptysis Code status: FULL PCP: Geri Dispo: Admitted to PCU. 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 Nevarez on 06/11/2021 at 11:00 AM at [facility] Follow up with cardiology in 1 month (please call to schedule for the appointment) Follow up with pulmonology (Please call to schedule for the appointment) Check BMP in 1 week to monitor your electrolytes and renal function since Furosemide increased to 60mg twice a day Continue BiPAP nightly and as needed shortness of breath Continue Oxygen supplementation with 2 liter Fall precaution Eliquis decreased to 2.5 mg twice a day CHF Discharge Instructions Call your Primary Care doctor if any of the following symptoms or problems start or get worse: Shortness of breath or difficulty breathing Wake up at night short of breath Chest pain Cough Swelling of your hands, feet, or legs More fatigued or tired with your normal activity Palpitations - sudden fast heart beats WEIGHT Weigh yourself every morning after using the bathroom. Use the same scale. Wear the same amount of clothing. Write your weight down on a chart. Call your Primary Care doctor if you gain more than 2-3 pounds in 1-2 days. MEDICATIONS Use this discharge instruction sheet for medication instructions. Take your medications at the time your doctor ordered. Do not skip a dose of your medicines. If you miss a dose of medicine, take it as soon as possible, but DO NOT DOUBLE A DOSE. Read your medicine information when you get home. Know all of the side effects of your medicine. If in doubt, ask your pharmacist Call your Primary Care doctor's office if you have any side effects. Be sure all of your doctors know what medicine and herbs you take (including cold, flu, and herbal medicine). Take the following with you to your follow-up doctor appointments: Weight Chart Medication List List of questions Do not drink excessive alcohol, beer or wine. Pending Studies at Discharge: Yes Stand-Alone Forms: [facility] Street[facility]Layout[facility], Smoking Cessation Medications and DC Order Prescriptions: New Eliquis 2.5 mg tablet 2.5 mg PO BID Qty: 60 RF: 0 benzonatate [Tessalon Perles] 100 mg Capsule 100 mg PO TID PRN (Reason: cough) Qty: 30 RF: 0 Continued ipratropium-albuterol 0.5 mg-3 mg(2.5 mg base)/3 mL solution for nebulization 3 ml INHALATION Q6H PRN (Reason: Cough or Wheezing) RF: 0 metoprolol succinate 50 mg tablet extended release 24 hr 50 mg PO QAM RF: 0 amlodipine 5 mg tablet 2.5 mg PO QPM RF: 0 spironolactone [Aldactone] 25 mg tablet 25 mg PO QAM RF: 0 vitamin E 400 unit Capsule 400 unit PO QAM RF: 0 ascorbic acid (vitamin C) [Vitamin C] 1,000 mg Tablet 1,000 mg PO QAM RF: 0 atorvastatin 20 mg Tablet 20 mg PO QAM RF: 0 albuterol sulfate [Ventolin HFA] 90 mcg/actuation Hfa Aerosol Inhaler 2 - 4 puff INHALATION Q6H PRN (Reason: Shortness Of Breath Or Wheezing) RF: 0 hydrocodone-acetaminophen 5-300 mg Tablet 1 tab PO Q6H PRN (Reason: Pain) RF: 0 Lantus U-100 Insulin 100 unit/mL solution 70 unit SUBCUT BID RF: 0 levothyroxine 50 mcg tablet 50 mcg PO DAILY RF: 0 Ozempic 0.25 mg or 0.5 mg(2 mg/1.5 mL) pen injector 0.5 mg SUBCUT WK RF: 0 tamsulosin 0.4 mg capsule 0.4 mg PO DAILY RF: 0 metformin 500 mg tablet 1,000 mg PO BID RF: 0 losartan 50 mg tablet 50 mg PO BID RF: 0 cyanocobalamin (vitamin B-12) 100 mcg Tablet 100 mcg PO DAILY RF: 0 ferrous sulfate 325 mg (65 mg iron) Tablet 325 mg PO DAILY RF: 0 Changed furosemide 40 mg tablet 60 mg PO BID 30 Days Qty: 90 RF: 0 Discontinued Eliquis 5 mg tablet 5 mg PO BID RF: 0 Discharge Orders: Discharge Order (Routine); Ordered 06/05/21 Ordered By: Dave Liang/Other Patient Handouts: Heart Failure Meds, Heart Failure Signs of Flare-Up, Heart Failure: Tracking Your Weight, Heart Failure: Being Active, Coping with Heart Failure, Heart Failure Making Changes to ... Admission Data Admit Date/Time: 06/01/21 17:49 Attending Provider: Dave Modi Admit Provider: Katharina Onofre Primary Care Provider: Akhil Nevarez Other Providers: Katharina Onofre ; Kain Castillo ; Kylee Prieto Other Interventions: Discharge Summary Assessment (RN) Last Done: 06/05/21 13:26
== END 2021-06-05 14:18 | disposition home or self-care (01) | DRG 291 ==
LOC: ED 14:56 → SUATTDRO 17:49 → 2E 17:49
DX: Z99.81 Dependence on supplemental oxygen; R04.2 Hemoptysis; E11.22 Type 2 diabetes mellitus with diabetic chronic kidney disease; Z87.891 Personal history of nicotine dependence; R04.89 Hemorrhage from other sites in respiratory passages; I50.33 Acute on chronic diastolic (congestive) heart failure; I48.19 Other persistent atrial fibrillation; Z79.899 Other long term (current) drug therapy; Z79.890 Hormone replacement therapy; E87.2 Acidosis; Z79.01 Long term (current) use of anticoagulants; Z87.01 Personal history of pneumonia (recurrent); J18.9 Pneumonia, unspecified organism; D69.6 Thrombocytopenia, unspecified; I13.0 Hypertensive heart and chronic kidney disease with heart failure and stage 1 through stage 4 chronic kidney disease, or unspecified chronic kidney disease; Z79.4 Long term (current) use of insulin; E78.5 Hyperlipidemia, unspecified; J84.9 Interstitial pulmonary disease, unspecified; Z91.81 History of falling; Z68.42 Body mass index [BMI] 45.0-49.9, adult; Z95.0 Presence of cardiac pacemaker; Z88.0 Allergy status to penicillin; I27.20 Pulmonary hypertension, unspecified; R84.5 Abnormal microbiological findings in specimens from respiratory organs and thorax; N18.30 Chronic kidney disease, stage 3 unspecified; Z83.3 Family history of diabetes mellitus; J45.909 Unspecified asthma, uncomplicated; G47.33 Obstructive sleep apnea (adult) (pediatric); J96.01 Acute respiratory failure with hypoxia; I49.5 Sick sinus syndrome; E66.01 Morbid (severe) obesity due to excess calories; Z20.822 Contact with and (suspected) exposure to COVID-19; E06.3 Autoimmune thyroiditis